=== PATIENT | male | born 1940 | race Caucasian/White ===

== ENCOUNTER 2016-07-16 19:05 | Inpatient (IN) | payer OTHER, MEDICARE ==
[2016-07-16 20:09] LABS: % IMMATURE GRANULYOCYTES 0.7 % (0.0-1.1); ABSOLUTE IMMATURE GRANULOCYTES 0.06 10^3/uL (0.00-0.10); ADD DIFF? NO; ADD MORPH? NO; ADD SCAN? NO; ATYPICAL LYMPHOCYTE FLAG 0 (0-99); FRAGMENT RBC FLAG 0 (0-99); HEMATOCRIT 37.3 % (40.0-51.0); HEMOGLOBIN 11.9 g/dL (13.7-17.5); LEFT SHIFT FLG 0 (0-99); LIPEMIA HEMOLYSIS FLAG 80 (0-99); MEAN CELL HEMOGLOBIN 30.2 pg (27.9-34.1); MEAN CELL HEMOGLOBIN CONCENTR. 31.9 g/dL (32.4-36.7); MEAN CELL VOLUME 94.7 fL (81.5-99.8); MEAN PLATELET VOLUME 9.6 fL (8.7-11.7); PLATELET CLUMPS FLAG 10 (0-99); PLATELET COUNT 226 10^3/uL (150-400); RED BLOOD CELL COUNT 3.94 10^6/uL (4.40-6.38); RED CELL DISTRIBUTION WIDTH 14.8 % (11.5-15.2)
--- NOTE | 2016-07-16 20:14 | CPEKG ---
Heart Rate: 87 RR Interval: 690 P-R Interval: 216 QRSD Interval: 94 QT Interval: 376 QTC Interval: 453 P [place]: -61 QRS [place]: -37 T Wave [place]: 74 EKG Severity - ABNORMAL ECG - EKG Impression: SINUS RHYTHM EKG Impression: LEFT AXIS DEVIATION EKG Impression: Diffuse T-wave abnormalities-- New since August 14, 2012 EKG Impression: Poor R-wave progression Electronically Signed By: Walker Butts 17-Jul-2016 17:55:53
[2016-07-16 20:17] LABS: ANION GAP 12 mEq/L (8-16); CARBON DIOXIDE 29 mEq/l (22-31); CHLORIDE 98 mEq/L (97-110); CREATININE 2.2 mg/dL (0.7-1.3); GLOMERULAR FILTRATION RATE 29; GLUCOSE 183 mg/dL (70-100); POTASSIUM 4.5 mEq/L (3.5-5.2); SODIUM 139 mEq/L (134-144)
--- NOTE | 2016-07-16 20:32 | PDGENHP ---
History and Physical - Chief Complaint Worsening leg swelling - History of Present Illness this is a 76-year-old male with history of longstanding lymphedema presented to the emergency department today with worsening swelling and irritation of his skin. States he had blisters that burst on his right heel and calf 5 days ago. Over the past day had increased skin irritation and sloughing as well as development of open wound over his right foot. He denies any increase redness to his legs. Denies any fevers or chills. 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 He was started on Lasix 3 days ago which has not really helped. He has not been able to use his compression stockings or lymphedema treatment machine for the past few days due to his irritated skin a and open sores. He denies any chest pain. Denies any worsening shortness of breath or dyspnea on exertion. He does have orthopnea. He denies any changes to his diet or increased salt intake. History Information - Allergies/Home Medication List Allergies/Adverse Reactions: amoxicillin [Amoxicillin] Allergy (Verified 07/16/16 19:26) Rash amoxicillin trihydrate [From Augmentin] Allergy (Verified 07/16/16 19:26) Rash clindamycin Allergy (Verified 07/16/16 19:26) sores in mouth cyclobenzaprine HCl [From Flexeril] Allergy (Verified 07/16/16 19:26) donepezil HCl [From Aricept] Allergy (Verified 07/16/16 19:26) fentanyl Allergy (Verified 07/16/16 19:26) confused methotrexate Allergy (Verified 07/16/16 19:26) potassium clavulanate [From Augmentin] Allergy (Verified 07/16/16 19:26) Rash Sulfa (Sulfonamide Antibiotics) Allergy (Verified 07/16/16 19:26) sores in the mouth triazolam [From Halcion] Allergy (Verified 07/16/16 19:26) Home Medications: Aspirin [Aspirin 81mg (OTC)] 81 mg PO DAILY 08/13/12 [Last Taken 10/23/12] Carvedilol [Coreg (RX)] 6.25 mg PO BIDMEAL 08/13/12 [Last Taken 11/04/12 05:30] Cholecalciferol Vit D3 [Vitamin D3 1000 units (OTC)] 1,000 units PO Q2D [Last Taken 11/03/12] Ferrous Sulfate [Iron] 325 mg PO DAILY 08/13/12 [Last Taken Unknown] Folic Acid 0.4 mg PO DAILY 08/13/12 [Last Taken 11/03/12 14:00] Insulin Glargine [Lantus 100 UNITS/ML (RX)] 10 units SC DAILY 08/13/12 [Last Taken 11/03/12 08:00] Lovastatin [Mevacor] 20 mg PO HS 08/13/12 [Last Taken 11/03/12 20:30] Omeprazole [Prilosec 40 mg] 40 mg PO DAILY 08/13/12 [Last Taken 11/04/12 05:00] Oxycodone HCl/Acetaminophen [Percocet 10-325 mg Tablet] 1 each PO QID PRN [Last Taken 11/03/12 20:30] Warfarin Sodium [Coumadin 2.5MG (RX)] 2.5 mg PO DAILY16 08/13/12 [Last Taken 08/02] Trivita B12/B6/Folic Acid 2 cap SL DAILY 10/30/12 [Last Taken 11/03/12 14:00] Gabapentin [Gabapentin 800 mg] 800 mg PO TID 07/16/16 [Last Taken 07/16/16 12:00 ] Herbals/Supplements -Info Only 1 ea PO DAILY 07/16/16 [Last Taken 07/16/16 12:00 ] I have personally reviewed and updated: family history, medical history, social history, surgical history - Past Medical History Additional medical history: Hospitalization in April of [address] [facility] for a non ST segment elevation [place], chronic kidney disease with baseline creatinine in 1.5-1.8, Atrial fibrillation status post ablation, diabetes mellitus 2, DVT, kidney stones, lymphedema, rheumatoid arthritis, sleep apnea, urinary tract infections, chronic fatigue , normal pressure hydrocephalus with urinary incontinence - Surgical History Additional surgical history: laminectomy, left eye surgery, right knee arthroscopy, bilateral cataract surgery, cardiac catheterization in 2004, right shoulder surgery 2013, malignant melanoma excision, congestive heart failure unknown ejection fraction - Social History Smoking Status: Never smoked Alcohol Use: None Drug Use: None Review of Systems ROS: 10pt was reviewed & negative except for what was stated in HPI & below Physical Exam Temp Pulse Resp BP Pulse Ox 36.8 C 87 18 127/70 H 94 07/16/16 19:18 07/16/16 19:18 07/16/16 19:18 07/16/16 19:18 07/16/16 19:18 Constitutional: no apparent distress, appears nourished, not in pain Ears, Nose, Mouth, Throat: moist mucous membranes, hearing normal, ears appear normal, no oral mucosal ulcers Cardiovascular: regular rate and rhythym, no murmur, rub, or gallop, edema ( severe bilateral lower extremity), No JVD Respiratory: no respiratory distress, no rales or rhonchi, clear to auscultation Gastrointestinal: normoactive bowel sounds, soft, non-tender abdomen, no palpable masses, No guarding, No rebound Genitourinary: no bladder fullness, no bladder tenderness Skin: warm, pressure ulcer ( sacrum), other ( 10 x 10 cm open sore over the right dorsal foot without PERRLA discharge, redness, or warmth; sore over his right proximal calf) Musculoskeletal: full muscle strength, no muscle tenderness, normal joint ROM, no joint effusions Neurologic: AAOx3, CN II-XII Intact, No facial droop Psychiatric: interacting appropriately, not anxious, not encephalopathic, thought process linear Lab Data & Imaging Review 07/16/16 19:47 07/16/16 19:47 WBC 8.13 10^3/uL (3.80-9.50) 07/16/16 19:47 RBC 3.94 10^6/uL (4.40-6.38) L 07/16/16 19:47 Hgb 11.9 g/dL (13.7-17.5) L 07/16/16 19:47 Hct 37.3 % (40.0-51.0) L 07/16/16 19:47 MCV 94.7 fL (81.5-99.8) 07/16/16 19:47 MCH 30.2 pg (27.9-34.1) 07/16/16 19:47 MCHC 31.9 g/dL (32.4-36.7) L 07/16/16 19:47 RDW 14.8 % (11.5-15.2) 07/16/16 19:47 Plt Count 226 10^3/uL (150-400) 07/16/16 19:47 MPV 9.6 fL (8.7-11.7) 07/16/16 19:47 Neut % (Auto) 67.8 % (39.3-74.2) 07/16/16 19:47 Lymph % (Auto) 14.0 % (15.0-45.0) L 07/16/16 19:47 [place] % (Auto) 12.8 % (4.5-13.0) 07/16/16 19:47 Eos % (Auto) 3.7 % (0.6-7.6) 07/16/16 19:47 Baso % (Auto) 1.0 % (0.3-1.7) 07/16/16 19:47 Nucleat RBC Rel Count 0.0 % (0.0-0.2) 07/16/16 19:47 Absolute Neuts (auto) 5.51 10^3/uL (1.70-6.50) 07/16/16 19:47 Absolute Lymphs (auto) 1.14 10^3/uL (1.00-3.00) 07/16/16 19:47 Absolute Monos (auto) 1.04 10^3/uL (0.30-0.80) H 07/16/16 19:47 Absolute Eos (auto) 0.30 10^3/uL (0.03-0.40) 07/16/16 19:47 Absolute Basos (auto) 0.08 10^3/uL (0.02-0.10) 07/16/16 19:47 Absolute Nucleated RBC 0.00 10^3/uL (0-0.01) 07/16/16 19:47 Immature Gran % 0.7 % (0.0-1.1) 07/16/16 19:47 Immature Gran # 0.06 10^3/uL (0.00-0.10) 07/16/16 19:47 Sodium 139 mEq/L (134-144) 07/16/16 19:47 Potassium 4.5 mEq/L (3.5-5.2) 07/16/16 19:47 Chloride 98 mEq/L (97-110) 07/16/16 19:47 Carbon Dioxide 29 mEq/l (22-31) 07/16/16 19:47 Anion Gap 12 mEq/L (8-16) 07/16/16 19:47 BUN 38 mg/dL (7-23) H 07/16/16 19:47 Creatinine 2.2 mg/dL (0.7-1.3) H 07/16/16 19:47 Estimated GFR 29 07/16/16 19:47 Glucose 183 mg/dL (70-100) H 07/16/16 19:47 Calcium 9.0 mg/dL (8.5-10.4) 07/16/16 19:47 Visualized and Interpreted EKG results: Yes EKG Interpretation: Positive for: normal sinsus rhythm ( 86 beats per minute), other ( left axis deviation). Negative for: Q waves, ST elevation, ST depression Assessment & Plan Assessment: This is a 76 y/o male with history of multiple medical problems presenting with #acute on chronic lower extremity edema with new open wounds over right dorsal foot and calf (present on admission) without overt signs of cellulitis -wound care consult -will defer starting antibiotics in the absence of fever, purulent discharge, significant erythema, or leukocytosis # acute kidney injury with history of CKD - hold Lasix - renal ultrasound given history of incontinence to evaluate for hydronephrosis - will order urine sodium and creatinine to calculate a FENA to further evaluate # history of congestive heart failure - obtain chest x-ray and BNP to evaluate for exacerbation which could possibly be contributing to his worsening lower extremity edema - may be helpful to consult his machinist mate in the morning Dr. Adriano Armstrong in order to obtain his most recent echo report # history of type 2 diabetes mellitus - monitor blood sugars a.c. and HS and continue his home insulin regime # history of normal pressure hydrocephalus # history of rheumatoid arthritis # history of coronary artery disease with recent NSTEMI patient will be admitted to the hospital under inpatient status. He requests to be full code
--- NOTE | 2016-07-16 20:41 | EDPHY ---
H & P Time Seen by Provider: 07/16/16 19:28 HPI/ROS: CHIEF COMPLAINT: Cellulitis right lower extremity, lymphedema HISTORY OF PRESENT ILLNESS: 76-year-old male presents to the emergency department by private vehicle with his with concerns of cellulitis to her right lower extremity. The patient has multiple medical problems including type 2 diabetes on insulin and chronic lymphedema. The patient was recently started on Lasix 40 mg and has been taking this daily for the last few days however today the was concerned because his lower legs were weeping and she is concerned about possible infection. He saw his primary care provider today and was sent to the emergency department for evaluation. No fevers or chills. The patient has neuropathy in his lower extremities since he does not report pain associated with the lower extremities. Lives independently with his in [place] who is his caregiver. He denies chest pain or difficulty breathing. He has chronic low back pain. Denies abdominal pain. Denies any reported trauma. Typically ambulates using a walker or wheelchair although he states he is unable to ambulate now because of the lymphedema. REVIEW OF SYSTEMS: Constitutional: No fever, no chills. Eyes: No double or blurry vision. ENT: No sore throat. Respiratory: No cough, no shortness of breath. Cardiac: No chest pain. Gastrointestinal: No abdominal pain, vomiting or diarrhea. Genitourinary: No dysuria. Musculoskeletal: No neck or back pain. Skin: Lymphedema as described above. Weeping bulla from the legs. Neurological: No headache. Past Medical/Surgical History: Chronic lymphedema lower extremities, type 2 diabetes on insulin, DVT right lower extremity, Malignant melanoma right shoulder, CHF, myocardial infarction April 2016, orthopedic surgeries, laminectomy and spinal fusion, eye surgery, heart of lesion July 2012, GERD Social History: and lives with his in [place] Smoking Status: Never smoked Physical Exam: General Appearance: Alert, no distress. 127/70, heart rate 87, temperature 36.8 , 94% on room air Eyes: Pupils equal and round. Extraocular motions are all intact. ENT: Mouth: Mucous membranes moist. Respiratory: No wheezing, rhonchi, or rales, lungs are clear to auscultation. Cardiovascular: Regular rate and rhythm. Gastrointestinal: Abdomen is soft and nontender, no masses, no rebound or guarding, bowel sounds normal. Neurological: Alert and oriented x 3, cranial nerves II through XII grossly intact Skin: Warm and dry, no rashes. Musculoskeletal: Nontender to palpate along the cervical, thoracic or lumbar spine. Neck is supple. Extremities: Severe lymphedema noted in his lower extremities from mid thigh down to the toes. There is multiple bowl and weeping especially to the lateral aspect of the right lower extremity and the lateral aspect of the right foot. It is warm to the touch. Patient has neuropathy and does not report tenderness with palpation. Limited range of motion of the lower extremities. Full range of motion of his upper extremities bilaterally. Psychiatric: Patient is oriented X 3, there is no agitation. Constitutional: Initial Vital Signs Temperature (C) 36.8 C 07/16/16 19:18 Heart Rate 87 07/16/16 19:18 Respiratory Rate 18 07/16/16 19:18 Blood Pressure 127/70 H 07/16/16 19:18 O2 Sat (%) 94 07/16/16 19:18 O2 Delivery Mode Room Air Allergies/Adverse Reactions: amoxicillin [Amoxicillin] Allergy (Verified 07/16/16 19:26) Rash amoxicillin trihydrate [From Augmentin] Allergy (Verified 07/16/16 19:26) Rash clindamycin Allergy (Verified 07/16/16 19:26) sores in mouth cyclobenzaprine HCl [From Flexeril] Allergy (Verified 07/16/16 19:26) donepezil HCl [From Aricept] Allergy (Verified 07/16/16 19:26) fentanyl Allergy (Verified 07/16/16 19:26) confused methotrexate Allergy (Verified 07/16/16 19:26) potassium clavulanate [From Augmentin] Allergy (Verified 07/16/16 19:26) Rash Sulfa (Sulfonamide Antibiotics) Allergy (Verified 07/16/16 19:26) sores in the mouth triazolam [From Halcion] Allergy (Verified 07/16/16 19:26) Home Medications: Medication Instructions Recorded Aspirin [Aspirin 81mg (OTC)] 81 mg PO HS 08/13/12 Carvedilol [Coreg (RX)] 6.25 mg PO BIDMEAL 08/13/12 Cholecalciferol Vit D3 [Vitamin D3 2,000 units PO Q2D 08/13/12 1000 units (OTC)] Ferrous Sulfate [Iron] 325 mg PO DAILY 08/13/12 Folic Acid 0.6 mg PO DAILY@08/13/12 Insulin Glargine [Lantus 100 30 units SC DAILY 08/13/12 UNITS/ML (RX)] Lovastatin [Mevacor] 20 mg PO HS 08/13/12 Omeprazole [Prilosec 40 mg] 40 mg PO DAILY 08/13/12 Oxycodone HCl/Acetaminophen 1 tab PO TID 08/13/12 [Percocet 10-325 mg Tablet] Warfarin Sodium [Coumadin 2.5MG 2.5 mg PO DAILY@18 08/13/12 (RX)] Trivita B12/B6/Folic Acid 1 cap PO DAILY@10/30/12 Ascorbic Acid [Vitamin C 500 mg 1,000 mg PO DAILY@07/16/16 (*)] B2/Vit A,C & E/Lut/Zeaxanth/Mn 1 tab PO DAILY 07/16/16 [Icaps Tablet] Calcium Citrate W/Vit D [Citracal 1 tab PO BID 07/16/16 + D (OTC)] Docusate Sodium [Colace 100 MG (*)] 100 mg PO DAILY 07/16/16 Docusate Sodium [Colace 100 MG (*)] 200 mg PO BID@07/16/16 Gabapentin [Gabapentin 800 mg] 800 mg PO TID 07/16/16 Herbals/Supplements -Info Only 1 ea PO DAILY 07/16/16 Hydroxychloroquine Sulfate 200 mg PO DAILY 07/16/16 [Plaquenil 200 mg (*)] Insulin Glargine [Lantus 100 40 units SC HS 07/16/16 UNITS/ML (*)] Insulin NPH Human Isophane 24 unit SQ TIDMEAL 07/16/16 [Novolin N] Leflunomide [Arava 20 mg (*)] 20 mg PO DAILY@07/16/16 Lisinopril [Zestril 2.5 mg (*)] 2.5 mg PO DAILY 07/16/16 Magnesium Oxide [Magnesium Oxide 400 mg PO DAILY@07/16/16 400 mg (*)] Multivitamins [Multivitamin (*)] 1 tab PO DAILY@07/16/16 predniSONE 5 mg PO DAILY 07/16/16 Medical Decision Making ED Course/Re-evaluation: 76-year-old male with multiple medical problems including type 2 diabetes with chronic lymphedema presents with likely cellulitis to the right lower extremity. The patient is already taking his Lasix 40 mg daily for last few days without relief. The patient will be admitted to the hospitalist, Dr. Nick Chaparro. Laboratory studies are pending. I do not think x-rays are indicated as the patient does not report any associated trauma. Laboratory studies reveal normal white blood cell count. The patient is chronically anemic. His creatinine is elevated 2.2. BUN is elevated at 38. Differential Diagnosis: Including but not limited to lymphedema, cellulitis, necrotizing fasciitis, compartment syndrome - Data Points Laboratory Results: Laboratory Results 07/16/16 19:47 07/16/16 19:47 07/16/16 07/16/16 19:47 19:47 WBC 8.13 10^3/uL 10^3/uL (3.80-9.50) RBC 3.94 10^6/uL L 10^6/uL (4.40-6.38) Hgb 11.9 g/dL L g/dL (13.7-17.5) Hct 37.3 % L % (40.0-51.0) MCV 94.7 fL fL (81.5-99.8) MCH 30.2 pg pg (27.9-34.1) MCHC 31.9 g/dL L g/dL (32.4-36.7) RDW 14.8 % % (11.5-15.2) Plt Count 226 10^3/uL 10^3/uL (150-400) MPV 9.6 fL fL (8.7-11.7) Neut % (Auto) 67.8 % % (39.3-74.2) Lymph % (Auto) 14.0 % L % (15.0-45.0) [place] % (Auto) 12.8 % % (4.5-13.0) Eos % (Auto) 3.7 % % (0.6-7.6) Baso % (Auto) 1.0 % % (0.3-1.7) Nucleat RBC Rel Count 0.0 % % (0.0-0.2) Absolute Neuts (auto) 5.51 10^3/uL 10^3/uL (1.70-6.50) Absolute Lymphs (auto) 1.14 10^3/uL 10^3/uL (1.00-3.00) Absolute Monos (auto) 1.04 10^3/uL H 10^3/uL (0.30-0.80) Absolute Eos (auto) 0.30 10^3/uL 10^3/uL (0.03-0.40) Absolute Basos (auto) 0.08 10^3/uL 10^3/uL (0.02-0.10) Absolute Nucleated RBC 0.00 10^3/uL 10^3/uL (0-0.01) Immature Gran % 0.7 % % (0.0-1.1) Immature Gran # 0.06 10^3/uL 10^3/uL (0.00-0.10) Sodium 139 mEq/L mEq/L (134-144) Potassium 4.5 mEq/L mEq/L (3.5-5.2) Chloride 98 mEq/L mEq/L (97-110) Carbon Dioxide 29 mEq/l mEq/l (22-31) Anion Gap 12 mEq/L mEq/L (8-16) BUN 38 mg/dL H mg/dL (7-23) Creatinine 2.2 mg/dL H mg/dL (0.7-1.3) Estimated GFR 29 Glucose 183 mg/dL H mg/dL (70-100) Calcium 9.0 mg/dL mg/dL (8.5-10.4) Departure - Departure Disposition: [facility] Acute Clinical Impression: Lymphedema of both lower extremities, Type 2 DM with 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
[2016-07-16] MEDS ORDERED: D50W 25 GM/50 ML SYR IVP PRN (21:45)
[2016-07-16] MEDS ORDERED: OXYCODONE HCL PO SCH (22:00)
[2016-07-16] MEDS ORDERED: ACETAMINOPHEN PO SCH (22:00)
[2016-07-16 23:04] LABS: INR 2.04 (0.83-1.16); PROTIME(PATIENT) 23.2 SEC (12.0-15.0)
[2016-07-16] MEDS: INSULIN GLARGINE 100 UNITS/ML SYRINGE SC SCH (23:04)
[2016-07-16 23:05] LABS: APTT 35.7 SEC (23.0-38.0)
[2016-07-16] MEDS: GABAPENTIN 400 MG CAP PO SCH (23:05)
[2016-07-16] MEDS: oxyCODONE IR 5 MG TAB PO SCH (23:07)
[2016-07-16] MEDS: OXYCODONE/APAP 5/325 TAB PO SCH (23:08)
[2016-07-16] MEDS: CARVEDILOL 6.25 MG TAB PO SCH (23:09)
[2016-07-16] MEDS: DOCUSATE SODIUM 100 MG CAP PO SCH (23:10)
[2016-07-16] MEDS: PRAVASTATIN SODIUM 20 MG TAB PO SCH (23:10)
[2016-07-17 04:49] LABS: % IMMATURE GRANULYOCYTES 0.6 % (0.0-1.1); ABSOLUTE IMMATURE GRANULOCYTES 0.05 10^3/uL (0.00-0.10); ADD DIFF? NO; ADD MORPH? NO; ADD SCAN? NO; ATYPICAL LYMPHOCYTE FLAG 0 (0-99); FRAGMENT RBC FLAG 0 (0-99); HEMATOCRIT 29.3 % (40.0-51.0); HEMOGLOBIN 9.5 g/dL (13.7-17.5); LEFT SHIFT FLG 0 (0-99); LIPEMIA HEMOLYSIS FLAG 80 (0-99); MEAN CELL HEMOGLOBIN 30.9 pg (27.9-34.1); MEAN CELL HEMOGLOBIN CONCENTR. 32.4 g/dL (32.4-36.7); MEAN CELL VOLUME 95.4 fL (81.5-99.8); MEAN PLATELET VOLUME 9.9 fL (8.7-11.7); PLATELET CLUMPS FLAG 0 (0-99); PLATELET COUNT 162 10^3/uL (150-400); RED BLOOD CELL COUNT 3.07 10^6/uL (4.40-6.38); RED CELL DISTRIBUTION WIDTH 14.7 % (11.5-15.2)
[2016-07-17 05:03] LABS: ANION GAP 6 mEq/L (8-16); CARBON DIOXIDE 26 mEq/l (22-31); CHLORIDE 103 mEq/L (97-110); GLOMERULAR FILTRATION RATE 33; GLUCOSE 198 mg/dL (70-100); POTASSIUM 4.3 mEq/L (3.5-5.2); SODIUM 135 mEq/L (134-144)
[2016-07-17] MEDS ORDERED: CARVEDILOL 6.25 MG TAB PO SCH (08:00)
[2016-07-17] MEDS ORDERED: LISINOPRIL 5 MG TAB PO SCH (09:00)
[2016-07-17] MEDS ORDERED: Herbals/Supplements -Info Only PO SCH (09:00)
[2016-07-17] MEDS ORDERED: CALCIUM CARB W/VIT D 500 MG TAB PO SCH (09:00)
[2016-07-17] MEDS: oxyCODONE IR 5 MG TAB PO SCH ×3 (09:38→21:28)
[2016-07-17] MEDS: GABAPENTIN 400 MG CAP PO SCH ×3 (09:38→21:27)
[2016-07-17] MEDS: OXYCODONE/APAP 5/325 TAB PO SCH ×3 (09:39→21:29)
[2016-07-17] MEDS: DOCUSATE SODIUM 100 MG CAP PO SCH ×3 (09:39→21:29)
[2016-07-17] MEDS: FERROUS SULFATE 325 MG TAB PO SCH (09:40)
[2016-07-17] MEDS: PANTOPRAZOLE SODIUM 40 MG TAB PO SCH (09:40)
[2016-07-17] MEDS: CARVEDILOL 6.25 MG TAB PO SCH ×2 (09:41→18:09)
[2016-07-17] MEDS: PRESERVISION AREDS2 FORMULA EYE VIT 1 EACH PO SCH ×2 (09:41→12:49)
[2016-07-17] MEDS: predniSONE 5 MG TAB PO SCH (09:42)
[2016-07-17] MEDS: INSULIN GLARGINE 100 UNITS/ML SYRINGE SC SCH ×2 (09:42→21:29)
[2016-07-17] MEDS: INSULIN LISPRO 100 UNIT/ML SC SCH ×5 (09:43→18:11)
[2016-07-17] MEDS ORDERED: DOCUSATE SODIUM 100 MG CAP PO SCH (12:00)
--- NOTE | 2016-07-17 12:48 | HOSPPROG ---
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 No obvious infection, afebrile, no leukocytosis. Discussed case with Derm as PCP was concerned about bullous pemphigoid. I sent her a photo for her review and she suspects this is more likely related to venous stasis than BP. -check crp and obtain wound culture -wound care ordered -triamcinolone to stasis derm areas -cont to defer atbx for now unless more obvious signs of infection or Cx positive -f/u with outpt derm, Dr. Lisa for bx to r/o BP RAMIN in setting of CKD secondary to DM - baseline Cr 1.4. Cr trending down from 2.2 to 2.0. Had recently increased Lasix dose. Reviewed renal u/s- no e/o obstruction, but bladder wall thickening could suggest CHU. -holding Lasix for now -check ua, urine Cr and urine Na to calculate FeNa -check bladder scans / PVR, straight cath if elevated PVR's H/O HF - He does not appear to be acutely decompensated. I reviewed echo from 2012, nl EF, +diastolic dysfunction. BNP 1200, down from 2450 last month. Reviewed recent cardiology visit notes, repeat echo was recommended, but not done. -echo today -monitor I&O's, daily weights Chronic hypoxemic respiratory failure - uses 2 LPM O2 at home at night. CXR read as LLL PNA, but poor film and doesn't fit clinically as no fevers or cough. -obtain PA/lat CXR for better evaluation CAD with h/o recent NSTEMI - no CP here DM type 2 - cont insulin Sacral pressure ulcer - wound care H/O A fib s/p ablation - anticoagulated, INR therapeutic. Full code Dispo - cont inpt Subjective: Pt feels okay. Denies CP, SOB, orthopnea or PND. Notes chronic LE edema, but vesicles are new over past 2 weeks. No fevers/chills. No cough. Objective: Vital Signs Temp Pulse Resp BP Pulse Ox 37.4 C 98 18 119/57 L 93 07/17/16 11:29 07/17/16 11:29 07/17/16 11:29 07/17/16 11:29 07/17/16 11:29 Laboratory Results 07/17/16 04:32 07/16/16 07/17/16 07/18/16 05:59 05:59 05:59 Output Total 420 500 Balance -420 -500 PT 23.2 SEC (12.0-15.0) H 07/16/16 22:40 INR 2.04 (0.83-1.16) H 07/16/16 22:40 - Physical Exam Constitutional: no apparent distress Eyes: PERRL Ears, Nose, Mouth, Throat: moist mucous membranes Cardiovascular: regular rate and rhythym Respiratory: no respiratory distress, clear to auscultation Gastrointestinal: normoactive bowel sounds, soft, non-tender abdomen Skin: warm Musculoskeletal: other (b/l chronic brawny discoloration of LE's c/w venous stasis and associated dermatitis. RLE with open wounds, no purulence) Neurologic: AAOx3 Psychiatric: interacting appropriately ICD10 Worksheet Patient Problems: Problems Problem Status Onset Cellulitis Acute Lymphedema of both lower extremities Acute 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
--- NOTE | 2016-07-17 13:02 | ECHO ---
[id number] + + [address] : : [place] [address] : : [phone] + + Adult Echocardiographic Report + -------+ :Name: ROZINA NORMAN WStudy Date: 07/17/2016 12:22 PM BP: 119/57 mmH g : : Hospital Admission Number: [id number] Locati on: 357: :: 1940 Gender: Male Height: 68 in : :Age: 76 yrs Race: WH Weight: 238 lb : :Reason For Study: LE Edema : : BSA: 2.2 meter s2 : :History: LE Edema, h/o heart failure, anasarca : + -------+ MMode/2D Measurements \T\ Calculations IVSd: 1.1 cm LVIDd: 4.3 cm FS: 32.4 % Ao root diam: 3.1 cm LVPWd: 1.1 cm LVIDs: 2.9 cm EDV(Teich): 81.4 ml ESV(Teich): 31.8 ml EF(Teich): 61.0 % Normal Measurement Values: + + :LVIDd (3.5-5.7cm) IVSd (0.6-1.1cm) LVPWd (0.6-1.1cm) Aortic Root (2.0-3.7cm)Left Atrium (1.5-4.0cm): :LV Vol(d) (76-115ml) LV Vol(s) (29-48ml) Ejec Fraction (50-65%)PV Godfrey (0.6- 1.2m/s) TV Godfrey (0.4-1.0m/s) : :MV E Godfrey (0.8-1.0m/s)MV A Godfrey (0.3-1.0m/s)LVOT Godfrey (0.7-1.2m/s) Asc Ao Godfrey ( 0.9-1.8m/s) : + + Doppler Measurements \T\ Calculations MV E max godfrey: Ao V2 max: LV V1 max: PA V2 max: 73.1 cm/sec 135.7 cm/sec 113.0 cm/sec 108.6 cm/sec MV A max godfrey: Ao max PG: LV V1 max PG: PA max P.6 cm/sec 7.4 mmHg 5.1 mmHg 4.7 mmHg MV E/A: 0.65 Left Ventricle The left ventricle is normal in size and function. There is mild concentric left ventricular hypertrophy. Ejection Fraction = 60-65%. There is Doppler evidence for diastolic dysfunction. No regional wall motion abnormalities noted. Right Ventricle The right ventricle is not well visualized. Atria The left atrial size is normal. Right atrial size is normal. Mitral Valve The mitral valve is normal in structure and function. There is no mitral valve stenosis. There is no mitral regurgitation noted. Tricuspid Valve The tricuspid valve is normal in structure and function. No tricuspid regurgitation. Aortic Valve The aortic valve is trileaflet. There is no aortic stenosis. There is no aortic insufficiency. Pulmonic Valve The pulmonic valve is not well visualized. Great Vessels The aortic root is normal size. Pericardium/Pleural There is no pericardial effusion. Conclusion A two-dimensional transthoracic echocardiogram with M-mode and Doppler was performed. The study was technically difficult. The left ventricle is normal in size and function. There is mild concentric left ventricular hypertrophy. Ejection Fraction = 60-65%. There is Doppler evidence for diastolic dysfunction. Final Reading Physician: Ajith Grimaldo signed on 07/17/2016 01:01 PM Ordering Physician: Deandra aDvid Performed By: Kezia Thurston
--- NOTE | 2016-07-17 14:43 | WOCRNPDOC ---
WOCRChris Advanced Assessment Note - Skin Integrity Problem, Advanced Assess Right Lower Leg Dressing Type: Open to Air Exudate Amount: Minimal Exudate Color: Clear, Reddish/Yellow Exudate Characteristic(s): Purulent (some purulence noted in distal wound on R lateral malleolus/foot), Serosanguinous Integumentary Issue Intervention: Dressing Applied, Lotion/Cream Applied ( dimethicone, to entire leg) Marianela Wound Tissue: Erythema, Swollen, Lipodermatosclerosis, Venous Dermatitis, Lichenification Marianela Wound Swelling: Severe (r/t lymphedema) Wound Bed Color: Black, Red, Yellow Wound Bed Constitution: Granulation Tissue, Mixed Loose & Adhered Slough/Eschar Wound Edges: Irregular Site Odor: Moderate Site Measurement - Head-to-Toe Length X Width X Depth (cm): RLE proximal: 3cmx4.5cmx0.1cm. RLE upper mid-lecmx3.5cmx0.1cm. RLE lower mid-le4urp5pud6.2cm. RLE distal: 6cmx7.5cmx0.4cm Lymphedema Present: Yes (patient receives ongoing therapy in outpatient setting) Skin Integrity Problem Comment: Four discrete leg wounds along patient's R lateral leg, w/ varying amounts of slough/eschar/granulation. Patient reports that these wounds started as fluid-filled "blisters," and have since de-roofed. 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 I spoke w/ his Kasandra at length about past wound care treatments, and she says she has been performing dressing changes in the home setting. Erythema throughout the R leg, and swelling, though I am uncertain this is cellulitis. I obtained a wound culture from the most distal wound on his R lateral malleolus/foot, and this was sent to the lab. After the culture, I soaked all wounds in Vashe wound cleanser for 5 minutes. I applied Therahoney sheet dressings to all of the wound beds to facilitate autolytic debridement, and secured w/ ABD and Kerlix. Wound care will follow up with patient on Thursday 07/20. Right Ischial Tuberosity Dressing Type: AllevGoWorkaBit Life Dressing Description: Clean/Dry Exudate Amount: Scant Exudate Color: Reddish/Yellow Exudate Characteristic(s): Serosanguinous Integumentary Issue Intervention: Dressing Removed, Barrier Cream Applied (3M Advanced Protection barrier film applied) Marianela Wound Tissue: Blanching, Erythema, Weeping Marianela Wound Swelling: Mild Wound Bed Color: Red Site Odor: None Site Measurement - Head-to-Toe Length X Width X Depth (cm): 3cmx1.5cmx0.1cm Pressure Injury Present on Admit: Yes (uncertain if this wound is pressure- related; wound documented in H&P) Skin Integrity Problem Comment: Partial-thickness tissue loss noted over R ischium. While this is often a site for pressure injuries, I am unceratin of the etiology of this wound. Given the marianela-wound tissue, which is red, weepy, and denuded, this wound appears more likely to be the result of incontinence- associated dermatitis, w/ some possible friction-related injury from repositioning. Patient reports using a urinal at home, but also says he is frequently wet from spilling urine. Tissue does good when pressed. I applied a new product from [employer], a clear barrier film speciffically for IAD. I also ordered a P500 specialty bed to help mitigate any pressure. Wound care will continue to monitor. Report given to laundry helper Leigh, as this is a trial product w/ specific instructions for use. Right Gluteal Cleft Dressing Type: Allevyn Life Dressing Description: Clean/Dry Exudate Amount: Scant Exudate Color: Reddish/Yellow Exudate Characteristic(s): Serosanguinous Integumentary Issue Intervention: Barrier Cream Applied ([employer] Advanced Protection barrier film) Marianela Wound Tissue: Blanching, Erythema, Weeping, Denuded Marianela Wound Swelling: Mild Wound Bed Color: Red, Yellow Wound Bed Constitution: Smooth Tissue, Adhered Slough Wound Edges: Irregular Site Odor: None Site Measurement - Head-to-Toe Length X Width X Depth (cm): 1ojs5ldx0.1cm (star- shaped) Skin Integrity Problem Comment: Star-shaped wound noted in R gluteal cleft, w/ pinpoint area of adhered slouugh medially, indicating full-thickness damage. There is documentation in the H&P indicating this is a pressure-related wound, but I am uncertain of the etiology. Marianela-wound skin is more indicative of incontinence-associated dermatitis. I applied a new 3M barrier film over this wound and surrounding tissue, and wound care will continue to monitor. I have also ordered a pressure-relieving bed, and placed patient on a turns q2 schedule as a precaution. Wound care will continue to monitor. Left Gluteal Cleft Dressing Type: Open to Air Exudate Amount: None Exudate Characteristic(s): None Integumentary Issue Intervention: Barrier Cream Applied (3M Advanced Protection barrier film) Marianela Wound Tissue: Blanching, Erythema, Raw, Weeping, Denuded Marianela Wound Swelling: Mild Wound Bed Color: Red, Yellow Wound Bed Constitution: Smooth Tissue, Adhered Slough Site Measurement - Head-to-Toe Length X Width X Depth (cm): 0.5cmx0.5cmx0.1cm Skin Integrity Problem Comment: Small, full-thickness wound noted in L gluteal cleft, not over a bony prominence. Uncertain if this wound is r/t pressure, or incontinence-associated dermatitis, or both. Marianela-wound skin throughout buttocks is red, raw, and denuded, more indicative of moisture-related damage from urine. Applied special barrier film for IAD, but also ordered p500 pressure -relieving bed and turns as a precaution.
[2016-07-17] MEDS: FOLIC ACID 1 MG TAB PO SCH (14:53)
[2016-07-17] MEDS: MAGNESIUM OXIDE 400 MG TAB PO SCH (14:54)
[2016-07-17] MEDS: HYDROXYCHLOROQUINE SULFATE 200 MG TAB PO SCH (14:54)
[2016-07-17] MEDS: LEFLUNOMIDE 20 MG TAB PO SCH (14:55)
[2016-07-17] MEDS: MULTIVITAMINS 1 EACH TAB PO SCH (14:56)
[2016-07-17] MEDS: CALCIUM CARB W/VIT D 500 MG TAB PO SCH ×2 (15:03→21:28)
[2016-07-17] MEDS: ASCORBIC ACID 500 MG TAB PO SCH (15:06)
[2016-07-17] MEDS: FOLIC ACID PO SCH (15:08)
[2016-07-17] MEDS: B6 PO SCH (15:08)
[2016-07-17] MEDS: [UNRECOGNIZED DRUG - OTHER] PO SCH (15:08)
[2016-07-17] MEDS: TRIAMCINOLONE 0.1% 15GM OINT TP SCH ×2 (16:07→21:29)
[2016-07-17] MEDS ORDERED: WARFARIN SODIUM 2.5 MG TAB PO SCH (18:00)
[2016-07-17 19:56] LABS: COLOR YELLOW; LEUKOCYTE ESTERASE,URINE 3+ (NEGATIVE); NITRITE,URINE NEGATIVE (NEGATIVE)
[2016-07-17 20:01] LABS: BACTERIA TRACE /hpf (NONE SEEN); WBC,URINE 50-182 /hpf (0-3)
[2016-07-17] MEDS ORDERED: INSULIN GLARGINE 100 UNITS/ML SYRINGE SC SCH (21:00)
[2016-07-17] MEDS ORDERED: PRAVASTATIN SODIUM 20 MG TAB PO SCH (21:00)
[2016-07-17] MEDS ORDERED: ASPIRIN 81 MG CHEWABLE TAB PO SCH (21:00)
[2016-07-17] MEDS: PRAVASTATIN SODIUM 20 MG TAB PO SCH (21:29)
[2016-07-18 05:29] LABS: INR 2.09 (0.83-1.16); PROTIME(PATIENT) 23.6 SEC (12.0-15.0)
[2016-07-18 05:30] LABS: HEMOGLOBIN 9.9 g/dL (13.7-17.5); MEAN CELL HEMOGLOBIN 30.4 pg (27.9-34.1); MEAN CELL HEMOGLOBIN CONCENTR. 31.9 g/dL (32.4-36.7); MEAN CELL VOLUME 95.1 fL (81.5-99.8); RED BLOOD CELL COUNT 3.26 10^6/uL (4.40-6.38); RED CELL DISTRIBUTION WIDTH 14.9 % (11.5-15.2)
[2016-07-18 05:36] LABS: ANION GAP 8 mEq/L (8-16); CALCIUM 8.2 mg/dL (8.5-10.4); CARBON DIOXIDE 28 mEq/l (22-31); CHLORIDE 103 mEq/L (97-110); CREATININE 1.9 mg/dL (0.7-1.3); GLOMERULAR FILTRATION RATE 35; GLUCOSE 82 mg/dL (70-100); POTASSIUM 4.3 mEq/L (3.5-5.2); SODIUM 139 mEq/L (134-144)
[2016-07-18] MEDS: PANTOPRAZOLE SODIUM 40 MG TAB PO SCH (09:22)
[2016-07-18] MEDS: GABAPENTIN 400 MG CAP PO SCH ×3 (09:23→22:22)
[2016-07-18] MEDS: PRESERVISION AREDS2 FORMULA EYE VIT 1 EACH PO SCH (09:23)
[2016-07-18] MEDS: DOCUSATE SODIUM 100 MG CAP PO SCH ×3 (09:23→20:19)
[2016-07-18] MEDS: predniSONE 5 MG TAB PO SCH (09:24)
[2016-07-18] MEDS: OXYCODONE/APAP 5/325 TAB PO SCH ×3 (09:24→22:23)
[2016-07-18] MEDS: FERROUS SULFATE 325 MG TAB PO SCH (09:24)
[2016-07-18] MEDS: CALCIUM CARB W/VIT D 500 MG TAB PO SCH ×2 (09:25→20:19)
[2016-07-18] MEDS: CHOLECALCIFEROL VIT D3 1,000 UNITS TAB PO SCH (09:25)
[2016-07-18] MEDS: CARVEDILOL 6.25 MG TAB PO SCH ×2 (09:26→18:08)
[2016-07-18] MEDS: HYDROXYCHLOROQUINE SULFATE 200 MG TAB PO SCH (09:26)
[2016-07-18] MEDS: oxyCODONE IR 5 MG TAB PO SCH ×3 (09:27→22:22)
[2016-07-18] MEDS: INSULIN GLARGINE 100 UNITS/ML SYRINGE SC SCH ×2 (09:29→20:20)
[2016-07-18] MEDS: INSULIN LISPRO 100 UNIT/ML SC SCH ×5 (09:29→18:08)
[2016-07-18] MEDS: TRIAMCINOLONE 0.1% 15GM OINT TP SCH ×3 (09:31→20:28)
[2016-07-18] MEDS: ASCORBIC ACID 500 MG TAB PO SCH (12:34)
[2016-07-18] MEDS: MULTIVITAMINS 1 EACH TAB PO SCH (12:34)
[2016-07-18] MEDS: FOLIC ACID 1 MG TAB PO SCH (12:34)
[2016-07-18] MEDS: LEFLUNOMIDE 20 MG TAB PO SCH (12:35)
[2016-07-18] MEDS: MAGNESIUM OXIDE 400 MG TAB PO SCH (12:35)
[2016-07-18] MEDS: FOLIC ACID PO SCH (12:45)
[2016-07-18] MEDS: [UNRECOGNIZED DRUG - OTHER] PO SCH (12:45)
[2016-07-18] MEDS: B6 PO SCH (12:45)
--- NOTE | 2016-07-18 13:03 | HOSPPROG ---
Hospitalist Progress Note Assessment/Plan: Diabetic foot ulcer / cellulitis in setting of chronic LE lymphedema, venous stasis and lipodermatosclerosis with new ulcerations - More concerned for infectious process today with elevated CRP, increasing erythema and worsening appearance of wound bed. GPC's on GS, wound Cx pending. He remains afebrile, no leukocytosis. Discussed case with Derm yesterday due to initial concern by PCP for bullous pemphigoid. This seems more likely an infectious process. -ID consulted today for diabetic foot ulcer, will obtain BCx's and start Vanco, await Cx's -Surgery consulted for consideration of wound debridement -check xray to eval for osteo -cont wound care -triamcinolone to stasis dermatitis where skin is intact RAMIN in setting of CKD secondary to DM - baseline Cr 1.5-1.8. Cr trending down from 2.2 to 1.9. FeNa 4.27 suggestive of ATN. Had recently increased Lasix dose as outpt. Reviewed renal u/s- no e/o obstruction, but bladder wall thickening raised concern for CHU. However, PVR's normal. -holding Lasix for now H/O HF - He does not appear to be acutely decompensated. I reviewed echo from 2012, nl EF, +diastolic dysfunction. BNP 1200, down from 2450 last month. Reviewed recent cardiology visit notes. Echo here shows nl EF, +diastolic dysfunction -monitor I&O's, daily weights -resume Lasix when Cr back to baseline and clinically indicated H/O A fib s/p ablation - In sinus here. He is anticoagulated, INR therapeutic at 2.09. Chads-vasc at least 5 with h/o HF, age, DM, h/o GA. He would qualify for bridge therapy with annual stroke risk of 6%. Could reverse INR with FFP if he undergoes surgical debridement and bridge with Lovenox if necessary post- op. Chronic hypoxemic respiratory failure - uses 2 LPM O2 at home at night. CXR read as LLL PNA, but poor film and doesn't fit clinically as no fevers or cough. Suspect his poor respiratory effort contributing to abnormal CXR appearance. CAD with h/o recent NSTEMI - no CP here. EKG reassuring. Continue ASA, statin. DM type 2 - cont insulin Sacral pressure ulcer - wound care H/O RA - had toxicity from MTX, cont chronic low dose Prednisone. H/O NPH Full code Dispo - cont inpt Subjective: Pt feels okay. Denies CP, SOB or cough. No fevers. No significant pain of LE's, but notes increased redness of right foot. Objective: Vital Signs Temp Pulse Resp BP Pulse Ox 36.9 C 92 16 131/73 H 94 07/18/16 07:43 07/18/16 07:43 07/18/16 07:43 07/18/16 07:43 07/18/16 07:43 Microbiology 07/17/16 14:01 Gram Stain - Final Foot - Swab Laboratory Results 07/18/16 04:54 07/18/16 04:54 07/17/16 07/18/16 07/19/16 05:59 05:59 05:59 Intake Total 800 Output Total 420 1000 50 Balance -420 -200 -50 PT 23.6 SEC (12.0-15.0) H 07/18/16 04:54 INR 2.09 (0.83-1.16) H 07/18/16 04:54 - Physical Exam Constitutional: no apparent distress Eyes: PERRL Ears, Nose, Mouth, Throat: moist mucous membranes Cardiovascular: regular rate and rhythym Respiratory: no respiratory distress, other (atelectatic crackles at b/l bases) Gastrointestinal: normoactive bowel sounds, soft, non-tender abdomen Musculoskeletal: other (b/l LE's with brawny edema and chronic stasis dermatitis. RLE with several oozing ulcers, lateral right foot/ankle ulcer with increased surrounding erythema and purulence, appears worse than yesterday) Neurologic: AAOx3 Psychiatric: interacting appropriately ICD10 Worksheet Patient Problems: Problems Problem Status Onset Cellulitis Acute Lymphedema of both lower extremities Acute 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
[2016-07-18] MEDS ORDERED: VANCOMYCIN 750 MG in D5W 150 ML IV SCH (14:00)
[2016-07-18] MEDS ORDERED: PHYTONADIONE 2.5 MG/2.5 ML ORAL UDL PO ONE (15:13)
--- NOTE | 2016-07-18 15:17 | PDCONSULT ---
Sounding Device Operator Note: 76 y/o male admitted 07/16/16 for worsening right leg ulcers to the medical service. Surgical consult was requested this afternoon to assess the wounds for debridement. He has a history of CHF and is on Coumadin and ASA. His manager intelligence is Dr. Andrea Armstrong. He is an insulin dependent diabetic. His leg problems started after a DVT in 1998. His is an RN and performs dressing changes at home and she brought him to the hospital because she thought he might need debridement. He uses a Jobst sequential compression device from chronic venous stasis/lymphedema and wraps his legs with FLORECITA wraps. He has moderate diabetic neuropathy. PE: pleasant elderly gentleman in NAD Focused lower extremity exam: bilateral venous stasis change with significant ( +5) pitting edema and brawny hemosiderin deposition in the skin overlying both anterior tibial regions. Popliteal pulses are +2 bilaterally, the pedal pulses are not palpable. There is patchy skin break down with partial thickness ulceration from the lateral malleolus to the knee. There is a 10 x 12 cm full thickness eschar extending from the anterolateral foot to the lateral malleolus. This is quite dry and dessicated appearing subacute/there is no purulence or foul odor. The wounds were redressed with a hydrocolloid gel/ adaptic gauze and moistened cotton gauze with saline/wrapped with Kerlix. INR 2.1 Plain films show no fracture, foreign body or obvious osteomyelitis ECHO shows an LVEF of 60-65% with diastolic dysfunction Imp: bilateral severe stasis dermatitis secondary to remote history of DVT chronic anticoagulation on Coumadin/ASA IDDM CHF-well controlled presently RLE venous stasis ulcers with distal most ulcer showing full thickness skin necrosis-subacute Rec: surgical debridement when INR 1.5 or less/vit K 5mg po today + may need FFP transfusion to allow for safe surgical procedure I would recommend a wound vac for the distal wound. Ultimately he would benefit from lower extremity venous compression garments Brooke Rocha MD, FACS
--- NOTE | 2016-07-18 15:57 | GCON ---
[f rep st] CONSULTATION INFECTIOUS DISEASE CONSULTATION. DATE OF CONSULTATION: 07/18/2016 REFERRING PHYSICIAN: Deandra David MD REASON FOR CONSULTATION: Right lower extremity cellulitis associated with multiple lower extremity ulcerations. HPI: 76-year-old male with a past medical history positive for type 2 diabetes , chronic lower extremity lymphedema, coronary artery disease, who presented to the emergency room 07/16/2016, complaining of wounds of the lower extremity that were progressively worsening since his hospitalization in April 2016 at [facility]. The patient denied any fever, malaise, in fact, he endorses that his somewhat pressured him to come for evaluation. Further, he denies any worsening shortness of breath or cough while he was at home. He does have some mild pain associated with palpation of the right lower extremity. REVIEW OF SYSTEMS: A complete 10-point review of systems was performed and is negative except as mentioned in the HPI. Pertinent positives are no diarrhea, no cough, no shortness of breath. The patient did not mention urinary complaints. PAST MEDICAL AND SURGICAL HISTORY: 1. Chronic lower extremity lymphedema. 2. Episode of cellulitis 05/13/2016, for which it appears that he received IV vancomycin. Step-down therapy not available. 3. Non-ST elevation NE in April 2016, with underlying coronary artery disease and atrial fibrillation. 4. History of DVT in the right lower extremity. 5. Type 2 diabetes, on insulin. 6. History of melanoma. 7. Diastolic heart failure. 8. Laminectomy and spinal fusion. 9. Gastroesophageal reflux disease. 10. He also has a diagnosis of early dementia and normal pressure hydrocephalus. 11. Also, rheumatoid arthritis. SOCIAL HISTORY: No tobacco or alcohol. 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 He is originally from [place]. He is . FAMILY HISTORY: Reviewed and noncontributory. ALLERGIES: Sulfa causes difficulty breathing. Amoxicillin, rash. Augmentin, rash. Clindamycin, rash. Methotrexate, rash. Halcion, rash. Flexeril, rash. MEDICATIONS: Aspirin 81 mg daily, vitamin-C 1000 mg twice daily, Coreg 6.25 mg p.o. twice daily, vancomycin 750 mg IV daily, Coumadin as directed, prednisone 5 mg daily, pravastatin 20 mg p.o. at bedtime, Protonix 40 mg p.o. daily, lisinopril 2.5 mg daily, leflunomide 20 mg daily, insulin as directed, Plaquenil 200 mg daily, Neurontin 100 mg p.o. three times daily, Lasix 40 mg p.o. daily, folic acid 1 mg daily, ferrous sulfate 325 mg daily PHYSICAL EXAM: VITAL SIGNS: Blood pressure 147/71, heart rate 92, respiratory rate 16, saturation 93% on room air, temperature 37.5. He has been afebrile throughout his hospital course. GENERAL: This is an obese male, sitting in bed , slightly hard of hearing. No acute distress. HEENT: Patient has dentures, with dry mucous membranes and somewhat smooth mucosa in his mouth. No oral ulcerations or exudates. NECK: Supple. CARDIOVASCULAR: Regular rate and rhythm with no murmur. CHEST: Poor inspiratory effort. Decreased breath sounds at bases. ABDOMEN: Obese, soft, nontender. Bowel sounds present. EXTREMITIES: Bilateral lower extremities, significant lymphedema, right more than left. His right leg had erythema on the dorsum of his foot, and his right mid to lateral ankle has multiple ulcerations. The largest is on his lateral ankle/dorsum of the foot, that has significant amount of necrotic material that is very adhered in the base, with approximate measurements, which were performed by Wound Care, of 6 x 7.5 x 0.4. He also had scattered ulcerations, more on the lateral aspect of his right lower extremity calf, approximately in the range all around 3 to 4 cm that were very superficial. Patient has woody edema consistent with diagnosis of lymphedema. Pulses were not palpable on exam , but were dopplerable by Nursing. NEUROLOGICAL: The patient was moving all 4 extremities equally, and was responding appropriately to questions. LABS: Creatinine 1.9, on admission 2.0. BNP 1290. CRP 40. White count 8.9, hematocrit 31, platelets of 168. Differential was performed on the white count yesterday, which is 8 as well, and was normal with 65 neutrophils, 16% lymphocytes. INR 2.0. Urinalysis 50 to 182 wbc's, 10-15 rbc's. ASSESSMENT AND PLAN: This is a 76-year-old male with multiple medical problems including diabetes, chronic lymphedema, who has multiple ulcerations of his lower extremity, now with right lower extremity cellulitis evidence by warmth, pain and increasing size of ulceration. WBC is normal. Patient has not been using his lymphedema pump this year in an attempt to heal wound first before resuming lymphedema pump. I suspect that these ulcers could be multifactorial including due to lymphedema, chronic venous insufficiency plus underlying diabetes, i.e., diabetic foot ulcer. Suspect these chronic open wounds were portal of entry for right lower extremity cellulitis. The patient does not have signs concerning for necrotizing fasciitis at this time. Nonetheless, these wounds will be slow to heal without more significant debridement, and necrotic material is too adhered for Wound Care to chemically debride. RECOMMENDATIONS: 1. Would empirically start patient on IV vancomycin dosed for creatinine clearance of 50, which would be 750 mg IV daily. 2. We will follow wound cultures that were collected by primary team. 3. Obtain blood cultures prior to initiation of IV antibiotics. 4. Obtain surgical consult for debridement. Thank you for this consultation. We will continue to follow him with you. /[id number]/MODL MTDD
[2016-07-18] MEDS: PRAVASTATIN SODIUM 20 MG TAB PO SCH (20:20)
[2016-07-19 05:28] LABS: % IMMATURE GRANULYOCYTES 0.6 % (0.0-1.1); ABSOLUTE IMMATURE GRANULOCYTES 0.06 10^3/uL (0.00-0.10); ADD DIFF? NO; ADD MORPH? NO; ADD SCAN? NO; ATYPICAL LYMPHOCYTE FLAG 0 (0-99); FRAGMENT RBC FLAG 0 (0-99); HEMATOCRIT 30.7 % (40.0-51.0); HEMOGLOBIN 9.8 g/dL (13.7-17.5); LEFT SHIFT FLG 0 (0-99); LIPEMIA HEMOLYSIS FLAG 80 (0-99); MEAN CELL HEMOGLOBIN 30.6 pg (27.9-34.1); MEAN CELL HEMOGLOBIN CONCENTR. 31.9 g/dL (32.4-36.7); MEAN CELL VOLUME 95.9 fL (81.5-99.8); MEAN PLATELET VOLUME 9.6 fL (8.7-11.7); PLATELET CLUMPS FLAG 10 (0-99); PLATELET COUNT 179 10^3/uL (150-400); RED CELL DISTRIBUTION WIDTH 14.7 % (11.5-15.2)
[2016-07-19 05:32] LABS: INR 1.61 (0.83-1.16); PROTIME(PATIENT) 19.2 SEC (12.0-15.0)
[2016-07-19 05:46] LABS: ANION GAP 7 mEq/L (8-16); CALCIUM 8.6 mg/dL (8.5-10.4); CARBON DIOXIDE 27 mEq/l (22-31); CHLORIDE 103 mEq/L (97-110); CREATININE 1.8 mg/dL (0.7-1.3); GLOMERULAR FILTRATION RATE 37; GLUCOSE 118 mg/dL (70-100); POTASSIUM 4.3 mEq/L (3.5-5.2); SODIUM 137 mEq/L (134-144)
[2016-07-19] MEDS: INSULIN LISPRO 100 UNIT/ML SC SCH ×5 (07:49→17:45)
[2016-07-19] MEDS: FERROUS SULFATE 325 MG TAB PO SCH (07:50)
[2016-07-19] MEDS: DOCUSATE SODIUM 100 MG CAP PO SCH ×3 (07:50→22:22)
[2016-07-19] MEDS: PRESERVISION AREDS2 FORMULA EYE VIT 1 EACH PO SCH (08:58)
[2016-07-19] MEDS: CALCIUM CARB W/VIT D 500 MG TAB PO SCH ×2 (08:58→22:23)
[2016-07-19] MEDS: CARVEDILOL 6.25 MG TAB PO SCH ×2 (08:58→17:44)
--- NOTE | 2016-07-19 09:13 | PCMIDPN ---
Assessment/Plan: #RLE cellulitis associated with large wound lateral foot/ankle, fainter erythema today x 1 dose vancomycin. Wound from venous insufficiency vs lymphedema or both. Cultures show streptococcus. No evidence of past MRSA. Records at outside hospitals were reviewed yesterday with initial consultation. --dc vancomycin --start cefazolin 1gm IV q8 with CrCl 50. Duration of therapy unclear at this point. #Pyuria: no urinary sx, no further w/u needed Microbiology 07/17 wound culture group C/D Streptococcus 07/18 blood cultures 2 sets pending Subjective: patient feels redness less RLE Objective: Vital Signs Temp Pulse Resp BP Pulse Ox 37.6 C 90 22 H 138/72 H 91 L 07/19/16 07:32 07/19/16 08:58 07/19/16 07:32 07/19/16 08:58 07/19/16 07:32 Microbiology 07/17/16 14:01 Gram Stain - Final Foot - Swab Laboratory Results 07/19/16 05:14 07/19/16 05:14 07/18/16 07/19/16 07/20/16 05:59 05:59 05:59 Intake Total 800 390 Output Total 1000 2750 Balance -200 -2360 C-Reactive Protein 40.0 mg/L (<10.0) H 07/17/16 04:30 - Physical Exam General Appearance: alert, no apparent distress, obese Respiratory: lungs clear Neck: supple Cardiac/Chest: regular rate, rhythm, systolic murmur Extremities: pedal edema (R>L, chronic appearance), erythema (erythema distal leg/foot right with recession compared to yesterday. Primarily surround foot wound. ), other (6 x 7.5 x 0.4 cm wound R lateral foot/ankle; multiple other superficial wound on RLE) Abdomen: non-tender, soft Male Genitalia: No blum, No scrotal edema Skin: No rash Neuro/Psych: alert, normal mood/affect, oriented x 3, other (KLAMATH) ICD10 Worksheet Patient Problems: Problems Problem Status Onset Cellulitis Acute Lymphedema of both lower extremities Acute 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
[2016-07-19] MEDS: INSULIN GLARGINE 100 UNITS/ML SYRINGE SC SCH ×2 (09:27→22:24)
[2016-07-19] MEDS: HYDROXYCHLOROQUINE SULFATE 200 MG TAB PO SCH (09:28)
[2016-07-19] MEDS: OXYCODONE/APAP 5/325 TAB PO SCH ×3 (09:29→22:47)
[2016-07-19] MEDS: oxyCODONE IR 5 MG TAB PO SCH ×3 (09:29→22:46)
[2016-07-19] MEDS: PANTOPRAZOLE SODIUM 40 MG TAB PO SCH (09:32)
[2016-07-19] MEDS: TRIAMCINOLONE 0.1% 15GM OINT TP SCH ×3 (09:32→22:45)
[2016-07-19] MEDS: predniSONE 5 MG TAB PO SCH (09:32)
[2016-07-19] MEDS: GABAPENTIN 400 MG CAP PO SCH ×3 (09:41→22:23)
--- NOTE | 2016-07-19 11:31 | SOAPPROG ---
Downtime Inpatient MD Late Entry SOAP Note: Wound appears unchanged/redressed-repeat INR after FFP pending I discussed surgical debridement and wound vac application Informed consent was obtained Brooke Rocha MD, FACS
[2016-07-19] MEDS ORDERED: BUPIVACAINE 0.5% 30 ML SDV ONE (12:18)
[2016-07-19] MEDS ORDERED: POLYMYXIN B SULFATE 500,000 UNIT/10 ML SYR IRR ONE (12:19)
[2016-07-19] MEDS ORDERED: BACITRACIN 50,000 UNITS/10 ML SYR IRR ONE (12:19)
[2016-07-19 12:50] LABS: INR 1.37 (0.83-1.16); PROTIME(PATIENT) 16.9 SEC (12.0-15.0)
[2016-07-19] MEDS ORDERED: ONDANSETRON 4 MG/2 ML VIAL ONE (13:07)
[2016-07-19] MEDS ORDERED: PROPOFOL/EMULSION 500 MG/50 ML BOTTLE IV ONE (13:07)
[2016-07-19] MEDS ORDERED: fentaNYL 100 MCG/2 ML INJ ONE ×2 (13:07→14:58)
[2016-07-19] MEDS ORDERED: LIDOCAINE 2% 5 ML SDV ONE (13:07)
[2016-07-19] MEDS: LEFLUNOMIDE 20 MG TAB PO SCH (13:23)
[2016-07-19] MEDS: FOLIC ACID 1 MG TAB PO SCH (13:23)
[2016-07-19] MEDS: MAGNESIUM OXIDE 400 MG TAB PO SCH (13:23)
[2016-07-19] MEDS: MULTIVITAMINS 1 EACH TAB PO SCH (13:24)
[2016-07-19] MEDS: [UNRECOGNIZED DRUG - OTHER] PO SCH (13:24)
[2016-07-19] MEDS: FOLIC ACID PO SCH (13:24)
[2016-07-19] MEDS: B6 PO SCH (13:24)
[2016-07-19] MEDS: ASCORBIC ACID 500 MG TAB PO SCH (13:39)
[2016-07-19] MEDS ORDERED: PHENYLEPHRINE HCL 100 MCG/ML SYR ONE (13:57)
[2016-07-19] MEDS ORDERED: BUPIVACAINE/EPI 0.5% 30 ML SDV ONE (14:13)
--- NOTE | 2016-07-19 14:45 | POSTOPPROG ---
Post Op Note Date of Operation: 07/19/16 Surgeon: Ovi Rocha (, FACS) Anesthesia: LMA Pre-op Diagnosis: right lateral foot/ankle venous stasis ulcer Procedure: debridement of right laterl foot/ankle venous stasis ulcer Inf/Abcess present in the surg proc area at time of surgery?: Yes Depth: Deep Incisional (Fascial) EBL: 50-100 Drains: Wound Vac
[2016-07-19] MEDS ORDERED: OXYCODONE/APAP 5/325 TAB ONE (14:50)
[2016-07-19] MEDS ORDERED: oxyCODONE IR 5 MG TAB ONE (14:51)
--- NOTE | 2016-07-19 14:52 | HOSPPROG ---
Hospitalist Progress Note Assessment/Plan: 76-year-old male admitted with a question of a lower extremity cellulitis. He is status post 24 hours of vancomycin and per surgery and Infectious Disease the wound appears to be improving. Culture showing strep organism and his antibiotics will be simplified to Ancef. Patient is new to me today. - Diabetic 4 ulcer versus cellulitis in the setting of lower extremity lymphedema and venous stasis. Wound appears to be improving after 24 hours of antibiotics. Surgeries currently considering debridement. - Acute kidney injury with a baseline creatinine 1.5-1.8. This morning's creatinine is at baseline. The initial injury was probably ATN secondary to dehydration and the acute illness. Will continue to hold Lasix until final surgical debridement is performed. - History of atrial fibrillation status post ablation. He is currently anticoagulated on Coumadin and we are reversing the anticoagulation for surgery. Today's INR post vitamin K and FFP is less than 1.5. Plan to use Lovenox to bridge following surgery. - Chronic hypoxic respiratory failure. Patient uses 2 LPM O2 at home at night. Chest x-ray read as a possible LLL pneumonia. Clinically there is no evidence of pneumonia and he is improving with antibiotics for the wound infection. Plan to watch his oxygenation and clinical findings of his lung for any signs of possible pneumonia but there are none now. - CHF by history with a normal EF and diastolic dysfunction present. No evidence of decompensation. 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 - CAD: History of recent and ST VLADISLAV no chest pain an ECG is reassuring will continue ASA and statin. Plan: Reversal of anticoagulation for surgical debridement. Continue to watch creatinine and evidence of acute or chronic kidney disease failure. Watch lung exam and clinical findings for possibility of pneumonia. Subjective: Feeling slightly improved and the patient believes that his wound of his leg is improving per the pictures from admission. No complaints of shortness of breath chest pain nausea or vomiting. Objective: Vital Signs Temp Pulse Resp BP Pulse Ox 36.8 C 85 16 123/65 H 94 07/19/16 12:00 07/19/16 12:00 07/19/16 12:00 07/19/16 12:00 07/19/16 12:00 Microbiology 07/17/16 14:01 Gram Stain - Final Foot - Swab Laboratory Results 07/19/16 05:14 07/19/16 05:14 07/18/16 07/19/16 07/20/16 05:59 05:59 05:59 Intake Total 800 390 Output Total 1000 2750 Balance -200 -2360 PT 16.9 SEC (12.0-15.0) H 07/19/16 12:15 INR 1.37 (0.83-1.16) H 07/19/16 12:15 - Time Spent With Patient Time Spent with Patient: greater than 35 minutes Time Spent with Patient: Greater than 35 minutes spent on this patients care, greater than 50% of time spent counseling, educating, and coordinating care regarding the above mentioned plan. - Pending Discharge Pending Discharge Within 24 Hours: No Pending Discharge Within 48 Hours: Yes Pending Discharge Date: 07/21/16 Pending Discharge Time: 11:00 - Physical Exam Constitutional: no apparent distress Eyes: PERRL, anicteric sclera Ears, Nose, Mouth, Throat: moist mucous membranes, hearing normal Cardiovascular: regular rate and rhythym, systolic murmur Respiratory: no respiratory distress, no rales or rhonchi, clear to auscultation Gastrointestinal: normoactive bowel sounds, soft, non-tender abdomen, no palpable masses Skin: other ( Ulceration appears with some necrotic debris yet the erythema surrounding the area per report of the patient and the pictures from admission is less than admission.) Musculoskeletal: generalized weakness Neurologic: AAOx3, CN II-XII Intact ICD10 Worksheet Patient Problems: Problems Problem Status Onset Supraventricular tachycardia Active Lymphedema of both lower extremities Acute Cellulitis Acute 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
[2016-07-19] MEDS: PRAVASTATIN SODIUM 20 MG TAB PO SCH (22:23)
[2016-07-19] MEDS: ENOXAPARIN 100 MG/ML SYR SC SCH (22:24)
[2016-07-20 05:47] LABS: % IMMATURE GRANULYOCYTES 0.4 % (0.0-1.1); ABSOLUTE IMMATURE GRANULOCYTES 0.03 10^3/uL (0.00-0.10); ADD DIFF? NO; ADD MORPH? NO; ADD SCAN? NO; ATYPICAL LYMPHOCYTE FLAG 0 (0-99); FRAGMENT RBC FLAG 0 (0-99); HEMATOCRIT 30.3 % (40.0-51.0); HEMOGLOBIN 9.7 g/dL (13.7-17.5); LEFT SHIFT FLG 0 (0-99); LIPEMIA HEMOLYSIS FLAG 80 (0-99); MEAN CELL VOLUME 96.8 fL (81.5-99.8); MEAN PLATELET VOLUME 9.6 fL (8.7-11.7); PLATELET CLUMPS FLAG 0 (0-99); PLATELET COUNT 173 10^3/uL (150-400); RED BLOOD CELL COUNT 3.13 10^6/uL (4.40-6.38); RED CELL DISTRIBUTION WIDTH 14.6 % (11.5-15.2)
[2016-07-20 05:58] LABS: ANION GAP 8 mEq/L (8-16); CALCIUM 8.4 mg/dL (8.5-10.4); CARBON DIOXIDE 25 mEq/l (22-31); CHLORIDE 104 mEq/L (97-110); CREATININE 1.7 mg/dL (0.7-1.3); GLOMERULAR FILTRATION RATE 39; GLUCOSE 162 mg/dL (70-100); POTASSIUM 4.1 mEq/L (3.5-5.2); SODIUM 137 mEq/L (134-144)
[2016-07-20 06:03] LABS: INR 1.31 (0.83-1.16); PROTIME(PATIENT) 16.3 SEC (12.0-15.0)
--- NOTE | 2016-07-20 08:37 | SOAPPROG ---
SOAP Progress Note Assessment/Plan: Assessment: RLE venous stasis ulcers/s/p debridement full thickness 8 x 12 x .5 cm wound right lateral foot and ankle with wound vac Patient placed on Lovenox 1mg/kg SC BID until therapeutic in his INR o.k. to restart Coumadin Plan: continue wound vac/management of proximal venous stasis ulcers per tourist camp attendant S Johs, MD, FACS 07/20/16 08:34 Subjective: sleeping soundly Objective: Vital Signs Temp Pulse Resp BP Pulse Ox 36.4 C 88 16 156/79 H 93 07/20/16 04:00 07/20/16 04:00 07/20/16 04:00 07/20/16 04:00 07/20/16 04:00 Microbiology 07/17/16 14:01 Gram Stain - Final Foot - Swab Wound Culture - Final Strep Dysgalactiae Grp C/G Laboratory Results 07/20/16 05:24 07/20/16 05:24 07/19/16 07/20/16 07/21/16 05:59 05:59 05:59 Intake Total 390 1300 250 Output Total 2750 1110 Balance -2360 190 250 PT 16.3 SEC (12.0-15.0) H 07/20/16 05:24 INR 1.31 (0.83-1.16) H 07/20/16 05:24 Physical Exam - Physical Exam General Appearance: no apparent distress Extremities: other (Right distal wound vac intact/less swelling dorsum of foot) ICD10 Worksheet Patient Problems: Problems Problem Status Onset Cellulitis Acute Lymphedema of both lower extremities Acute 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
[2016-07-20] MEDS: TRIAMCINOLONE 0.1% 15GM OINT TP SCH ×3 (09:00→22:16)
[2016-07-20] MEDS: INSULIN LISPRO 100 UNIT/ML SC SCH ×5 (09:00→18:14)
[2016-07-20] MEDS: OXYCODONE/APAP 5/325 TAB PO SCH ×5 (09:15→23:57)
[2016-07-20] MEDS: oxyCODONE IR 5 MG TAB PO SCH ×3 (09:15→22:07)
[2016-07-20] MEDS: INSULIN GLARGINE 100 UNITS/ML SYRINGE SC SCH ×2 (09:17→20:36)
[2016-07-20] MEDS: GABAPENTIN 400 MG CAP PO SCH ×3 (09:17→22:07)
[2016-07-20] MEDS: predniSONE 5 MG TAB PO SCH (09:17)
[2016-07-20] MEDS: DOCUSATE SODIUM 100 MG CAP PO SCH ×3 (09:18→20:34)
[2016-07-20] MEDS: HYDROXYCHLOROQUINE SULFATE 200 MG TAB PO SCH (09:18)
[2016-07-20] MEDS: CALCIUM CARB W/VIT D 500 MG TAB PO SCH ×2 (09:18→20:35)
[2016-07-20] MEDS: CHOLECALCIFEROL VIT D3 1,000 UNITS TAB PO SCH (09:18)
[2016-07-20] MEDS: PRESERVISION AREDS2 FORMULA EYE VIT 1 EACH PO SCH (09:18)
[2016-07-20] MEDS: PANTOPRAZOLE SODIUM 40 MG TAB PO SCH (09:18)
[2016-07-20] MEDS: FERROUS SULFATE 325 MG TAB PO SCH (09:18)
[2016-07-20] MEDS: ENOXAPARIN 100 MG/ML SYR SC SCH ×2 (09:18→20:36)
[2016-07-20] MEDS: CARVEDILOL 6.25 MG TAB PO SCH ×2 (09:37→17:56)
--- NOTE | 2016-07-20 11:16 | WOCRNPDOC ---
WOCRN Advanced Assessment Note - Skin Integrity Problem, Advanced Assess Right Ischial Tuberosity Dressing Type: Open to Air (This site is being treated w/ 3M Advanced Protection System barrier film, which is clear when applied.) Exudate Amount: None Exudate Characteristic(s): None Integumentary Issue Intervention: Barrier Cream Applied (3M Advanced Protection System) Marianela Wound Tissue: Blanching Marianela Wound Swelling: Mild Wound Bed Color: Red Wound Edges: Epithelizing Skin Integrity Problem Comment: Site improved since assessment on 07/17. Wound is epithelializing all along margins, with two, discrete smaller partial- thickness areas remaining in the previous larger wound.The 3M Advanced Protection Barrier film appears to be working to protect the skin from moisture/ urine. Applied another layer today, and will reassess on Saturday 07/22. title coordinatorREYNALDO davies. Verbalized understanding of product and how it is applied. Right Gluteal Cleft Dressing Type: Open to Air (This site is being treated w/ 3M Advanced Protection System barrier film, which is clear when applied.) Exudate Amount: None Exudate Characteristic(s): None Integumentary Issue Intervention: Barrier Cream Applied Marianela Wound Tissue: Blanching Marianela Wound Swelling: None Wound Bed Color: [place] Site Odor: None Skin Integrity Problem Comment: Previous partial-thickness wound almost fully epithelialized. Continue w/ tx of 3M APS and low air loss P500 bed. Left Gluteal Cleft Dressing Type: Open to Air (This site is being treated w/ 3M Advanced Protection System barrier film, which is clear when applied.) Exudate Amount: None Exudate Characteristic(s): None Integumentary Issue Intervention: Barrier Cream Applied Marianela Wound Tissue: Blanching, Denuded Marianela Wound Swelling: Mild Wound Bed Color: Red Wound Edges: Epithelizing Skin Integrity Problem Comment: Small area of partial-thickness tissue loss noted, improved since previous assessment. Periwound skin remains mildly denuded , w/ a fragile/friable appearance. Continue w/ 3M APS barrier film and P500 bed.
[2016-07-20] MEDS: [UNRECOGNIZED DRUG - OTHER] PO SCH (12:00)
[2016-07-20] MEDS: B6 PO SCH (12:00)
[2016-07-20] MEDS: FOLIC ACID PO SCH (12:00)
[2016-07-20] MEDS: FOLIC ACID 1 MG TAB PO SCH (13:27)
[2016-07-20] MEDS: LEFLUNOMIDE 20 MG TAB PO SCH (13:27)
[2016-07-20] MEDS: ASCORBIC ACID 500 MG TAB PO SCH (13:27)
[2016-07-20] MEDS: MULTIVITAMINS 1 EACH TAB PO SCH (13:28)
[2016-07-20] MEDS: MAGNESIUM OXIDE 400 MG TAB PO SCH (13:28)
--- NOTE | 2016-07-20 15:09 | HOSPPROG ---
Hospitalist Progress Note Assessment/Plan: 76-year-old male admitted with a question of a lower extremity cellulitis. Patient currently on Ancef and is status post debridement on 07/19. Today the wound looks improved per surgery and wound care. Patient is afebrile with a normal white count. - Diabetic 4 ulcer versus cellulitis in the setting of lower extremity lymphedema and venous stasis. Improving post debridement and wound care. He is continuing on antibiotics of Ancef. - Acute kidney injury with a baseline creatinine 1.5-1.8. This morning's creatinine is at baseline. The initial injury was probably ATN secondary to dehydration and the acute illness. Will start a low dose of Lasix as the patient's weight is up 7 the 9 kg since admission. This is a new problem. This likely represents rehydration and sometimes excess hydration. He has used Lasix before. - History of atrial fibrillation status post ablation. He is currently anticoagulated on Coumadin and we are reversing the anticoagulation for surgery. Plan to use Lovenox to bridge following surgery and restart the Coumadin. - Chronic hypoxic respiratory failure. Patient uses 2 LPM O2 at home at night. Chest x-ray read as a possible LLL pneumonia. Clinically there is no evidence of pneumonia and he is improving with antibiotics for the wound infection. Plan to watch his oxygenation and clinical findings of his lung for any signs of possible pneumonia but there are none now. - CHF by history with a normal EF and diastolic dysfunction present. No evidence of decompensation. BNP on this admission is at 1200 which is less than it was 1 month [employer]. - CAD: History of recent and ST VLADISLAV no chest pain an ECG is reassuring will continue ASA and statin. Plan: Gentle diuresis for extracellular fluid accumulation post hydration, restart Coumadin and begin Lovenox at full anticoagulation, continue wound care and antibiotics, and PT OT for ambulation and mobility. Subjective: Reports some back pain without chest pain or shortness of breath. He says the leg is feeling much better. No abdominal pain. Objective: Vital Signs Temp Pulse Resp BP Pulse Ox 37.4 C 89 18 153/78 H 93 07/20/16 08:00 07/20/16 09:37 07/20/16 08:00 07/20/16 09:37 07/20/16 08:00 Microbiology 07/17/16 14:01 Gram Stain - Final Foot - Swab Wound Culture - Final Strep Dysgalactiae Grp C/G Laboratory Results 07/20/16 05:24 07/20/16 05:24 07/19/16 07/20/16 07/21/16 05:59 05:59 05:59 Intake Total 390 1300 250 Output Total 2750 1110 Balance -2360 190 250 PT 16.3 SEC (12.0-15.0) H 07/20/16 05:24 INR 1.31 (0.83-1.16) H 07/20/16 05:24 - Time Spent With Patient Time Spent with Patient: greater than 35 minutes Time Spent with Patient: Greater than 35 minutes spent on this patients care, greater than 50% of time spent counseling, educating, and coordinating care regarding the above mentioned plan. - Pending Discharge Pending Discharge Within 24 Hours: No Pending Discharge Within 48 Hours: No - Physical Exam Constitutional: no apparent distress, chronically ill appearing Eyes: PERRL Ears, Nose, Mouth, Throat: moist mucous membranes Cardiovascular: regular rate and rhythym Respiratory: no respiratory distress, no rales or rhonchi Gastrointestinal: normoactive bowel sounds, soft, non-tender abdomen, no palpable masses, other (Obesity noted) Skin: other (Wound VAC in place over the right lateral foot and surgical dressings in place on the lateral lower leg. 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
[2016-07-20] MEDS: FUROSEMIDE 40 MG TAB PO SCH (16:13)
[2016-07-20] MEDS ORDERED: WARFARIN SODIUM 2.5 MG TAB PO SCH (16:30)
--- NOTE | 2016-07-20 19:47 | PCMIDPN ---
Assessment/Plan: Assessment/Plan: * Right lower extremity cellulitis with lower extremity ulcerations status post debridement: Culture showing growth of group C/G Streptococcus. Residual erythema around margin of wound VAC. History of lymphedema with likely component due to venous insufficiency based on appearance of left lower extremity. Continue cefazolin and follow wound and surrounding erythema with time. 07/20/16 19:45 Subjective: Patient with pain around right ankle. Objective: Vital Signs Temp Pulse Resp BP Pulse Ox 37.0 C 94 20 130/68 H 94 07/20/16 16:00 07/20/16 17:56 07/20/16 16:00 07/20/16 17:56 07/20/16 16:00 Microbiology 07/17/16 14:01 Gram Stain - Final Foot - Swab Wound Culture - Final Strep Dysgalactiae Grp C/G Laboratory Results 07/20/16 05:24 07/20/16 05:24 07/19/16 07/20/16 07/21/16 05:59 05:59 05:59 Intake Total 390 1300 780 Output Total 2750 1110 2000 Balance -2360 190 -1220 C-Reactive Protein 40.0 mg/L (<10.0) H 07/17/16 04:30 Ceftriaxone # 2 Antibiotics # 3 Blood cultures x2 no growth Wound culture with growth of group C/G Streptococcus - Physical Exam General Appearance: alert, no apparent distress, obese EENT: No scleral icterus Extremities: inflammation (Right ankle with wound VAC in place with surrounding erythema and warmth; lichenification and edema of toes present with erythema overlying dorsum of foot) Skin: other (Venous insufficiency changes over left anterior holder with lichenification present) ICD10 Worksheet Patient Problems: Problems Problem Status Onset Cellulitis Acute Lymphedema of both lower extremities Acute 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
[2016-07-20] MEDS: PRAVASTATIN SODIUM 20 MG TAB PO SCH (20:35)
[2016-07-20] MEDS: HYDROmorphONE/DILAUDID 1 MG/ML SYR IVP PRN (22:53)
[2016-07-21] MEDS: OXYCODONE/APAP 5/325 TAB PO SCH ×6 (04:17→23:45)
[2016-07-21 04:35] LABS: % IMMATURE GRANULYOCYTES 0.8 % (0.0-1.1); ABSOLUTE IMMATURE GRANULOCYTES 0.06 10^3/uL (0.00-0.10); ADD DIFF? NO; ADD MORPH? NO; ADD SCAN? NO; ATYPICAL LYMPHOCYTE FLAG 0 (0-99); FRAGMENT RBC FLAG 0 (0-99); HEMATOCRIT 31.1 % (40.0-51.0); HEMOGLOBIN 10.1 g/dL (13.7-17.5); LEFT SHIFT FLG 0 (0-99); LIPEMIA HEMOLYSIS FLAG 80 (0-99); MEAN CELL HEMOGLOBIN 30.1 pg (27.9-34.1); MEAN CELL HEMOGLOBIN CONCENTR. 32.5 g/dL (32.4-36.7); MEAN CELL VOLUME 92.8 fL (81.5-99.8); MEAN PLATELET VOLUME 9.7 fL (8.7-11.7); PLATELET CLUMPS FLAG 0 (0-99); PLATELET COUNT 183 10^3/uL (150-400); RED BLOOD CELL COUNT 3.35 10^6/uL (4.40-6.38); RED CELL DISTRIBUTION WIDTH 14.3 % (11.5-15.2)
[2016-07-21 04:51] LABS: INR 1.24 (0.83-1.16); PROTIME(PATIENT) 15.6 SEC (12.0-15.0)
[2016-07-21] MEDS: HYDROmorphONE/DILAUDID 1 MG/ML SYR IVP PRN ×3 (05:00→23:50)
[2016-07-21 05:30] LABS: ANION GAP 7 mEq/L (8-16); CALCIUM 8.6 mg/dL (8.5-10.4); CARBON DIOXIDE 29 mEq/l (22-31); CHLORIDE 102 mEq/L (97-110); CREATININE 1.8 mg/dL (0.7-1.3); GLOMERULAR FILTRATION RATE 37; GLUCOSE 165 mg/dL (70-100); SODIUM 138 mEq/L (134-144)
--- NOTE | 2016-07-21 08:44 | PDCONSULT ---
Wet Inspector Optical Glass Note: Mr. Cunningham denies pain, other than in his low back when being shifted from side to side The right foot wound vac is intact with no significant bleeding There is some oozing through his calf dressing where he has several partial thickness ulcers. Will request bedside dressing changes. Discussed need for [facility] agency that can provide for wound vac therapy at home. [facility] as outpatient Brooke Rocha MD, FACS
[2016-07-21] MEDS: oxyCODONE IR 5 MG TAB PO SCH ×3 (09:02→22:47)
[2016-07-21] MEDS: CARVEDILOL 6.25 MG TAB PO SCH ×2 (09:03→18:17)
[2016-07-21] MEDS: FERROUS SULFATE 325 MG TAB PO SCH (09:04)
[2016-07-21] MEDS: CALCIUM CARB W/VIT D 500 MG TAB PO SCH ×2 (09:04→20:33)
[2016-07-21] MEDS: GABAPENTIN 400 MG CAP PO SCH ×3 (09:04→22:47)
[2016-07-21] MEDS: DOCUSATE SODIUM 100 MG CAP PO SCH ×3 (09:04→20:33)
[2016-07-21] MEDS: PRESERVISION AREDS2 FORMULA EYE VIT 1 EACH PO SCH (09:04)
[2016-07-21] MEDS: ENOXAPARIN 100 MG/ML SYR SC SCH ×2 (09:05→20:31)
[2016-07-21] MEDS: CHOLECALCIFEROL VIT D3 1,000 UNITS TAB PO SCH (09:05)
[2016-07-21] MEDS: FUROSEMIDE 40 MG TAB PO SCH (09:05)
[2016-07-21] MEDS: INSULIN LISPRO 100 UNIT/ML SC SCH ×5 (09:06→19:05)
[2016-07-21] MEDS: PANTOPRAZOLE SODIUM 40 MG TAB PO SCH (09:09)
[2016-07-21] MEDS: HYDROXYCHLOROQUINE SULFATE 200 MG TAB PO SCH (09:09)
[2016-07-21] MEDS: predniSONE 5 MG TAB PO SCH (09:09)
[2016-07-21] MEDS: TRIAMCINOLONE 0.1% 15GM OINT TP SCH ×3 (09:30→22:49)
[2016-07-21] MEDS: INSULIN GLARGINE 100 UNITS/ML SYRINGE SC SCH ×2 (10:24→20:32)
--- NOTE | 2016-07-21 10:59 | PCMIDPN ---
Assessment/Plan: Assessment/Plan: * Right lower extremity cellulitis with lower extremity ulcerations status post debridement: Culture showing growth of group C/G Streptococcus. Erythema around wound VAC has decreased. Continue cefazolin and local wound care. Do not anticipate long duration of antibiotic therapy. Will reassess wounds when dressings and VAC changed again. 07/21/16 10:56 Subjective: Patient without specific complaints. Left ankle pain present. Objective: Vital Signs Temp Pulse Resp BP Pulse Ox 36.8 C 82 16 133/68 H 95 07/21/16 08:00 07/21/16 08:00 07/21/16 08:00 07/21/16 08:00 07/21/16 08:00 Laboratory Results 07/21/16 04:20 07/21/16 04:20 07/20/16 07/21/16 07/22/16 05:59 05:59 05:59 Intake Total 1300 1420 500 Output Total 1110 4200 600 Balance 190 -2780 -100 C-Reactive Protein 40.0 mg/L (<10.0) H 07/17/16 04:30 Cefazolin # 3 Antibiotics # 4 Blood cultures x2 no growth - Physical Exam General Appearance: alert, no apparent distress EENT: pharynx normal, No scleral icterus, No thrush Extremities: inflammation (Right lateral ankle with wound VAC in place; mild surrounding erythema present; dressing in place over right anterior holder; mild tenderness surrounding ankle) Abdomen: non-tender, No distended Skin: other (Venous stasis dermatitis present left lower extremity) ICD10 Worksheet Patient Problems: Problems Problem Status Onset Cellulitis Acute Lymphedema of both lower extremities Acute 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
[2016-07-21] MEDS: MULTIVITAMINS 1 EACH TAB PO SCH (13:13)
[2016-07-21] MEDS: FOLIC ACID 1 MG TAB PO SCH (13:14)
[2016-07-21] MEDS: ASCORBIC ACID 500 MG TAB PO SCH (13:14)
[2016-07-21] MEDS: LEFLUNOMIDE 20 MG TAB PO SCH (13:15)
[2016-07-21] MEDS: MAGNESIUM OXIDE 400 MG TAB PO SCH (13:15)
[2016-07-21] MEDS: [UNRECOGNIZED DRUG - OTHER] PO SCH (13:34)
[2016-07-21] MEDS: B6 PO SCH (13:34)
[2016-07-21] MEDS: FOLIC ACID PO SCH (13:34)
--- NOTE | 2016-07-21 13:36 | HOSPPROG ---
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
[2016-07-21] MEDS ORDERED: WARFARIN SODIUM 5 MG TAB PO ONE (16:00)
[2016-07-21] MEDS ORDERED: INSULIN GLARGINE 100 UNITS/ML SYRINGE SC SCH (18:20)
--- NOTE | 2016-07-21 18:26 | HOSPPROG ---
Hospitalist Progress Note Assessment/Plan: The patient is a 76-year-old male with PMH AFib, diabetes, chronic respiratory failure who was admitted for lower extremity cellulitis/wound. ASSESSMENT/PLAN: Left foot wound/cellulitis Venous stasis ulcer Chronic lymphedema -IV Abx - ID following - will check wound tomorrow and decide if he needs p.o. versus IV antibiotics to continue -Gen Surg performed debridement of wound, patient currently with wound VAC. Said okay to discharge to home with home health care for wound VAC. -wound care nurse to check patient's wound tomorrow. -Lasix for edema. Diabetes mellitus -SSI -Increasing Lantus a little Paroxysmal atrial fibrillation CAD w/ recent STEMI Diastolic CHF, compensated -subtherapeutic on Coumadin, being dosed by pharmacy -Lovenox -ASA/statin. Sleep Apnea Chronic hypoxic resp failure -Uses 2L O2 QHS. -Wean off O2 during the day. RAMIN, resolved -baseline Cr achieved. Lumbar back pain h/o lumbar surgery -prn analgesics. VTE prophylaxis: Lovenox Code Status: Full code [facility] July [facility] with home healthcare wound VAC ____ SUBJECTIVE: Today patient feels well. He feels he is ready to go home if he can take a wound VAC with him. He feels he can breathe fine without oxygen. OBJECTIVE: Physical Exam: General: The patient is a morbidly obese elderly male who is alert and in no acute distress. HEENT: normocephalic, extraocular movements intact, conjunctivae clear. Mucous membranes moist. Neck: trachea midline, no visible masses. Abd: soft and nondistended. Bowel sounds present. Not tender throughout. Musculoskeletal: Normal muscle tone/bulk. + wound VAC in place on right foot. Neuro: cranial nerves II XII grossly intact. Intact gross motor and sensory function. Psych: Appropriate mood and appropriate affect. Skin: + venous stasis dermatitis bilaterally. Heme/lymph: +3 pitting peripheral edema at bilateral lower legs. Chronic appearing lymphedema. Labs/Imaging/Other Tests: Personally reviewed/interpreted. 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
[2016-07-21] MEDS: PRAVASTATIN SODIUM 20 MG TAB PO SCH (20:39)
[2016-07-22] MEDS: OXYCODONE/APAP 5/325 TAB PO SCH ×5 (04:35→21:02)
[2016-07-22 05:21] LABS: INR 1.31 (0.83-1.16); PROTIME(PATIENT) 16.3 SEC (12.0-15.0)
[2016-07-22] MEDS: HYDROmorphONE/DILAUDID 1 MG/ML SYR IVP PRN ×3 (05:35→15:12)
[2016-07-22] MEDS: CARVEDILOL 6.25 MG TAB PO SCH ×2 (09:00→18:18)
--- NOTE | 2016-07-22 09:07 | SOAPPROG ---
SOAP Progress Note Assessment/Plan: Assessment: RLE venous stasis ulcers/s/p debridement full thickness 8 x 12 x .5 cm wound right lateral foot and ankle with wound vac Patient placed on Lovenox 1mg/kg SC BID until therapeutic in his INR Plan: continue wound vac/management of proximal venous stasis ulcers per selector packer Brooke Rocha MD, FACS 07/20/16 08:34 07/22/16 09:05 Subjective: resting comfortably Objective: Vital Signs Temp Pulse Resp BP Pulse Ox 36.8 C 83 16 127/63 H 91 L 07/22/16 07:56 07/22/16 07:56 07/22/16 07:56 07/22/16 07:56 07/22/16 07:56 Laboratory Results 07/21/16 04:20 07/21/16 04:20 07/21/16 07/22/16 07/23/16 05:59 05:59 05:59 Intake Total 1420 1190 Output Total 4200 2400 325 Balance -2780 -1210 -325 PT 16.3 SEC (12.0-15.0) H 07/22/16 04:50 INR 1.31 (0.83-1.16) H 07/22/16 04:50 Physical Exam - Physical Exam General Appearance: no apparent distress Extremities: other (right lower extremity calf dressing taken down/ulcers appear to be healing nicely/wound vac intact) ICD10 Worksheet Patient Problems: Problems Problem Status Onset Cellulitis Acute Lymphedema of both lower extremities Acute 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
[2016-07-22] MEDS: INSULIN LISPRO 100 UNIT/ML SC SCH ×5 (10:17→18:18)
--- NOTE | 2016-07-22 10:21 | PCMIDPN ---
Assessment/Plan: Assessment/Plan: * Right lower extremity cellulitis with lower extremity ulcerations status post debridement: Culture showing growth of group C/G Streptococcus. No residual cellulitis present on right lower extremity. Persistent venous stasis dermatitis present. Will assess ankle when wound vac taken down. Will discontinue cefazolin and observe off antibiotics. 07/22/16 10:17 Subjective: No specific complaints other than wants to be home by 07/24 for his anniversary. Objective: Vital Signs Temp Pulse Resp BP Pulse Ox 36.8 C 83 16 127/63 H 91 L 07/22/16 07:56 07/22/16 07:56 07/22/16 07:56 07/22/16 07:56 07/22/16 07:56 Laboratory Results 07/21/16 04:20 07/21/16 04:20 07/21/16 07/22/16 07/23/16 05:59 05:59 05:59 Intake Total 1420 1190 Output Total 4200 2400 325 Balance -2780 -1210 -325 C-Reactive Protein 40.0 mg/L (<10.0) H 07/17/16 04:30 Cefazolin #4 Antibiotics #5 Blood cultures no growth - Physical Exam General Appearance: alert, no apparent distress EENT: No scleral icterus Extremities: inflammation (venous stasis dermatitis bilaterally; shallow clean based ulcerations present; erythema around vac decreased; scaly, lichenified skin present) Abdomen: non-tender, No distended Lymphatic: other (no lymphangitis left lower extremity) ICD10 Worksheet Patient Problems: Problems Problem Status Onset Cellulitis Acute Lymphedema of both lower extremities Acute 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
[2016-07-22] MEDS: TRIAMCINOLONE 0.1% 15GM OINT TP SCH ×2 (10:22→16:35)
[2016-07-22] MEDS: GABAPENTIN 400 MG CAP PO SCH ×3 (10:30→21:59)
[2016-07-22] MEDS: ENOXAPARIN 100 MG/ML SYR SC SCH ×2 (10:33→21:59)
[2016-07-22] MEDS: HYDROXYCHLOROQUINE SULFATE 200 MG TAB PO SCH (10:35)
[2016-07-22] MEDS: PANTOPRAZOLE SODIUM 40 MG TAB PO SCH (10:35)
[2016-07-22] MEDS: CALCIUM CARB W/VIT D 500 MG TAB PO SCH ×2 (10:35→21:59)
[2016-07-22] MEDS: PRESERVISION AREDS2 FORMULA EYE VIT 1 EACH PO SCH (10:35)
[2016-07-22] MEDS: DOCUSATE SODIUM 100 MG CAP PO SCH ×3 (10:35→21:59)
[2016-07-22] MEDS: FERROUS SULFATE 325 MG TAB PO SCH (10:36)
[2016-07-22] MEDS: FUROSEMIDE 40 MG TAB PO SCH (10:36)
[2016-07-22] MEDS: oxyCODONE IR 5 MG TAB PO SCH ×3 (10:38→21:57)
--- NOTE | 2016-07-22 11:07 | WOCRNPDOC ---
RITA Advanced Assessment Note - Skin Integrity Problem, Advanced Assess Right Lower Leg Dressing Type: Tam Bandage, Adaptic Touch, Honey Sheet, Wound Vac (on distal RLE (R lateral foot)) Skin Integrity Problem Comment: Wound vac intact, set to 125mmHg low-continuous suction, no leaks/alarms. Per Drs Josefina and , patient will have vac change tomorrow (07/23) by dry house tender at the bedside. All RLE wounds dressed when I rounded, so wounds were not visualized. Remarkably decreased erythema and swelling throughout RLE since previous assessment. Right Ischial Tuberosity Dressing Type: Open to Air (3M Advanced Protection System barrier film applied ) Exudate Amount: None Exudate Characteristic(s): None Integumentary Issue Intervention: Barrier Cream Applied (3M Advanced Protection System barrier film applied) Marianela Wound Tissue: Blanching, Erythema, Macerated (mild), Denuded Marianela Wound Swelling: Mild Wound Bed Color: Red Wound Edges: Epithelizing Skin Integrity Problem Comment: Wound continue to epithelialize, improved since previous assessment on 07/20. Marianela-wound tissue remains friable/peeling, indicating that these wounds are the result of moisture and friction, not pressure. I applied 3M Advanced Protection system barrier film again, as it seems to be protecting this tissue from moisture. When patient dc's to home setting, he would benefit from a moisture barrier, such as a zinc oxide-based topical treatment. Right Gluteal Cleft Dressing Type: Open to Air (3M Advanced Protection System barrier film applied ) Exudate Amount: None Exudate Characteristic(s): None Integumentary Issue Intervention: Barrier Cream Applied (3M Advanced Protection System barrier film ) Marianela Wound Tissue: Blanching, Erythema, Macerated, Denuded Marianela Wound Swelling: None Wound Bed Color: Red Wound Edges: Epithelizing Skin Integrity Problem Comment: Wound continues to heal, with epithelialization along margins. Marianela-wound tissue remains raw and denuded, though improved since previous assessment on 07/20. Recommend continuing w/ tx to keep skin dry/ protected from moisture. Left Gluteal Cleft Dressing Type: Open to Air (3M Advanced Protection System barrier film applied ) Exudate Amount: Scant Exudate Color: Red Exudate Characteristic(s): Bloody Integumentary Issue Intervention: Barrier Cream Applied (3M Advanced Protection System barrier film ) Marianela Wound Tissue: Blanching, Erythema, Macerated, Denuded Marianela Wound Swelling: None Wound Bed Color: Red Wound Edges: Epithelizing Skin Integrity Problem Comment: Wound improved since previous assessment on 07/20 , measuring smaller and epithelializing along margins. Marianela-wound continues to be raw and denuded. Recommend topical zinc barrier cream ongoing for tx, as these wounds are the result of moisture/friction.
[2016-07-22] MEDS: MULTIVITAMINS 1 EACH TAB PO SCH (13:38)
[2016-07-22] MEDS: FOLIC ACID 1 MG TAB PO SCH (13:38)
[2016-07-22] MEDS: MAGNESIUM OXIDE 400 MG TAB PO SCH (13:39)
[2016-07-22] MEDS: LEFLUNOMIDE 20 MG TAB PO SCH (13:39)
[2016-07-22] MEDS: ASCORBIC ACID 500 MG TAB PO SCH (13:40)
[2016-07-22] MEDS: B6 PO SCH (13:44)
[2016-07-22] MEDS: FOLIC ACID PO SCH (13:44)
[2016-07-22] MEDS: [UNRECOGNIZED DRUG - OTHER] PO SCH (13:44)
[2016-07-22] MEDS: predniSONE 5 MG TAB PO SCH (13:46)
[2016-07-22] MEDS ORDERED: WARFARIN SODIUM 2.5 MG TAB PO SCH (16:00)
[2016-07-22] MEDS ORDERED: WARFARIN SODIUM 5 MG TAB PO ONE ×2 (16:00)
[2016-07-22] MEDS ORDERED: INSULIN GLARGINE 100 UNITS/ML SYRINGE SC SCH (20:29)
--- NOTE | 2016-07-22 20:29 | HOSPPROG ---
Hospitalist Progress Note Assessment/Plan: The patient is a 76-year-old male with PMH AFib, diabetes, chronic respiratory failure who was admitted for lower extremity cellulitis/wound. ASSESSMENT/PLAN: Left foot wound, s/p debridement and wound vac Cellulitis, resolved Venous stasis ulcer Chronic lymphedema -IV Abx - ID following - DC Abx today - does not appear infected. -Gen Surg performed debridement of wound, patient currently with wound VAC. -Replacing wound vac tomorrow. -Lasix for edema. Diabetes mellitus -SSI -Increased Lantus again Paroxysmal atrial fibrillation CAD w/ recent STEMI Diastolic CHF, compensated -subtherapeutic on Coumadin, being dosed by pharmacy -Lovenox -ASA/statin. Sleep Apnea Chronic hypoxic resp failure -Uses 2L O2 QHS. -Wean off O2 during the day. RAMIN, resolved -baseline Cr achieved. Lumbar back pain h/o lumbar surgery -prn analgesics. VTE prophylaxis: Lovenox Code Status: Full code [facility] wound VAC, PT ____ SUBJECTIVE: Today patient feels well. He wants to go home tomorrow at the latest bc his 53 anniversary w/ his is on Saturday. [facility] wanted to go to [facility] but he is not sure if he would be able to bring his woundvac to the restaurant. OBJECTIVE: Physical Exam: General: The patient is a morbidly obese elderly male who is alert and in no acute distress. HEENT: normocephalic, extraocular movements intact, conjunctivae clear. Mucous membranes moist. Neck: trachea midline, no visible masses. CV: +S1/S2, RRR, no MRG. Resp: unlabored, CTAB no RRW. Abd: soft and nondistended. Bowel sounds present. Musculoskeletal: Normal muscle tone/bulk. + wound VAC in place on right foot. Neuro: cranial nerves II XII grossly intact. Intact gross motor and sensory function. Psych: Appropriate mood and appropriate affect. Skin: + venous stasis dermatitis bilaterally. Heme/lymph: +3 pitting peripheral edema at bilateral lower legs. Chronic appearing lymphedema. Labs/Imaging/Other Tests: Personally reviewed/interpreted. Objective: Vital Signs Temp Pulse Resp BP Pulse Ox 37.1 C 86 16 110/56 L 91 L 07/22/16 16:00 07/22/16 18:18 07/22/16 16:00 07/22/16 18:18 07/22/16 16:00 Laboratory Results 07/21/16 04:20 07/21/16 04:20 07/21/16 07/22/16 07/23/16 05:59 05:59 05:59 Intake Total 1420 1190 500 Output Total 4[address] 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
[2016-07-22] MEDS: INSULIN GLARGINE 100 UNITS/ML SYRINGE SC SCH (21:58)
[2016-07-22] MEDS: PRAVASTATIN SODIUM 20 MG TAB PO SCH (21:59)
[2016-07-23] MEDS: OXYCODONE/APAP 5/325 TAB PO SCH ×5 (00:27→17:06)
[2016-07-23] MEDS: TRIAMCINOLONE 0.1% 15GM OINT TP SCH ×2 (00:27→11:19)
[2016-07-23] MEDS: HYDROmorphONE/DILAUDID 1 MG/ML SYR IVP PRN ×3 (00:33→11:11)
[2016-07-23 05:02] LABS: INR 1.55 (0.83-1.16); PROTIME(PATIENT) 18.6 SEC (12.0-15.0)
--- NOTE | 2016-07-23 06:27 | PDCONSULT ---
Cooperative Extension Agent Note: Mr. Cunningham is resting comfortably and remains afebrile His right foot/ankle wound vac was removed and replaced with Normal Saline Cotton Gauze dressing. The wound shows signs of early granulation with no necrotic tissue. His INR is 1.5 today He may shower with the wound vac off. Brooke Rocha MD, FACS
[2016-07-23 07:37] VITALS: RESP 15
[2016-07-23] MEDS: CARVEDILOL 6.25 MG TAB PO SCH (08:57)
[2016-07-23] MEDS: INSULIN LISPRO 100 UNIT/ML SC SCH ×3 (08:58→13:19)
[2016-07-23] MEDS: oxyCODONE IR 5 MG TAB PO SCH ×2 (09:00→17:07)
[2016-07-23] MEDS: CALCIUM CARB W/VIT D 500 MG TAB PO SCH (09:01)
[2016-07-23] MEDS: PRESERVISION AREDS2 FORMULA EYE VIT 1 EACH PO SCH (09:01)
[2016-07-23] MEDS: DOCUSATE SODIUM 100 MG CAP PO SCH ×2 (09:02→13:19)
[2016-07-23] MEDS: FUROSEMIDE 40 MG TAB PO SCH (09:03)
[2016-07-23] MEDS: FERROUS SULFATE 325 MG TAB PO SCH (09:03)
[2016-07-23] MEDS: GABAPENTIN 400 MG CAP PO SCH ×2 (09:03→17:06)
[2016-07-23] MEDS: predniSONE 5 MG TAB PO SCH (09:04)
[2016-07-23] MEDS: HYDROXYCHLOROQUINE SULFATE 200 MG TAB PO SCH (09:04)
[2016-07-23] MEDS: PANTOPRAZOLE SODIUM 40 MG TAB PO SCH (09:04)
[2016-07-23] MEDS ORDERED: CHOLECALCIFEROL VIT D3 1,000 UNITS TAB PO SCH (10:00)
--- NOTE | 2016-07-23 10:15 | WOCRNPDOC ---
WOCRN Advanced Assessment Note - Skin Integrity Problem, Advanced Assess Right Ankle Surgical Wound/Incision Dressing Type: Gauze, Kerlix Dressing Description: Clean/Dry, Intact Exudate Amount: Minimal Exudate Characteristic(s): Bloody Integumentary Issue Intervention: Dressing Changed, Silver Nitrate Application Aida Wound Tissue: Erythema (minimal), Macerated Wound Bed Constitution: Smooth Tissue Wound Edges: Attached Site Odor: None Site Measurement - Head-to-Toe Length X Width X Depth (cm): 8x11x0.5 Skin Integrity Problem Comment: Russell TERRY reapplied wound vac dressing with small black simplace foam per wound care orders. Skin prep and draped aida wound. Vac suction at -125 mm Hg continuous working without leaks. Kandis JACOBS in room for dressing change.
[2016-07-23 10:58] LABS: HEMATOCRIT 31.4 % (40.0-51.0); MEAN CELL HEMOGLOBIN 30.3 pg (27.9-34.1); MEAN CELL HEMOGLOBIN CONCENTR. 31.8 g/dL (32.4-36.7); MEAN CELL VOLUME 95.2 fL (81.5-99.8); RED BLOOD CELL COUNT 3.3 10^6/uL (4.40-6.38); RED CELL DISTRIBUTION WIDTH 14.5 % (11.5-15.2)
--- NOTE | 2016-07-23 10:58 | PCMIDPN ---
Assessment/Plan: Assessment/Plan: * Right lower extremity cellulitis with lower extremity ulcerations status post debridement: Wound examined with wound VAC off today. No signs or symptoms of infection or purulence. Continue plan to observe off antibiotics. Continued local wound care under the supervision of Dr. Rocha. Will sign off. Please call questions. 07/23/16 10:54 Subjective: Patient without specific complaints. Objective: Vital Signs Temp Pulse Resp BP Pulse Ox 36.8 C 82 15 157/85 H 94 07/23/16 07:35 07/23/16 08:57 07/23/16 07:35 07/23/16 08:57 07/23/16 07:35 07/22/16 07/23/16 07/24/16 05:59 05:59 05:59 Intake Total 1190 850 Output Total 2400 2465 Balance -1210 -1615 C-Reactive Protein 40.0 mg/L (<10.0) H 07/17/16 04:30 No antibiotic therapy - Physical Exam General Appearance: alert, no apparent distress Extremities: inflammation (Right lower extremity lateral ulceration examined with wound VAC off; scattered granulation with some areas of fibrinous debris; few areas of cautery affect; no surrounding erythema; no purulence) ICD10 Worksheet Patient Problems: Problems Problem Status Onset Cellulitis Acute Lymphedema of both lower extremities Acute 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
[2016-07-23] MEDS: ASCORBIC ACID 500 MG TAB PO SCH (11:15)
[2016-07-23] MEDS: FOLIC ACID 1 MG TAB PO SCH (11:16)
[2016-07-23] MEDS: MAGNESIUM OXIDE 400 MG TAB PO SCH (11:16)
[2016-07-23] MEDS: MULTIVITAMINS 1 EACH TAB PO SCH (11:16)
[2016-07-23] MEDS: LEFLUNOMIDE 20 MG TAB PO SCH (11:16)
[2016-07-23 11:19] LABS: ANION GAP 10 mEq/L (8-16); CALCIUM 8.5 mg/dL (8.5-10.4); CARBON DIOXIDE 28 mEq/l (22-31); CHLORIDE 99 mEq/L (97-110); CREATININE 1.7 mg/dL (0.7-1.3); GLOMERULAR FILTRATION RATE 39; GLUCOSE 197 mg/dL (70-100); POTASSIUM 4.1 mEq/L (3.5-5.2); SODIUM 137 mEq/L (134-144)
[2016-07-23] MEDS: ENOXAPARIN 100 MG/ML SYR SC SCH (11:46)
[2016-07-23] MEDS: [UNRECOGNIZED DRUG - OTHER] PO SCH (13:19)
[2016-07-23] MEDS: B6 PO SCH (13:19)
[2016-07-23] MEDS: FOLIC ACID PO SCH (13:19)
--- NOTE | 2016-07-23 14:15 | PDIAF ---
- Diagnosis Diagnosis: right foot wound Code Status: Full Code - Medication Management Discharge Medications: Medications to Continue on Transfer Aspirin [Aspirin 81mg (*)] 81 mg PO HS 08/13/12 [Last Taken 07/15/16 21:00] Carvedilol [Coreg (*)] 6.25 mg PO BIDMEAL 08/13/12 [Last Taken 07/16/16 08:00] Cholecalciferol Vit D3 [Vitamin D3 (*)] 2,000 units PO Q2D 08/13/12 [Last Taken 07/16/16 08:00] Ferrous Sulfate [Iron] 325 mg PO DAILY 08/13/12 [Last Taken 07/16/16 08:00] Folic Acid 0.6 mg PO DAILY@12 08/13/12 [Last Taken 07/16/16 12:00] Insulin Glargine [Lantus 100 UNITS/ML (*)] 30 units SC DAILY 08/13/12 [Last Taken 07/16/16 08:00] Lovastatin [Mevacor] 20 mg PO HS 08/13/12 [Last Taken 07/15/16 21:00] Omeprazole [Prilosec 40 mg] 40 mg PO DAILY 08/13/12 [Last Taken 07/16/16 08:00] Oxycodone HCl/Acetaminophen [Percocet 10-325 mg Tablet] 1 tab PO TID 08/13/12 [ Last Taken 07/16/16 12:00] Warfarin Sodium [Coumadin 2.5MG (*)] 2.5 mg PO DAILY@18 08/13/12 [Last Taken 18:00] Trivita B12/B6/Folic Acid 1 cap PO DAILY@12 10/30/12 [Last Taken 07/16/16 12:00] Ascorbic Acid [Vitamin C 500 mg (*)] 1,000 mg PO DAILY@12 07/16/16 [Last Taken 07/16/16 12:00] B2/Vits A,C,E/Lut/Zeaxanth/Min [Icaps Tablet] 1 tab PO DAILY 07/16/16 [Last Taken 07/16/16 08:00] Calcium Citrate W/Vit D [Citracal + D] 1 tab PO BID 07/16/16 [Last Taken 12:00] Docusate Sodium [Colace 100 MG (*)] 100 mg PO DAILY 07/16/16 [Last Taken 08:00] Docusate Sodium [Colace 100 MG (*)] 200 mg PO BID@07/16/16 [Last Taken 12:00] Gabapentin [Gabapentin 800 mg] 800 mg PO TID 07/16/16 [Last Taken 07/16/16 12:00 ] Herbals/Supplements -Info Only 1 ea PO DAILY 07/16/16 [Last Taken 07/16/16 12:00 ] Hydroxychloroquine Sulfate [Plaquenil 200 mg (*)] 200 mg PO DAILY 07/16/16 [ Last Taken 07/16/16 08:00] Insulin Aspart [Novolog Flexpen] 24 unit SQ BIDMEAL 07/16/16 [Last Taken 08:00] Insulin Glargine [Lantus 100 UNITS/ML (*)] 40 units SC HS 07/16/16 [Last Taken 07/15/16 21:00] Leflunomide [Arava 20 mg (*)] 20 mg PO DAILY@07/16/16 [Last Taken 07/16/16 12 :00] Lisinopril [Zestril 2.5 mg (*)] 2.5 mg PO DAILY 07/16/16 [Last Taken 07/16/16 08 :00] Magnesium Oxide [Magnesium Oxide 400 mg (*)] 400 mg PO DAILY@07/16/16 [Last Taken 07/16/16 12:00] Multivitamins [Multivitamin (*)] 1 tab PO DAILY@07/16/16 [Last Taken 12:00] predniSONE 5 mg PO DAILY 07/16/16 [Last Taken 07/16/16 08:00] Discharge Medications: Refer to the Discharge Home Medication list for PRN reason. - Orders Services needed: Home Care, Registered Nurse, Physical Therapy, Occupational Therapy Home Care Face to Face: I certify that this patient was under my care and that I had the required [id number] encounter meeting the encounter requirements on the discharge day. My findings support the fact that the patient is homebound as defined in CMS Chapter 7 Medicare Benefits Manual 30.1.1, The condition of the patient is such that there exists a normal inability to leave home and consequently, leaving home would require a considerable and taxing effort. - Labs/Radiology PT/INR Date: 07/26/16 - Follow Up Care Current Providers and Referrals: Tucker Barros MD [Primary Care Provider] - Walker Yan MD [Medical Doctor] -
--- NOTE | 2016-07-23 15:21 | GDS ---
[f rep st] DISCHARGE SUMMARY DISCHARGE DIAGNOSES: 1. Right foot cellulitis. 2. Chronic lower extremity lymphedema. 3. History of atrial fibrillation status post ablation. 4. Chronic kidney disease. 5. Type 2 diabetes. 6. Previous history of deep venous thrombosis in the . 7. Rheumatoid arthritis. 8. Obstructive sleep apnea. 9. Chronic fatigue. 10. Normal pressure hydrocephalus. 11. Acute on chronic renal failure. HISTORY: This is a 76-year-old male with a history of long-standing lymphedema, who presented with irritation of the right foot right heel and calf. HOSPITAL COURSE: Patient was admitted and surgery consultation was obtained. He underwent debridem ent of the right lateral foot and ankle. Wound swab did show group C/G strep. He was treated with antibiotics for 7 days. Wound care involved wound VAC placement. His antibiotics have been discont inued. The plan is to continue wound VAC care and close followup with Wound Care Clinic. I have di scussed the case with General surgery, as well as Infectious Disease. They were comfortable letting him go home. The patient really does want to go home, as his anniversary is tomorrow. I do not th ink he needs Lovenox bridging for his atrial fibrillation, as he has not had previous strokes, and michael oro has actually had an ablation prior without any symptoms of atrial fibrillation since then. DISPOSITION: Home with home health. DISCHARGE MEDICATIONS: He is to resume all his home medicines. FOLLOWUP INSTRUCTIONS: The patient will be getting wound VAC care with home health. He is to follo w up with Wound Care Clinic within a week. Greater than 30 minutes were spent on discharge. /[id number]/MODL
[2016-07-23] MEDS ORDERED: WARFARIN SODIUM 2.5 MG TAB PO SCH (16:00)
[2016-07-23 16:34] VITALS: BP 123/66; PULSE 92; TEMP 98.4; O2SAT 90
--- NOTE | 2016-08-15 15:34 | GOP ---
[f rep st] OPERATIVE REPORT DATE OF OPERATION: 07/19/2016 SURGEON: Ovi Rocha MD ANESTHESIA: Laryngeal mask airway/general. PREOPERATIVE DIAGNOSIS: Right lateral foot/ankle venous stasis ulcer. POSTOPERATIVE DIAGNOSIS: Right lateral foot/ankle venous stasis ulcer. PROCEDURE PERFORMED: Debridement of skin, subcutaneous tissues and superficial fascia, right latera l foot/ankle venous stasis ulcer. FINDINGS: Approximately 8 x 15 x 1 cm necrotic wound over the right lateral foot and ankle, extendi ng down to the fascia but not involving the underlying bone. This appeared as a chronic neglected u lcer with associated cellulitis, and moderate purulence was present deep to the overlying necrotic s kin. Specimens were submitted for permanent section and culture. A wound VAC was applied upon comp letion. ESTIMATED BLOOD LOSS: 50 mL. DESCRIPTION OF PROCEDURE: After informed consent was obtained, and the patient was appropriately pr epared for surgery, he was brought to the operating room and placed under general anesthesia via lar yngeal mask airway. The right lower extremity was prepped circumferentially and draped in the usual sterile fashion. Before proceeding, a time-out and identification of the patient was performed. T he large area of necrotic skin, subcutaneous tissue, and underlying fascia was debrided sharply usin g a scalpel, and the necrotic tissue was removed from the field. Wound edges were cauterized for he mostasis and there was healthy underlying bleeding tissue. A wound VAC was fashioned out of black f oam, laid over a bed of Adaptic and covered with Opsite. A small central opening was created in the covered portion of the wound and wound VAC tubing attached, secured with Opsite and placed on 125 m mHg continuous suction with no leaks observed. The patient was returned extubated to the recovery r oom in satisfactory condition. Needle, sponge, and instrument count were correct. COMPLICATIONS: None. /[id number]/MODL
--- NOTE | 2016-08-16 13:45 | PQFORM ---
PHYSICIAN QUERY FORM Needs Your Response This query form is being sent to you to assure this patient record is coded properly. Please respond to the question below: DIRECTOR OF DONOR RELATIONS QUESTION: Dr. Rocha, For inpatient coding purposes, there is a different code choice for excisional versus non excisional debridement. Could you please clarify if the debridement performed on 19 July 2016 was: __xx__ Excisional ____ Non Excisional ____ Other Many thanks, TYE Ramesh [facility]/Coding Department INSTRUCTIONS FOR RESPONSE: Answer question by clicking on the "Edit Document" button. Move cursor to area below the stars. When complete, hit "Save." Click on the "Sign" button, then click "Sign" again. Type in your PIN and hit "Enter." MTDD
== END 2016-07-23 18:39 | disposition home health service (06) | DRG 264 ==
LOC: F3N 21:15 → OBSVTOIN 21:43
PROVIDERS: ADMIT Family Medicine; ATTEND Internal Medicine
PROC: 0JBN0ZZ Excision of Right Lower Leg Subcutaneous Tissue and Fascia, Open Approach (ICD-10-PCS; principal; 2016-07-19 13:00)
PROC: 0JBQ0ZZ Excision of Right Foot Subcutaneous Tissue and Fascia, Open Approach (ICD-10-PCS; principal; 2016-07-19 13:00)
PROC: 30233K1 Transfusion of Nonautologous Frozen Plasma into Peripheral Vein, Percutaneous Approach (ICD-10-PCS; 2016-07-19 13:00)
DX: I87.031 Postthrombotic syndrome with ulcer and inflammation of right lower extremity (principal); L97.311 Non-pressure chronic ulcer of right ankle limited to breakdown of skin; L97.411 Non-pressure chronic ulcer of right heel and midfoot limited to breakdown of skin; L97.213 Non-pressure chronic ulcer of right calf with necrosis of muscle; L03.115 Cellulitis of right lower limb; B95.4 Other streptococcus as the cause of diseases classified elsewhere; I89.0 Lymphedema, not elsewhere classified; L98.421 Non-pressure chronic ulcer of back limited to breakdown of skin; L98.411 Non-pressure chronic ulcer of buttock limited to breakdown of skin; I13.0 Hypertensive heart and chronic kidney disease with heart failure and stage 1 through stage 4 chronic kidney disease, or unspecified chronic kidney disease; I50.32 Chronic diastolic (congestive) heart failure; N18.9 Chronic kidney disease, unspecified; N17.9 Acute kidney failure, unspecified; I25.10 Atherosclerotic heart disease of native coronary artery without angina pectoris; I25.2 Old myocardial infarction; E11.40 Type 2 diabetes mellitus with diabetic neuropathy, unspecified; Z79.4 Long term (current) use of insulin; E66.01 Morbid (severe) obesity due to excess calories; Z68.34 Body mass index [BMI] 34.0-34.9, adult; G47.33 Obstructive sleep apnea (adult) (pediatric); Z99.81 Dependence on supplemental oxygen; G91.2 (Idiopathic) normal pressure hydrocephalus; K21.9 Gastro-esophageal reflux disease without esophagitis; Z98.1 Arthrodesis status; Z85.820 Personal history of malignant melanoma of skin
CPT/HCPCS: 97110-GO; 97162-GP; 97166-GO; 97530-GO; 97530-GP; 97535-GO; G8978-GP-CK; G8979-GP-CI; G8987-GO-CJ; G8988-GO-CI; G8989-GO-CJ; J0690; J1170; J1650; J1815; J2370; J2405; J2704; J3010; J3370; P9017

== ENCOUNTER → 2016-08-29 | Outpatient (CLI) | payer OTHER, MEDICARE | LOC: BHFA 14:00 | PROVIDERS: ATTEND Internal Medicine Cardiovascular Disease | DX: I48.91 Unspecified atrial fibrillation (principal); R60.9 Edema, unspecified; N18.9 Chronic kidney disease, unspecified; I89.0 Lymphedema, not elsewhere classified; R06.02 Shortness of breath; E11.9 Type 2 diabetes mellitus without complications ==

== ENCOUNTER 2016-09-04 08:15 | Inpatient (IN) | payer OTHER, MEDICARE ==
[2016-09-04] MEDS ORDERED: FAMOTIDINE 20 MG TAB PO ONE (08:19)
[2016-09-04] MEDS ORDERED: diphenhydrAMINE 25 MG CAP PO ONE (08:19)
[2016-09-04] MEDS ORDERED: DIAZEPAM 5 MG TAB PO ONE (08:19)
[2016-09-04] MEDS ORDERED: ASPIRIN EC 325 MG TAB PO ONE (08:19)
[2016-09-04] MEDS ORDERED: NS 1,000 ML IV ONE (08:19)
[2016-09-04] MEDS ORDERED: fentaNYL 100 MCG/2 ML INJ ONE (08:32)
[2016-09-04] MEDS ORDERED: LIDOCAINE 1% 30 ML SDV ONE (08:32)
[2016-09-04] MEDS ORDERED: MIDAZOLAM 2 MG/2 ML VIAL ONE (08:32)
[2016-09-04] MEDS ORDERED: HEPARIN 10,000 UNIT/10 ML MDV ONE (08:33)
[2016-09-04] MEDS ORDERED: VERAPAMIL 5 MG/2 ML VIAL ONE (08:33)
[2016-09-04] MEDS ORDERED: IOPAMIDOL (ISOVUE-370) 150 ML BTL IV ONE (08:33)
--- NOTE | 2016-09-04 08:49 | CPEKG ---
Heart Rate: 81 RR Interval: 741 QRSD Interval: 92 QT Interval: 388 QTC Interval: 451 QRS [place]: -26 T Wave [place]: 44 EKG Severity - ABNORMAL ECG - EKG Impression: A-FLUTTER W/ PREDOM 3:1 AV BLOCK, A-RATE 246 EKG Impression: BORDERLINE LEFT AXIS DEVIATION Electronically Signed By: Milena Villarreal 04-Sep-2016 17:01:57
[2016-09-04 09:03] LABS: ABSOLUTE IMMATURE GRANULOCYTES 0.09 10^3/uL (0.00-0.10); ADD DIFF? NO; ADD MORPH? NO; ADD SCAN? NO; ATYPICAL LYMPHOCYTE FLAG 0 (0-99); FRAGMENT RBC FLAG 0 (0-99); HEMATOCRIT 33.9 % (40.0-51.0); HEMOGLOBIN 10.9 g/dL (13.7-17.5); LEFT SHIFT FLG 0 (0-99); LIPEMIA HEMOLYSIS FLAG 80 (0-99); MEAN CELL HEMOGLOBIN 30.2 pg (27.9-34.1); MEAN CELL HEMOGLOBIN CONCENTR. 32.2 g/dL (32.4-36.7); MEAN CELL VOLUME 93.9 fL (81.5-99.8); MEAN PLATELET VOLUME 8.7 fL (8.7-11.7); PLATELET CLUMPS FLAG 0 (0-99); PLATELET COUNT 261 10^3/uL (150-400); RED BLOOD CELL COUNT 3.61 10^6/uL (4.40-6.38); RED CELL DISTRIBUTION WIDTH 14.5 % (11.5-15.2)
[2016-09-04 09:17] LABS: INR 1.21 (0.83-1.16); PROTIME(PATIENT) 15.3 SEC (12.0-15.0)
[2016-09-04 09:32] LABS: ANION GAP 10 mEq/L (8-16); CALCIUM 8.9 mg/dL (8.5-10.4); CARBON DIOXIDE 27 mEq/l (22-31); CHLORIDE 103 mEq/L (97-110); CHOLESTEROL 122 mg/dL (140-220); CHOLESTEROL/HDL RATIO 3.05 RATIO (1.00-4.97); CREATININE 2.1 mg/dL (0.7-1.3); GLOMERULAR FILTRATION RATE 31; GLUCOSE 96 mg/dL (70-100); HIGH DENSITY LIPOPROTEIN 40 mg/dL (40-65); LOW DENSITY LIPOPROTEIN 36 mg/dL (80-100); MAGNESIUM 2.2 mg/dL (1.6-2.3); NON-HIGH DENSITY LIPOPROTEIN 82 mg/dL (90-129); POTASSIUM 4.6 mEq/L (3.5-5.2); SODIUM 140 mEq/L (134-144); TRIGLYCERIDE 230 mg/dL (40-150); VERY LOW DENSITY LIPOPROTEINS 46 mg/dL (8-25)
[2016-09-04] MEDS ORDERED: NS 1,000 ML IV SCH ×2 (10:00→11:30)
[2016-09-04] MEDS ORDERED: ATROPINE SULFATE 1 MG/10 ML SYR IVP PRN (11:22)
[2016-09-04] MEDS ORDERED: HYDROCODONE/APAP 5/325 TAB PO PRN (11:22)
[2016-09-04] MEDS ORDERED: NITROGLYCERIN 0.4 MG BTL SL PRN (11:22)
[2016-09-04] MEDS ORDERED: ONDANSETRON 4 MG/2 ML VIAL IVP PRN (11:22)
[2016-09-04] MEDS ORDERED: ACETAMINOPHEN 325 MG TAB PO PRN (11:22)
--- NOTE | 2016-09-04 11:51 | PDDXCAT ---
Diagnostic Cath Note - . Date: 09/04/16 Biotechnician: Gray (Chronic cor pulmonale, severe edema, abnormal stress test, and risk factors for CAD.) - Procedure Access: right wrist (right antecubital for RHC) Procedure: left heart catheterization, coronary angiography, right heart catheterization - Materials Left Heart Cath size: 5F Left Heart Cath materials: other (Ahumada catheter) Right Heart Cath size: 5F Right Heart Cath materials: PWP catheter - Findings-Left Heart Catheterization LM: Normal. LAD: Complex irregular lucency in proximal LAD without obvious flow limitation; otherwise mild irregularities. LCX: Focal 80 to 90% stenosis mid to distal circumflex; otherwise mild irregularities. RCA: Mild irregularities. EDP: 22 mmHg LVEF: No LV-gram secondary to renal insufficiency. - Findings-Right Heart Catheterization RA: 18 mmHg RV: 42/16 mmHg PA: 40/20/28 mmHg (O2 sat 66.8%) PAOP: 20 mmHg AO: 142/70/102 mmHg (O2 sat 92.4%) CO: 7.15 L/min CI: 3.29 L/min/sq mtr Complications: None Estimated blood loss: <50ml Closure method: TR Band (manual pressure for right antecubital) Assessment: 1) CAD as described above. 2) Mild pulmonary hypertension. 3) Elevated PCWP and LVEDP. Plan: 1) Admit to PCU for IV diuresis. 2) Discuss with Dr. Contreras and present at case conference to clarify treatment goals and decide about PCI of circumflex and IVUS/possible PCI of probable complex proximal LAD plaque. 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
[2016-09-04] MEDS ORDERED: FUROSEMIDE 100 MG in D5W 100 ML IV SCH (12:15)
[2016-09-04] MEDS ORDERED: D50W 25 GM/50 ML SYR IVP PRN (15:41)
[2016-09-04] MEDS ORDERED: OXYCODONE HCL PO SCH (16:00)
[2016-09-04] MEDS ORDERED: ACETAMINOPHEN PO SCH (16:00)
[2016-09-04] MEDS: INSULIN LISPRO 100 UNIT/ML SC SCH ×2 (17:54)
[2016-09-04] MEDS: WARFARIN SODIUM 2.5 MG TAB PO SCH (17:55)
[2016-09-04] MEDS: GABAPENTIN 400 MG CAP PO SCH ×2 (17:55→20:37)
[2016-09-04] MEDS: DOCUSATE SODIUM 100 MG CAP PO SCH ×2 (17:55→18:11)
[2016-09-04] MEDS: CARVEDILOL 6.25 MG TAB PO SCH (17:56)
[2016-09-04] MEDS: OXYCODONE/APAP 5/325 TAB PO SCH ×2 (17:56→20:37)
[2016-09-04] MEDS: oxyCODONE IR 5 MG TAB PO SCH ×2 (17:57→23:13)
[2016-09-04] MEDS ORDERED: INSULIN ASPART 30 UNIT SQ SCH (18:00)
[2016-09-04] MEDS: MAGNESIUM OXIDE 400 MG TAB PO SCH (18:35)
[2016-09-04] MEDS: LEFLUNOMIDE 20 MG TAB PO SCH (18:36)
[2016-09-04] MEDS: ASCORBIC ACID 500 MG TAB PO SCH (18:36)
[2016-09-04] MEDS: MULTIVITAMINS 1 EACH TAB PO SCH (18:36)
[2016-09-04 18:44] LABS: COLOR YELLOW; LEUKOCYTE ESTERASE,URINE 3+ (NEGATIVE); NITRITE,URINE NEGATIVE (NEGATIVE)
[2016-09-04 18:53] LABS: WBC,URINE 50-182 /hpf (0-3)
[2016-09-04 19:00] LABS: BACTERIA TRACE /hpf (NONE SEEN); YEAST OCCASIONAL /hpf (NONE SEEN)
[2016-09-04] MEDS: ASPIRIN 81 MG CHEWABLE TAB PO SCH (20:32)
[2016-09-04] MEDS: CHOLECALCIFEROL VIT D3 1,000 UNITS TAB PO SCH (20:32)
[2016-09-04] MEDS: CALCIUM CARB W/VIT D 500 MG TAB PO SCH (20:32)
[2016-09-04] MEDS: HYDROXYCHLOROQUINE SULFATE 200 MG TAB PO SCH (20:33)
[2016-09-04] MEDS: PRAVASTATIN SODIUM 20 MG TAB PO SCH (20:33)
[2016-09-04] MEDS: ENOXAPARIN 30 MG/0.3 ML SYR SC SCH (20:38)
[2016-09-04] MEDS: INSULIN GLARGINE 100 UNITS/ML SYRINGE SC SCH (20:38)
[2016-09-04] MEDS ORDERED: CALCIUM CITRATE PO SCH (21:00)
[2016-09-04] MEDS ORDERED: NON-FORMULARY NEW DRUG (Lovastatin [Lovastatin] 20 MG) PO SCH (21:00)
[2016-09-04] MEDS ORDERED: VIT D PO SCH (21:00)
--- NOTE | 2016-09-04 22:13 | PDHOSCONS ---
Hospitalist Consult Hospitalist Consult: Medicine consult at request of Dr. Castellano for evaluation and management of DM and RAMIN CC: Fatigue HPI: 76 yo M with PMH including DM, CAD, CKD, chronic lymphedema and chronic lower extremity wounds as well as RA presenting s/p cardiac angiography with volume overload and RAMIN on ckd. Patient was brought in for a cardiac angiography for further evaluation of CHF. On cath he was found to have 80-90% stenosis of the distal circumflex that was not intervened on and admitted post cath for volume overload and ramin on ckd. Patient has concerns mostly about chronic weakness and inabilty to get to the commode making urination while on lasix difficult. His notes that due to NPH, he has issues with incontinence. He is a fairly poor historian but has no complaints of increased sob, cp or palpitations. He has chronic lower extremity swelling bilaterally that seems to be getting worse. 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 FH: non contributory Meds: see EHR Allergies: include penicillin ROS: 10 point ROS performed and negative except as per HPI Physical exam: afebrile, bp in 110/70s, HR in 80s Awake alert nad anicteric op clear rrr systolic murmur cta b, dec at bases soft nt nd ble edema warm dry well perfused oriented appropriate Labs reviewed and notable for: creatinine of 2.1 from prior baseline 1.7, glucose ranging from 90s to 200s, pro bnp 1360 ecg personally reviewed and interpreted w/ a flutter with predominant 3:1 block A/P: 76 yo M with w/MMI presenting s/p heart cath found to have significant cad of cx as well as massive ble edema and ramin on ckd # CAD: with difficult to stent cx with 80-90% stenosis, no intervention at this point and plans to make a decision on when or if to intervene in coming days # BLE edema: likely multifactorial with diastolic dysfunction, mild pulmonary htn, ckd, as well as chronic ble lymphedema with chronic venous stasis, prior DVT and peripheral neuropathy and limited mobility. Has been on lymphedema pump in the past. Plan to attempt diuresis to make some headway with this. # RAMIN on CKD: with prior baseline in the mid to high 1s and now creatinine of 2.1 and stable overnight. Disla placed for close monitoring of I/Os. ? some component of chf contributing, monitoring closely on lasix as well as s/p dye load yesterday. # DM: continued on home regimen and thus far well controlled, monitoring # NPH: has chronic gait issues as well as urinary sxs per his , followed by neurology as an OP. PT/OT to evaluate # a fib/flutter: most recent ecg reviewed showing flutter, rate controlled, continue op meds # RA: continue op management # dispo: IP status, likely will need several days in house Patient new to my care. Old records reviewed/summarized as above. Further hx obtained from patients present at bedside.
[2016-09-05 05:14] LABS: ANION GAP 8 mEq/L (8-16); CALCIUM 8.5 mg/dL (8.5-10.4); CARBON DIOXIDE 27 mEq/l (22-31); CHLORIDE 104 mEq/L (97-110); CREATININE 2.1 mg/dL (0.7-1.3); GLOMERULAR FILTRATION RATE 31; GLUCOSE 70 mg/dL (70-100); POTASSIUM 4.4 mEq/L (3.5-5.2); SODIUM 139 mEq/L (134-144)
[2016-09-05] MEDS: INSULIN LISPRO 100 UNIT/ML SC SCH ×6 (08:20→18:12)
[2016-09-05] MEDS: INSULIN GLARGINE 100 UNITS/ML SYRINGE SC SCH ×2 (08:27→20:20)
[2016-09-05] MEDS: ENOXAPARIN 30 MG/0.3 ML SYR SC SCH ×2 (08:28→20:20)
[2016-09-05] MEDS: PRESERVISION AREDS2 FORMULA EYE VIT 1 EACH PO SCH (08:35)
[2016-09-05] MEDS: DOCUSATE SODIUM 100 MG CAP PO SCH ×3 (08:35→18:11)
[2016-09-05] MEDS: CALCIUM CARB W/VIT D 500 MG TAB PO SCH ×2 (08:35→20:20)
[2016-09-05] MEDS: CARVEDILOL 6.25 MG TAB PO SCH ×2 (08:35→18:11)
[2016-09-05] MEDS: OXYCODONE/APAP 5/325 TAB PO SCH ×3 (08:36→21:42)
[2016-09-05] MEDS: GABAPENTIN 400 MG CAP PO SCH ×3 (08:36→21:42)
[2016-09-05] MEDS: PANTOPRAZOLE SODIUM 40 MG TAB PO SCH (08:37)
[2016-09-05] MEDS: predniSONE 5 MG TAB PO SCH (08:37)
[2016-09-05] MEDS: oxyCODONE IR 5 MG TAB PO SCH ×3 (08:37→21:42)
[2016-09-05] MEDS: FERROUS SULFATE 325 MG TAB PO SCH (08:37)
[2016-09-05] MEDS: HYDROXYCHLOROQUINE SULFATE 200 MG TAB PO SCH ×2 (08:37→20:20)
[2016-09-05] MEDS ORDERED: NON-FORMULARY NEW DRUG (Omeprazole [Prilosec 40 Mg] 40 MG) PO SCH (09:00)
[2016-09-05] MEDS: ASCORBIC ACID 500 MG TAB PO SCH (13:09)
[2016-09-05] MEDS: MAGNESIUM OXIDE 400 MG TAB PO SCH (13:09)
[2016-09-05] MEDS: MULTIVITAMINS 1 EACH TAB PO SCH (13:10)
[2016-09-05] MEDS: LEFLUNOMIDE 20 MG TAB PO SCH (13:10)
--- NOTE | 2016-09-05 16:29 | HOSPPROG ---
Hospitalist Progress Note Assessment/Plan: 76 yo M with chronic lymphedema as well as hx of CAD admitted post cardiac cath for mgmt of lower extremity edema. # CAD: with difficult to stent cx with 80-90% stenosis, no intervention at this point other than medical management # BLE edema: likely multifactorial with diastolic dysfunction, mild pulmonary htn, ckd, as well as chronic ble lymphedema with chronic venous stasis, prior DVT and peripheral neuropathy and limited mobility. Has been on lymphedema pump in the past. Plan to attempt diuresis to make some headway with this--patient would like to dc home fredy. # RAMIN on CKD: with prior baseline in the mid to high 1s and now creatinine of 2.1 for the last several checks, ? if this is new baseline. Will monitor with diuresis. # DM: continued on home regimen and thus far well controlled, monitoring # NPH: has chronic gait issues as well as urinary sxs per his , followed by neurology as an OP. PT/OT to evaluate # a fib/flutter: most recent ecg reviewed showing flutter, rate controlled, continue op meds # chronic wounds: hx of venous stasis ulcers and pressure ulcers in the past, will ask wound care to eval # RA: continue op management # dispo: IP status, likely will need several days in house Care plan reviewed with patients present at bedside. Subjective: no significant overnight events, patient very eager to dc home fredy Objective: Vital Signs Temp Pulse Resp BP Pulse Ox 36.4 C 89 20 105/61 91 L 09/05/16 11:36 09/05/16 11:36 09/05/16 11:36 09/05/16 11:36 09/05/16 11:36 Laboratory Results 09/04/16 08:55 09/05/16 03:40 09/04/16 09/05/16 09/06/16 05:59 05:59 05:59 Intake Total 1025 Output Total 4420 700 Balance -3395 -700 PT 15.3 SEC (12.0-15.0) H 09/04/16 08:55 INR 1.21 (0.83-1.16) H 09/04/16 08:55 Awake alert nad anicteric op clear rrr systolic murmur cta b, dec at bases soft nt nd ble edema warm dry well perfused oriented appropriate - Time Spent With Patient Time Spent with Patient: greater than 35 minutes Time Spent with Patient: Greater than 35 minutes spent on this patients care, greater than 50% of time spent counseling, educating, and coordinating care regarding the above mentioned plan. 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
[2016-09-05] MEDS: WARFARIN SODIUM 2.5 MG TAB PO SCH (18:13)
[2016-09-05] MEDS: PRAVASTATIN SODIUM 20 MG TAB PO SCH (20:19)
[2016-09-05] MEDS: CHOLECALCIFEROL VIT D3 1,000 UNITS TAB PO SCH (20:20)
[2016-09-05] MEDS: ASPIRIN 81 MG CHEWABLE TAB PO SCH (20:20)
--- NOTE | 2016-09-05 21:26 | PDCARPN ---
Cardiology Progress Note Assessment/Plan: Chronic Diastolic CHF/Chronic Cor Pulmonale- long history of severe edema with a probable component of lymphedema. Cardiac catheterization yesterday demonstrated mild pulmonary hypertension and mildly to moderately elevated PCWP and LVEDP. Excellent response to intravenous Lasix overnight with negative fluid balance greater than 3 liters (especially noting that furosemide drip was not started until late in the day.) Renal function remains stable with Creat of 2.1. Continue furosemide drip at 5 mg/Hr for 24 Hr more. Edema- severe bilateral lower extremity edema. Legs wrapped with Tam bandages. This has been a chronic problem for many years. Suspect that his cardiac status does not explain the entirety of his lower extremity swelling. Continue diuresis. Coronary Artery Disease- complex proximal LAD lesion/lucency and high-grade distal circumflex lesion. Discussed with his primary military equipment specialist, Dr. Armstrong, yesterday evening. Patient is not experiencing any symptoms suggestive of angina. Last echocardiogram from June of this year suggested preserved left ventricular systolic function. Has multiple comorbidities. Therefore, will pursue medical management for his CAD. 09/05/16 21:34 Subjective: No chest pain, dyspnea, or palpitations Objective: Vital Signs (8 Hrs) Temp Pulse Resp BP Pulse Ox 09/05/16 20:00 36.7 C 96 15 103/56 L 93 09/05/16 18:11 87 146/75 H 09/05/16 16:33 36.8 C 89 16 153/80 H 90 L Intake/Output (24 Hrs) 09/04/16 09/05/16 09/06/16 05:59 05:59 05:59 Intake Total 1025 1310 Output Total 4420 2650 Balance -3395 -1340 Intake: Oral (ml) 965 1250 IV Infused (ml) 60 60 Furosemide 100 mg In D5w 60 60 100 ml @ 5 MG/HR 5 mls/hr IV CONT [place]LY Rx#: [id number] Output: Urine (ml) 4420 2650 Catheter 4000 2650 Urinal 420 Other: Weight 111 kg Number of Stools Bedside Commode 4 Result Diagrams: 09/04/16 08:55 09/05/16 03:40 - Physical Exam Constitutional: no apparent distress Eyes: anicteric sclera Ears, Nose, Mouth, Throat: moist mucous membranes Cardiovascular: regular rate and rhythm, no murmurs, no rubs, no gallops Respiratory: clear to auscultate bilat Gastrointestinal: normoactive bowel sounds, no tenderness, no masses Skin: other (severe bilateral lower extremity edema) Neurologic: AAOx3 Psychiatric: not anxious ICD10 Worksheet Patient Problems: Problems Problem Status Onset Supraventricular tachycardia Active Cellulitis Acute Lymphedema of both lower extremities Acute 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
[2016-09-06] MEDS: INSULIN LISPRO 100 UNIT/ML SC SCH ×5 (08:25→18:14)
[2016-09-06 08:34] LABS: INR 1.3 (0.83-1.16); PROTIME(PATIENT) 16.2 SEC (12.0-15.0)
[2016-09-06] MEDS: predniSONE 5 MG TAB PO SCH (08:47)
[2016-09-06] MEDS: GABAPENTIN 400 MG CAP PO SCH ×2 (08:47→16:26)
[2016-09-06] MEDS: FERROUS SULFATE 325 MG TAB PO SCH (08:47)
[2016-09-06] MEDS: INSULIN GLARGINE 100 UNITS/ML SYRINGE SC SCH (08:47)
[2016-09-06] MEDS: DOCUSATE SODIUM 100 MG CAP PO SCH ×3 (08:47→18:13)
[2016-09-06] MEDS: ENOXAPARIN 30 MG/0.3 ML SYR SC SCH (08:47)
[2016-09-06] MEDS: PRESERVISION AREDS2 FORMULA EYE VIT 1 EACH PO SCH (08:48)
[2016-09-06] MEDS: HYDROXYCHLOROQUINE SULFATE 200 MG TAB PO SCH (08:48)
[2016-09-06] MEDS: CARVEDILOL 6.25 MG TAB PO SCH ×2 (08:49→18:13)
[2016-09-06] MEDS: PANTOPRAZOLE SODIUM 40 MG TAB PO SCH (08:49)
[2016-09-06] MEDS: OXYCODONE/APAP 5/325 TAB PO SCH ×2 (08:49→16:26)
[2016-09-06] MEDS: oxyCODONE IR 5 MG TAB PO SCH ×2 (08:49→16:26)
[2016-09-06] MEDS: CALCIUM CARB W/VIT D 500 MG TAB PO SCH (08:54)
--- NOTE | 2016-09-06 10:28 | WOCRNPDOC ---
WOCRN Advanced Assessment Note - Skin Integrity Problem, Advanced Assess Buttock Incont Assoc Dermatitis Dressing Type: Allevyn Life, Open to Air Exudate Amount: Scant Exudate Characteristic(s): Serosanguinous Integumentary Issue Intervention: Dressing Changed, Dressing Initialed & Dated Aida Wound Tissue: Blanching, Erythema, Macerated, Scarred Wound Bed Color: [place], Red Wound Bed Constitution: Granulation Tissue, Smooth Tissue Site Measurement - Head-to-Toe Length X Width X Depth (cm): x 3 wounds on right buttocks approx 1.5x1x0.1 Skin Integrity Problem Comment: Incontinence associated dermatitis with various areas of healing noted. Wounds are unlikely to be pressure related. Coccyx presents with blanching erythema. Sacram without erythema. Cleaned with ns and gauze. Skin prep applied aida wound. Honey to open areas per patient request. Covered with Allevyn Life. Wound care will round again Thursday 09/14. Right Lower Lateral Leg Dressing Type: Hydrofera Blue Ready Dressing Description: Clean/Dry, Intact Exudate Amount: Minimal Exudate Characteristic(s): Bloody Integumentary Issue Intervention: Dressing Changed Aida Wound Tissue: Lipodermatosclerosis, Hemosiderin Staining, Venous Dermatitis , Anhidrotic, Crusted, Scarred, Lichenification, Hyperkeratotic Aida Wound Swelling: None Wound Bed Color: Red, Yellow Wound Bed Constitution: Granulation Tissue (70%), Adhered Slough (30%) Wound Edges: Irregular Site Odor: Moderate, Pungent Site Measurement - Head-to-Toe Length X Width X Depth (cm): 5x5x0.2 Extremity Temperature: Warm Lymphedema Present: Yes (Positive Stemmers) Peripheral Edema Location & Description: Bilateral lower extremities Skin Integrity Problem Comment: Light compression wrap easily removed. Patient has lost so much fluid that the wraps were at least 3 inches to big bilaterally. Cleaned legs with foaming cleanser and washcloth. Dimethicone lotoin applied. Wound Cleaned with ns and gauze. Skin prep applied aida wound. One piece of hydrofera blue ready placed over wound bed. This was covered with 1 /2 an 8x10 optilock and then wrapped with gauze and Tam (wraps were placed bilaterally). Faith JACOBS in room for care.
--- NOTE | 2016-09-06 12:16 | HOSPPROG ---
Hospitalist Progress Note Assessment/Plan: 76 yo M with chronic lymphedema as well as hx of CAD admitted post cardiac cath for mgmt of lower extremity edema. # CAD: with difficult to stent cx with 80-90% stenosis, no intervention at this point other than medical management # BLE edema: likely multifactorial with diastolic dysfunction, mild pulmonary htn, ckd, as well as chronic ble lymphedema with chronic venous stasis, prior DVT and peripheral neuropathy and limited mobility. Has been on lymphedema pump in the past. Cardiology with plans to continue lasix drip for a bit longer to see if there is much improvement made. # RAMIN on CKD: with prior baseline in the mid to high 1s and now creatinine of 2.1 for the last several checks, ? if this is new baseline. Recheck pending. # DM: continued on home regimen and thus far well controlled, monitoring # NPH: has chronic gait issues as well as urinary sxs per his , followed by neurology as an OP. Stable # a fib/flutter: most recent ecg reviewed showing flutter, rate controlled, continue op meds # chronic wounds: hx of venous stasis ulcers and pressure ulcers in the past, will ask wound care to eval # RA: continue op management # dispo: IP status, likely will need several days in house Care plan reviewed with patients present at bedside. Subjective: no significant overnight events, patient feeling better and very eager for dc home Objective: Vital Signs Temp Pulse Resp BP Pulse Ox 36.8 C 91 15 109/56 L 94 09/06/16 11:14 09/06/16 11:14 09/06/16 11:14 09/06/16 11:14 09/06/16 11:14 Laboratory Results 09/04/16 08:55 09/05/16 09/06/16 09/07/16 05:59 05:59 05:59 Intake Total 1025 1756 150 Output Total 4420 4700 1775 Balance -3395 -2944 -1625 PT 16.2 SEC (12.0-15.0) H 09/06/16 08:09 INR 1.30 (0.83-1.16) H 09/06/16 08:09 Awake alert nad anicteric op clear rrr systolic murmur cta b, dec at bases soft nt nd ble edema warm dry well perfused oriented appropriate - Time Spent With Patient Time Spent with Patient: greater than 35 minutes Time Spent with Patient: Greater than 35 minutes spent on this patients care, greater than 50% of time spent counseling, educating, and coordinating care regarding the above mentioned plan. 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
[2016-09-06 12:27] LABS: ANION GAP 9 mEq/L (8-16); CALCIUM 8.8 mg/dL (8.5-10.4); CARBON DIOXIDE 31 mEq/l (22-31); CHLORIDE 99 mEq/L (97-110); CREATININE 2.3 mg/dL (0.7-1.3); GLOMERULAR FILTRATION RATE 28; GLUCOSE 115 mg/dL (70-100); POTASSIUM 4.2 mEq/L (3.5-5.2); SODIUM 139 mEq/L (134-144)
[2016-09-06] MEDS: LEFLUNOMIDE 20 MG TAB PO SCH (13:02)
[2016-09-06] MEDS: MULTIVITAMINS 1 EACH TAB PO SCH (13:03)
[2016-09-06] MEDS: MAGNESIUM OXIDE 400 MG TAB PO SCH (13:03)
[2016-09-06] MEDS: ASCORBIC ACID 500 MG TAB PO SCH (13:03)
[2016-09-06 15:12] VITALS: BP 144/85; PULSE 98; RESP 17; TEMP 98.4; O2SAT 91
--- NOTE | 2016-09-06 15:37 | PDIAF ---
- Diagnosis Code Status: Full Code - Medication Management Discharge Medications: Medications to Continue on Transfer Aspirin [Aspirin 81mg (*)] 81 mg PO HS 08/13/12 [Last Taken 09/03/16] Carvedilol [Coreg (*)] 6.25 mg PO BIDMEAL 08/13/12 [Last Taken 09/04/16 07:00] Cholecalciferol Vit D3 [Vitamin D3 (*)] 2,000 units PO HS 08/13/12 [Last Taken 09/03/16] Insulin Glargine [Lantus 100 UNITS/ML (*)] 30 units SC DAILY 08/13/12 [Last Taken 09/03/16] Omeprazole [Prilosec 40 mg] 40 mg PO DAILY 08/13/12 [Last Taken 09/04/16 07:00] Oxycodone HCl/Acetaminophen [Percocet 10-325 mg Tablet] 1 tab PO TID 08/13/12 [ Last Taken 09/04/16 07:00] Warfarin Sodium [Coumadin 2.5MG (*)] 2.5 mg PO DAILY@18 08/13/12 [Last Taken 01/06] Ascorbic Acid [Vitamin C 500 mg (*)] 1,000 mg PO DAILY@07/16/16 [Last Taken 09/03/16] Calcium Citrate W/Vit D [Citracal + D] 1 tab PO BID 07/16/16 [Last Taken ] Docusate Sodium [Colace 100 MG (*)] 200 mg PO TIDMEAL 07/16/16 [Last Taken 09/03 18:00] Herbals/Supplements -Info Only 1 ea PO DAILY 07/16/16 [Last Taken 07/16/16 12:00 ] Hydroxychloroquine Sulfate [Plaquenil 200 mg (*)] 200 mg PO BID 07/16/16 [Last Taken 09/03/16 21:00] Insulin Aspart [Novolog Flexpen] 30 unit SQ BIDMEAL 07/16/16 [Last Taken 18:00] Insulin Glargine [Lantus 100 UNITS/ML (*)] 40 units SC HS 07/16/16 [Last Taken 09/03/16] Leflunomide [Arava 20 mg (*)] 20 mg PO DAILY@12 07/16/16 [Last Taken 09/03/16] Lisinopril [Zestril 2.5 mg (*)] 2.5 mg PO DAILY 07/16/16 [Last Taken 09/04/16 07 :00] Magnesium Oxide [Magnesium Oxide 400 mg (*)] 400 mg PO DAILY@12 07/16/16 [Last Taken 09/03/16] Multivitamins [Multivitamin (*)] 1 tab PO DAILY@12 07/16/16 [Last Taken 09/03/16 ] predniSONE 5 mg PO DAILY 07/16/16 [Last Taken 09/04/16 07:00] C/E/Zn/Cu/OM3/DHA/EPA/LUT/ZEAX [Preservision Areds 2 Softgel] 1 each PO DAILY [Last Taken 09/03/16] Ferrous Sulfate [Ferrous Sulf 325 MG (*)] 325 mg PO DAILY 09/04/16 [Last Taken 09/03/16] Gabapentin [Neurontin 400 MG (*)] 800 mg PO TID 09/04/16 [Last Taken 09/04/16 07 :00] Lovastatin 20 mg PO HS 09/04/16 [Last Taken 09/03/16] levOFLOXACIN [levAQUIN (*)] 750 mg PO Q2D@1000 #7 tab 09/06/16 [Last Taken Unknown] Discharge Medications: Refer to the Discharge Home Medication list for PRN reason. - Orders Services needed: Registered Nurse, Physical Therapy, Occupational Therapy Diet Recommendation: cardiac -low fat low salt Weigh Patient: weekly - Follow Up Care Current Providers and Referrals: Buster Contreras MD [Medical Doctor] - 09/12/16 3:00 pm (In addition to your follow up appointment with Dr. Contreras on the , you have a MUGA nuclear scan at [facility] on September 11 at 8:00 a.m.) Tucker Barros MD [Primary Care Provider] -
[2016-09-06] MEDS: WARFARIN SODIUM 2.5 MG TAB PO SCH (18:27)
--- NOTE | 2016-09-07 05:40 | GDS ---
[f rep st] DISCHARGE SUMMARY REASON FOR ADMISSION: Probable chronic cor pulmonale. Please refer to Dr. Buster Contreras recent office note which serves as the admission history and physica l for this hospital encounter. Briefly, the patient is a 76-year-old man with longstanding severe l ower extremity edema which in the past and been attributed to lymphedema. He has had frequent episo luke of cellulitis. His cardiac history also includes paroxysmal atrial fibrillation and SVT with a history of prior ablation procedures. He was seen in the [facility] at [facility] by Dr. Contreras. Echocardiography in the office consisted of suboptimal imaging leaving ace ashley about his left ventricular systolic function. He did not have any symptoms suggestive of angina. Because of his significant obesity, there was also consideration for sleep apnea and/or obesity hy poventilation syndrome producing cor pulmonale. Therefore Dr. Contreras scheduled him for a right and l eft heart catheterization to be followed by admission to the hospital for intravenous diuresis with close monitoring of his electrolytes and renal function, in light of a history of chronic kidney dis ease. His cardiac catheterization was carried out on September 04. That study demonstrated a complex and irregu lar lucency suggestive of a very eccentric plaque in the proximal LAD. It was not obviously flow li miting. The circumflex had a focal 80%-90% stenosis in the mid to distal vessel. His pulmonary art henri pressure was 40/20/28 mmHg. His pulmonary capillary wedge pressure was 20 mmHg and LVEDP was 22 mmHg. The patient was admitted to the progressive care unit. An intravenous Lasix drip at 5 mg/ho ur was initiated. Over the first night, the patient had a net negative fluid balance of minus 3395 cc. Over the subsequent day he demonstrated an additional 2944 cc of negative fluid balance and on the final hospital day, he had 1985 cc of negative fluid balance. Despite over 8 L of diuresis, the re was no appreciable change in the degree of his lower extremity edema. He had no symptoms of lou na. No arrhythmias during his hospital stay. His renal function remains stable, with a creatinine of 2.1 to 2.3. This morning, he was feeling well and was appropriate for discharge. RECOMMENDATIONS AND DISPOSITION ON DISCHARGE: The patient is discharged in stable condition. He wi ll continue all of his prior home medications. A short course of levofloxacin was prescribed becaus e of evidence of a urinary tract infection with a positive culture. The patient has a MUGA scan anali edusharri in the office of [facility] on September 11, and has a followup appointment with Dr. Buster Contreras on September 12. DISCHARGE DIAGNOSES: 1. Chronic severe lower extremity edema. 2. Mildly elevated right heart pressures. 3. Two-vessel coronary artery disease. /[id number]/MODL
== END 2016-09-06 18:36 | disposition home or self-care (01) | DRG 287 ==
LOC: FCATH 08:15 → F2W 09:45
PROVIDERS: ADMIT Internal Medicine Interventional Cardiology; ATTEND Internal Medicine Interventional Cardiology
DX: I13.10 Hypertensive heart and chronic kidney disease without heart failure, with stage 1 through stage 4 chronic kidney disease, or unspecified chronic kidney disease (principal); I50.32 Chronic diastolic (congestive) heart failure; N18.9 Chronic kidney disease, unspecified; I89.0 Lymphedema, not elsewhere classified; L97.211 Non-pressure chronic ulcer of right calf limited to breakdown of skin; E66.09 Other obesity due to excess calories; I27.2 Other secondary pulmonary hypertension; Z68.36 Body mass index [BMI] 36.0-36.9, adult; I25.10 Atherosclerotic heart disease of native coronary artery without angina pectoris; I48.92 Unspecified atrial flutter; N39.0 Urinary tract infection, site not specified; B95.4 Other streptococcus as the cause of diseases classified elsewhere; E11.22 Type 2 diabetes mellitus with diabetic chronic kidney disease; M06.9 Rheumatoid arthritis, unspecified; K21.9 Gastro-esophageal reflux disease without esophagitis; Z85.820 Personal history of malignant melanoma of skin
CPT/HCPCS: 97162-GP; 97166-GO; C1769; G8978-GP-CJ; G8979-GP-CI; G8987-GO-CK; G8988-GO-CK; J1644; J1650; J1815; J2250; J3010; Q9967

== ENCOUNTER 2017-02-22 16:19 | Inpatient (IN) | payer OTHER, MEDICARE ==
--- NOTE | 2017-02-22 17:09 | EDPHY ---
H & P Stated Complaint: ? NEW INFECTION R FOOT/DIABETIC Time Seen by Provider: 02/22/17 16:39 HPI/ROS: HPI: This is a 76-year-old male who presents with Chief Complaint: Right diabetic foot infection Location: Right foot Quality: Infection Duration: Week Signs and Symptoms: No bleeding, no radiation, + numbness, no weakness, no tingling, + decreased range of motion, + swelling, no pain Timing: Worsening Severity: Moderate to severe Context: This is a type 2 diabetic with chronic lymphedema managed by the outpatient wound clinic for the last 8-9 months and has had prior wound debridement on his right lower extremity by Dr. Rocha earlier this year presents with complaints of infection and skin peeling of the bottom of his right foot as well his his right little toe with a blackened area over the last 1 week. Patient and reports clear drainage and decreased ability to bear weight. No fevers/chills. Patient has not been on antibiotics since last year per . Blood sugars have been running between 50-200. Modifying Factors: Compression Comment: ROS: see HPI Constitutional: No fever, no chills, no weight loss Eyes: No blurred vision Respiratory: No shortness of breath, no cough Cardiovascular: No chest pain Gastrointestinal: No nausea, no vomiting no diarrhea Genitourinary: No dysuria Extremities: No myalgias Neurologic: No weakness, no numbness Skin: No rashes Hematologic: No bruising, no bleeding MEDICAL/SURGICAL/SOCIAL HISTORY: dm 2, chf, mi, hyperlipidemia, afib s/p ablation, svt, gerd, hyperlipidemia, DVT , kidney stones, lymphedema, RA, sleep apnea, UTIs, urinary incontinence, fatigue, laminectomy, cataracts, r shoulder, malignant melanoma excision Social history: CONSTITUTIONAL: Obese elderly white male, awake and alert, no obvious distress HEENT: Atraumatic and normocephalic, PERRL, EOMI. Tympanic membranes clear. Oropharynx clear, no exudate and moist pink mucosa. Airway patent. No lymphadenopathy. No meningismus. Cardiovascular: Normal S1/S2, regular rate, regular rhythm, without murmur rub or gallop. PULMONARY/CHEST: Symmetrical and nontender. Clear to auscultation bilaterally. Good air movement. No accessory muscle usage. ABDOMEN: Soft, nondistended, nontender, no rebound, no guarding, no peritoneal signs, no masses or organomegaly. No CVAT. EXTREMITIES: 1/2 pedal pulses, 2 to 3+ pitting edema bilateral lower extremities; right foot: 2nd digit excess skin noted at MTP joint; 5th digit lateral aspect black and area with ulceration and clear drainage; bottom of the right foot peeling of the skin with ulceration and clear drainage approximately 40%. Does not have good light touch sensation in any of his toes were the bottom of his feet. Toes are warm to touch. strength 5/5, no deformities, no clubbing, no cyanosis. NEUROLOGICAL: no focal neuro deficits. GCS 15. SKIN: Warm and dry, no erythema. no rash. Good capillary refill. Source: Patient, Family () Exam Limitations: No limitations - Personal History Current Tetanus/Diphtheria Vaccine: No - Medical/Surgical History Hx Asthma: No Hx Chronic Respiratory Disease: No Hx Diabetes: Yes Hx Cardiac Disease: Yes Hx Renal Disease: Yes Hx Cirrhosis: No Hx Alcoholism: No Hx HIV/AIDS: No Hx Splenectomy or Spleen Trauma: No Other PMH: dm 2, chf, mi, hyperlipidemia, afib s/p ablation, svt, gerd, hyperlipidemia, DVT, kidney stones, lymphedema, RA, sleep apnea, UTIs, urinary incontinence, fatigue, laminectomy, cataracts, r shoulder, malignant melanoma excision - Social History Smoking Status: Never smoked Constitutional: Initial Vital Signs Temperature (C) 36.8 C 02/22/17 16:23 Heart Rate 88 02/22/17 16:23 Respiratory Rate 18 02/22/17 16:23 Blood Pressure 149/86 H 02/22/17 16:23 O2 Sat (%) 93 02/22/17 16:23 O2 Delivery Mode Room Air Allergies/Adverse Reactions: amoxicillin [Amoxicillin] Allergy (Verified 02/22/17 16:22) Rash amoxicillin trihydrate [From Augmentin] Allergy (Verified 02/22/17 16:22) Rash clindamycin Allergy (Verified 02/22/17 16:22) sores in mouth cyclobenzaprine HCl [From Flexeril] Allergy (Verified 02/22/17 16:22) donepezil HCl [From Aricept] Allergy (Verified 02/22/17 16:22) fentanyl Allergy (Verified 02/22/17 16:22) confused methotrexate Allergy (Verified 02/22/17 16:22) potassium clavulanate [From Augmentin] Allergy (Verified 02/22/17 16:22) Rash Sulfa (Sulfonamide Antibiotics) Allergy (Verified 02/22/17 16:22) sores in the mouth triazolam [From Halcion] Allergy (Verified 02/22/17 16:22) Home Medications: Medication Instructions Recorded Aspirin [Aspirin 81mg (*)] 81 mg PO HS 08/13/12 Carvedilol [Coreg (*)] 6.25 mg PO BIDMEAL 08/13/12 Cholecalciferol Vit D3 [Vitamin D3 2,000 units PO HS 08/13/12 (*)] Insulin Glargine [Lantus 100 30 units SC DAILY 08/13/12 UNITS/ML (*)] Omeprazole [Prilosec 40 mg] 40 mg PO DAILY 08/13/12 Oxycodone HCl/Acetaminophen 1 tab PO TID 08/13/12 [Percocet 10-325 mg Tablet] Warfarin Sodium [Coumadin 2.5MG 2.5 mg PO DAILY@18 08/13/12 (*)] Ascorbic Acid [Vitamin C 500 mg 1,000 mg PO DAILY@07/16/16 (*)] Calcium Citrate W/Vit D [Citracal 1 tab PO BID 07/16/16 + D] Docusate Sodium [Colace 100 MG (*)] 200 mg PO TIDMEAL 07/16/16 Herbals/Supplements -Info Only 1 ea PO DAILY 07/16/16 Hydroxychloroquine Sulfate 200 mg PO BID 07/16/16 [Plaquenil 200 mg (*)] Insulin Aspart [Novolog Flexpen] 30 unit SQ BIDMEAL 07/16/16 Insulin Glargine [Lantus 100 40 units SC HS 07/16/16 UNITS/ML (*)] Leflunomide [Arava 20 mg (*)] 20 mg PO DAILY@07/16/16 Lisinopril [Zestril 2.5 mg (*)] 2.5 mg PO DAILY 07/16/16 Magnesium Oxide [Magnesium Oxide 400 mg PO DAILY@07/16/16 400 mg (*)] Multivitamins [Multivitamin (*)] 1 tab PO DAILY@07/16/16 predniSONE 5 mg PO DAILY 07/16/16 C/E/Zn/Cu/OM3/DHA/EPA/LUT/ZEAX 1 each PO DAILY 09/04/16 [Preservision Areds 2 Softgel] Ferrous Sulfate [Ferrous Sulf 325 325 mg PO DAILY 09/04/16 MG (*)] Gabapentin [Neurontin 400 MG (*)] 800 mg PO TID 09/04/16 Lovastatin 20 mg PO HS 09/04/16 Medical Decision Making - Diagnostics Imaging Results: Imaging Impressions Extremity Venous Study 02/22/17 17:05 Impression: 1. Limited evaluation of bilateral calf veins. 2. No major deep venous thrombosis bilateral legs. Foot X-Ray 02/22/17 17:06 Impression: 1. Extensive forefoot edema. No subcutaneous gas or foreign body. 2. Progressive demineralization. No definite osteomyelitis. Findings discussed with Emergency Department physician assistant center director, Carri Velez, on 02/22/2017, 1807 hours. ED Course/Re-evaluation: Chart review shows last bilateral lower extremity ultrasound was in 2009; will repeat this study along with right foot x-ray to evaluate for gas, labs, blood cultures Patient will likely need admission for further care and debridement has failed outpatient therapy and worsening. 1730: Right foot x-ray reviewed via PACs and shows no gas in soft tissues/ osteomyelitis 1830: Ultrasound shows no deep venous thrombosis but is limited due to significant lymphedema. Labs reviewed and show creatinine of 2.4; chart review shows that it normally runs around 2.0 and normocytic anemia. PCN and Clindamycin allergies; IV Vancomycin 1 g given 1840: ED decision to consult for admission, spoke with hospitalist, Dr. Osorio, kindly accepts patient for admission and to provide further care Differential Diagnosis: Leg swelling including but not limited to hypoalbuminemia, congestive heart failure, cor pulmonale, chronic venous stasis and DVT. - Data Points Laboratory Results: Laboratory Results 02/22/17 18:21 02/22/17 18:21 02/22/17 02/22/17 02/22/17 18:21 18:21 18:21 WBC 9.59 10^3/uL H 10^3/uL (3.80-9.50) RBC 3.30 10^6/uL L 10^6/uL (4.40-6.38) Hgb 10.6 g/dL L g/dL (13.7-17.5) Hct 32.7 % L % (40.0-51.0) MCV 99.1 fL fL (81.5-99.8) MCH 32.1 pg pg (27.9-34.1) MCHC 32.4 g/dL g/dL (32.4-36.7) RDW 14.5 % % (11.5-15.2) Plt Count 171 10^3/uL 10^3/uL (150-400) MPV 9.4 fL fL (8.7-11.7) Neut % (Auto) 75.2 % H % (39.3-74.2) Lymph % (Auto) 9.4 % L % (15.0-45.0) [place] % (Auto) 10.6 % % (4.5-13.0) Eos % (Auto) 3.2 % % (0.6-7.6) Baso % (Auto) 0.9 % % (0.3-1.7) Nucleat RBC Rel Count 0.0 % % (0.0-0.2) Absolute Neuts (auto) 7.20 10^3/uL H 10^3/uL (1.70-6.50) Absolute Lymphs (auto) 0.90 10^3/uL L 10^3/uL (1.00-3.00) Absolute Monos (auto) 1.02 10^3/uL H 10^3/uL (0.30-0.80) Absolute Eos (auto) 0.31 10^3/uL 10^3/uL (0.03-0.40) Absolute Basos (auto) 0.09 10^3/uL 10^3/uL (0.02-0.10) Absolute Nucleated RBC 0.00 10^3/uL 10^3/uL (0-0.01) Immature Gran % 0.7 % % (0.0-1.1) Immature Gran # 0.07 10^3/uL 10^3/uL (0.00-0.10) VBG Lactic Acid 1.1 mmol/L mmol/L (0.7-2.1) Sodium 137 mEq/L mEq/L (134-144) Potassium 4.6 mEq/L mEq/L (3.5-5.2) Chloride 101 mEq/L mEq/L (97-110) Carbon Dioxide 27 mEq/l mEq/l (22-31) Anion Gap 9 mEq/L mEq/L (8-16) BUN 38 mg/dL H mg/dL (7-23) Creatinine 2.4 mg/dL H mg/dL (0.7-1.3) Estimated GFR 26 Glucose 81 mg/dL mg/dL (70-100) Calcium 8.8 mg/dL mg/dL (8.5-10.4) Medications Given: Vancomycin/Sodium Chloride (Vancomycin 1 Gm (Premix)) 250 mls @ 250 mls/hr IV EDNOW ONE PRN Reason: Protocol Stop: 02/22/17 19:37 Last Admin: 02/22/17 18:57 Dose: 250 mls Departure - Departure Disposition: [facility] Inpatient Acute Clinical Impression: Cellulitis of right foot Diabetic foot ulcer Qualifiers: Diabetic foot ulcer location: toe Diabetes mellitus type: type 2 Laterality: right Non-pressure ulcer stage: limited to breakdown of skin Qualified Code(s): E11.621 - Type 2 diabetes mellitus with foot ulcer Lymphedema of leg Qualifiers: Laterality: bilateral Qualified Code(s): I89.0 - Lymphedema, not elsewhere classified
[2017-02-22 18:32] LABS: PLATELET COUNT 171 10^3/uL (150-400)
[2017-02-22] MEDS ORDERED: VANCOMYCIN HCL/NORMAL SALINE 250 ML IV ONE ×2 (18:38→21:30)
[2017-02-22] MEDS ORDERED: OXYCODONE/APAP 5/325 TAB PO ONE (20:01)
[2017-02-22] MEDS ORDERED: OXYCODONE/APAP 5/325 TAB ONE (20:01)
--- NOTE | 2017-02-22 20:37 | PDGENHP ---
History and Physical - Chief Complaint right foot wound - History of Present Illness This is a 76 yo morbidly obese male with hx of DM, chronic right foot wounds, and lymphedema who reports worsening right foot wounds x one week. He is managed by the outpatient wound clinic for the last 8-9 months and has had prior wound debridement on his right lower extremity by Dr. Rocha earlier this year. He reports skin peeling of the bottom of his right foot as well his his right little toe with a blackened area over the last 1 week. Patient and reports clear drainage and decreased ability to bear weight. No fevers/chills. Patient has not been on antibiotics since last year per . Blood sugars have been running between 50-200. In the E.D., an XRAY showed extensive forefoot edema, but no clear OM. He was started on Vancomycin. He has significant LE edema. He and his report unchanged. A US of the LE is negative for DVT. He denies any CP, SOB, palpitations, N/V, focal weakness. 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 Baseline is 1.7-2.3 EKG shows Afib History Information - Allergies/Home Medication List Allergies/Adverse Reactions: amoxicillin [Amoxicillin] Allergy (Verified 02/22/17 16:22) Rash amoxicillin trihydrate [From Augmentin] Allergy (Verified 02/22/17 16:22) Rash clindamycin Allergy (Verified 02/22/17 16:22) sores in mouth cyclobenzaprine HCl [From Flexeril] Allergy (Verified 02/22/17 16:22) donepezil HCl [From Aricept] Allergy (Verified 02/22/17 16:22) fentanyl Allergy (Verified 02/22/17 16:22) confused methotrexate Allergy (Verified 02/22/17 16:22) potassium clavulanate [From Augmentin] Allergy (Verified 02/22/17 16:22) Rash Sulfa (Sulfonamide Antibiotics) Allergy (Verified 02/22/17 16:22) sores in the mouth triazolam [From Halcion] Allergy (Verified 02/22/17 16:22) Home Medications: Aspirin [Aspirin 81mg (*)] 81 mg PO HS 08/13/12 [Last Taken 09/03/16] Carvedilol [Coreg (*)] 6.25 mg PO BIDMEAL 08/13/12 [Last Taken 09/04/16 07:00] Cholecalciferol Vit D3 [Vitamin D3 (*)] 2,000 units PO HS 08/13/12 [Last Taken 09/03/16] Insulin Glargine [Lantus 100 UNITS/ML (*)] 30 units SC DAILY 08/13/12 [Last Taken 09/03/16] Omeprazole [Prilosec 40 mg] 40 mg PO DAILY 08/13/12 [Last Taken 09/04/16 07:00] Oxycodone HCl/Acetaminophen [Percocet 10-325 mg Tablet] 1 tab PO TID 08/13/12 [ Last Taken 09/04/16 07:00] Warfarin Sodium [Coumadin 2.5MG (*)] 2.5 mg PO DAILY@18 08/13/12 [Last Taken 01/06] Ascorbic Acid [Vitamin C 500 mg (*)] 1,000 mg PO DAILY@12 07/16/16 [Last Taken 09/03/16] Calcium Citrate W/Vit D [Citracal + D] 1 tab PO BID 07/16/16 [Last Taken ] Docusate Sodium [Colace 100 MG (*)] 200 mg PO TIDMEAL 07/16/16 [Last Taken 09/03 18:00] Herbals/Supplements -Info Only 1 ea PO DAILY 07/16/16 [Last Taken 07/16/16 12:00 ] Hydroxychloroquine Sulfate [Plaquenil 200 mg (*)] 200 mg PO BID 07/16/16 [Last Taken 09/03/16 21:00] Insulin Aspart [Novolog Flexpen] 30 unit SQ BIDMEAL 07/16/16 [Last Taken 18:00] Insulin Glargine [Lantus 100 UNITS/ML (*)] 40 units SC HS 07/16/16 [Last Taken 09/03/16] Leflunomide [Arava 20 mg (*)] 20 mg PO DAILY@12 07/16/16 [Last Taken 09/03/16] Lisinopril [Zestril 2.5 mg (*)] 2.5 mg PO DAILY 07/16/16 [Last Taken 09/04/16 07 :00] Magnesium Oxide [Magnesium Oxide 400 mg (*)] 400 mg PO DAILY@07/16/16 [Last Taken 09/03/16] Multivitamins [Multivitamin (*)] 1 tab PO DAILY@07/16/16 [Last Taken 09/03/16 ] predniSONE 5 mg PO DAILY 07/16/16 [Last Taken 09/04/16 07:00] C/E/Zn/Cu/OM3/DHA/EPA/LUT/ZEAX [Preservision Areds 2 Softgel] 1 each PO DAILY [Last Taken 09/03/16] Ferrous Sulfate [Ferrous Sulf 325 MG (*)] 325 mg PO DAILY 09/04/16 [Last Taken 09/03/16] Gabapentin [Neurontin 400 MG (*)] 800 mg PO TID 09/04/16 [Last Taken 09/04/16 07 :00] Lovastatin 20 mg PO HS 09/04/16 [Last Taken 09/03/16] I have personally reviewed and updated: medical history, social history - Past Medical History Additional medical history: Hospitalization in April of 2016 at [facility] for a non ST segment elevation ID, chronic kidney disease with baseline creatinine in 1.5-1.8, Atrial fibrillation status post ablation, diabetes mellitus 2, DVT, kidney stones, lymphedema, rheumatoid arthritis, sleep apnea, urinary tract infections, chronic fatigue , normal pressure hydrocephalus with urinary incontinence - Surgical History Additional surgical history: laminectomy, left eye surgery, right knee arthroscopy, bilateral cataract surgery, cardiac catheterization in 2004, right shoulder surgery 2013, malignant melanoma excision, congestive heart failure unknown ejection fraction - Social History Smoking Status: Never smoked Review of Systems Review of Systems: ROS: 10pt was reviewed & negative except for what was stated in HPI & below Physical Exam Physical Exam: Temp Pulse Resp BP Pulse Ox 36.6 C 76 18 138/71 H 94 02/22/17 20:09 02/22/17 19:30 02/22/17 19:30 02/22/17 19:30 02/22/17 19:30 O2 (L/minute) 2 Constitutional: chronically ill appearing Eyes: PERRL, EOMI Ears, Nose, Mouth, Throat: moist mucous membranes, hearing normal Cardiovascular: irregularly irregular, edema Respiratory: no respiratory distress, reduced air movement Gastrointestinal: normoactive bowel sounds Skin: warm, other Neurologic: AAOx3 Psychiatric: interacting appropriately, not anxious, not encephalopathic Lab Data & Imaging Review 02/22/17 18:21 02/22/17 18:21 WBC 9.59 10^3/uL (3.80-9.50) H 02/22/17 18:21 RBC 3.30 10^6/uL (4.40-6.38) L 02/22/17 18:21 Hgb 10.6 g/dL (13.7-17.5) L 02/22/17 18:21 Hct 32.7 % (40.0-51.0) L 02/22/17 18:21 MCV 99.1 fL (81.5-99.8) 02/22/17 18:21 MCH 32.1 pg (27.9-34.1) 02/22/17 18:21 MCHC 32.4 g/dL (32.4-36.7) 02/22/17 18:21 RDW 14.5 % (11.5-15.2) 02/22/17 18:21 Plt Count 171 10^3/uL (150-400) 02/22/17 18:21 MPV 9.4 fL (8.7-11.7) 02/22/17 18:21 Neut % (Auto) 75.2 % (39.3-74.2) H 02/22/17 18:21 Lymph % (Auto) 9.4 % (15.0-45.0) L 02/22/17 18:21 Morehouse % (Auto) 10.6 % (4.5-13.0) 02/22/17 18:21 Eos % (Auto) 3.2 % (0.6-7.6) 02/22/17 18:21 Baso % (Auto) 0.9 % (0.3-1.7) 02/22/17 18:21 Nucleat RBC Rel Count 0.0 % (0.0-0.2) 02/22/17 18:21 Absolute Neuts (auto) 7.20 10^3/uL (1.70-6.50) H 02/22/17 18:21 Absolute Lymphs (auto) 0.90 10^3/uL (1.00-3.00) L 02/22/17 18:21 Absolute Monos (auto) 1.02 10^3/uL (0.30-0.80) H 02/22/17 18:21 Absolute Eos (auto) 0.31 10^3/uL (0.03-0.40) 02/22/17 18:21 Absolute Basos (auto) 0.09 10^3/uL (0.02-0.10) 02/22/17 18:21 Absolute Nucleated RBC 0.00 10^3/uL (0-0.01) 02/22/17 18:21 Immature Gran % 0.7 % (0.0-1.1) 02/22/17 18:21 Immature Gran # 0.07 10^3/uL (0.00-0.10) 02/22/17 18:21 VBG Lactic Acid 1.1 mmol/L (0.7-2.1) 02/22/17 18:21 Sodium 137 mEq/L (134-144) 02/22/17 18:21 Potassium 4.6 mEq/L (3.5-5.2) 02/22/17 18:21 Chloride 101 mEq/L (97-110) 02/22/17 18:21 Carbon Dioxide 27 mEq/l (22-31) 02/22/17 18:21 Anion Gap 9 mEq/L (8-16) 02/22/17 18:21 BUN 38 mg/dL (7-23) H 02/22/17 18:21 Creatinine 2.4 mg/dL (0.7-1.3) H 02/22/17 18:21 Estimated GFR 26 02/22/17 18:21 Glucose 81 mg/dL (70-100) 02/22/17 18:21 Calcium 8.8 mg/dL (8.5-10.4) 02/22/17 18:21 Assessment & Plan Assessment: #Right Diabetic Foot ulcer with infection, cannot r/o OM #BLE Edema, ?baseline, appears volume overload #Chronic renal failure, appears to be close to baseline of 1.7-2.3, does not appear dehydrated. #Afib. #CAD #DM #NPH #RA Plan: Admit Cont Vancomycin Check CRP/ESR Check MRI right foot continue appropriate home meds AC per Pharmacy Full code
[2017-02-22] MEDS ORDERED: ONDANSETRON DISINTEGRATING 4 MG TAB PO PRN (20:51)
[2017-02-22] MEDS ORDERED: ONDANSETRON 4 MG/2 ML VIAL IVP PRN (20:51)
[2017-02-22] MEDS ORDERED: D50W 25 GM/50 ML VIAL IVP PRN (20:52)
--- NOTE | 2017-02-22 21:32 | PDMN ---
Medical Necessity Medical necessity: C/M review: est. > 2 MN LOS for eval and TX of acute worsening of right diabetic foot ulcer with infection, bilateral lower edema, possible volume overload, decreased of patient ability to bear weight requiring 02/23/2017 MRI right lower extremity, ongoing IV Vancomycin, acute inpt PT/OT, comorbid morbid obesity, diabetes, chronic right foot wounds, lymphedema, CAD, atrial fibrillation, hypertension, chronic renal failure, chronic pain, hyperlipidemia, peripheral neuropathy, rheumatoid arthritis, GERD per H/P.
[2017-02-22] MEDS: WARFARIN SODIUM 2.5 MG TAB PO SCH (22:17)
[2017-02-22] MEDS: oxyCODONE IR 5 MG TAB PO PRN (22:26)
[2017-02-23] MEDS: oxyCODONE IR 5 MG TAB PO PRN ×6 (03:03→22:41)
[2017-02-23 05:49] LABS: PLATELET COUNT 163 10^3/uL (150-400)
[2017-02-23 06:19] LABS: INR 2.3 (0.83-1.16); PROTIME(PATIENT) 25.5 SEC (12.0-15.0)
[2017-02-23] MEDS ORDERED: INSULIN ASPART 30 UNIT SQ SCH (08:00)
[2017-02-23] MEDS: PRESERVISION AREDS2 FORMULA EYE VIT 1 EACH PO SCH (08:43)
[2017-02-23] MEDS: GABAPENTIN 400 MG CAP PO SCH ×3 (08:43→17:30)
[2017-02-23] MEDS: FERROUS SULFATE 325 MG TAB PO SCH (08:43)
[2017-02-23] MEDS: CARVEDILOL 6.25 MG TAB PO SCH ×2 (08:43→18:10)
[2017-02-23] MEDS: HYDROXYCHLOROQUINE SULFATE 200 MG TAB PO SCH ×2 (08:44→20:26)
[2017-02-23] MEDS: DOCUSATE SODIUM 100 MG CAP PO SCH ×3 (08:44→18:10)
[2017-02-23] MEDS: PANTOPRAZOLE SODIUM 40 MG TAB PO SCH (08:44)
[2017-02-23] MEDS: INSULIN GLARGINE 100 UNITS/ML SYRINGE SC SCH ×2 (08:50→20:25)
[2017-02-23] MEDS: predniSONE 5 MG TAB PO SCH (08:51)
[2017-02-23] MEDS ORDERED: VIT D PO SCH (09:00)
[2017-02-23] MEDS ORDERED: CALCIUM CITRATE PO SCH (09:00)
[2017-02-23] MEDS ORDERED: NON-FORMULARY NEW DRUG (Omeprazole [Prilosec 40 Mg] 40 MG) PO SCH (09:00)
[2017-02-23] MEDS ORDERED: Herbals/Supplements -Info Only PO SCH (09:00)
[2017-02-23] MEDS ORDERED: CALCIUM CARB W/VIT D 500 MG TAB PO SCH (09:00)
[2017-02-23] MEDS: CALCIUM CARB W/VIT D 500 MG TAB PO SCH ×2 (09:04→20:26)
[2017-02-23] MEDS: INSULIN LISPRO 100 UNIT/ML SC SCH ×5 (09:04→18:16)
[2017-02-23] MEDS: LISINOPRIL 2.5 MG TAB PO SCH (10:53)
[2017-02-23] MEDS: ACETAMINOPHEN 325 MG TAB PO PRN ×3 (10:55→18:10)
--- NOTE | 2017-02-23 12:34 | HOSPPROG ---
Hospitalist Progress Note Assessment/Plan: Diabetic foot infection - ?osteo, awaiting MRI. Needs pre-treatment with IV dilaudid as unable to tolerate initial attempt at MRI due to back pain / positioning. -discussed with ID, change to ertapenem -await BCx's -wound Cx sent -podiatry consulted, will see pt tomorrow and review MRI DM type 2 - bg's 100's -cont basal/bolus insulin Chronic lymphedema - defer pumps for now given active infection -lasix started CKD - baseline Cr 1.7-2.3. -follow A fib - on chronic anticoagulation, INR 2.4 Full code Dispo - cont inpt Subjective: Pt feels okay. Notes decreased sensation in his feet, which is chronic. He intermittently uses pumps for his lymphedema. No fevers. Objective: Vital Signs Temp Pulse Resp BP Pulse Ox 36.8 C 92 18 163/76 H 94 02/23/17 12:00 02/23/17 12:00 02/23/17 12:00 02/23/17 12:00 02/23/17 12:00 Laboratory Results 02/23/17 05:05 02/23/17 05:05 02/22/17 02/23/17 02/24/17 05:59 05:59 04:59 Intake Total 400 Output Total 500 Balance -100 PT 25.5 SEC (12.0-15.0) H 02/23/17 05:05 INR 2.30 (0.83-1.16) H 02/23/17 05:05 - Physical Exam Constitutional: no apparent distress Eyes: PERRL Ears, Nose, Mouth, Throat: moist mucous membranes Cardiovascular: regular rate and rhythym Respiratory: no respiratory distress Gastrointestinal: normoactive bowel sounds, soft, non-tender abdomen Skin: warm Musculoskeletal: other (b/l lymphedema changes of LE's, RLE with blood filled blister of lateral 5th toe, plantar bullae, one filled, one draining purulent matter, Cx obtained) Neurologic: AAOx3 Psychiatric: interacting appropriately ICD10 Worksheet Patient Problems: Problems Problem Status Onset Cellulitis of right foot Acute Diabetic foot ulcer Acute Lymphedema of leg Acute Supraventricular tachycardia Active Cellulitis Acute Lymphedema of both lower extremities Acute 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
[2017-02-23] MEDS ORDERED: HYDROmorphONE/DILAUDID 1 MG/ML INJ IVP SCH (13:00)
[2017-02-23] MEDS: ASCORBIC ACID 500 MG TAB PO SCH (13:26)
[2017-02-23] MEDS: LEFLUNOMIDE 20 MG TAB PO SCH (13:26)
[2017-02-23] MEDS: MAGNESIUM OXIDE 400 MG TAB PO SCH (13:27)
[2017-02-23] MEDS: MULTIVITAMINS 1 EACH TAB PO SCH (13:27)
[2017-02-23] MEDS: ERTAPENEM 1 GM in NS 100 ML IV SCH (14:23)
--- NOTE | 2017-02-23 14:38 | GCON ---
[f rep st] CONSULTATION INFECTIOUS DISEASES CONSULTATION DATE OF CONSULTATION: 02/23/2017 REFERRING PHYSICIAN: Deandra David MD REASON FOR CONSULTATION: Assist in management of this 76-year-old morbidly obese male with skin and soft tissue infection of his right foot. HISTORY OF PRESENT ILLNESS: The patient is a 76-year-old gentleman whose previous medical history is notable for the followin. Chronic lower extremity lymphedema. 2. History of recurrent episodes of cellulitis, admitted in April 2016, as well as June 2016. At that time, the patient's ulcerations grew group C and G strep. He underwent debridement and antibiotic therapy. 3. Non ST-elevation PR April 2016, with underlying CAD and atrial fibrillation. 4. History of DVT, right lower extremity. 5. Type 2 diabetes with peripheral neuropathy. 6. Melanoma. 7. Diastolic heart failure. 8. Laminectomy and spinal fusion. 9. GERD. 10. Normal-pressure hydrocephalus with early dementia. 11. Rheumatoid arthritis. Regarding his present issues, the patient is followed by my colleague, Dr. Daniel Loya in [facility], and was most recently seen on December 28 for management of a right lateral foot ulceration. The patient states he was told to follow up on an as-needed basis, and that the right lateral ulceration healed. 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 Over the past week, she has noticed a new large ulceration on the plantar aspect of his right foot with an associated large blister. She has also noticed that the foot has been looking pinkish, with discoloration noted on his 3rd toe and 5th toe. Because of this, the patient was brought to [facility] Emergency Department on February 22. A foot x-ray showed no evidence of osteomyelitic changes. The patient tried to undergo an MRI today, but was not successful secondary to severe back pain. He was started on vancomycin on admission. I am now asked to assist in his management. Speaking with the patient today, he tells me that he has minimal sensation in his right foot, but does have sensation in his left foot. He denies fevers or shaking chills, but has noted worsening appearance of his right foot. He states that he walks around in his foot wraps, but does not walk barefoot. He has no water exposure. He has no pets or other unusual exposures. PAST MEDICAL HISTORY: As outlined above. MEDICATIONS: Presently include: Vancomycin 1 g IV daily, warfarin, prednisone 5 mg p.o. daily, pravastatin 20 mg p.o. daily, Protonix 40 mg p.o. daily, oxycodone p.r.n., Zofran p.r.n., multivitamins, magnesium oxide, lisinopril 2.5 mg daily, Arava 20 mg p.o. daily, and insulin, Plaquenil 200 mg p.o. b.i.d. daily, Neurontin 800 mg p.o. t.i.d. times daily, Lasix 40 mg p.o. daily. ALLERGIES: Amoxicillin by report causes a rash. Sulfa causes difficulty breathing. Clindamycin causes a rash. Methotrexate rash. Halcion rash. Flexeril rash. SOCIAL HISTORY: No tobacco or alcohol. 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 Retired from [employer]. Originally from [place]. He is and lives in a home in [place] with his and son. No pets. No water exposure. FAMILY HISTORY: Reviewed and noncontributory. PHYSICAL EXAM: VITAL SIGNS: T-current 36.8, heart rate 92, blood pressure 163/ 76. GENERAL: Obese male, lying in bed, nontoxic. HEENT: Atraumatic, normocephalic. Pupils equal, round, react to light. Extraocular movements are intact. No conjunctivae icterus or petechiae. Mucous membranes moist. No oral lesions noted. False teeth upper and lower that are screwed in. No cervical adenopathy. Trachea is midline. CARDIOVASCULAR: S1, S2. A 2/6 systolic ejection murmur heard throughout the precordium. LUNGS: Clear to auscultation bilaterally with no increased respiratory effort. ABDOMEN: Obese , soft. No organomegaly or tenderness to palpation. EXTREMITIES: Severe lymphedema bilaterally with chronic venostasis changes bilaterally and skin exfoliation on his pretibial areas. His right foot is notable for pinkish erythema along the dorsum of the foot. He has a blistered area along the distal aspect of his 3rd toe, and his 5th toe appears that he has bled into the distal aspect of this area with dried blood visible. He also has some denuded epithelium and ulceration along the lateral aspect of his 5th toe. The plantar aspect of his foot is pink, and is notable for a large bullous lesion, as well as another previous bullous lesion that has burst and is now flattened with an underlying superficial ulceration that is malodorous and purulent. SKIN: Otherwise, without obvious rash. NEURO: He is alert and oriented x3. He is moving all 4 extremities. LABORATORY DATA: Microbiologic data foot swab from June 2016 grew streptococcus dysgalactiae group C/G. There is no evidence of MRSA that I could see. Blood cultures on February 22 are pending. Foot gram stain and culture are pending. White blood cell count of 8.4, hematocrit 29, platelet count 163. BUN and creatinine 36/2.2. Liver function tests on February 18 were within normal limits. C-reactive protein 62.4. Hemoglobin A1c is pending. Radiographic data as outlined above. IMPRESSION: 76-year-old male with morbid obesity and severe lymphedema, who now presents with diabetic skin and soft tissue infection of the right foot. The patient's previous foot microbiology revealed Streptococcus dysgalactiae group C and G. No obvious history of MRSA. For now, will discontinue Vancomycin and start Ertapenem. The patient's creatinine clearance is 35; therefore, 1 g IV daily should be fine, but will need to watch this over time to ensure that he does not need a lower dose. The patient is also in need of imaging to ensure he does not have a drainable focus/deeper infection. Podiatry has been consulted as well. PLAN: 1. Discontinue Vancomycin, and start Ertapenem 1 g IV daily. 2. Podiatry has been consulted. 3. We will reattempt an MRI this afternoon. 4. Wound culture from plantar ulceration has been sent. 5. Blood cultures are pending. Thank you very much for consulting Infectious Diseases. We will continue to follow this patient with you. /[id number]/MODL MTDD
[2017-02-23] MEDS ORDERED: HYDROmorphONE/DILAUDID 1 MG/ML INJ IVP ONE (15:30)
[2017-02-23] MEDS ORDERED: WARFARIN SODIUM 5 MG TAB PO SCH (16:00)
--- NOTE | 2017-02-23 16:56 | ASMTCMCOM ---
CM Note CM Note Notes: Reviewed chart for discharge plan, pt's progress. Pt admitted for chronic right foot wounds, cellulitis, diabetic foot ulceration, lymphedema. 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 Discharge needs remain TBD at this time. CM will cont to follow for any potential needs. Current Discharge Plan: To be determined Date Signed: 02/23/2017 04:56 PM Electronically Signed By:Alicia Kamara RN
--- NOTE | 2017-02-23 16:56 | ASMTCMCOM ---
CM Note CM Note Notes: Reviewed chart for discharge plan, pt's progress. Pt admitted for chronic right foot wounds, cellulitis, diabetic foot ulceration, lymphedema. 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 Discharge needs remain TBD at this time. CM will cont to follow for any potential needs. Current Discharge Plan: To be determined Date Signed: 02/23/2017 04:56 PM Electronically Signed By:Alicia Kamara RN
--- NOTE | 2017-02-23 16:56 | ASMTCMCOM ---
CM Note CM Note Notes: Reviewed chart for discharge plan, pt's progress. Pt admitted for chronic right foot wounds, cellulitis, diabetic foot ulceration, lymphedema. 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 Discharge needs remain TBD at this time. CM will cont to follow for any potential needs. Current Discharge Plan: To be determined Date Signed: 02/23/2017 04:56 PM Electronically Signed By:Alicia Kamara RN
[2017-02-23] MEDS: POTASSIUM CL 20 MEQ TAB PO SCH (17:30)
[2017-02-23] MEDS: FUROSEMIDE 40 MG TAB PO SCH (17:31)
[2017-02-23] MEDS: GINSENG PO SCH (17:35)
[2017-02-23] MEDS: FOLIC ACID PO SCH (17:35)
[2017-02-23] MEDS: CYANOCOBALAMIN PO SCH (17:35)
[2017-02-23] MEDS: PYRIDOXINE PO SCH (17:35)
[2017-02-23] MEDS ORDERED: NON-FORMULARY NEW DRUG (Lovastatin [Lovastatin] 20 MG) PO SCH (18:00)
[2017-02-23] MEDS: PRAVASTATIN SODIUM 20 MG TAB PO SCH (18:10)
[2017-02-23] MEDS: CHOLECALCIFEROL VIT D3 1,000 UNITS TAB PO SCH (20:26)
[2017-02-23] MEDS ORDERED: VANCOMYCIN HCL/NORMAL SALINE 250 ML IV SCH (21:00)
[2017-02-24] MEDS: oxyCODONE IR 5 MG TAB PO PRN ×4 (02:40→16:50)
[2017-02-24] MEDS: ACETAMINOPHEN 325 MG TAB PO PRN ×3 (02:45→16:51)
[2017-02-24] MEDS: INSULIN LISPRO 100 UNIT/ML SC SCH ×7 (07:38→20:12)
[2017-02-24] MEDS: DOCUSATE SODIUM 100 MG CAP PO SCH ×3 (07:55→18:40)
[2017-02-24] MEDS: CARVEDILOL 6.25 MG TAB PO SCH ×2 (07:55→18:40)
[2017-02-24] MEDS: CALCIUM CARB W/VIT D 500 MG TAB PO SCH ×2 (09:17→20:10)
[2017-02-24] MEDS: PANTOPRAZOLE SODIUM 40 MG TAB PO SCH (09:17)
[2017-02-24] MEDS: HYDROXYCHLOROQUINE SULFATE 200 MG TAB PO SCH ×2 (09:17→20:11)
[2017-02-24] MEDS: POTASSIUM CL 20 MEQ TAB PO SCH (09:17)
[2017-02-24] MEDS: FERROUS SULFATE 325 MG TAB PO SCH (09:17)
[2017-02-24] MEDS: ERTAPENEM 1 GM in NS 100 ML IV SCH (09:17)
[2017-02-24] MEDS: predniSONE 5 MG TAB PO SCH (09:18)
[2017-02-24] MEDS: FUROSEMIDE 40 MG TAB PO SCH (09:18)
[2017-02-24] MEDS: LISINOPRIL 2.5 MG TAB PO SCH (09:18)
[2017-02-24] MEDS: GABAPENTIN 400 MG CAP PO SCH ×3 (09:18→21:56)
[2017-02-24] MEDS: PRESERVISION AREDS2 FORMULA EYE VIT 1 EACH PO SCH (09:19)
[2017-02-24] MEDS: INSULIN GLARGINE 100 UNITS/ML SYRINGE SC SCH ×2 (09:24→20:11)
--- NOTE | 2017-02-24 09:41 | PCMIDPN ---
Assessment/Plan: 1. Cellulitis right lower extremity/diabetic foot ulcerations: Culture pending. Previous cultures with group C/G streptococci. Continue Ertapenem. MRI without evidence of drainable focus or bony involvement. Needs debridement of devitalized tissues; Podiatry to see patient today. Subjective: Reviewed MRI with Dr. Francisco. No evidence of osteomyelitis or drainable abscess. Objective: Ertapenem 1 g IV daily day 2 Afebrile Vital Signs Temp Pulse Resp BP Pulse Ox 36.8 C 80 15 123/67 H 94 02/24/17 07:34 02/24/17 07:55 02/24/17 07:34 02/24/17 09:18 02/24/17 07:34 Microbiology 02/23/17 13:05 Gram Stain - Final Foot - Swab Laboratory Results 02/24/17 04:27 02/24/17 04:27 02/23/17 02/24/17 02/25/17 06:59 05:59 05:59 Intake Total Output Total Balance ESR 75 MM/HR (0-20) H 02/22/17 21:24 C-Reactive Protein 58.1 mg/L (<10.0) H 02/24/17 04:27 Blood cultures pending Foot swab: 1+ PMNs, 2+ Gram-positive cocci, rare gram-positive pleomorphic rods - Physical Exam General Appearance: no apparent distress, obese Extremities: other (Right lower extremity slightly more erythematous compared to left, but bilateral venous stasis changes are notable. The patient's right foot is notable for a large burst bulla plantar aspect, with purulent exudate that is malodorous. Inferior to this he has another half-dollar sized bulla that has not yet burst. Right pinky toe notable for necrotic eschar, 3rd toe with devitalized tissue as well.) ICD10 Worksheet Patient Problems: Problems Problem Status Onset Cellulitis of right foot Acute Diabetic foot ulcer Acute Lymphedema of leg Acute Supraventricular tachycardia Active Cellulitis Acute Lymphedema of both lower extremities Acute 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
[2017-02-24] MEDS: ASCORBIC ACID 500 MG TAB PO SCH (12:24)
[2017-02-24] MEDS: GINSENG PO SCH (12:25)
[2017-02-24] MEDS: MULTIVITAMINS 1 EACH TAB PO SCH (12:25)
[2017-02-24] MEDS: LEFLUNOMIDE 20 MG TAB PO SCH (12:25)
[2017-02-24] MEDS: PYRIDOXINE PO SCH (12:25)
[2017-02-24] MEDS: FOLIC ACID PO SCH (12:25)
[2017-02-24] MEDS: MAGNESIUM OXIDE 400 MG TAB PO SCH (12:25)
[2017-02-24] MEDS: CYANOCOBALAMIN PO SCH (12:25)
[2017-02-24 12:36] LABS: INR 2.6 (0.83-1.16); PROTIME(PATIENT) 28.1 SEC (12.0-15.0)
--- NOTE | 2017-02-24 13:12 | WOCRNPDOC ---
WOCRN Advanced Assessment Note - Skin Integrity Problem, Advanced Assess Right Volar/Ventral Foot Blister Dressing Type: Open to Air Other Dressing Type: REYNALDO Isidro removed dressings Exudate Amount: Moderate Exudate Color: Reddish/Yellow Exudate Characteristic(s): Serosanguinous Integumentary Issue Intervention: Mechanical Debridement Marianela Wound Tissue: Blanching, Erythema, Hot, Swollen Wound Bed Color: Red, Yellow Wound Bed Constitution: Mixed Loose & Adhered Slough/Eschar, De-roofed Serous Blister Wound Edges: Attached, Well Defined Site Measurement - Head-to-Toe Length X Width X Depth (cm): 6.7cmx6.3cmx0.1cm Extremity Temperature: Hot Skin Integrity Problem Comment: Patient describes onset of new plantar surface wounds "3 or 4 days ago". He does not recall any trauma to the area though describes them as starting as blisters. Wound consistent with a deroofed blister. Wound bed cleaned with NS and gauze and mechanically debrided though yellow adhered yellow slough remains in wound bed. Smaller, intact blister measuring [id number] also present proximal to the open wound. Verifying Machine Operator applied alvarez walls to this foot and will follow up with this patient tomorrow. Wound care will clarify tomorrow if podiatry would like us to follow this wound or if they will manage. Right Fifth Toe Dressing Type: Open to Air Other Dressing Type: REYNALDO Isidro removed dressing Exudate Amount: Minimal Exudate Color: Yellow, Red Exudate Characteristic(s): Purulent, Sanguinous Marianela Wound Tissue: Erythema, Hot, Swollen Wound Bed Color: Black, Red Wound Bed Constitution: Granulation Tissue, Mixed Loose & Adhered Slough/Eschar Site Measurement - Head-to-Toe Length X Width X Depth (cm): Patient with [id number] hard, black eschar to distal toe. Lateral toe with partial thickness opening with both adhered and loose slough. Medial toe with purulent drainage. This wound will need debriding. Podiatry to see later today.
--- NOTE | 2017-02-24 13:12 | WOCRNPDOC ---
WOCRN Advanced Assessment Note - Skin Integrity Problem, Advanced Assess Right Volar/Ventral Foot Blister Dressing Type: Open to Air Other Dressing Type: REYNALDO Isidro removed dressings Exudate Amount: Moderate Exudate Color: Reddish/Yellow Exudate Characteristic(s): Serosanguinous Integumentary Issue Intervention: Mechanical Debridement Marianela Wound Tissue: Blanching, Erythema, Hot, Swollen Wound Bed Color: Red, Yellow Wound Bed Constitution: Mixed Loose & Adhered Slough/Eschar, De-roofed Serous Blister Wound Edges: Attached, Well Defined Site Measurement - Head-to-Toe Length X Width X Depth (cm): 6.7cmx6.3cmx0.1cm Extremity Temperature: Hot Skin Integrity Problem Comment: Patient describes onset of new plantar surface wounds "3 or 4 days ago". He does not recall any trauma to the area though describes them as starting as blisters. Wound consistent with a deroofed blister. Wound bed cleaned with NS and gauze and mechanically debrided though yellow adhered yellow slough remains in wound bed. Smaller, intact blister measuring [id number] also present proximal to the open wound. [employer] applied alvarez walls to this foot and will follow up with this patient tomorrow. Wound care will clarify tomorrow if podiatry would like us to follow this wound or if they will manage. Right Fifth Toe Dressing Type: Open to Air Other Dressing Type: REYNALDO Isidro removed dressing Exudate Amount: Minimal Exudate Color: Yellow, Red Exudate Characteristic(s): Purulent, Sanguinous Marianela Wound Tissue: Erythema, Hot, Swollen Wound Bed Color: Black, Red Wound Bed Constitution: Granulation Tissue, Mixed Loose & Adhered Slough/Eschar Site Measurement - Head-to-Toe Length X Width X Depth (cm): Patient with [id number] hard, black eschar to distal toe. Lateral toe with partial thickness opening with both adhered and loose slough. Medial toe with purulent drainage. This wound will need debriding. Podiatry to see later today.
--- NOTE | 2017-02-24 13:12 | WOCRNPDOC ---
WOCRN Advanced Assessment Note - Skin Integrity Problem, Advanced Assess Right Volar/Ventral Foot Blister Dressing Type: Open to Air Other Dressing Type: REYNALDO Isidro removed dressings Exudate Amount: Moderate Exudate Color: Reddish/Yellow Exudate Characteristic(s): Serosanguinous Integumentary Issue Intervention: Mechanical Debridement Marianela Wound Tissue: Blanching, Erythema, Hot, Swollen Wound Bed Color: Red, Yellow Wound Bed Constitution: Mixed Loose & Adhered Slough/Eschar, De-roofed Serous Blister Wound Edges: Attached, Well Defined Site Measurement - Head-to-Toe Length X Width X Depth (cm): 6.7cmx6.3cmx0.1cm Extremity Temperature: Hot Skin Integrity Problem Comment: Patient describes onset of new plantar surface wounds "3 or 4 days ago". He does not recall any trauma to the area though describes them as starting as blisters. Wound consistent with a deroofed blister. Wound bed cleaned with NS and gauze and mechanically debrided though yellow adhered yellow slough remains in wound bed. Smaller, intact blister measuring [id number] also present proximal to the open wound. Auto Job Estimator applied alvarez walls to this foot and will follow up with this patient tomorrow. Wound care will clarify tomorrow if podiatry would like us to follow this wound or if they will manage. Right Fifth Toe Dressing Type: Open to Air Other Dressing Type: REYNALDO Isidro removed dressing Exudate Amount: Minimal Exudate Color: Yellow, Red Exudate Characteristic(s): Purulent, Sanguinous Marianela Wound Tissue: Erythema, Hot, Swollen Wound Bed Color: Black, Red Wound Bed Constitution: Granulation Tissue, Mixed Loose & Adhered Slough/Eschar Site Measurement - Head-to-Toe Length X Width X Depth (cm): Patient with [id number] hard, black eschar to distal toe. Lateral toe with partial thickness opening with both adhered and loose slough. Medial toe with purulent drainage. This wound will need debriding. Podiatry to see later today.
[2017-02-24] MEDS ORDERED: CALAMINE/ZINC OXIDE 1 EA BANDAGE (UNNA BOOT) TP ONE (13:30)
--- NOTE | 2017-02-24 14:22 | HOSPPROG ---
Hospitalist Progress Note Assessment/Plan: Diabetic foot infection - No e/o osteo on MRI. Wound gram stain with 2+ GPC's, rare GPR's, Cx pending. BCx's NGTD. -cont ertapenem -await culture data -ID following, discussed with Dr. Patino -podiatry consult today, plans for 5th toe amputation tomorrow, NPO after midnight DM type 2 - bg's 100's -cont basal/bolus insulin Chronic lymphedema - defer pumps for now given active infection -lasix started, helping CKD - baseline Cr 1.7-2.3. Cr here 2.4 --> 2.0 -follow A fib - on chronic anticoagulation, INR 2.4 Full code Dispo - cont inpt Subjective: Pt feels ok. No fevers. No pain. No CP or SOB. Less swelling in LE's. He really wants pizza. Objective: Vital Signs Temp Pulse Resp BP Pulse Ox 36.7 C 88 18 140/73 H 95 02/24/17 11:10 02/24/17 11:10 02/24/17 11:10 02/24/17 11:10 02/24/17 11:10 Microbiology 02/23/17 13:05 Gram Stain - Final Foot - Swab Laboratory Results 02/24/17 04:27 02/24/17 04:27 02/23/17 02/24/17 02/25/17 06:59 05:59 05:59 Intake Total Output Total Balance PT 28.1 SEC (12.0-15.0) H 02/24/17 12:15 INR 2.60 (0.83-1.16) H 02/24/17 12:15 - Physical Exam Constitutional: no apparent distress Eyes: PERRL Ears, Nose, Mouth, Throat: moist mucous membranes Cardiovascular: regular rate and rhythym Respiratory: no respiratory distress, reduced air movement Gastrointestinal: normoactive bowel sounds, soft, non-tender abdomen Skin: warm Musculoskeletal: other (b/l LE edema with chronic lymphedema changes, though decreased edema today. 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
--- NOTE | 2017-02-24 14:32 | GCON ---
[f rep st] CONSULTATION HISTORY OF PRESENT ILLNESS: The patient was admitted on 02/21/2017 for jesus cellulitis on his right lower extremity. He has had a history of prior cellulitis, ulceration and debride. Dr. Rocha did yadi west on him back in June. The wound completely closed after this surgical debridement and IV antibi otics. The patient has now developed multiple wounds on the right lower extremity. The 1st wound is seen, bolus lesion measuring approximately 6 cm x 4 cm on the plantar arch. There is 1 right next t o it just proximal in the arch of the foot measuring 1.5 Cm round, again very superficial. He has a necrotic 5th toe over the entire distal aspect of the right 5th toe. There is an eschar over the are a. All wounds are fairly superficial. There is no tracking. I do not see a lot of undermining. He is on Coumadin. Upon cleansing the wound, there was adequate bleeding to all the wounds. He has a blister at the distal 3rd toe on the right side. He does appear to have adequate perfusion to the di gital level, although capillary fill is delayed. He does have good capillary fill. I did use a Dopp ler today at bedside and we did get both the posterior tibial artery and the dorsalis pedal artery al so. OBJECTIVE: Again, the wounds are very superficial. The plantar wounds seem to be epithelializing ve ry nicely below the blistering and the concern here now is the 5th toe. He is grossly edematous with 3 to 4+ pitting edema. He has had this for years, extends from the knee distally to the toes. Has a difficult time with hygiene on his feet at home, cannot bend and reach his feet. He relies on his for his foot hygiene and foot care. VASCULAR: He has no palpable pulses. The Doppler as state d, the capillary fill as stated. He has a few moderate varicosities. NEUROLOGIC: He is completely neuropathic distal to the mid tarsal joint. He does have a positive protective pain threshold proxim al to Lisfranc's joint. SKIN: Very rough, dry, cracking on his ankles, very bumpy on the digits soledad ateral due to the chronic edema. His skin is pretty rough looking at this point. The wounds are as stated. MUSCULOSKELETAL: Was 5-/5 to the anterior lateral posterior calf muscles. He did have some slight tenderness to the calves and he does have a history of deep venous thrombosis on the left low er extremity calf. This was treated successfully and the edema on the left side is actually less wing n it is on the right slightly today. In our discussion he says he is fully ambulatory at home with t he assistance of a walker. He does not leave the house. He can do transfers and he can do short wal ks to the bathroom and back to his chair. He usually sleeps in his chair at home, does not sleep in his bed. He is on 2 L of oxygen continuous. ASSESSMENT: Grade 3 ulceration, Santamaria right foot x3 with the eschar on the 5th toe being of highest concern. PLAN: At this point, I think he has 2 different options. One is to ride it on oral antibiotics and IV antibiotics, do daily dressing changes and hope everything heals. I do think the wounds plantarly in the arches will heal just fine, as these are already epithelializing as long as he gets good prince y dressing changes and cleaning of the area he should do fine. The wound on the 5th toe is definitel y difficult to heal. I do think there is less perfusion to that 5th toe than normal and with that de creased perfusion this would take forever to heal. We discussed a distal 5th digital amputation. I went over all of this with both he and his son, who was present throughout my visit and I will go ove r this with his also who is a retired registered nurse. Anticipate at this point, a distal ampu tation under MAC anesthesia on the right lower extremity 5th toe and possible discharge for Saturday o r Saturday, pending Dr. Loya's evaluation of the antibiotics on the patient's resolving cellulitis . It should be noted that previous MRI yesterday showed no evidence of osteomyelitis, and he did hav e a venous ultrasound which showed no blood clots to the right lower extremity. /[id number]/MODL
[2017-02-24] MEDS: WARFARIN SODIUM 2.5 MG TAB PO SCH (16:37)
[2017-02-24] MEDS: PRAVASTATIN SODIUM 20 MG TAB PO SCH (18:41)
[2017-02-24] MEDS: CHOLECALCIFEROL VIT D3 1,000 UNITS TAB PO SCH (20:11)
[2017-02-25 05:22] LABS: INR 2.78 (0.83-1.16); PROTIME(PATIENT) 29.7 SEC (12.0-15.0)
[2017-02-25] MEDS: CARVEDILOL 6.25 MG TAB PO SCH ×2 (07:47→18:37)
[2017-02-25] MEDS: ACETAMINOPHEN 325 MG TAB PO PRN ×3 (07:47→17:33)
[2017-02-25] MEDS: DOCUSATE SODIUM 100 MG CAP PO SCH ×3 (07:47→18:38)
[2017-02-25] MEDS: oxyCODONE IR 5 MG TAB PO PRN ×5 (07:50→23:24)
[2017-02-25] MEDS: INSULIN LISPRO 100 UNIT/ML SC SCH ×5 (08:43→21:09)
[2017-02-25] MEDS: INSULIN GLARGINE 100 UNITS/ML SYRINGE SC SCH ×2 (08:44→22:04)
[2017-02-25] MEDS: ERTAPENEM 1 GM in NS 100 ML IV SCH (09:42)
[2017-02-25] MEDS: CALCIUM CARB W/VIT D 500 MG TAB PO SCH ×2 (09:43→20:22)
[2017-02-25] MEDS: predniSONE 5 MG TAB PO SCH (09:43)
[2017-02-25] MEDS: FUROSEMIDE 40 MG TAB PO SCH (09:43)
[2017-02-25] MEDS: POTASSIUM CL 20 MEQ TAB PO SCH (09:43)
[2017-02-25] MEDS: PRESERVISION AREDS2 FORMULA EYE VIT 1 EACH PO SCH (09:43)
[2017-02-25] MEDS: LISINOPRIL 2.5 MG TAB PO SCH (09:43)
[2017-02-25] MEDS: HYDROXYCHLOROQUINE SULFATE 200 MG TAB PO SCH ×2 (09:43→20:22)
[2017-02-25] MEDS: GABAPENTIN 400 MG CAP PO SCH ×3 (09:43→20:22)
[2017-02-25] MEDS: FERROUS SULFATE 325 MG TAB PO SCH (09:43)
[2017-02-25] MEDS: PANTOPRAZOLE SODIUM 40 MG TAB PO SCH (09:43)
--- NOTE | 2017-02-25 10:17 | HOSPPROG ---
Hospitalist Progress Note Assessment/Plan: Diabetic foot infection - No e/o osteo on MRI. Wound Cx growing Group C/G strep , same as prior infection. BCx's NGTD. -pt NPO this am for 5th toe amputation per podiatry -cont ertapenem -await sensitivities -ID following, appreciate assistance DM type 2 - bg elevated last night after pt had pizza, bg better this am 110 -hold Lantus this am while NPO, resume tonight -cont SSI Chronic lymphedema - defer pumps for now given active infection -lasix helping CKD - baseline Cr 1.7-2.3. Cr here 2.4 --> 2.0 -follow A fib - on chronic anticoagulation, INR 2.4 Full code Dispo - cont inpt Subjective: Pt feels ok. No pain. No fevers. Uncomfortable with hospital bed. No CP or SOB. Objective: Vital Signs Temp Pulse Resp BP Pulse Ox 36.4 C 84 18 114/52 L 91 L 02/25/17 03:11 02/25/17 07:51 02/25/17 07:51 02/25/17 09:43 02/25/17 07:51 Microbiology 02/23/17 13:05 Gram Stain - Final Foot - Swab Laboratory Results 02/24/17 04:27 02/25/17 04:37 02/24/17 02/25/17 02/26/17 05:59 05:59 05:59 Intake Total 250 Output Total 1480 Balance -1230 PT 29.7 SEC (12.0-15.0) H 02/25/17 04:32 INR 2.78 (0.83-1.16) H 02/25/17 04:32 - Physical Exam Constitutional: no apparent distress Eyes: PERRL Ears, Nose, Mouth, Throat: moist mucous membranes Cardiovascular: regular rate and rhythym Respiratory: no respiratory distress Gastrointestinal: normoactive bowel sounds, soft, non-tender abdomen Skin: warm Musculoskeletal: other (RLE dressing c/d/i, decreased sensation) Neurologic: AAOx3 Psychiatric: interacting appropriately ICD10 Worksheet Patient Problems: Problems Problem Status Onset Cellulitis of right foot Acute Diabetic foot ulcer Acute Lymphedema of leg Acute Supraventricular tachycardia Active Cellulitis Acute Lymphedema of both lower extremities Acute 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
[2017-02-25] MEDS: LEFLUNOMIDE 20 MG TAB PO SCH (13:06)
[2017-02-25] MEDS: ASCORBIC ACID 500 MG TAB PO SCH (13:20)
[2017-02-25] MEDS: MAGNESIUM OXIDE 400 MG TAB PO SCH (13:21)
[2017-02-25] MEDS: PYRIDOXINE PO SCH (13:21)
[2017-02-25] MEDS: CYANOCOBALAMIN PO SCH (13:21)
[2017-02-25] MEDS: MULTIVITAMINS 1 EACH TAB PO SCH (13:21)
[2017-02-25] MEDS: FOLIC ACID PO SCH (13:21)
[2017-02-25] MEDS: GINSENG PO SCH (13:21)
[2017-02-25] MEDS ORDERED: BUPIVACAINE 0.25% 30 ML SDV ONE (15:05)
[2017-02-25] MEDS ORDERED: ceFAZolin 1 GM/5 ML SYR ONE (15:06)
--- NOTE | 2017-02-25 15:21 | WOCRNPDOC ---
RITA Advanced Assessment Note - Skin Integrity Problem, Advanced Assess Right Buttock Pressure Injury Dressing Type: Allevyn Life Dressing Description: Clean/Dry, Intact Integumentary Issue Intervention: Dressing Changed Marianela Wound Tissue: Blanching, Erythema Wound Bed Color: [place] Wound Bed Constitution: Smooth Tissue Wound Edges: Epithelizing, Attached, Irregular Site Odor: None Site Measurement - Head-to-Toe Length X Width X Depth (cm): 2x2.2x0.1 Pressure Injury Stage: Stage 2, Stage 3 Pressure Injury Present on Admit: Yes Skin Integrity Problem Comment: This wound is now partial thickness but was deeper per patient's . However it was not deep enough to be a stage 4, so charted now as a stage 3. There is also friction issues present. Wound care will reassess next week. Perianal Incont Assoc Dermatitis Integumentary Issue Intervention: Dressing Removed Site Measurement - Head-to-Toe Length X Width X Depth (cm): 1.5x1x0.1 Skin Integrity Problem Comment: Small partial thickness denuded area. Will treat with clear zinc cream. Left Sacrum Pressure Injury Dressing Type: Open to Air Wound Bed Constitution: Healed Pressure Injury Stage: Stage 3 Pressure Injury Present on Admit: Yes
--- NOTE | 2017-02-25 15:34 | PDANEPAE ---
ANE History of Present Illness 76 year old male w/ chronic afib (anti-coagulated), DM, Diabetic foot ulcer and CKD presents for toe amputation. Per records, patient has a sacral pressure ulcer. ANE Past Medical History - Cardiovascular History Hx Hypertension: Yes Hx Arrhythmias: Yes Hx Chest Pain: No Hx Coronary Artery / Peripheral Vascular Disease: No Hx CHF / Valvular Disease: No Hx Palpitations: Yes - Pulmonary History Hx COPD: No Hx Asthma/Reactive Airway Disease: No Hx Recent Upper Respiratory Infection: No Hx Oxygen in Use at Home: Yes O2 in Use at Home (L/minute): 2 Hx Sleep Apnea: Yes Sleep Apnea Screening Result - Last Documented: Positive - Endocrine History Hx Diabetes: Yes Hypothyroid: No Hyperthyroid: No Obesity: yes, mild, moderate - Renal History Hx Renal Disorders: Yes Renal History Comment: Renal insufficiency - Liver History Hx Hepatic Disorders: No - Neurological & Psychiatric Hx Hx Neurological and Psychiatric Disorders: No - Cancer History Hx Cancer: No - Congenital Disorder History Hx Congenital Disorders: No - GI History GERD: no - Chronic Pain History Chronic Pain: Yes ANE Review of Systems Review of Systems: - Exercise capacity Exercise capacity: <4 METS ANE Patient History - Allergies Allergies/Adverse Reactions: amoxicillin [Amoxicillin] Allergy (Verified 02/22/17 16:22) Rash amoxicillin trihydrate [From Augmentin] Allergy (Verified 02/22/17 16:22) Rash clindamycin Allergy (Verified 02/22/17 16:22) sores in mouth cyclobenzaprine HCl [From Flexeril] Allergy (Verified 02/22/17 16:22) donepezil HCl [From Aricept] Allergy (Verified 02/22/17 16:22) fentanyl Allergy (Verified 02/22/17 16:22) confused methotrexate Allergy (Verified 02/22/17 16:22) potassium clavulanate [From Augmentin] Allergy (Verified 02/22/17 16:22) Rash Sulfa (Sulfonamide Antibiotics) Allergy (Verified 02/22/17 16:22) sores in the mouth triazolam [From Halcion] Allergy (Verified 02/22/17 16:22) - Home Medications Home medications: home medication list seen and reviewed Home Medications: Aspirin [Aspirin 81mg (*)] 81 mg PO HS 08/13/12 [Last Taken 02/21/17] Carvedilol [Coreg (*)] 6.25 mg PO BIDMEAL 08/13/12 [Last Taken 02/22/17] Cholecalciferol Vit D3 [Vitamin D3 (*)] 2,000 units PO HS 08/13/12 [Last Taken 02/21/17] Insulin Glargine [Lantus 100 UNITS/ML (*)] 30 units SC BID 08/13/12 [Last Taken 02/22/17 09:00] Omeprazole [Prilosec 40 mg] 40 mg PO DAILY 08/13/12 [Last Taken 02/22/17] Oxycodone HCl/Acetaminophen [Percocet 10-325 mg Tablet] 1 tab PO TID 08/13/12 [ Last Taken 09/04/16 07:00] Warfarin Sodium [Coumadin 2.5MG (*)] 2.5 mg PO SUMOTUWETHFR@1600 08/13/12 [Last Taken 02/21/17] Ascorbic Acid [Vitamin C 500 mg (*)] 1,000 mg PO DAILY@12 07/16/16 [Last Taken 02/22/17] Calcium Citrate W/Vit D [Citracal + D] 1 tab PO BID 07/16/16 [Last Taken ] Docusate Sodium [Colace 100 MG (*)] 200 mg PO TIDMEAL 07/16/16 [Last Taken 02/22] Herbals/Supplements -Info Only 1 ea PO DAILY 07/16/16 [Last Taken 07/16/16 12:00 ] Hydroxychloroquine Sulfate [Plaquenil 200 mg (*)] 200 mg PO BID 07/16/16 [Last Taken 02/22/17 08:00] Insulin Aspart [Novolog Flexpen] 30 unit SQ BIDMEAL 07/16/16 [Last Taken 08:00] Leflunomide [Arava 20 mg (*)] 20 mg PO DAILY@12 07/16/16 [Last Taken 02/21/17] Lisinopril [Zestril 2.5 mg (*)] 2.5 mg PO DAILY 07/16/16 [Last Taken 02/22/17] Magnesium Oxide [Magnesium Oxide 400 mg (*)] 400 mg PO DAILY@12 07/16/16 [Last Taken 02/21/17] Multivitamins [Multivitamin (*)] 1 tab PO DAILY@12 07/16/16 [Last Taken 02/21/17 ] predniSONE 5 mg PO DAILY 07/16/16 [Last Taken 02/22/17] C/E/Zn/Cu/OM3/DHA/EPA/LUT/ZEAX [Preservision Areds 2 Softgel] 1 each PO DAILY [Last Taken 02/22/17] Ferrous Sulfate [Ferrous Sulf 325 MG (*)] 325 mg PO DAILY 09/04/16 [Last Taken 02/22/17] Gabapentin [Neurontin 400 MG (*)] 800 mg PO TID 09/04/16 [Last Taken 02/22/17 08 :00] Lovastatin 20 mg PO DAILY18 09/04/16 [Last Taken 02/21/17] Warfarin Sodium [Coumadin 5MG (*)] 5 mg PO SA@1600 02/22/17 [Last Taken Unknown] oxyCODONE HCL/ACETAMINOPHEN [Percocet 10-325 mg Tablet] 1 each PO Q4 02/22/17 [ Last Taken 02/22/17 14:00] Furosemide [Lasix] 40 mg PO TUSA 02/23/17 [Last Taken 02/19/17] Potassium Cl [Klor-Con 20 meq (*)] 10 meq PO SA 02/23/17 [Last Taken 02/19/17] - NPO status NPO Status: no food or drink >8 hours NPO Since - Liquids (Date): 02/25/17 NPO Since - Liquids (Time): 00:00 NPO Since - Solids (Date): 02/25/17 NPO Since - Solids (Time): 00:00 - Anes Hx Anes Hx: no prior problems - Smoking Hx Smoking Status: Never smoked - Family Anes Hx Family Anes Hx: neg - N/A ANE Labs/Vital Signs - Labs Result Diagrams: 02/24/17 04:27 02/25/17 04:37 - Vital Signs Vital Signs: reviewed preoperatively; see RN documention for details Blood Pressure: 95/51 Heart Rate: 77 Respiratory Rate: 18 O2 Sat (%): 95 Height: 172.72 cm Weight: 104.326 kg ANE Physical Exam - Airway Mallampati Score: Class 2 Mouth exam: dentures - Pulmonary Pulmonary: no respiratory distress - Cardiovascular Cardiovascular: regular rate and rhythym - ASA Status ASA Status: III ANE Anesthesia Plan Anesthesia Plan: general endotracheal anesthesia, GA with mask, MAC (GA as back- up plan. )
[2017-02-25] MEDS ORDERED: PROPOFOL 200 MG/20 ML VIAL ONE (15:49)
[2017-02-25] MEDS: WARFARIN SODIUM 2.5 MG TAB PO SCH (15:59)
[2017-02-25] MEDS ORDERED: NALOXONE HCL 0.4 MG/ML INJ IVP PRN ×2 (16:28→17:29)
[2017-02-25] MEDS ORDERED: LABETALOL HCL 50 MG/10 ML SYR IVP PRN (16:28)
[2017-02-25] MEDS ORDERED: ONDANSETRON 4 MG/2 ML VIAL IVP PRN (16:28)
[2017-02-25] MEDS ORDERED: BACITRACIN ZINC 14.2 GM OINTTUBE TP ONE (16:39)
[2017-02-25] MEDS ORDERED: OXYCODONE/APAP 5/325 TAB PO PRN (17:29)
[2017-02-25] MEDS ORDERED: oxyCODONE IR 5 MG TAB ONE (17:32)
[2017-02-25] MEDS ORDERED: ACETAMINOPHEN 325 MG TAB ONE (17:32)
[2017-02-25] MEDS: PRAVASTATIN SODIUM 20 MG TAB PO SCH (18:37)
--- NOTE | 2017-02-25 20:04 | POSTANESTH ---
Post Anesthetic Evaluation Cardiovascular Status: Normal, Stable, Similar to Pre-Op Cond Respiratory Status: Normal, Stable, Similar to Pre-op Cond. Level of Consciousness/Mental Status: Can Participate in Eval, Alert and Oriented Pain Control: Adequate, Prn Tx Ordered Nausea/Vomiting Control: Adequate, Prn Tx Ordered Complications Possibly Related to Anesthesia: None Noted
[2017-02-25] MEDS: CHOLECALCIFEROL VIT D3 1,000 UNITS TAB PO SCH (20:22)
[2017-02-26] MEDS: oxyCODONE IR 5 MG TAB PO PRN ×4 (02:40→17:44)
[2017-02-26 05:18] LABS: INR 2.6 (0.83-1.16); PROTIME(PATIENT) 28.1 SEC (12.0-15.0)
[2017-02-26] MEDS: ERTAPENEM 1 GM in NS 100 ML IV SCH (09:12)
[2017-02-26] MEDS: INSULIN GLARGINE 100 UNITS/ML SYRINGE SC SCH ×2 (09:15→21:39)
[2017-02-26] MEDS: INSULIN LISPRO 100 UNIT/ML SC SCH ×6 (09:16→18:35)
[2017-02-26] MEDS: GABAPENTIN 400 MG CAP PO SCH ×3 (09:18→21:38)
[2017-02-26] MEDS: DOCUSATE SODIUM 100 MG CAP PO SCH ×3 (09:19→18:35)
[2017-02-26] MEDS: CARVEDILOL 6.25 MG TAB PO SCH ×2 (09:20→18:35)
[2017-02-26] MEDS: CALCIUM CARB W/VIT D 500 MG TAB PO SCH ×2 (09:20→21:40)
[2017-02-26] MEDS: FUROSEMIDE 40 MG TAB PO SCH (09:21)
[2017-02-26] MEDS: LISINOPRIL 2.5 MG TAB PO SCH (09:22)
[2017-02-26] MEDS: FERROUS SULFATE 325 MG TAB PO SCH (09:22)
[2017-02-26] MEDS: PRESERVISION AREDS2 FORMULA EYE VIT 1 EACH PO SCH (09:22)
[2017-02-26] MEDS: POTASSIUM CL 20 MEQ TAB PO SCH (09:23)
[2017-02-26] MEDS: HYDROXYCHLOROQUINE SULFATE 200 MG TAB PO SCH ×2 (09:23→21:40)
[2017-02-26] MEDS: predniSONE 5 MG TAB PO SCH (09:25)
[2017-02-26] MEDS: PANTOPRAZOLE SODIUM 40 MG TAB PO SCH (09:25)
--- NOTE | 2017-02-26 12:00 | HOSPPROG ---
Hospitalist Progress Note Assessment/Plan: Diabetic foot infection - No e/o osteo on MRI. Wound Cx growing Group C/G strep , same as prior infection. BCx's NGTD. -s/p operative debridement of multiple toes per podiatry -change to oral keflex, discussed with ID DM type 2 - bg's elevated, note he missed a dose of lantus yesterday while NPO for surgery -resume Lantus, cont outpt Lispro dose -cont SSI Chronic lymphedema - defer pumps for now given active infection -lasix helping CKD - baseline Cr 1.7-2.3. Cr here 2.4 --> 2.0 -follow A fib - on chronic anticoagulation, INR 2.4 Urinary incontinence with perineal and sacral dermatitis with associated skin breakdown - discussed with RN and wound RN options to prevent skin contamination from urine. Will defer blum catheter as he would be at just as high risk of infection from chronic indwelling blum. Dispo - therapy recommends SNF, though pt adamantly refusing. Will plan for full home health services, work with therapy today to ensure safe discharge plan for tomorrow. Full code Dispo - cont inpt Subjective: Pt doing ok. No fevers. No pain. He has not been out of bed today. Objective: Vital Signs Temp Pulse Resp BP Pulse Ox 36.7 C 90 18 128/57 H 92 02/26/17 07:39 02/26/17 09:20 02/26/17 07:39 02/26/17 09:22 02/26/17 07:39 Microbiology 02/23/17 13:05 Gram Stain - Final Foot - Swab Laboratory Results 02/24/17 04:27 02/26/17 04:34 02/25/17 02/26/17 02/27/17 05:59 05:59 05:59 Intake Total 250 440 Output Total 1480 903 Balance -1230 -463 PT 28.1 SEC (12.0-15.0) H 02/26/17 04:34 INR 2.60 (0.83-1.16) H 02/26/17 04:34 - Physical Exam Constitutional: no apparent distress Eyes: PERRL Ears, Nose, Mouth, Throat: moist mucous membranes Cardiovascular: regular rate and rhythym Respiratory: no respiratory distress Gastrointestinal: normoactive bowel sounds, soft, non-tender abdomen Skin: warm Musculoskeletal: other (right lateral toe and extensor surface of right 3rd toe s/p debridement with sutures in place) Neurologic: AAOx3 Psychiatric: interacting appropriately ICD10 Worksheet Patient Problems: Problems Problem Status Onset Cellulitis of right foot Acute Diabetic foot ulcer Acute Lymphedema of leg Acute Supraventricular tachycardia Active Cellulitis Acute Lymphedema of both lower extremities Acute 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
[2017-02-26] MEDS: ASCORBIC ACID 500 MG TAB PO SCH (12:47)
[2017-02-26] MEDS: MULTIVITAMINS 1 EACH TAB PO SCH (12:50)
--- NOTE | 2017-02-26 12:50 | WOCRNPDOC ---
RITA Advanced Assessment Note - Skin Integrity Problem, Advanced Assess Right Fifth Toe Dressing Type: Gauze Dressing Description: Shadowed Closure Description: Sutures Exudate Amount: Minimal Exudate Color: Brown Exudate Characteristic(s): Dried, Serosanguinous Integumentary Issue Intervention: Dressing Changed Marianela Wound Tissue: Erythema, Swollen, Lipodermatosclerosis, Lichenification Marianela Wound Swelling: Mild Lymphedema Present: Yes Skin Integrity Problem Comment: Intact sutures noted to lateral aspect of R 5th toe. Dressing had dried, serosanguinous exudate, but no visible exudate emanating from incision when site assessed. Mild swelling and erythema noted to R 5th toe, but overall appearance of skin is baseline for this patient, w/ changes associated w/ both lymphedema and venous stasis. Applied Hydrofera Blue Ready foam over site, and secured w/ Medipore and Kerlix. Report given to battery repairerREYNALDO Patrick. Right Volar/Ventral Foot Blister Dressing Type: Gauze, Kerlix, Unna Boots Exudate Amount: Minimal Exudate Color: Reddish/Yellow Exudate Characteristic(s): Serosanguinous Integumentary Issue Intervention: Dressing Changed, Silver Gel Applied ( Silvasorb) Marianela Wound Tissue: Erythema, Swollen, Calloused Marianela Wound Swelling: Moderate Wound Bed Color: Red, Yellow Wound Bed Constitution: Red/[place] - Non Granular Tissue, Adhered Slough, De- roofed Serous Blister Wound Edges: Irregular Site Odor: None Site Measurement - Head-to-Toe Length X Width X Depth (cm): Distal: 6.6cmx6.2cmx0.1cm. Proximal: 2.5cmx2.6cmx0.1cm Lymphedema Present: Yes Skin Integrity Problem Comment: Two discrete de-roofed blisters noted to plantar aspect of R foot. Though the initial notes indicated partial-thickness tissue involvement, the larger and more distal wound (closest to the toes) is 50 % well-adhered slough. This indicated full-thickness tissue involvement. The remaining tissue is smooth, non-granular in appearance. In addition, tissue is slightly fluctuant and soft throughout this wound bed. More proximal wound appears to be partial-thickness, w/ no exudate or necrosis noted. Cleansed both sites w/ NS and gauze, then applied Silvasorb gel to both wound beds. These were covered w/ Hydrofera Blue Ready. Due to soft, fluctuant areas of the distal wound, along with the flat structure of patient's plantar foot, I created an off-loading foam dressing over the top of the Hydrofera to displace pressure over this site. Entire dressing was secured w/ Medipore and Kerlix. Did not replace Unna boot as patient is largely non-ambulatory and would not benefit from inelastic compression. Right Third Toe Dressing Type: Gauze, Kerlix Dressing Description: Intact, Shadowed Exudate Amount: Scant Exudate Color: Reddish/Yellow Exudate Characteristic(s): Serosanguinous Integumentary Issue Intervention: Dressing Changed, Silver Gel Applied Marianela Wound Tissue: Erythema, Swollen, Lipodermatosclerosis, Lichenification Marianela Wound Swelling: Mild Wound Bed Color: Red Wound Bed Constitution: Red/[place] - Non Granular Tissue Site Odor: None Site Measurement - Head-to-Toe Length X Width X Depth (cm): 2cmx2.3cmx0.1cm Lymphedema Present: Yes Skin Integrity Problem Comment: Red, smooth, non-granular wound bed noted at distal aspect of R 3rd toe, no necrosis observed. Mild periwound erythema and swelling; patient has extensive lymphedema to this extremity, and he has the skin changes and swelling typically associated with this. Cleansed site w/ NS and gauze, then applied layer of Silvasorb gel. Covered w/ Hydrofera Blue Ready and secured w/ Medipore and Kerlix. Right Second Toe Dressing Type: Gauze, Kerlix Dressing Description: Intact, Shadowed Closure Description: Sutures Exudate Amount: Scant Exudate Color: Reddish/Yellow Exudate Characteristic(s): Dried, Serosanguinous Integumentary Issue Intervention: Dressing Changed Marianela Wound Tissue: Erythema, Swollen, Lipodermatosclerosis, Lichenification Marianela Wound Swelling: Mild Lymphedema Present: Yes Skin Integrity Problem Comment: Intact sutures noted along dorsal aspect of R 2nd toe, w/ minimal exudate. There is mild erythema and swelling; patient's baseline for this extremity is edematous, r/t to his lymphedema and venous stasis. Cleansed site w/ NS and gauze, then applied Hydrofera Blue foam over the top to protect and absorb any exudate. Secured w/ Medipore and Kerlix.
[2017-02-26] MEDS: MAGNESIUM OXIDE 400 MG TAB PO SCH (12:51)
[2017-02-26] MEDS: LEFLUNOMIDE 20 MG TAB PO SCH (12:51)
[2017-02-26] MEDS: FOLIC ACID PO SCH (13:16)
[2017-02-26] MEDS: PYRIDOXINE PO SCH (13:16)
[2017-02-26] MEDS: GINSENG PO SCH (13:16)
[2017-02-26] MEDS: CYANOCOBALAMIN PO SCH (13:16)
[2017-02-26] MEDS: ACETAMINOPHEN 325 MG TAB PO PRN ×2 (13:23→17:43)
--- NOTE | 2017-02-26 14:12 | PCMIDPN ---
Assessment/Plan: Assessment/Plan: 1. DM foot infection with blisters: - s/p debridement yesterday. OP note pending - CX from blister drainage showing Group C/G strep and MAY -MRI wihtout osteomyelitis changes - Currently on invanz. will change to oral Keflex for 5-7 days. - Needs to off load right foot so as to not further plantar wounds -Needs close wound care f/u as unable to care for this hiimself. - care coordinated with wound care team, RN, Dr. Joann coleman. Subjective: afebrile. s/p debridement yesterday. Denies sob, abd pain, diarrhea. refusing to be turned. having some urinary incontinence. Objective: Vital Signs Temp Pulse Resp BP Pulse Ox 36.8 C 91 14 117/53 L 91 L 02/26/17 12:00 02/26/17 12:00 02/26/17 12:00 02/26/17 12:00 02/26/17 12:00 Microbiology 02/23/17 13:05 Gram Stain - Final Foot - Swab Wound Culture - Final Strep Dysgalactiae Grp C/G Staphylococcus Aureus Laboratory Results 02/24/17 04:27 02/26/17 04:34 02/25/17 02/26/17 02/27/17 05:59 05:59 05:59 Intake Total 250 440 Output Total 1480 903 Balance -1230 -463 ESR 75 MM/HR (0-20) H 02/22/17 21:24 C-Reactive Protein 52.5 mg/L (<10.0) H 02/25/17 04:37 - Physical Exam General Appearance: alert, no apparent distress Respiratory: lungs clear Cardiac/Chest: regular rate, rhythm Extremities: swelling Abdomen: normal bowel sounds, non-tender, soft, No distended Skin: erythema (mild on right inner foot. plantar surface with two blisters that have had the overalying skin removed. underlying skn changes noted. nontender. right 5th toe with sutures. 2nd toe with sutures.not at lot of residual cellulitis noted at this time. 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
--- NOTE | 2017-02-26 14:56 | ASMTCMCOM ---
CM Note CM Note Notes: CM met w/ pt for dispo planning. Pt reports that he is not interested in going to a SNF or having HC. CM spoke w/ , Becca on the phone regarding d/c POC. reports that she feels confident that she is able to take care of pt when he comes home. PT and OT are recommending SNF at this time. CM available if family changes their mind. Date Signed: 02/26/2017 02:56 PM Electronically Signed By:BANDAR Jaramillo
--- NOTE | 2017-02-26 15:50 | GOP ---
[f rep st] OPERATIVE REPORT DATE OF OPERATION: 02/25/2017 SURGEON: Cuba Fiore DPM ANESTHESIA: IV MAC plus local infiltration of 5 cc of 0.25% Marcaine plain. PREOPERATIVE DIAGNOSIS: Gangrenous right 5th toe with an open lesion dorsal aspect of lesser toe, landon th on the right foot. POSTOPERATIVE DIAGNOSIS: Gangrenous 5th toe. Right 5th toe with an open lesion dorsal aspect of les ser toe both on the right foot. PROCEDURE PERFORMED: 1. Radical debridement of the gangrenous 5th toe right with distal amputation. 2. Excision of skin lesion on the dorsal aspect of his 3rd toe on the dorsal aspect of the right low er extremity. FINDINGS: ESTIMATED BLOOD LOSS: Approximately 5-10 cc. DESCRIPTION OF PROCEDURE: Excision of lesion dorsal aspect 3rd toe: The patient was taken to the op erating room, placed in supine position. Right lower extremity was localized, elevated, prepped and draped in the usual sterile OR fashion achieving a sterile field about the entire distal aspect of th e extremity. At this point, attention was directed to the dorsal aspect of the 3rd toe where converg ing semi-elliptical incisions were made over the dorsal lesion. It was fairly superficial and appear s that possibly some scar tissue or something must have torn off the patient's foot. This lesion was excised in total and closed utilizing 3-0 and 4-0 Prolene in a simple interrupted suture. There was good active bleeding throughout the procedure. At this point, attention was directed to the distal aspect of the 5th toe where a fishmouth incision was made. There was severe necrosis at the distal t ip of the right 5th toe. The fishmouth was just proximal to the matrix dorsally and to the plantar t uft of the intrinsic digital fat pad. All necrotic tissue was debrided aggressively at the area, the distal phalanx and intermediate phalanx were removed as well as a small amount of the head of the pr oximal phalanx. This was sent to pathology for gross evaluation and histologic evaluation for osteom yelitis. The area was flushed copiously with dilute antibiotic solution. All tissues appeared to be viable and there was good active bleeding throughout the entire procedure along the margins of the i ncisions. At this point, the incision was sutured utilizing 3-0 Prolene in a simple interrupted sutu re from medial to lateral. There was very good apposition of the skin intraoperatively. Again, ther e was good active bleeding throughout the procedure. It should be noted that both areas were flushed copiously with dilute antibiotic solution prior to closure. A sterile dressing, Adaptic, 4 x 4, Kli ng and Kerlix was placed over these areas. The patient preoperatively had 2 superficial bullous lesi ons on his right arch, bacitracin was placed over these areas and a zinc oxide impregnated gauze was placed on the extremity to protect these wounds and allow them to continue healing. At this moment, they were about 50% healed intraoperatively and there was no necrotic tissue on either one of these w ounds. It should be noted there was a distal blister on the tip of the 3rd toe of unknown etiology. I went ahead and debrided off the blister, about 50% of the tissues were granular on that 3rd toe. There was just serous fluid upon debridement. I went ahead and cleanse the area with sterile saline antibiotic solution, dried the area, applied bacitracin. Adaptic and a sterile dressing. The patient will need dressing changes every few days and will follow up initially in my office in a few days fo r dressing change. Again, after the dressings were placed on the extremity, the patient went to tati very in a satisfactory, stable, vital signs stable. He is to spend the night and be discharged on , the next day, by the hospitalist. The patient's prognosis at this point is very good. He and his both have my cell phone number for 24 hour call should they have any problems or questions. COMPLICATION: None. DRAINS: No drains were placed in the operative site. /[id number]/MODL
[2017-02-26] MEDS: WARFARIN SODIUM 2.5 MG TAB PO SCH (16:09)
[2017-02-26] MEDS ORDERED: CEPHALEXIN 500 MG CAP PO SCH (18:00)
[2017-02-26] MEDS: PRAVASTATIN SODIUM 20 MG TAB PO SCH (18:37)
[2017-02-26] MEDS: CHOLECALCIFEROL VIT D3 1,000 UNITS TAB PO SCH (21:41)
[2017-02-27] MEDS: oxyCODONE IR 5 MG TAB PO PRN ×3 (00:38→13:31)
[2017-02-27] MEDS: ACETAMINOPHEN 325 MG TAB PO PRN ×3 (00:39→13:31)
[2017-02-27 05:44] LABS: INR 2.77 (0.83-1.16); PROTIME(PATIENT) 29.6 SEC (12.0-15.0)
[2017-02-27 07:49] VITALS: BP 148/86; PULSE 77; RESP 14; TEMP 97.5; O2SAT 95
[2017-02-27] MEDS: LISINOPRIL 2.5 MG TAB PO SCH (08:22)
[2017-02-27] MEDS: POTASSIUM CL 20 MEQ TAB PO SCH (08:23)
--- NOTE | 2017-02-27 08:24 | PDIAF ---
- Diagnosis Diagnosis: diabetic foot ulcers Code Status: Full Code - Medication Management Discharge Medications: Medications to Continue on Transfer Aspirin [Aspirin 81mg (*)] 81 mg PO HS 08/13/12 [Last Taken 02/21/17] Carvedilol [Coreg (*)] 6.25 mg PO BIDMEAL 08/13/12 [Last Taken 02/22/17] Cholecalciferol Vit D3 [Vitamin D3 (*)] 2,000 units PO HS 08/13/12 [Last Taken 02/21/17] Insulin Glargine [Lantus 100 UNITS/ML (*)] 30 units SC BID 08/13/12 [Last Taken 02/22/17 09:00] Omeprazole [Prilosec 40 mg] 40 mg PO DAILY 08/13/12 [Last Taken 02/22/17] Warfarin Sodium [Coumadin 2.5MG (*)] 2.5 mg PO SUMOTUWETHFR@1600 08/13/12 [Last Taken 02/21/17] Ascorbic Acid [Vitamin C 500 mg (*)] 1,000 mg PO DAILY@12 07/16/16 [Last Taken 02/22/17] Calcium Citrate W/Vit D [Citracal + D] 1 tab PO BID 07/16/16 [Last Taken ] Docusate Sodium [Colace 100 MG (*)] 200 mg PO TIDMEAL 07/16/16 [Last Taken 02/22] Herbals/Supplements -Info Only 1 ea PO DAILY 07/16/16 [Last Taken 07/16/16 12:00 ] Hydroxychloroquine Sulfate [Plaquenil 200 mg (*)] 200 mg PO BID 07/16/16 [Last Taken 02/22/17 08:00] Insulin Aspart [Novolog Flexpen] 30 unit SQ BIDMEAL 07/16/16 [Last Taken 08:00] Leflunomide [Arava 20 mg (*)] 20 mg PO DAILY@12 07/16/16 [Last Taken 02/21/17] Lisinopril [Zestril 2.5 mg (*)] 2.5 mg PO DAILY 07/16/16 [Last Taken 02/22/17] Magnesium Oxide [Magnesium Oxide 400 mg (*)] 400 mg PO DAILY@12 07/16/16 [Last Taken 02/21/17] Multivitamins [Multivitamin (*)] 1 tab PO DAILY@12 07/16/16 [Last Taken 02/21/17 ] predniSONE 5 mg PO DAILY 07/16/16 [Last Taken 02/22/17] C/E/Zn/Cu/OM3/DHA/EPA/LUT/ZEAX [Preservision Areds 2 Softgel] 1 each PO DAILY [Last Taken 02/22/17] Ferrous Sulfate [Ferrous Sulf 325 MG (*)] 325 mg PO DAILY 09/04/16 [Last Taken 02/22/17] Gabapentin [Neurontin 400 MG (*)] 800 mg PO TID 09/04/16 [Last Taken 02/22/17 08 :00] Lovastatin 20 mg PO DAILY18 09/04/16 [Last Taken 02/21/17] Warfarin Sodium [Coumadin 5MG (*)] 5 mg PO SA@1600 02/22/17 [Last Taken Unknown] oxyCODONE HCL/ACETAMINOPHEN [Percocet 10-325 mg Tablet] 1 each PO Q4 02/22/17 [ Last Taken 02/22/17 14:00] Furosemide [Lasix 40 MG (*)] 40 mg PO SA 02/23/17 [Last Taken 02/19/17] Potassium Cl [Klor-Con 20 meq (*)] 10 meq PO SA 02/23/17 [Last Taken 02/19/17] Cephalexin [Keflex (*)] 500 mg PO TID #18 cap 02/27/17 [Last Taken Unknown] Discharge Medications: Refer to the Discharge Home Medication list for PRN reason. PICC Care - Routine: N/A - Orders Services needed: Home Care, Registered Nurse, Certified Printing Roller Handler, Physical Therapy, Occupational Therapy Home Care Face to Face: I certify that this patient was under my care and that I had the required [id number] encounter meeting the encounter requirements on the discharge day. My findings support the fact that the patient is homebound as defined in Home Care Face to Face Continued: CMS Chapter 7 Medicare Benefits Manual 30.1.1 , The condition of the patient is such that there exists a normal inability to leave home and consequently, leaving home would require a considerable and taxing effort. Diet Recommendation: ADA 2000 consistent carb Additional: Patient may weight-bear with thick non-skid socks and nurse assistance only. Rest and elevate right foot. No ice. Schedule follow-up appointment with infectious disease, and with Dr. Fiore for later this week. Leave dressings intact and dry. Clean and dry. Please have patient set up appointment with [facility] on or Saturday. Number [phone]. - Follow Up Care Current Providers and Referrals: Jill Macario MD [Primary Care Provider] - Daniel Loya MD [Medical Doctor] - Cuba Fiore DPM [Doctor of Podiatric Medicine] -
[2017-02-27] MEDS: predniSONE 5 MG TAB PO SCH (08:25)
[2017-02-27] MEDS: GABAPENTIN 400 MG CAP PO SCH (08:25)
[2017-02-27] MEDS: PANTOPRAZOLE SODIUM 40 MG TAB PO SCH (08:26)
[2017-02-27] MEDS: CALCIUM CARB W/VIT D 500 MG TAB PO SCH (08:26)
[2017-02-27] MEDS: PRESERVISION AREDS2 FORMULA EYE VIT 1 EACH PO SCH (08:26)
[2017-02-27] MEDS: DOCUSATE SODIUM 100 MG CAP PO SCH ×2 (08:27→12:39)
[2017-02-27] MEDS: HYDROXYCHLOROQUINE SULFATE 200 MG TAB PO SCH (08:33)
[2017-02-27] MEDS: FERROUS SULFATE 325 MG TAB PO SCH (08:35)
[2017-02-27] MEDS: CARVEDILOL 6.25 MG TAB PO SCH (08:36)
[2017-02-27] MEDS: FUROSEMIDE 40 MG TAB PO SCH (08:36)
[2017-02-27] MEDS: INSULIN LISPRO 100 UNIT/ML SC SCH ×3 (08:41→12:40)
[2017-02-27] MEDS: INSULIN GLARGINE 100 UNITS/ML SYRINGE SC SCH (08:41)
--- NOTE | 2017-02-27 08:48 | GDS ---
[f rep st] DISCHARGE SUMMARY CONSULTANTS: 1. Dr. Sharon Patino, Infectious Disease. 2. Dr. Cuba Fiore, Podiatry. IMAGING STUDIES/PROCEDURES: 1. MRI of the right lower extremity was negative for osteomyelitis. 2. Radical debridement of the gangrenous right 5th toe with distal amputation and excision of skin l esion on the dorsal aspect of his 3rd toe on the dorsal aspect of the right lower extremity, performe d February 25, 2017, by Dr. Cuba Fiore. HISTORY: For details please see dictated history and physical dated February 22, 2017. In brief the patient is a 76-year-old male with a history of diabetes and chronic severe lymphedema, who presents to the emergency department with increased pain, swelling, and redness of the right foot and toes. Gretchen e was admitted to the hospital for further management. HOSPITAL COURSE: The patient was admitted to the medical-surgical unit. He was initially treated wi th vancomycin, this was changed to ertapenem. Infectious Disease consult was obtained. He underwent surgical debridement as above. Wound Care also followed him for his foot ulcer as well as chronic s kin dermatitis secondary to urinary incontinence in his perineal and sacral region. He was transitio prakash to oral Keflex to complete 6 more days of treatment for a total of 10 day treatment course. He r emained afebrile throughout the hospitalization. Ultimately, both Physical Therapy and Occupational Therapy recommended SNF rehab; however, the patient and his adamantly refused this and they are very strong about discharging home. Therefore, he is discharged home with a full gamut of home healt h services. DISPOSITION: Patient is discharged home with home health care including RN, PT, OT, and HAND I BLOCKER. FOLLOWUP: 1. Infectious Disease, Wound Care Clinic. 2. Dr. Cuba Fiore, Podiatry. 3. Dr. Jill Macario, primary care. DISCHARGE MEDICATIONS: Please see [facility] for complete updated outpatient medication list. New med ications on discharge include Keflex 500 mg p.o. t.i.d., #18, no refills. /[id number]/MODL
--- NOTE | 2017-02-27 08:48 | GDS ---
[f rep st] DISCHARGE SUMMARY CONSULTANTS: 1. Dr. Sharon Patino, Infectious Disease. 2. Dr. Cuab Fiore, Podiatry. IMAGING STUDIES/PROCEDURES: 1. MRI of the right lower extremity was negative for osteomyelitis. 2. Radical debridement of the gangrenous right 5th toe with distal amputation and excision of skin l esion on the dorsal aspect of his 3rd toe on the dorsal aspect of the right lower extremity, performe d February 25, 2017, by Dr. Cuba Fiore. HISTORY: For details please see dictated history and physical dated February 22, 2017. In brief the patient is a 76-year-old male with a history of diabetes and chronic severe lymphedema, who presents to the emergency department with increased pain, swelling, and redness of the right foot and toes. Gretchen e was admitted to the hospital for further management. HOSPITAL COURSE: The patient was admitted to the medical-surgical unit. He was initially treated wi th vancomycin, this was changed to ertapenem. Infectious Disease consult was obtained. He underwent surgical debridement as above. Wound Care also followed him for his foot ulcer as well as chronic s kin dermatitis secondary to urinary incontinence in his perineal and sacral region. He was transitio prakash to oral Keflex to complete 6 more days of treatment for a total of 10 day treatment course. He r emained afebrile throughout the hospitalization. Ultimately, both Physical Therapy and Occupational Therapy recommended SNF rehab; however, the patient and his adamantly refused this and they are very strong about discharging home. Therefore, he is discharged home with a full gamut of home healt h services. DISPOSITION: Patient is discharged home with home health care including RN, PT, OT, and ATHLETIC AGENT. FOLLOWUP: 1. Infectious Disease, Wound Care Clinic. 2. Dr. Cuba Fiore, Podiatry. 3. Dr. Jill Macario, primary care. DISCHARGE MEDICATIONS: Please see [facility] for complete updated outpatient medication list. New med ications on discharge include Keflex 500 mg p.o. t.i.d., #18, no refills. /[id number]/MODL
--- NOTE | 2017-02-27 08:48 | GDS ---
[f rep st] DISCHARGE SUMMARY CONSULTANTS: 1. Dr. Sharon Patino, Infectious Disease. 2. Dr. Cuba Fiore, Podiatry. IMAGING STUDIES/PROCEDURES: 1. MRI of the right lower extremity was negative for osteomyelitis. 2. Radical debridement of the gangrenous right 5th toe with distal amputation and excision of skin l esion on the dorsal aspect of his 3rd toe on the dorsal aspect of the right lower extremity, performe d February 25, 2017, by Dr. Cuba Fiore. HISTORY: For details please see dictated history and physical dated February 22, 2017. In brief the patient is a 76-year-old male with a history of diabetes and chronic severe lymphedema, who presents to the emergency department with increased pain, swelling, and redness of the right foot and toes. Gretchen e was admitted to the hospital for further management. HOSPITAL COURSE: The patient was admitted to the medical-surgical unit. He was initially treated wi th vancomycin, this was changed to ertapenem. Infectious Disease consult was obtained. He underwent surgical debridement as above. Wound Care also followed him for his foot ulcer as well as chronic s kin dermatitis secondary to urinary incontinence in his perineal and sacral region. He was transitio prakash to oral Keflex to complete 6 more days of treatment for a total of 10 day treatment course. He r emained afebrile throughout the hospitalization. Ultimately, both Physical Therapy and Occupational Therapy recommended SNF rehab; however, the patient and his adamantly refused this and they are very strong about discharging home. Therefore, he is discharged home with a full gamut of home healt h services. DISPOSITION: Patient is discharged home with home health care including RN, PT, OT, and HAND EDGE BANDER. FOLLOWUP: 1. Infectious Disease, Wound Care Clinic. 2. Dr. Cuba Fiore, Podiatry. 3. Dr. Jill Macario, primary care. DISCHARGE MEDICATIONS: Please see [facility] for complete updated outpatient medication list. New med ications on discharge include Keflex 500 mg p.o. t.i.d., #18, no refills. /[id number]/MODL
[2017-02-27] MEDS ORDERED: CEPHALEXIN 500 MG CAP PO SCH (09:00)
[2017-02-27] MEDS: LEFLUNOMIDE 20 MG TAB PO SCH (12:39)
[2017-02-27] MEDS: MULTIVITAMINS 1 EACH TAB PO SCH (12:39)
[2017-02-27] MEDS: ASCORBIC ACID 500 MG TAB PO SCH (12:39)
[2017-02-27] MEDS: FOLIC ACID PO SCH (12:40)
[2017-02-27] MEDS: CYANOCOBALAMIN PO SCH (12:40)
[2017-02-27] MEDS: PYRIDOXINE PO SCH (12:40)
[2017-02-27] MEDS: GINSENG PO SCH (12:40)
[2017-02-27] MEDS: MAGNESIUM OXIDE 400 MG TAB PO SCH (12:40)
[2017-02-27] MEDS ORDERED: FLU VACC QS 2017-18 (3YR+)/PF 0.5 ML SYR (FLUARIX QUAD) IM ONE (15:09)
[2017-02-27] MEDS ORDERED: PNEUMOC 13-VAL CONJ-DIP CRM/PF 0.5 ML SYR IM ONE (15:09)
== END 2017-02-27 16:22 | disposition home health service (06) | DRG 256 ==
LOC: F3E 20:19
PROVIDERS: ADMIT Family Medicine; ATTEND Hospitalist
DX: E11.52 Type 2 diabetes mellitus with diabetic peripheral angiopathy with gangrene (principal); I96 Gangrene, not elsewhere classified; E11.621 Type 2 diabetes mellitus with foot ulcer; L97.519 Non-pressure chronic ulcer of other part of right foot with unspecified severity; L03.115 Cellulitis of right lower limb; B95.4 Other streptococcus as the cause of diseases classified elsewhere; I89.0 Lymphedema, not elsewhere classified; I13.0 Hypertensive heart and chronic kidney disease with heart failure and stage 1 through stage 4 chronic kidney disease, or unspecified chronic kidney disease; I50.30 Unspecified diastolic (congestive) heart failure; N18.9 Chronic kidney disease, unspecified; E66.01 Morbid (severe) obesity due to excess calories; E11.42 Type 2 diabetes mellitus with diabetic polyneuropathy; G91.2 (Idiopathic) normal pressure hydrocephalus; I25.10 Atherosclerotic heart disease of native coronary artery without angina pectoris; G89.29 Other chronic pain; I48.91 Unspecified atrial fibrillation; E78.5 Hyperlipidemia, unspecified; K21.9 Gastro-esophageal reflux disease without esophagitis; I25.2 Old myocardial infarction; M06.9 Rheumatoid arthritis, unspecified; G47.30 Sleep apnea, unspecified; L30.8 Other specified dermatitis; Z98.1 Arthrodesis status; Z79.4 Long term (current) use of insulin; Z79.01 Long term (current) use of anticoagulants; Z68.34 Body mass index [BMI] 34.0-34.9, adult
CPT/HCPCS: 96365; 97116-GP; 97162-GP; 97166-GO; 97530-GP; 97535-GO; G0008; G0009; G8978-GP-CJ; G8979-GP-CI; G8987-GO-CL; G8988-GO-CJ; J1170; J1335; J1815; J2704; J3370

== ENCOUNTER 2017-06-03 17:33 | Inpatient (IN) | payer OTHER, MEDICARE ==
--- NOTE | 2017-06-03 18:05 | EDPHY ---
H & P Time Seen by Provider: 06/03/17 17:51 HPI/ROS: Chief complaint. Weakness HPI. 77-year-old male with generalized weakness. More weak over there the past 1-2 weeks. Now can't walk at home. Previously was able to walk 12 steps to the bathroom. He has had similar symptoms previously with significant swelling to legs and treated with Lasix and antibiotics. notes decreased urination. No fever. He has had a cough. No chest discomfort. No abdominal pain. Very swollen legs. ROS Constitutional. Generalized weakness Eyes. no problems with vision ENT. no sore throat, no nasal drainage Cardiovascular. no chest pain Respiratory. Cough Abdominal. no abdominal pain, no nausea/vomiting, no diarrhea . no problems urinating MS. Swollen legs Skin. no rash Lymph. no swollen glands Neuro. Can not walk Past Medical/Surgical History: Past medical history significant for insulin-dependent diabetes, congestive heart failure, MT, dyslipidemia, atrial fibrillation with ablation, SVT, GERD, DVT on Coumadin, kidney stones, lymphedema, rheumatoid arthritis, sleep apnea, UTIs Social History: , nonsmoker, no alcohol Smoking Status: Never smoked Physical Exam: General Appearance: Alert well-developed male mild distress vital signs are stable Eyes: Pupils equal and round no pallor or injection. ENT, Mouth: Mucous membranes are moist. Respiratory: There are no retractions, lungs are clear to auscultation. Cardiovascular: Regular rate and rhythm. Gastrointestinal: Abdomen is soft and nontender, no masses, bowel sounds normal. Neurological: Awake and alert, sensory and motor exams grossly normal. Skin: Warm and dry, no rashes. Musculoskeletal: Neck is supple nontender. Extremities massive swelling to both legs. Right leg has some open superficial abrasion sores that do not appear to be infected. Psychiatric: Patient is oriented X 3, there is no agitation. Constitutional: Initial Vital Signs Temperature (C) 36.8 C 06/03/17 17:37 Heart Rate 92 06/03/17 17:37 Respiratory Rate 20 06/03/17 17:37 Blood Pressure 167/74 H 06/03/17 17:37 O2 Delivery Mode Room Air Allergies/Adverse Reactions: amoxicillin [Amoxicillin] Allergy (Verified 02/22/17 16:22) Rash amoxicillin trihydrate [From Augmentin] Allergy (Verified 02/22/17 16:22) Rash clindamycin Allergy (Verified 02/22/17 16:22) sores in mouth cyclobenzaprine HCl [From Flexeril] Allergy (Verified 02/22/17 16:22) donepezil HCl [From Aricept] Allergy (Verified 02/22/17 16:22) fentanyl Allergy (Verified 02/22/17 16:22) confused methotrexate Allergy (Verified 02/22/17 16:22) potassium clavulanate [From Augmentin] Allergy (Verified 02/22/17 16:22) Rash Sulfa (Sulfonamide Antibiotics) Allergy (Verified 02/22/17 16:22) sores in the mouth triazolam [From Halcion] Allergy (Verified 02/22/17 16:22) Home Medications: Medication Instructions Recorded Aspirin [Aspirin 81mg (*)] 81 mg PO HS 08/13/12 Carvedilol [Coreg (*)] 6.25 mg PO BIDMEAL 08/13/12 Cholecalciferol Vit D3 [Vitamin D3 2,000 units PO HS 08/13/12 (*)] Insulin Glargine [Lantus 100 30 units SC BID 08/13/12 UNITS/ML (*)] Omeprazole [Prilosec 40 mg] 40 mg PO DAILY 08/13/12 Warfarin Sodium [Coumadin 2.5MG 2.5 mg PO SUMOTUWETHFR@1600 08/13/12 (*)] Ascorbic Acid [Vitamin C 500 mg 1,000 mg PO DAILY@12 07/16/16 (*)] Calcium Citrate W/Vit D [Citracal 1 tab PO BID 07/16/16 + D] Docusate Sodium [Colace 100 MG (*)] 200 mg PO TIDMEAL 07/16/16 Herbals/Supplements -Info Only 1 ea PO DAILY 07/16/16 Hydroxychloroquine Sulfate 200 mg PO BID 07/16/16 [Plaquenil 200 mg (*)] Insulin Aspart [Novolog Flexpen] 30 unit SQ BIDMEAL 07/16/16 Leflunomide [Arava 20 mg (*)] 20 mg PO DAILY@07/16/16 Lisinopril [Zestril 2.5 mg (*)] 2.5 mg PO DAILY 07/16/16 Magnesium Oxide [Magnesium Oxide 400 mg PO DAILY@07/16/16 400 mg (*)] Multivitamins [Multivitamin (*)] 1 tab PO DAILY@12 07/16/16 predniSONE 5 mg PO DAILY 07/16/16 C/E/Zn/Cu/OM3/DHA/EPA/LUT/ZEAX 1 each PO DAILY 09/04/16 [Preservision Areds 2 Softgel] Ferrous Sulfate [Ferrous Sulf 325 325 mg PO DAILY 09/04/16 MG (*)] Gabapentin [Neurontin 400 MG (*)] 800 mg PO TID 09/04/16 Lovastatin 20 mg PO DAILY18 09/04/16 Warfarin Sodium [Coumadin 5MG (*)] 5 mg PO SA@1600 02/22/17 oxyCODONE HCL/ACETAMINOPHEN 1 each PO Q4 02/22/17 [Percocet 10-325 mg Tablet] Furosemide [Lasix 40 MG (*)] 40 mg PO TUSA 02/23/17 Potassium Cl [Klor-Con 20 meq (*)] 10 meq PO SA 02/23/17 Cephalexin [Keflex (*)] 500 mg PO TID #18 cap 02/27/17 Medical Decision Making - Diagnostics EKG Interpretation: EKG interpreted by me shows normal sinus rhythm with first-degree AV block. Left axis deviation. QRS otherwise normal there is no significant ST elevation or depression. There is 1 PVC. Rate 74 Imaging Results: Chest x-ray interpreted by me shows poor inspiration possible left lower lobe infiltrate Procedures: IV normal saline. Sepsis workup ED Course/Re-evaluation: At 6:50 p.m. patient is less responsive and somewhat diaphoretic. We drawn i- STAT and find that the patient's blood sugar is under 40. He is given an amp D50 W intravenously Serial evaluations patient is stable now continued to be Responsive and conversational. Patient and his and I discussed imaging and laboratory evaluation. We discussed treatment plan including recommendation for admission. They expressed understanding and agreement I consulted and discussed the case with Dr. Castle, hospitalist, who agrees to the admission Differential Diagnosis: Significant lymphedema. I have considered DVT. Patient has a cough and it appears he may have a left lower lobe infiltrate. I considered sepsis shows lactate normal. Patient had hypoglycemic episode requiring D50W. - Data Points Laboratory Results: Laboratory Results 06/03/17 18:09 06/03/17 18:09 06/03/17 06/03/17 06/03/17 19:22 19:00 18:45 WBC RBC Hgb Hct MCV MCH MCHC RDW Plt Count MPV Neut % (Auto) Lymph % (Auto) Crook % (Auto) Eos % (Auto) Baso % (Auto) Nucleat RBC Rel Count Absolute Neuts (auto) Absolute Lymphs (auto) Absolute Monos (auto) Absolute Eos (auto) Absolute Basos (auto) Absolute Nucleated RBC Immature Gran % Immature Gran # PT INR APTT VBG Lactic Acid Sodium Potassium Chloride Carbon Dioxide Anion Gap BUN Creatinine Estimated GFR Glucose POC Glucose 123 mg/dL H mg/dL < 40 mg/dL L* mg/dL (70-100) (70-100) Calcium Total Bilirubin Troponin I NT-Pro-B Natriuret Pep Nasal Influenza A PCR Pending Nasal Influenza B PCR Pending 06/03/17 06/03/17 06/03/17 18:09 18:09 18:09 WBC 9.82 10^3/uL H 10^3/uL (3.80-9.50) RBC 2.96 10^6/uL L 10^6/uL (4.40-6.38) Hgb 9.5 g/dL L g/dL (13.7-17.5) Hct 29.8 % L % (40.0-51.0) MCV 100.7 fL H fL (81.5-99.8) MCH 32.1 pg pg (27.9-34.1) MCHC 31.9 g/dL L g/dL (32.4-36.7) RDW 15.5 % H % (11.5-15.2) Plt Count 209 10^3/uL 10^3/uL (150-400) MPV 9.3 fL fL (8.7-11.7) Neut % (Auto) 73.5 % % (39.3-74.2) Lymph % (Auto) 9.0 % L % (15.0-45.0) Crook % (Auto) 11.2 % % (4.5-13.0) Eos % (Auto) 4.5 % % (0.6-7.6) Baso % (Auto) 0.9 % % (0.3-1.7) Nucleat RBC Rel Count 0.0 % % (0.0-0.2) Absolute Neuts (auto) 7.22 10^3/uL H 10^3/uL (1.70-6.50) Absolute Lymphs (auto) 0.88 10^3/uL L 10^3/uL (1.00-3.00) Absolute Monos (auto) 1.10 10^3/uL H 10^3/uL (0.30-0.80) Absolute Eos (auto) 0.44 10^3/uL H 10^3/uL (0.03-0.40) Absolute Basos (auto) 0.09 10^3/uL 10^3/uL (0.02-0.10) Absolute Nucleated RBC 0.00 10^3/uL 10^3/uL (0-0.01) Immature Gran % 0.9 % % (0.0-1.1) Immature Gran # 0.09 10^3/uL 10^3/uL (0.00-0.10) PT Pending INR Pending APTT 42.1 SEC H SEC (23.0-38.0) VBG Lactic Acid Sodium 136 mEq/L mEq/L (135-145) Potassium 4.2 mEq/L mEq/L (3.5-5.2) Chloride 100 mEq/L mEq/L (97-110) Carbon Dioxide 24 mEq/l mEq/l (22-31) Anion Gap 12 mEq/L mEq/L (8-16) BUN 35 mg/dL H mg/dL (7-23) Creatinine 2.5 mg/dL H mg/dL (0.7-1.3) Estimated GFR 25 Glucose 35 mg/dL L* mg/dL (70-100) POC Glucose Calcium 8.5 mg/dL mg/dL (8.5-10.4) Total Bilirubin 0.6 mg/dL mg/dL (0.1-1.4) Troponin I < 0.012 ng/mL ng/mL (0.000-0.034) NT-Pro-B Natriuret Pep 461 pg/mL H pg/mL (0-450) Nasal Influenza A PCR Nasal Influenza B PCR 06/03/17 18:05 WBC RBC Hgb Hct MCV MCH MCHC RDW Plt Count MPV Neut % (Auto) Lymph % (Auto) Crook % (Auto) Eos % (Auto) Baso % (Auto) Nucleat RBC Rel Count Absolute Neuts (auto) Absolute Lymphs (auto) Absolute Monos (auto) Absolute Eos (auto) Absolute Basos (auto) Absolute Nucleated RBC Immature Gran % Immature Gran # PT INR APTT VBG Lactic Acid 1.6 mmol/L mmol/L (0.7-2.1) Sodium Potassium Chloride Carbon Dioxide Anion Gap BUN Creatinine Estimated GFR Glucose POC Glucose Calcium Total Bilirubin Troponin I NT-Pro-B Natriuret Pep Nasal Influenza A PCR Nasal Influenza B PCR Medications Given: Discontinued Medications Dextrose (Dextrose 50% Syringe) 25 gm IVP EDNOW ONE Stop: 06/03/17 19:02 Last Admin: 06/03/17 19:00 Dose: 25 gm Sodium Chloride (Ns) 500 mls @ 1,000 mls/hr IV EDNOW ONE PRN Reason: Protocol Stop: 06/03/17 18:54 Last Admin: 06/03/17 18:37 Dose: 500 mls Point of Care Test Results: 06/03/17 06/03/17 18:45 19:22 POC Glucose < 40 L* 123 H Departure - Departure Disposition: [facility] Inpatient Acute Clinical Impression: Lymphedema of both lower extremities Pneumonia Qualifiers: Pneumonia type: due to unspecified organism Laterality: left Lung location: lower lobe of lung Qualified Code(s): J18.1 - Lobar pneumonia, unspecified organism Condition: Fair Referrals: Tucker Barros MD [Primary Care Provider] - As per Instructions
[2017-06-03] MEDS ORDERED: NS 500 ML IV ONE (18:25)
--- NOTE | 2017-06-03 18:42 | CPEKG ---
Heart Rate: 74 RR Interval: 811 P-R Interval: 228 QRSD Interval: 94 QT Interval: 416 QTC Interval: 462 P Tahoma: 13 QRS Tahoma: -28 T Wave Tahoma: 37 EKG Severity - ABNORMAL ECG - EKG Impression: SINUS RHYTHM EKG Impression: VENTRICULAR TRIGEMINY EKG Impression: FIRST DEGREE AV BLOCK EKG Impression: BORDERLINE LEFT AXIS DEVIATION Electronically Signed By: Walker Flower 03-Jun-2017 20:48:17
[2017-06-03] MEDS ORDERED: D50W 25 GM/50 ML SYR IVP ONE ×2 (18:57→19:01)
[2017-06-03 19:01] LABS: PLATELET COUNT 209 10^3/uL (150-400)
[2017-06-03] MEDS ORDERED: VANCOMYCIN HCL/NORMAL SALINE 250 ML IV ONE (19:39)
[2017-06-03 19:55] LABS: INR 1.9 (0.83-1.16); PROTIME(PATIENT) 21.9 SEC (12.0-15.0)
[2017-06-03] MEDS ORDERED: ONDANSETRON DISINTEGRATING 4 MG TAB PO PRN (22:40)
[2017-06-03] MEDS ORDERED: ONDANSETRON 4 MG/2 ML VIAL IVP PRN (22:40)
[2017-06-03] MEDS ORDERED: oxyCODONE IR 5 MG TAB PO ONE ×2 (22:53→23:30)
[2017-06-03] MEDS ORDERED: D50W 25 GM/50 ML SYR IVP PRN ×2 (22:54)
[2017-06-03] MEDS: FUROSEMIDE 40 MG/4 ML VIAL IVP SCH (23:27)
[2017-06-03] MEDS ORDERED: NYSTATIN SUSP 500000 UNIT/5 ML UDCUP PO PRN (23:35)
--- NOTE | 2017-06-03 23:51 | GHP ---
[f rep st] HISTORY AND PHYSICAL DATE OF ADMISSION: 06/03/2017 CHIEF COMPLAINT: Weakness, inability to walk. HISTORY OF PRESENT ILLNESS: A 77-year-old male with history of chronic lower extremity lymphedema, foot wounds, coronary artery disease, atrial fibrillation , CKD, who was brought in by his due to increased weakness. This has been noted over the last 1-2 weeks. He was previously able to walk 12 steps to the bathroom, but can no longer do this. He has had similar symptoms previously with significant swelling to the legs and treated with Lasix and antibiotics. He is also noted to have decreased urination. He has had a nonproductive cough. No fevers, chills, or sweats. He has blisters that pop and seep clear fluid, per , intermittently. The legs do not appear more red than normal. He fell out of the car a few days ago and has complained of right knee pain since then. No chest pain, dyspnea or pillow orthopnea. In the emergency room, he is sweaty and found to be hypoglycemic at 35, which improved with D5. REVIEW OF SYSTEMS: I completed a 10-point review of systems. Negative except as noted in HPI. PAST MEDICAL HISTORY: 1. Insulin dependent diabetes. 2. Chronic lymphedema. 3. Right foot wound ulcers. 4. Morbid obesity. 5. Gangrene of right 5th toe. 6. Cardiac ablation. 7. Rheumatoid arthritis. 8. Melanoma. 9. GERD. 10. Coronary artery disease. 11. Atrial fibrillation. 12. Hypertension. 13. CKD. 14. Hyperlipidemia. 15. Peripheral neuropathy. 16. Chronic hypoxemic respiratory failure 2 L at night. 17. Echo, June 2016. Difficult study. LV is normal size and function. EF 60 % to 65%. Doppler evidence of diastolic heart failure. PAST SURGICAL HISTORY: 1. Radical debridement of right 5th toe 02/25/2017. 2. Debridement of right lateral foot ankle ulcer, 06/2016. HOME MEDICATIONS: 1. Prednisone 5 mg daily. 2. Percocet. 3. Glargine. 4. Coumadin 2 mg daily. Awaiting to bring in list of full medications. ALLERGIES: Multiple. See [employer] for full list. FAMILY HISTORY: Noncontributory. SOCIAL HISTORY: Lives with his . He is now using a wheelchair with difficulty ambulating. Can pivot. No alcohol, tobacco, or illicits. PHYSICAL EXAMINATION: VITAL SIGNS: Temperature is 36.8. Blood pressure 167/ 74. Heart rate in the 70s. Respirations 20. 95% on 2 L. GENERAL: Morbidly obese, fatigued, but no acute distress. HEENT: PERRLA. EOMI. Oropharynx clear. CV: Regular rate and rhythm. No murmurs, gallops, or rubs. LUNGS: Clear bilaterally. ABDOMEN: Obese, soft, nontender. MUSCULOSKELETAL: He is moving all 4 extremities. Significant lower extremity swelling bilaterally, +4 up to the knees. Chronic venous stasis changes, mildly erythematous but not warm. He has multiple blisters on his right lower extremity posteriorly and anteriorly, some open but without purulence or foul odor. NEURO: 2 through 12 intact. PSYCH: Alert and oriented x3. LABORATORY DATA: WBCs 9, hemoglobin 9.5, hematocrit is 29, MCV is 100, platelets 209. INR is 1.9. PT is 21. Lactate is 1.6. Sodium is 136, potassium 4.2, chloride 100, carbon dioxide 24, BUN 35, creatinine is 2.5, which is baseline. Glucose was 35; repeat 40; repeat 123. Negative influenza. Lower extremity ultrasound negative for DVT. Chest x-ray, personally reviewed by me: Small lung volumes. Difficult to discern perfusions with body habitus but there appears to be some blunting of the costophrenic angle. ASSESSMENT/PLAN: 1. Weakness: Unclear history per patient and his , but suspect he is more immobile due to increased lower extremity edema. He takes Lasix 3 times a week. I suspect that he should be taking this daily, but says he is intolerant due to vomiting. I will treat with intravenous Lasix here. We will fluid restrict 2 L. Ultrasounds of the lower extremities were negative for deep vein thrombosis. 2. Chronic lymphedema: Again, has had increased swelling over the last month. Denies shortness of breath, dyspnea or pillow orthopnea. BNP is not significantly elevated. Has a negative troponin and electrocardiogram. We will give Lasix and have Wound Care evaluate given wounds. Does not appear to be infected. says it is always red. Is not warm on my exam. Denies infectious symptoms. Is afebrile without leukocytosis. 3. Cough: Again, he is afebrile. Negative influenza. Does not appear to have opacity on x-ray. We will monitor. 4. Diastolic heart failure: Does not have overt volume overload on x-ray or BNP. We will continue blood pressure control with his lisinopril. 5. Chronic kidney disease: Creatinine is at baseline at 2.5. 6. Hypertension: Resume home medications. 7. Rheumatoid arthritis: Continue prednisone and Plaquenil. 8. Diabetes: He was actually hypoglycemic here in the emergency room. We will hold his glargine and treat with sliding scale insulin. We will restart when needed. 9. Gastroesophageal reflux disease: Proton-pump inhibitors. 10. History of right foot and ankle ulcers: Again, Wound Care to evaluate. 11. History of melanoma, status post excision. 12. Atrial fibrillation: Currently rate controlled on Coreg and Coumadin. His INR is mildly subtherapeutic at 1.9. I will not bridge at this time but would consider bridge if not therapeutic tomorrow. 13. Right knee pain secondary to fall: We will check x-ray. 14. Peripheral neuropathy: Continue Neurontin. 15. Chronic pain: Home Percocet. 16. CAD: 70-80% stenosis LCx stenosis. Medically-managed. Coreg, statin 16. Diet: Diabetic. 2 L fluid restriction. 17. Deep venous thrombosis prophylaxis: He is on warfarin. DISPOSITION: Patient warrants inpatient admission given increased lower extremity edema, weakness requiring intravenous diuresis, PT/OT evaluation. /[id number]/MODL MTDD
[2017-06-04 05:15] LABS: INR 1.9 (0.83-1.16); PROTIME(PATIENT) 21.9 SEC (12.0-15.0)
[2017-06-04] MEDS: CARVEDILOL 6.25 MG TAB PO SCH ×2 (08:47→18:00)
[2017-06-04] MEDS: predniSONE 5 MG TAB PO SCH (08:47)
[2017-06-04] MEDS: HYDROXYCHLOROQUINE SULFATE 200 MG TAB PO SCH ×2 (08:47→22:09)
[2017-06-04] MEDS: DOCUSATE SODIUM 100 MG CAP PO SCH ×2 (08:47→22:09)
[2017-06-04] MEDS: GABAPENTIN 400 MG CAP PO SCH ×3 (08:47→22:09)
[2017-06-04] MEDS: PRAVASTATIN SODIUM 20 MG TAB PO SCH (08:48)
[2017-06-04] MEDS: PANTOPRAZOLE SODIUM 40 MG TAB PO SCH (08:48)
[2017-06-04] MEDS: LISINOPRIL 2.5 MG TAB PO SCH (08:48)
[2017-06-04] MEDS: INSULIN LISPRO 100 UNIT/ML SC SCH ×5 (08:49→18:00)
[2017-06-04] MEDS: OXYCODONE/APAP 5/325 TAB PO SCH ×3 (08:51→17:59)
[2017-06-04] MEDS: NON-FORMULARY NEW DRUG (Oxycodone Hcl/Acetaminophen [Percocet 10-325 Mg Tablet] 1 EACH) PO SCH ×2 (08:52→11:52)
[2017-06-04] MEDS: oxyCODONE IR 5 MG TAB PO SCH ×3 (08:52→17:59)
[2017-06-04] MEDS: CEFADROXIL 500 MG PO SCH ×2 (08:52→22:10)
[2017-06-04] MEDS: FUROSEMIDE 40 MG/4 ML VIAL IVP SCH ×2 (08:53→16:06)
--- NOTE | 2017-06-04 10:15 | WOCRNPDOC ---
RITA Advanced Assessment Note - Skin Integrity Problem, Advanced Assess Bilateral Buttock Incont Assoc Dermatitis Dressing Type: Allevyn Life Dressing Description: Saturated (urine) Exudate Amount: Scant Exudate Color: Reddish/Yellow Exudate Characteristic(s): Serosanguinous Integumentary Issue Intervention: Dressing Removed, Barrier Cream Applied ( Calazime) Aida Wound Tissue: Blanching, Erythema, Denuded Aida Wound Swelling: Mild Wound Bed Color: Red Wound Bed Constitution: Red/[place] - Non Granular Tissue Skin Integrity Problem Comment: Patient well-known to programmer from previous hospitalizations [facility]. Raw, denuded skin throughout patient's bilateral buttocks, extending down through his aida-area, w / scattered areas of partial-thickness tissue loss. These are not pressure injuries, but rather the result of exposure to urine. Patient has issues w/ both urinary frequency and urgency; he uses a urinal, but has been observed spilling the urinal down through his legs. This is a chronic issue for him, and dressings on his bottom only trap the urine against his skin. This RN applied copious amounts of Calazime skin protectant across his buttocks and down through his upper thighs and scrotum. Advise keeping him brief free to prevent trapping heat/moisture, and will order a specialty bed for him today with microclimate feature. artificial insemination technician Aleida present and assisting. Right Lower Leg Venous Stasis Ulcer Dressing Type: Allevyn Life Dressing Description: Saturated Exudate Amount: Moderate Exudate Color: Clear, Yellow Exudate Characteristic(s): Serous Integumentary Issue Intervention: Dressing Applied Aida Wound Tissue: Erythema, Swollen, Venous Dermatitis, Lichenification Aida Wound Swelling: Moderate Wound Bed Color: Red, Yellow Wound Bed Constitution: Red/[place] - Non Granular Tissue (R lateral proximal leg) , Intact Serous Filled Blister (R lateral foot), De-roofed Serous Blister (R proximal anterior leg) Wound Edges: Irregular Site Odor: Slight Site Measurement - Head-to-Toe Length X Width X Depth (cm): R lateral/proximal: 1ltq46cks8.2cm (80% smooth tissue, 20% loose slough). R anterior/proximal: 2.9cmx5.2cmx blister (de-roofed, flat blister). R lateral foot: 3.7ply4ius blister (intact, serous-filled). R posterior/proximal: 1.2cmx1.8cmx0.1cm (100% smooth tissue) Lymphedema Present: Yes (+Stemmer) Peripheral Edema Location & Description: non-pitting Skin Integrity Problem Comment: Patient well-known to wound care from previous admissions, w/ extensive h/o wounds r/t chronic venous stasis and lymphedema. There are 4 discrete wounds on his R lower leg. The largest of these is on his R proximal/lateral lower leg, which has some loose slough/bio-film along the medial aspect. Remaining wound bed is shallow, w/ partial-thickness denuded tissue thoughout. This wound is highly exudative, w/ visible weeping of serous fluid noted during assessment. Remaining wound beds are in various stages of partial-thickness tissue loss, w/ intact or draining, de-roofed blisters. There is some aida-wound erythema, but this is also baseline for this patient. Therahoney sheet and Superabsorbant dressing applied over proximal/lateral wound , remaining wounds covered w/ foam, and all dressing secured w/ Kerlix. Patient would benefit from compression in the outpatient setting, and does report using Lymphedema pumps BID at home. Wound care will continue to follow while he remains inpatient, rounding again on Wednesday 06/07. Right Posterior Lower Thigh Dressing Type: Open to Air Exudate Color: Red, Brown Exudate Characteristic(s): Dried Integumentary Issue Intervention: Dressing Applied, Hydrogel Applied Aida Wound Tissue: Blanching, Erythema, Swollen, Venous Dermatitis, Lichenification Aida Wound Swelling: Mild Wound Bed Color: Red Wound Bed Constitution: Red/[place] - Non Granular Tissue, Scab Site Measurement - Head-to-Toe Length X Width X Depth (cm): Medial: 1.2cmx0.9cmx0.1cm. Lateral: 1cmx1.1cmx0.1cm Skin Integrity Problem Comment: Two superficial partial-thickness wounds adjacent to each other on the posterior aspect of patient's R lower thigh. Patient has h/o chronic lymphedema and venous insufficiency in this extremity, and it is possible that these wounds are the result of increased swelling, though the proximal location is unusual. Both sites are mixed scab and smooth tissue, no significant swelling or erythema periwound. Dressing applied along w / Hydrogel to confer some moisture to wounds beds.
--- NOTE | 2017-06-04 11:30 | PDMN ---
Medical Necessity Medical necessity: est los>2mn for increased LE edema, and weakness w/ inability to ambulate to BR; admit for IV Lasix, fluid restriction, and PT/OT; multiple comorbidities, including CHF, CKD, HTN, RA, DM and AFIB; per order and H&P 06/03/17
[2017-06-04] MEDS: LEFLUNOMIDE 20 MG TAB PO SCH (11:51)
[2017-06-04] MEDS ORDERED: NON-FORMULARY NEW DRUG (Insulin Aspart [Novolog] 30 UNIT) SC SCH (12:00)
[2017-06-04] MEDS: WARFARIN SODIUM 2 MG TAB PO SCH (16:06)
--- NOTE | 2017-06-04 16:56 | HOSPPROG ---
Hospitalist Progress Note Assessment/Plan: * Acute on chronic LE edema due to lymphedema -IV lasix * LE wounds due to chronic stasis -wound care * Obesity with poor mobility -requires Antonio for lifting -will likely need SNF * CKD - at baseline creatinine 2.4 * Afib s/p ablation -coreg -chronic warfarin - may need to increase dose * Acute on chronic diastolic CHF -suspect an element of pulmonary edema -IV lasix * DM -continue lantus * RA -chronic prednisone + arava * CAD - 80% stenosis of circ - med mgmt Subjective: No new complaints. Objective: Vital Signs Temp Pulse Resp BP Pulse Ox 37.2 C 83 16 105/52 L 90 L 06/04/17 15:24 06/04/17 15:24 06/04/17 15:24 06/04/17 15:24 06/04/17 15:24 Laboratory Results 06/04/17 03:35 06/03/17 06/04/17 06/05/17 05:59 05:59 05:59 Intake Total 1470 550 Output Total 1120 Balance 350 550 PT 21.9 SEC (12.0-15.0) H 06/04/17 03:35 INR 1.90 (0.83-1.16) H 06/04/17 03:35 CXR viewed, my personal interpretation is - mild CHF LE US - negative for DVT - Physical Exam Constitutional: no apparent distress, appears nourished, not in pain Cardiovascular: regular rate and rhythym, no murmur, rub, or gallop, edema (4+) Respiratory: no respiratory distress, no rales or rhonchi, clear to auscultation Gastrointestinal: normoactive bowel sounds, soft, non-tender abdomen, no palpable masses Skin: no rashes or abrasions, no fluctuance, no induration Neurologic: AAOx3, sensation intact bilaterally Psychiatric: interacting appropriately, not anxious, not encephalopathic, thought process linear ICD10 Worksheet Patient Problems: Problems Problem Status Onset Lymphedema of both lower extremities Acute Pneumonia Acute Supraventricular tachycardia Active Cellulitis Acute Cellulitis of right foot Acute Diabetic foot ulcer Acute Lymphedema of leg Acute 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
--- NOTE | 2017-06-04 17:11 | ASMTCMCOM ---
CM Note CM Note Notes: 06/04/2017 Case Management Note Met w/pt and to discuss d/c needs. Son works from pts home and is available for assistance in transferring pt during the day. However currently pt is requiring a lift to transfer out of bed to chair. Pt is unhappy about a possible SNF stay d/t weakness. Pt and did agree to referrals to [facility] and [facility], faxed via [employer]. Discussed need for Home Health. Pt agreed to referral for [facility]. Faxed referral via [employer]. Pt and had a palliative consult from [facility] in the past. They declined services at that time. Pt and are unable to find [employer] paperwork. is considering need for a palliative consult to fill out new paperwork. to contact son to help search for [employer] paperwork. Case Management d/c poc: SNF pending acceptance vs. Home Care. Case Management to follow. Date Signed: 06/04/2017 05:11 PM Electronically Signed By:Camille Pollard RN
[2017-06-04] MEDS ORDERED: NON-FORMULARY NEW DRUG (Insulin Glargine 30 UNITS) SC SCH (21:00)
[2017-06-04] MEDS: INSULIN GLARGINE 100 UNITS/ML UNIT SC SCH (22:08)
[2017-06-04] MEDS: ASPIRIN EC 81 MG TAB PO SCH (22:09)
[2017-06-05 04:40] LABS: PLATELET COUNT 193 10^3/uL (150-400)
[2017-06-05 04:49] LABS: INR 2.01 (0.83-1.16); PROTIME(PATIENT) 22.8 SEC (12.0-15.0)
[2017-06-05] MEDS: DOCUSATE SODIUM 100 MG CAP PO SCH ×2 (08:05→22:26)
[2017-06-05] MEDS: HYDROXYCHLOROQUINE SULFATE 200 MG TAB PO SCH ×2 (08:06→22:26)
[2017-06-05] MEDS: oxyCODONE IR 5 MG TAB PO SCH ×3 (08:06→17:24)
[2017-06-05] MEDS: OXYCODONE/APAP 5/325 TAB PO SCH ×3 (08:06→17:24)
[2017-06-05] MEDS: PANTOPRAZOLE SODIUM 40 MG TAB PO SCH (08:06)
[2017-06-05] MEDS: PRAVASTATIN SODIUM 20 MG TAB PO SCH (08:06)
[2017-06-05] MEDS: GABAPENTIN 400 MG CAP PO SCH ×3 (08:06→22:26)
[2017-06-05] MEDS: predniSONE 5 MG TAB PO SCH (08:07)
[2017-06-05] MEDS: FUROSEMIDE 40 MG/4 ML VIAL IVP SCH ×2 (08:07→17:04)
[2017-06-05] MEDS: CARVEDILOL 6.25 MG TAB PO SCH ×2 (08:07→17:03)
[2017-06-05] MEDS: INSULIN GLARGINE 100 UNITS/ML UNIT SC SCH ×2 (08:07→22:26)
[2017-06-05] MEDS: INSULIN LISPRO 100 UNIT/ML SC SCH ×5 (08:08→18:25)
[2017-06-05] MEDS: CEFADROXIL 500 MG PO SCH ×2 (11:31→22:25)
[2017-06-05] MEDS: LEFLUNOMIDE 20 MG TAB PO SCH (14:41)
--- NOTE | 2017-06-05 14:55 | ASMTCMCOM ---
CM Note CM Note Notes: 06/05/2017 Case Management Note Phone call from Michaela at [facility]. Pt is accepted to [facility]. Discussed case with Markus from Palliative Care Team. Markus to contact family to arrange palliative meeting. Case Management d/c poc: to [facility] Case Management to follow. Date Signed: 06/05/2017 02:02 PM Electronically Signed By:Camille Pollard RN
[2017-06-05] MEDS: WARFARIN SODIUM 2 MG TAB PO SCH (17:04)
[2017-06-05 17:38] VITALS: RESP 16
--- NOTE | 2017-06-05 17:40 | HOSPPROG ---
Hospitalist Progress Note Assessment/Plan: * Acute on chronic LE edema due to lymphedema -IV lasix * LE wounds due to chronic stasis -wound care * Obesity with poor mobility -improved mobility with diuresis * CKD - at baseline creatinine 2.4 * Afib s/p ablation -coreg -chronic warfarin - may need to increase dose * Acute on chronic diastolic CHF -suspect an element of pulmonary edema -IV lasix * DM -continue lantus * RA -chronic prednisone + arava * CAD - 80% stenosis of circ - med mgmt Subjective: Walking much better today Objective: Vital Signs Temp Pulse Resp BP Pulse Ox 36.3 C 89 16 113/64 95 06/05/17 16:00 06/05/17 16:00 06/05/17 16:00 06/05/17 16:00 06/05/17 16:00 Laboratory Results 06/05/17 03:38 06/05/17 03:38 06/04/17 06/05/17 06/06/17 05:59 05:59 05:59 Intake Total 1470 1170 980 Output Total 1120 500 Balance 350 1170 480 PT 22.8 SEC (12.0-15.0) H 06/05/17 03:38 INR 2.01 (0.83-1.16) H 06/05/17 03:38 - Physical Exam Constitutional: no apparent distress, appears nourished, not in pain Cardiovascular: regular rate and rhythym, no murmur, rub, or gallop, edema (3+) Respiratory: no respiratory distress, no rales or rhonchi, clear to auscultation Gastrointestinal: normoactive bowel sounds, soft, non-tender abdomen, no palpable masses Skin: no rashes or abrasions, no fluctuance, no induration Neurologic: AAOx3, sensation intact bilaterally Psychiatric: interacting appropriately, not anxious, not encephalopathic, thought process linear ICD10 Worksheet Patient Problems: Problems Problem Status Onset Lymphedema of both lower extremities Acute Pneumonia Acute Supraventricular tachycardia Active Cellulitis Acute Cellulitis of right foot Acute Diabetic foot ulcer Acute Lymphedema of leg Acute 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
[2017-06-05] MEDS: ASPIRIN EC 81 MG TAB PO SCH (22:26)
[2017-06-05] MEDS: oxyCODONE IR 5 MG TAB PO PRN (23:37)
[2017-06-06 04:43] LABS: PLATELET COUNT 181 10^3/uL (150-400)
[2017-06-06 04:50] LABS: INR 1.75 (0.83-1.16); PROTIME(PATIENT) 20.5 SEC (12.0-15.0)
[2017-06-06] MEDS: oxyCODONE IR 5 MG TAB PO PRN ×3 (05:37→16:48)
[2017-06-06] MEDS: CARVEDILOL 6.25 MG TAB PO SCH ×2 (08:01→08:02)
--- NOTE | 2017-06-06 08:55 | HOSPPROG ---
Hospitalist Progress Note Objective: Vital Signs Temp Pulse Resp BP Pulse Ox 37.3 C 95 16 126/72 H 97 06/06/17 04:31 06/06/17 08:17 06/06/17 08:17 06/06/17 08:17 06/06/17 08:17 Laboratory Results 06/06/17 03:37 06/06/17 03:37 06/05/17 06/06/17 06/07/17 05:59 05:59 05:59 Intake Total 1170 1440 Output Total 1450 Balance 1170 -10 PT 20.5 SEC (12.0-15.0) H 06/06/17 03:37 INR 1.75 (0.83-1.16) H 06/06/17 03:37 Laboratory Tests 06/03/17 06/05/17 06/05/17 18:09 03:38 14:20 WBC 9.82 H Hgb 9.5 L Plt Count INR 2.01 H Creatinine POC Glucose 240 H 06/05/17 06/05/17 06/05/17 17:26 20:53 23:34 WBC Hgb Plt Count INR Creatinine POC Glucose 186 H 52 L 104 H 06/06/17 06/06/17 06/06/17 03:37 03:37 03:37 WBC 8.79 Hgb 8.4 L Plt Count 181 INR 1.75 H Creatinine 2.5 H POC Glucose ICD10 Worksheet Patient Problems: Problems Problem Status Onset Supraventricular tachycardia Active Lymphedema of both lower extremities Acute Cellulitis Acute 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
[2017-06-06] MEDS: HYDROXYCHLOROQUINE SULFATE 200 MG TAB PO SCH (09:15)
[2017-06-06] MEDS: PRAVASTATIN SODIUM 20 MG TAB PO SCH (09:15)
[2017-06-06] MEDS: DOCUSATE SODIUM 100 MG CAP PO SCH (09:15)
[2017-06-06] MEDS: GABAPENTIN 400 MG CAP PO SCH ×2 (09:15→15:14)
[2017-06-06] MEDS: PANTOPRAZOLE SODIUM 40 MG TAB PO SCH (09:15)
[2017-06-06] MEDS: LISINOPRIL 2.5 MG TAB PO SCH (09:16)
[2017-06-06] MEDS: predniSONE 5 MG TAB PO SCH (09:16)
[2017-06-06] MEDS: FUROSEMIDE 40 MG/4 ML VIAL IVP SCH ×2 (09:17→16:52)
[2017-06-06] MEDS: INSULIN GLARGINE 100 UNITS/ML UNIT SC SCH (09:17)
[2017-06-06] MEDS: INSULIN LISPRO 100 UNIT/ML SC SCH ×3 (09:34→15:13)
[2017-06-06] MEDS: CEFADROXIL 500 MG PO SCH (09:35)
[2017-06-06] MEDS: ACETAMINOPHEN 325 MG TAB PO PRN ×2 (10:22→16:48)
[2017-06-06 11:18] VITALS: BP 126/62; PULSE 92; TEMP 97.7; O2SAT 95
[2017-06-06] MEDS: LEFLUNOMIDE 20 MG TAB PO SCH (12:59)
[2017-06-06] MEDS ORDERED: ENOXAPARIN 100 MG/ML SYR SC ONE (14:12)
[2017-06-06] MEDS ORDERED: WARFARIN SODIUM 5 MG TAB PO ONE (14:13)
--- NOTE | 2017-06-06 14:24 | PDIAF ---
- Diagnosis Code Status: Full Code - Medication Management Discharge Medications: Medications to Continue on Transfer predniSONE 5 mg PO DAILY 07/16/16 [Last Taken 06/03/17] oxyCODONE HCL/ACETAMINOPHEN [Percocet 10-325 mg Tablet] 1 each PO Q4H PRN MDD 6 DAILY 02/22/17 [Last Taken 06/03/17 16:00] Aspirin EC [Aspirin EC 81 mg (*)] 81 mg PO HS 06/03/17 [Last Taken 06/02/17] Carvedilol [Coreg (*)] 6.25 mg PO BIDMEAL 06/03/17 [Last Taken 06/03/17 08:00] Cefadroxil 500 mg PO BID 06/03/17 [Last Taken 06/03/17 08:00] Docusate Sodium [Colace 100 MG (*)] 100 mg PO BID 06/03/17 [Last Taken 06/03/17] Gabapentin [Neurontin 400 MG (*)] 800 mg PO TID 06/03/17 [Last Taken 06/03/17 08 :00] Herbals/Supplements -Info Only 1 ea PO DAILY 06/03/17 [Last Taken Unknown] Hydroxychloroquine Sulfate [Plaquenil 200 mg (*)] 200 mg PO BID 06/03/17 [Last Taken 06/03/17 08:00] Insulin Aspart [novoLOG] 30 unit SC 06/03/17 [Last Taken 06/03/17 12:00] Insulin Glargine [Lantus 100 UNITS/ML (*)] 30 units SC BID 06/03/17 [Last Taken 06/03/17] Leflunomide [Arava 20 mg (*)] 20 mg PO DAILY@1200 06/03/17 [Last Taken 06/03/17] Lisinopril [Zestril 2.5 mg (*)] 2.5 mg PO DAILY 06/03/17 [Last Taken 06/03/17] Lovastatin 20 mg PO HS 06/03/17 [Last Taken 06/02/17] Nystatin 100,000 unit PO QID PRN 06/03/17 [Last Taken Unknown] Omeprazole 40 mg PO DAILY 06/03/17 [Last Taken 06/03/17] Potassium Chloride [Klor-Con 10] 10 meq PO TUTHSA@0800 06/03/17 [Last Taken 02/06] Warfarin Sodium [Coumadin 2MG (*)] 2 mg PO DAILY16 06/03/17 [Last Taken 1MG DOSE] Acetaminophen [Tylenol 325mg (*)] 650 mg PO Q4HRS PRN tab 06/06/17 [Last Taken Unknown] Furosemide [Lasix 40 MG (*)] 40 mg PO BID #30 tab 06/06/17 [Last Taken Unknown] Discharge Medications: Refer to the Discharge Home Medication list for PRN reason. - Orders Services needed: Home Care, Registered Nurse, Physical Therapy, Occupational Therapy Home Care Face to Face: I certify that this patient was under my care and that I had the required [id number] encounter meeting the encounter requirements on the discharge day. My findings support the fact that the patient is homebound as defined in Home Care Face to Face Continued: CMS Chapter 7 Medicare Benefits Manual 30.1.1 , The condition of the patient is such that there exists a normal inability to leave home and consequently, leaving home would require a considerable and taxing effort. Isolation Type: None Diet Recommendation: sodium restricted Diet Texture: Regular Texture Diet - Labs/Radiology PT/INR Date: 06/13/17 - Follow Up Care Current Providers and Referrals: Tucker Barros MD [Primary Care Provider] - As per Instructions
[2017-06-06] MEDS ORDERED: WARFARIN SODIUM 1 MG TAB PO ONE (16:00)
--- NOTE | 2017-06-06 18:50 | GDS ---
[f rep st] DISCHARGE SUMMARY KNOWN ACUTE DIAGNOSES: 1. Acute chronic lower extremity edema secondary to lymphedema and mild diastolic congestive heart f ailure. 2. Lower extremity wounds secondary to chronic stasis, Wound Care. 3. Obesity. 4. Chronic kidney disease with baseline creatinine of 2.4. 5. Atrial fibrillation, status post an ablation and on rate control medications and chronic anticoag ulation of Coumadin. 6. Acute on chronic diastolic congestive heart failure. 7. Diabetes mellitus. 8. Rheumatoid arthritis. 9. Coronary artery disease with a known 80% stenosis of the circ. Medical management been recommend ed. CONSULTATIONS: Wound Care. PROCEDURES: Daily wound care to his lower extremities. HOSPITAL COURSE: A 77-year-old male presented with increasing leg edema, some shortness of breath an d decrease in mobility secondary to the leg swelling. He was noted to have a mild degree of diastoli c CHF without evidence of chest pain or coronary ischemia. Mild diuresis was instituted and the gent meredith diuresed nicely, although the weights and I and O do not reflect this effectively. He felt con siderably improved. Wound Care consulted and noted that daily dressing changes with Mepilex would be sufficient. His atrial fibrillation remained in good control. Initial INR was slightly low as he m issed one dose, and was INR was 1.75 at the time of discharge. He was given Coumadin 5 mg as a final dose which was felt to be likely sufficient to obtain a therapeutic INR in the a.m. During the hosp italization he was bridged with Lovenox. His diabetes fluctuated and he had two episodes of possible hypoglycemia which were asymptomatic. It was contemplated to change his diabetic regime, yet he is closely followed by his at home, and it was felt that any changes would, at this point, be unnecessary. He is quite skilled as is she in the management of his diabetes. DISCONTINUED MEDICATIONS: Lasix 40 mg Saturday, Saturday. NEW MEDICATIONS: Lasix 40 mg twice daily x1 week, and then return to his previous dosage. CONTINUED MEDICATIONS: Prednisone 5 mg daily, Percocet 10/325 mg tablet 1 p.o. q.6 hours p.r.n. pain , Coumadin 2 mg daily, Arava 20 mg daily, Colace 100 mg twice daily, Klor-Con 10 mEq Saturday, , Saturday, lisinopril 2.5 mg daily, Lantus 30 units subcu twice daily with NovoLog 30 units subcu a t 12:00 and 18:00 with his meals, Plaquenil 200 mg twice daily, herbal supplements, omeprazole 40 mg daily, Coreg 6.5 mg twice daily, gabapentin 800 mg three times daily, losartan 20 mg h.s., ASA 81 mg h.s., cefadroxil 500 mg twice daily, nystatin powder four times daily p.r.n. PLAN: The gentleman will follow up with Dr. Tucker Barros, his PCP, in 1-2 weeks. I have instr ucted the to use the Lasix on a daily basis for only 1 week and then return to his usual dosage of 3 times a week. Daily weights at this time do not seem to be effective as the gentleman has chron ic lower extremity lymphedema with only a mild increase in subcutaneous edema. The gentleman was given the option of going to a fdc facility for assistance. He assured us, and his assured us, that he had adequate care at home. We have ordered home care with RN a nd PT care, but they have chosen to return home. A palliative care consultation was entertained; it was not desired by the family. TIME: This discharge required 50 minutes, greater than 50% to senior vice president & general counsel, coordinate care. /[id number]/MODL
--- NOTE | 2017-06-07 12:55 | ASDISCHSUM ---
Discharge Information Plan Status:Has needs-TBD Medically Cleared to Leave: Discharge Date:06/06/2017 05:05 PM D/C Disposition:Home Health Service ADT D/C Disposition:Home Health Service Projected Discharge Date:06/07/2017 11:00 AM Transportation at D/C:ALS/BLS Discharge Delay Reason: Follow-Up Date:06/07/2017 11:00 AM Discharge Slot: Final Diagnosis: Placement Information Referral Type:*[facility]SNF Referral ID:[id number] Provider Name: Address 1: Phone Number: Address 2: Fax Number: City: Selection Factors: State: Referral Type:*Home Health Care Services Referral ID:[id number] Provider Name:[facility] Address 1:[address] [facility] [address] Address 2: City:[place] Selection Factors: State:[place] Patient Contact Information Contact Name:BAKARI Relationship: Address:[address] City:[place] Alternate Phone: State/Zip Code:[place] [address] Email: Financial Information Financial Class:Medicare Primary Plan Desc:MEDICARE INPATIENT Primary Plan Number:[id number] Secondary Plan Desc:AARP/MDR SUPPLEMENT Secondary Plan Number:[id number] Assessment Information [facility] CM Progress Note CM Note CM Note Notes: 06/04/2017 Case Management Note Met w/pt and to discuss d/c needs. Son works from pts home and is available for assistance in transferring pt during the day. However currently pt is requiring a lift to transfer out of bed to chair. Pt is unhappy about a possible SNF stay d/t weakness. Pt and did agree to referrals to [facility] and [facility], faxed via [employer]. Discussed need for Home Health. Pt agreed to referral for [facility]. Faxed referral via [employer]. Pt and had a palliative consult from [facility] in the past. They declined services at that time. Pt and are unable to find [facility] paperwork. is considering need for a palliative consult to fill out new paperwork. to contact son to help search for [facility] paperwork. Case Management d/c poc: SNF pending acceptance vs. Home Care. Case Management to follow. Date Signed: 06/04/2017 05:11 PM Electronically Signed By:Camille Pollard RN [facility] CM Progress Note CM Note CM Note Notes: 06/05/2017 Case Management Note Phone call from Michaela at [facility]. Pt is accepted to [facility]. Discussed case with Markus from Palliative Care Team. Markus to contact family to arrange palliative meeting. Case Management d/c poc: to [facility] Case Management to follow. Date Signed: 06/05/2017 02:02 PM Electronically Signed By:Camille Pollard RN Case Management Discharge Plan Note Case Management Discharge Discharge Order Complete? Answers: Yes Patient to Obtain Answers: via Family Medications Transportation Arranged Answers: [facility] Stretcher Transport will Pick (Date 06/06/2017 04:00 PM & Time) FELIZALA Complete Answers: No Case Management Transport Answers: Yes Notes: PCS form completed and a Form Complete copy is in pts chart Faxed Final Orders Answers: Yes Agency/Facility Transfer Answers: Yes Report Printed & Faxed to Receiving Agency Family Notified Answers: Yes Notes: CM spoke w/ Discharge Comments Notes: Pts case discussed in morning rounds. Pt is being discharged today w/ [facility], RN and PT. A palliative has been ordered. is not interested in having a palliative at this time. CM set up transport with [facility] for a stretcher. CM completed the PCS form and a copy is in pts chart. CM informed pts that there is a chance that it might not be covered. is aware and still wanted CM to try to have Medicare cover the transport. is electing not to pre pay for the ambulance. CM provided Nandu w/ phone number to give report. CM available for changes. Plan: [facility], RN and PT Date Signed: 06/06/2017 01:42 PM Electronically Signed By:BANDAR Jaramillo Intervention Information Intervention Type:*IM-Signed Date of Service:06/06/2017 02:46 PM Patient Type:Inpatient Staff Member:Valentina Rodriguez Hours: Discipline: Severity: Comment:
== END 2017-06-06 17:05 | disposition home health service (06) | DRG 606 ==
LOC: F2W 23:13
PROVIDERS: ADMIT Internal Medicine; ATTEND Internal Medicine Pulmonary Disease
DX: I89.0 Lymphedema, not elsewhere classified (principal); I50.33 Acute on chronic diastolic (congestive) heart failure; I87.2 Venous insufficiency (chronic) (peripheral); I13.0 Hypertensive heart and chronic kidney disease with heart failure and stage 1 through stage 4 chronic kidney disease, or unspecified chronic kidney disease; J96.11 Chronic respiratory failure with hypoxia; N18.9 Chronic kidney disease, unspecified; E66.9 Obesity, unspecified; Z68.35 Body mass index [BMI] 35.0-35.9, adult; I48.91 Unspecified atrial fibrillation; E11.22 Type 2 diabetes mellitus with diabetic chronic kidney disease; E11.65 Type 2 diabetes mellitus with hyperglycemia; M06.9 Rheumatoid arthritis, unspecified; I25.10 Atherosclerotic heart disease of native coronary artery without angina pectoris; K21.9 Gastro-esophageal reflux disease without esophagitis; Z79.01 Long term (current) use of anticoagulants; Z79.4 Long term (current) use of insulin
CPT/HCPCS: 96365; 97110-GP; 97116-GP; 97162-GP; 97167-GO; 97530-GO; 97530-GP; G8978-GP-CM; G8979-GP-CK; G8987-GO-CN; G8988-GO-CK; J1650; J1815; J1940; J3370; J7512

== ENCOUNTER 2017-07-05 11:39 | Inpatient (IN) | payer OTHER, MEDICARE ==
[2017-07-05 11:58] LABS: PLATELET COUNT 185 10^3/uL (150-400)
--- NOTE | 2017-07-05 12:50 | EDPHY ---
H & P Time Seen by Provider: 07/05/17 12:38 HPI/ROS: CHIEF COMPLAINT: Elevated creatinine HISTORY OF PRESENT ILLNESS: 77-year-old male with diabetes, atrial fibrillation and lymphedema presents with elevated creatinine. He was recently admitted to [facility] for wound care of lymphedema. He was discharged to [facility] for rehabilitation because of generalized weakness and inability to ambulate. Since arrival to rehab, he has continued to feel quite weak and is still unable to ambulate. He has been on Lasix 80mg daily for several weeks and the lymphedema is much improved. This morning his creatinine was 4.0 so he was sent to the emergency department for admission. This morning he had an episode of mild abdominal discomfort, associated with nausea, now resolved. He has a Disla catheter in place and is on Levaquin for urinary tract infection. No fever or urinary sx. REVIEW OF SYSTEMS: Constitutional: No fever, no chills Eyes: No visual changes ENT: No sore throat Respiratory: No cough, no shortness of breath Cardiac: No chest pain Gastrointestinal: No vomiting or diarrhea Genitourinary: no dysuria Musculoskeletal: No leg pain or swelling Skin: No rash Neurological: No headache, no weakness Psychiatric: No depression Past Medical/Surgical History: Diabetes Atrial fibrillation, on Coumadin Chronic renal insufficiency Rheumatoid arthritis Social History: Smoking Status: Never smoked Physical Exam: General Appearance: Alert, pleasant Eyes: Pupils equal and round, no conjunctival pallor or injection ENT, Mouth: Mucous membranes moist Neck: Normal inspection Respiratory: Rales at bases Cardiovascular: Regular rate and rhythm Gastrointestinal: Abdomen is soft and nontender Neurological: A&O, nonfocal exam Skin: Warm and dry, no rash Extremities: Bilateral calf tenderness, 1+ pedal edema Psychiatric: Mood and affect normal Constitutional: Initial Vital Signs Temperature (C) 36.6 C 07/05/17 12:45 Heart Rate 84 07/05/17 12:45 Respiratory Rate 16 07/05/17 12:45 Blood Pressure 103/55 L 07/05/17 12:45 O2 Sat (%) 95 07/05/17 12:45 O2 Delivery Mode Oxymizer O2 (L/minute) 4 Allergies/Adverse Reactions: triazolam Allergy (Unknown, Unverified 06/06/17 14:43) amoxicillin [Amoxicillin] Allergy (Verified 02/22/17 16:22) Rash amoxicillin trihydrate [From Augmentin] Allergy (Verified 02/22/17 16:22) Rash clindamycin Allergy (Verified 02/22/17 16:22) sores in mouth cyclobenzaprine HCl [From Flexeril] Allergy (Verified 02/22/17 16:22) donepezil HCl [From Aricept] Allergy (Verified 02/22/17 16:22) fentanyl Allergy (Verified 02/22/17 16:22) confused methotrexate Allergy (Verified 02/22/17 16:22) potassium clavulanate [From Augmentin] Allergy (Verified 02/22/17 16:22) Rash Sulfa (Sulfonamide Antibiotics) Allergy (Verified 02/22/17 16:22) sores in the mouth amoxicillin trihydrate Allergy (Unknown, Uncoded 06/06/17 14:43) Rash cyclobenzaprine HCl Allergy (Unknown, Uncoded 06/06/17 14:43) donepezil HCl Allergy (Unknown, Uncoded 06/06/17 14:43) potassium clavulanate Allergy (Unknown, Uncoded 06/06/17 14:43) Rash Home Medications: Medication Instructions Recorded predniSONE 5 mg PO DAILY 07/16/16 oxyCODONE HCL/ACETAMINOPHEN 1 each PO TID PRN 02/22/17 [Percocet 10-325 mg Tablet] Aspirin EC [Aspirin EC 81 mg (*)] 81 mg PO DAILY@12 06/03/17 Carvedilol [Coreg (*)] 6.25 mg PO BIDMEAL 06/03/17 Docusate Sodium [Colace 100 MG (*)] 100 mg PO BIDMEAL 06/03/17 Gabapentin [Neurontin 400 MG (*)] 800 mg PO TID 06/03/17 Herbals/Supplements -Info Only 1 ea PO DAILY 06/03/17 Hydroxychloroquine Sulfate 200 mg PO BID 06/03/17 [Plaquenil 200 mg (*)] Leflunomide [Arava 20 mg (*)] 20 mg PO DAILY@1200 06/03/17 Lisinopril [Zestril 2.5 mg (*)] 2.5 mg PO DAILY 06/03/17 Lovastatin 20 mg PO HS 06/03/17 Nystatin 100,000 unit PO QID PRN 06/03/17 Omeprazole 40 mg PO DAILY 06/03/17 Potassium Chloride [Klor-Con 10] 10 meq PO TUTHSA@0800 06/03/17 Warfarin Sodium [Coumadin 2MG (*)] 2 mg PO DAILY16 06/03/17 Ascorbic Acid [Vitamin C 500 mg 1,000 mg PO DAILY@12 07/05/17 (*)] C/E/Zn/Cu/OM3/DHA/EPA/LUT/ZEAX 1 each PO DAILY 07/05/17 [Preservision Areds 2 Softgel] Ferrous Sulfate [Ferrous Sulf 325 325 mg PO DAILY 07/05/17 MG (*)] Folic Acid [Folic Acid 1 MG (*)] 600 mcg PO DAILY 07/05/17 Furosemide [Lasix 80 MG (*)] 80 mg PO DAILY 07/05/17 Glucosamine Sulfate [Glucosamine 500 mg PO BID 07/05/17 Sulfate 500 MG (*)] Insulin Glargine,Hum.rec.anlog 30 unit SQ BID 07/05/17 [Basaglar Kwikpen U-100] Insulin Lispro [Humalog] 30 unit SQ BID 07/05/17 Magnesium Oxide [Magnesium Oxide 400 mg PO DAILY@12 07/05/17 400 mg (*)] Ondansetron Odt [Zofran Odt 4 mg 4 mg PO Q4 PRN 07/05/17 (*)] Sodium Polystyrene Sulf [Kionex 1 each PO DAILY 07/05/17 SPS Powder (*)] Spironolactone [Aldactone 25 MG 25 mg PO DAILY 07/05/17 (*)] levOFLOXACIN [levAQUIN (*)] 500 mg PO DAILY 07/05/17 oxyCODONE/APAP 5/325 [Percocet 1 tab PO DAILY PRN 07/05/17 5/325 (*)] Medical Decision Making - Diagnostics EKG Interpretation: EKG interpreted by me reveals probable sinus rhythm, rate 83, PVC, significant artifact present. Interpretation: Borderline EKG ED Course/Re-evaluation: This patient presents with worsening renal function, most likely secondary to an increase in Lasix dosing. He is usually on Lasix 40 mg once daily and has been on Lasix 80 mg once daily for at least 1 month. Gentle IVF given, as fluid balance is problematic in this pt. Repeat creat is 3.8 and potassium is normal. EKG reveals no evidence of dysrhythmia or ischemia. He has a chronic indwelling Disla catheter. The Disla catheter was changed by the ED RN and urinalysis is pending at this point. Bladder scan: 0ml urine present. The hospitalist service was consulted for admission for acute on chronic renal failure. The patient was stable throughout his emergency department course. Differential Diagnosis: Differential diagnosis includes though not limited to hyperkalemia, medication effect, pre-renal causes such as dehydration and diuretics; intrinsic renal disease; post-renal causes such as urinary outflow obstruction. - Data Points Laboratory Results: Laboratory Results 07/05/17 11:43 07/05/17 11:43 Medications Given: Carvedilol (Coreg) 6.25 mg PO BIDMEAL [facility] Stop: 01/01/18 17:59 Last Admin: 07/05/17 17:27 Dose: 6.25 mg Docusate Sodium (Colace) 100 mg PO BIDMEAL [facility] Stop: 01/01/18 17:59 Last Admin: 07/05/17 17:27 Dose: 100 mg Glucosamine Sulfate (Glucosamine Sulfate) 500 mg PO BID [facility] Stop: 01/01/18 20:59 Last Admin: 07/05/17 21:13 Dose: 500 mg Hydroxychloroquine Sulfate (Plaquenil) 200 mg PO BID [facility] PRN Reason: Protocol Stop: 08/04/17 20:59 Last Admin: 07/05/17 21:13 Dose: 200 mg Insulin Glargine (Lantus Syringe) 30 units SC BID [facility] Stop: 01/01/18 20:59 Last Admin: 07/05/17 21:12 Dose: 30 units Insulin Human Lispro (Humalog Lispro) 30 unit SC BID [facility] Stop: 01/01/18 20:59 Last Admin: 07/05/17 23:59 Dose: 30 unit Oxycodone/Acetaminophen (Percocet 5/325) 1 tab PO TID PRN PRN Reason: BREAKTHROUGH PAIN Stop: 07/15/17 16:07 Last Admin: 07/05/17 23:50 Dose: 1 tab Discontinued Medications Sodium Chloride (Ns) 1,000 mls @ 125 mls/hr IV CONT [facility] Stop: 07/06/17 01:44 Last Admin: 07/05/17 17:32 Dose: 1,000 mls Warfarin Sodium (Coumadin) 3 mg PO ONCE@1600 ONE Stop: 07/05/17 16:01 Last Admin: 07/05/17 17:37 Dose: Not Given Departure - Departure Disposition: [facility] Acute Clinical Impression: Renal failure (ARF), acute on chronic Qualifiers: Acute renal failure type: unspecified Chronic kidney disease stage: stage 4 ( severe) Qualified Code(s): N17.9 - Acute kidney failure, unspecified Condition: Fair
--- NOTE | 2017-07-05 13:28 | CPEKG ---
Heart Rate: 83 RR Interval: 723 P-R Interval: 189 QRSD Interval: 104 QT Interval: 368 QTC Interval: 433 P [place]: 0 QRS [place]: -24 T Wave [place]: 54 EKG Severity - OTHERWISE NORMAL ECG - EKG Impression: SINUS RHYTHM EKG Impression: significant artifact, probable PVC EKG Impression: BORDERLINE LEFT AXIS DEVIATION Electronically Signed By: Merlene Lazcano 05-Jul-2017 15:13:32
--- NOTE | 2017-07-05 13:41 | ASMTCMCOM ---
CM Note CM Note Notes: Pt presented to the Emergency Department today for an elevated creatinine (4.0). Pt was recently discharged from [facility] ([facility]) where he was being treated for wound care secondary to lymphedema. Per MD notes, the pt was discharged from [facility] to [facility] for weakness and the inability to ambulate. The pt was sent to [facility] from [facility]. The pt is and normally lives with his . Reviewed chart regarding discharge plan, pt's progress. Pt to be admitted for further evaluation and treatment. Discharge needs remain unclear at this time. Anticipate pt may return to [facility]. CM will cont to follow. Current Discharge Plan: To be determined Date Signed: 07/05/2017 01:40 PM Electronically Signed By:Alicia Kamara RN
[2017-07-05] MEDS ORDERED: NS 1,000 ML IV SCH (13:45)
[2017-07-05] MEDS ORDERED: OXYCODONE/APAP 5/325 TAB PO PRN (15:22)
[2017-07-05] MEDS ORDERED: NYSTATIN SUSP 500000 UNIT/5 ML UDCUP PO PRN (15:22)
--- NOTE | 2017-07-05 16:11 | GHP ---
[f rep st] HISTORY AND PHYSICAL DATE OF ADMISSION: 07/05/2017 CHIEF COMPLAINT: Acute on chronic renal failure. HISTORY OF PRESENT ILLNESS: This is a debilitated 77-year-old male with history of multiple medical problems as detailed below who was discharged from [facility] on 06/06/2017 after being treated for acute on chronic lower extremity edema secondary to lymphedema and mild diastolic congestive heart failure. After that hospitalization, he was discharged but was ultimately readmitted to [facility] a few days later for worsening leg swelling. He was discharged from [facility] approximately 11 days ago and was sent to [facility] for further rehabilitation. While at [facility], again he was treated for lower extremity edema where he was given 80 mg of IV Lasix and Aldactone. Since being discharged from the hospital, he has been on 80 mg of Lasix by mouth daily as well as Aldactone 25 mg daily. Over the past few days, the patient's appetite has been diminished due to nausea. He says he has been drinking but not eating very much. He was also recently diagnosed with a urinary tract infection while at [facility] and was started on levofloxacin. The patient suffers from rheumatoid arthritis as well as chronic low back pain and is on opiates. He has not received Percocet since this morning and reports severe pain in his low back and requests his home medications for this. PAST MEDICAL HISTORY: 1. Hospitalization at [facility] 06/03 through 06/06/2017 for lower extremity edema with bounce-back hospitalization at [facility] for recurrent leg swelling. 2. Rheumatoid arthritis. 3. Chronic lower extremity lymphedema. 4. Morbid obesity. 5. Gangrene of the right 5th toe. 6. Cardiac ablation. 7. Melanoma. 8. Gastroesophageal reflux disease. 9. Coronary artery disease. 10. Atrial fibrillation. 11. Hypertension. 12. Chronic kidney disease. 13. Hyperlipidemia. 14. Peripheral neuropathy. 15. Chronic hypoxemic respiratory failure on 2 L of oxygen at night. 16. Chronic low back pain. PAST SURGICAL HISTORY: 1. Radical debridement of the right 5th toe. 2. Debridement of the right lateral foot and ankle due to an ulcer. 3. Spinal fusion. HOME MEDICATIONS: Reviewed. Refer to [employer] for details. ALLERGIES: Refer to list in [employer]. SOCIAL HISTORY: The patient is . He is currently at [facility]. No history of alcohol, tobacco, or illicit drug use. FAMILY HISTORY: Reviewed and noncontributory. REVIEW OF SYSTEMS: Comprehensive 10-point review of systems was done and is negative, except for as mentioned in the HPI. PHYSICAL EXAMINATION: VITAL SIGNS: Blood pressure 103/55, pulse of 84, respiratory rate 16, O2 saturation 95% on 4 L Oxymizer. Temperature 36.6. GENERAL: No acute distress. HEAD: Normocephalic, atraumatic. EYES: PERRLA. Sclerae anicteric. MOUTH: Moist mucous membranes. NECK: Supple. No lymphadenopathy. CARDIOVASCULAR: S1, S2. No JVD. Bilateral lower extremities are swollen with clean, dry bandages in place. His states that overall his swelling is better than it has been. PULMONARY: Lungs are clear with diminished breath sounds in bilateral bases. ABDOMEN: Soft, nontender, nondistended. No guarding or rebound tenderness. EXTREMITIES: No clubbing or cyanosis. NEURO: Cranial nerves 2-12 grossly intact. No focal motor or sensory deficits. : Disla is in place. INTEGUMENT: Some intertrigo, left groin. DIAGNOSTICS: Abdominal ultrasound done today was negative for hydronephrosis. WBC is 9.9, hemoglobin 10.2, hematocrit 31.8, platelets 185. No INR has been done. Sodium 135, potassium 5.1, chloride 93, CO2 of 27, BUN 87, creatinine 3.9 , glucose 113. BUN was 38 with a creatinine of 2.5 on 06/06/2017. UA has been sent and is currently pending. ASSESSMENT/PLAN: This is a 77-year-old male with history of multiple comorbidities as listed above, recently discharged [facility] where he was treated for worsening lower extremity edema and subsequently was referred from [facility] after he was noticed to have: 1. Acute on chronic renal failure which I suspect is prerenal in etiology due to over diuresis. Plan: Nephrotoxins will be held. His FLORECITA inhibitor will be held. We will start gentle IV hydration with normal saline at 125 cc/hour for the next 12 hours. He will need to be carefully monitored for overload. 2. History of multiple hospitalizations presenting with Disla in place and recently diagnosed urinary tract infection at [facility]. Plan: The patient presented to the hospital on levofloxacin. I will hold his levofloxacin for now since this could be contributing to his overall malaise and nausea. We will monitor for signs and symptoms of infection and obtain a urine culture as indicated per his UA that is currently pending. We will also send a procalcitonin level. Monitor for signs and symptoms of sepsis. 3. History of lymphedema and lower extremity swelling. Plan: Will order wound care consult. 4. History of atrial fibrillation on warfarin. Plan: Monitor INR and dose accordingly. 5. Chronic low back pain and neuropathy. Plan: The patient presented to the hospital on Neurontin which will be held given his renal failure This should be resumed if his renal function is improving tomorrow. 6. VTE prophylaxis. The patient is high risk for VTE and will continue warfarin for DVT prophylaxis. Due to the patient's multiple medical comorbidities, I suspect he will require hospitalization through 2 midnights and will admit to inpatient status. /[id number]/MODL and [id number], 07/05/17, 4435 OFS
[2017-07-05] MEDS: CARVEDILOL 6.25 MG TAB PO SCH (17:27)
[2017-07-05] MEDS: DOCUSATE SODIUM 100 MG CAP PO SCH (17:27)
[2017-07-05] MEDS: OXYCODONE/APAP 5/325 TAB PO PRN ×2 (17:27→23:50)
[2017-07-05] MEDS: WARFARIN SODIUM 3 MG TAB PO ONE ×2 (17:28→17:37)
--- NOTE | 2017-07-05 18:26 | PDMN ---
Medical Necessity Medical necessity: C/M review: est. > 2 MN LOS for acute on chronic renal failure - suspect is prerenal in etiology due to over diuresis, requiring planned Wound Care consult, ongoing IV fluids, pulse oximetry, acute inpt OT, comorbid hospitalization 06/03/2017 through 06/06/2017 for acute on chronic lower extremity edema secondary to lymphedema and mild diastolic CHF, history of multiple hospitalizations presenting with Disla catheter in place and recently diagnosed urinary tract infection, lymphedema and lower extremity swelling, atrial fibrillation on warfarin, rheumatoid arthritis, morbid obesity, gangrene of right 5th toe, GERD, CAD, cardiac ablation, hypertension, chronic kidney disease, hyperlipidemia, peripheral neuropathy, chronic hypoxemic respiratory failure on nocturnal O2 @L/min, chronic back pain per H/P.
[2017-07-05] MEDS: INSULIN GLARGINE 100 UNITS/ML UNIT SC SCH (21:12)
[2017-07-05] MEDS: GLUCOSAMINE SULF 500 MG CAP PO SCH (21:13)
[2017-07-05] MEDS: HYDROXYCHLOROQUINE SULFATE 200 MG TAB PO SCH (21:13)
[2017-07-05] MEDS: INSULIN LISPRO 100 UNIT/ML SC SCH (23:59)
[2017-07-06 05:55] LABS: PLATELET COUNT 165 10^3/uL (150-400)
[2017-07-06 06:05] LABS: INR 1.93 (0.83-1.16); PROTIME(PATIENT) 22.1 SEC (12.0-15.0)
[2017-07-06] MEDS ORDERED: SODIUM POLYSTYRENE SULF 454 GM POWDER PO SCH (09:00)
[2017-07-06] MEDS ORDERED: Herbals/Supplements -Info Only PO SCH (09:00)
[2017-07-06] MEDS: OXYCODONE/APAP 5/325 TAB PO PRN ×3 (10:08→21:39)
[2017-07-06] MEDS: GLUCOSAMINE SULF 500 MG CAP PO SCH ×2 (10:08→22:05)
[2017-07-06] MEDS: predniSONE 5 MG TAB PO SCH (10:09)
[2017-07-06] MEDS: HYDROXYCHLOROQUINE SULFATE 200 MG TAB PO SCH ×2 (10:09→21:40)
[2017-07-06] MEDS: PANTOPRAZOLE SODIUM 40 MG TAB PO SCH (10:09)
[2017-07-06] MEDS: DOCUSATE SODIUM 100 MG CAP PO SCH ×2 (10:09→19:20)
[2017-07-06] MEDS: FOLIC ACID 1 MG TAB PO SCH (10:10)
[2017-07-06] MEDS: FERROUS SULFATE 325 MG TAB PO SCH (10:10)
[2017-07-06] MEDS: INSULIN GLARGINE 100 UNITS/ML UNIT SC SCH ×2 (10:10→22:07)
[2017-07-06] MEDS: CARVEDILOL 6.25 MG TAB PO SCH ×2 (10:15→19:19)
--- NOTE | 2017-07-06 10:57 | ASMTCMCOM ---
CM Note CM Note Notes: Updates sent to [facility] via [employer]. Per Katarina, Pt. is welcome back. Pt. normally lives w/ his , Kasandra. Katarina states Pt's son is involved - Alexander Cunningham . CM to follow with Pt. and family for d/c POC. Date Signed: 07/06/2017 10:57 AM Electronically Signed By:Lupe Lynne LCSW
--- NOTE | 2017-07-06 11:19 | HOSPPROG ---
Hospitalist Progress Note Assessment/Plan: 77 yo M with MMI and multiple recent hospitalizations admitted with RAMIN on CKD in setting of diuresis # ramin on ckd: related to overdiuresis, marsha reports 15 pound weight loss in lat week, improved with holding diuretics, baseline creatinine 2.5 # acute on chronic hypoxic resp failure: late afternoon called to bedside for increased o2 need, patient reporting abdominal pain and states he feels distended in his abdomen making it hard to breath, abd xray/chest xray ordered and reviewed and by my read notable for constipation and poor inspiratory effort. Nebs and RT eval ordered, monitoring closely. # abdominal pain: as above, on exam abdomen soft with normal bowel sounds, not appreciably distended. Low threshold for imaging though contrast contraindicated given renal function # chronic lymphedema: for which patient was being diuresed, very severe with widespread changes due to this in skin, holding diuretics given above, wound care consulted # anemia: with down trend overnight that is likely dilutional given patient very dry on arrival, not far from usual baseline, trending # chronic pain with continuous opiate use and dependency: continue current regimen, monitoring for sedation # chronic medical issues: HLD, HTN, A fib, GERD, CAD, morbid obesity, hx of melanoma # DVT ppx: on warfarin for his afib, mildly subtherapeutic on arrival, pharmacy to dose # # IP status, high risk with unstable vital signs today Patient new to my care. Old records reviewed and summarized as above. Subjective: no significant overnight events, patient still feeling weak, this afternoon patient developoing acute worsening sob and increased o2 need as well as abodominal pain Objective: Vital Signs Temp Pulse Resp BP Pulse Ox 36.5 C 78 14 118/55 L 91 L 07/06/17 08:00 07/06/17 08:00 07/06/17 08:00 07/06/17 10:15 07/06/17 08:00 Laboratory Results 07/06/17 05:06 07/06/17 05:06 07/05/17 07/06/17 07/07/17 05:59 05:59 05:59 Intake Total 509 Output Total 1450 Balance -941 PT 22.1 SEC (12.0-15.0) H 07/06/17 05:06 INR 1.93 (0.83-1.16) H 07/06/17 05:06 awake alert chronically ill appearing anicteric op clear rrr no mrg soft nd diffuse ttp bs normal ble edema with pitting and hyperpigmentation, skin thickening warm dry oriented appropriate - Time Spent With Patient Time Spent with Patient: greater than 35 minutes Time Spent with Patient: Greater than 35 minutes spent on this patients care, greater than 50% of time spent counseling, educating, and coordinating care regarding the above mentioned plan. 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
[2017-07-06] MEDS: LEFLUNOMIDE 20 MG TAB PO SCH (14:50)
[2017-07-06] MEDS: ASPIRIN EC 81 MG TAB PO SCH (14:50)
[2017-07-06] MEDS: ASCORBIC ACID 500 MG TAB PO SCH (14:51)
[2017-07-06] MEDS: MAGNESIUM OXIDE 400 MG TAB PO SCH (14:51)
[2017-07-06] MEDS: INSULIN LISPRO 100 UNIT/ML SC SCH ×2 (14:51→22:07)
[2017-07-06] MEDS: oxyCODONE IR 5 MG TAB PO PRN ×2 (14:52→21:39)
[2017-07-06] MEDS: WARFARIN SODIUM 2 MG TAB PO SCH (15:00)
[2017-07-06] MEDS ORDERED: LACTULOSE 20 GM/30 ML UDCUP PO PRN (16:57)
[2017-07-06] MEDS ORDERED: POLYETHYLENE GLYCOL 3350 17 GM PKT PO PRN (16:57)
[2017-07-06] MEDS ORDERED: MAGNESIUM HYDROXIDE 30 ML UDCUP PO PRN (16:57)
[2017-07-06] MEDS ORDERED: BISACODYL 10 MG SUPP PR PRN (16:57)
--- NOTE | 2017-07-06 17:45 | CPEKG ---
Heart Rate: 95 RR Interval: 632 P-R Interval: 204 QRSD Interval: 88 QT Interval: 344 QTC Interval: 433 P Rolla: 7 QRS Rolla: -37 T Wave Rolla: 44 EKG Severity - BORDERLINE ECG - EKG Impression: SINUS RHYTHM EKG Impression: LEFT AXIS DEVIATION EKG Impression: BORDERLINE R WAVE PROGRESSION, ANTERIOR LEADS Electronically Signed By: Zay Cooney 07-Jul-2017 12:12:55
[2017-07-06] MEDS ORDERED: NON-FORMULARY NEW DRUG (Lovastatin [Lovastatin] 20 MG) PO SCH (21:00)
[2017-07-06] MEDS: SENNOSIDES/DOCUSATE SODIUM TAB PO SCH (22:07)
[2017-07-06] MEDS: PRAVASTATIN SODIUM 20 MG TAB PO SCH (22:08)
--- NOTE | 2017-07-06 23:12 | HOSPPROG ---
Hospitalist Progress Note Assessment/Plan: Patient seen and examined, at bedside. 15L NRB satting at 90% confused, groaning in pain abd TTP, no guarding or rebound Plan: - transfer to SDU - start empiric invanz - stat CT head, chest, abd/pelvis Objective: Vital Signs Temp Pulse Resp BP Pulse Ox 37.6 C 102 H 14 119/68 93 07/06/17 19:37 07/06/17 19:37 07/06/17 19:37 07/06/17 19:37 07/06/17 19:37 Laboratory Results 07/06/17 05:06 07/06/17 05:06 07/05/17 07/06/17 07/07/17 05:59 05:59 05:59 Intake Total 509 1400 Output Total 1450 1000 Balance -941 400 PT 22.1 SEC (12.0-15.0) H 07/06/17 05:06 INR 1.93 (0.83-1.16) H 07/06/17 05:06 ICD10 Worksheet Patient Problems: Problems Problem Status Onset Supraventricular tachycardia Active Lymphedema of both lower extremities Acute Cellulitis Acute 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
[2017-07-06 23:35] LABS: PLATELET COUNT 176 10^3/uL (150-400)
[2017-07-06] MEDS: ERTAPENEM 1 GM VIAL IV SCH (23:35)
[2017-07-06 23:44] LABS: INR 1.88 (0.83-1.16); PROTIME(PATIENT) 21.7 SEC (12.0-15.0)
[2017-07-07] MEDS ORDERED: NS 250 ML IV ONE ×3 (00:30→03:20)
[2017-07-07 05:59] LABS: PLATELET COUNT 146 10^3/uL (150-400)
[2017-07-07 06:09] LABS: INR 2.04 (0.83-1.16); PROTIME(PATIENT) 23.1 SEC (12.0-15.0)
[2017-07-07] MEDS: CARVEDILOL 6.25 MG TAB PO SCH ×2 (09:56→18:53)
[2017-07-07] MEDS: FOLIC ACID 1 MG TAB PO SCH (09:56)
[2017-07-07] MEDS: FERROUS SULFATE 325 MG TAB PO SCH (09:57)
[2017-07-07] MEDS: SENNOSIDES/DOCUSATE SODIUM TAB PO SCH ×2 (09:57→22:48)
[2017-07-07] MEDS: DOCUSATE SODIUM 100 MG CAP PO SCH ×2 (09:57→18:53)
[2017-07-07] MEDS: PANTOPRAZOLE SODIUM 40 MG TAB PO SCH (09:57)
--- NOTE | 2017-07-07 09:59 | WOCRNPDOC ---
RITA Advanced Assessment Note - Skin Integrity Problem, Advanced Assess Bilateral Buttock Dermatitis Dressing Type: Open to Air Exudate Amount: Scant Exudate Color: Reddish/Yellow Exudate Characteristic(s): Serosanguinous Integumentary Issue Intervention: Barrier Cream Applied (Calazime) Marianela Wound Tissue: Blanching, Raw, Denuded Marianela Wound Swelling: Mild Wound Bed Color: Red Wound Bed Constitution: Red/Shawano - Non Granular Tissue Skin Integrity Problem Comment: Patient well-known to wound care from previous hospitalizations, w/ chronic incontinence-associated dermatitis. Bilateral buttocks are raw, denuded, and friable, w/ small partial-thickness opening on L buttock. Skin is blanching throughout. Disla in place, which should help. Will have nursing apply Calazime BID and w/ pericare. TAPS and other pressure- relieving interventions in place r/t fragile skin and general immobility. Right Heel Pressure Injury Dressing Type: Open to Air Exudate Amount: None Exudate Characteristic(s): None Marianela Wound Tissue: Venous Dermatitis, Dry, Lichenification (on BLE r/t chronic lymphedema) Marianela Wound Swelling: None Wound Bed Color: Black, Red Wound Bed Constitution: Intact Sanguineous Blister Site Odor: None Site Measurement - Head-to-Toe Length X Width X Depth (cm): [id number] (area of blackened tissue medially measuring 4.5cmx3.5cm) Pressure Injury Stage: Deep Tissue Injury (DTI) Pressure Injury Present on Admit: Yes (documented by nursing;hospitalist notified) Lymphedema Present: Yes Skin Integrity Problem Comment: Intact serosanguinous blister noted to R heel, appearance consistent w/ evolving deep tissue injury. Blister appears serous along margins, but there is an area of purple/black tissue medially; skin is intact over the top of the wound, but developing necrosis underneath the surface that will likely open. Periwound skin is dry, calloused. Patient has chronic lymphedema, and there are skin changes associated with this throughout this and the LLE. Nursing applied off-loading heel boots when patient was admitted, and this is appropriate to continue. Left Dorsal Foot Dressing Type: Open to Air Exudate Characteristic(s): Dried, Serosanguinous Marianela Wound Tissue: Erythema, Swollen, Lipodermatosclerosis, Venous Dermatitis, Lichenification Marianela Wound Swelling: Moderate Wound Bed Color: Purple, Red Wound Bed Constitution: De-roofed Sanguineous blister Site Measurement - Head-to-Toe Length X Width X Depth (cm): L dorsal foot: 2.5cmx7.5cmx0.1cm. L anterior ankle (talocrural joint): 0.2idp4crh2.1cm Pressure Injury Stage: Deep Tissue Injury (DTI), Packing Line Operator Related Pressure Injury (suspected) Pressure Injury Present on Admit: Yes (noted by nursing; hospitalist notified) Lymphedema Present: Yes Skin Integrity Problem Comment: Two discrete wounds on the dorsum of patient's L foot and the anterior LLE at the talocrural joint. First is a large, de- roofed blister on the dorsum of L foot, w/ dark purple tissue surrounding. Not over a bony prominence, but adjacent wounds on this foot and in the same location on the R foot indicate that compression stockings or wraps likely caused this.During assessment, patient said "I've never had a wound on that foot before," and this author has not seen wounds on this foot during previous hospitalizations. Other wound is proximal to this over the talocrural joint where the ankle meets the LLE. It is linear w/ partial-thickness opening at lateral end, also w/ dark purple tissue throughout. Will have nursing apply dressing to both wounds. Left Lateral Distal Foot Pressure Injury Dressing Type: Open to Air Wound Bed Color: Purple, Red Wound Bed Constitution: Intact Sanguineous Blister Site Odor: None Site Measurement - Head-to-Toe Length X Width X Depth (cm): 1cmx2.4ypm4pj Pressure Injury Stage: Deep Tissue Injury (DTI) Pressure Injury Present on Admit: Yes (noted by nursing; hospitalist notified) Lymphedema Present: Yes Skin Integrity Problem Comment: Intact sanguinous blister noted to L lateral foot, appearance consistent w/ suspected deep tissue injury. Site is slightly fluctuant, and will likely open to reveal a full-thickness injury. Periwound skin is currently intact, dry. Nursing initiated off-loading boots upon admission, and this is appropriate to continue. Left Lateral Proximal Foot Pressure Injury Dressing Type: Open to Air Wound Bed Constitution: Intact Serous Filled Blister Site Odor: None Site Measurement - Head-to-Toe Length X Width X Depth (cm): 1cmx2.4fya3mm Pressure Injury Stage: Stage 2 Pressure Injury Present on Admit: Yes (noted by nursing; hospitalist notified) Lymphedema Present: Yes Skin Integrity Problem Comment: Intact, serous-filled blister on proximal/ lateral L foot, appearance consistent w/ stage 2 pressure injury. Periwound skin dry, deep tissue injury adjacent to this wound. Off-loading heel boots initiated by nursing. Wound care will continue to follow. Left Anterior Lower Leg Pressure Injury Dressing Type: Open to Air Exudate Amount: None Exudate Characteristic(s): None Marianela Wound Tissue: Venous Dermatitis, Dry, Lichenification Marianela Wound Swelling: None Wound Bed Color: Purple Site Odor: None Site Measurement - Head-to-Toe Length X Width X Depth (cm): 0.0ftk8ffn4bv Pressure Injury Stage: Deep Tissue Injury (DTI), Packing Line Operator Related Pressure Injury (DAVID/compression stockings) Pressure Injury Present on Admit: Yes Skin Integrity Problem Comment: Linear, dark pruple tissue noted just below patient's L knee, appearance consistent w/ deep tissue injury r/t DAVID/ compression stockings. Patient has not had compression stockings during this admission, and was admitted w/ this injury. Legs currently open to air. No intervention needed at this time as source of injury is no longer present. Will continue to monitor. 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 There is a similar wound in the exact location on patient's L anterior ankle, suggesting these are device-related pressure injuries caused by compression stockings or some other device applied across the patient's feet/ankles. Skin is currently intact, and periwound skin changes are consistent w/ patient's long-standing lymphedema. Patient has not had any compression during this admission, and this injury was present when he was admitted. 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
[2017-07-07] MEDS: oxyCODONE IR 5 MG TAB PO PRN ×2 (10:01→22:47)
[2017-07-07] MEDS: INSULIN GLARGINE 100 UNITS/ML UNIT SC SCH (10:27)
[2017-07-07] MEDS: INSULIN LISPRO 100 UNIT/ML SC SCH (10:28)
[2017-07-07] MEDS: predniSONE 5 MG TAB PO SCH (10:29)
--- NOTE | 2017-07-07 11:32 | HOSPPROG ---
Hospitalist Progress Note Assessment/Plan: 77 yo M with MMI and multiple recent hospitalizations admitted with RAMIN on CKD in setting of diuresis # ramin on ckd: related to overdiuresis, marsha reports 15 pound weight loss in lat week, improved with holding diuretics, baseline creatinine 2.5 # acute on chronic hypoxic resp failure: increased o2 need acutely with CT showing new CAROLYN opacity and bll opacities c/w pna. Started on abx with improvement overnight. O2 need initially up to 15L but now down to 5L. # pna: concerning for hospital acquired aspiration pna, started on invanz as above, cultures pending # abdominal pain: improved overnight, etiology unclear--? constipation, abd ct personally reviewed without clear acute findigns. Continue bowel protocol # chronic lymphedema: for which patient was being diuresed, very severe with widespread changes due to this in skin, holding diuretics given above, wound care consulted # anemia: with down trend overnight that is likely dilutional given patient very dry on arrival, not far from usual baseline, trending # chronic pain with continuous opiate use and dependency: continue current regimen, monitoring for sedation # chronic medical issues: HLD, HTN, A fib, GERD, CAD, morbid obesity, hx of melanoma # DVT ppx: on warfarin for his afib, mildly subtherapeutic on arrival, pharmacy to dose # # IP status, high risk with unstable vital signs today Care plan reviewed with . Subjective: no significant overnight events, patient feeling much better this am , abdominal pain improved Objective: Vital Signs Temp Pulse Resp BP Pulse Ox 37 C 97 22 H 114/47 L 94 07/07/17 04:00 07/07/17 06:07 07/07/17 06:07 07/07/17 06:07 07/07/17 06:07 Laboratory Results 07/07/17 05:45 07/07/17 05:45 07/06/17 07/07/17 07/08/17 05:59 05:59 05:59 Intake Total 509 2196 Output Total 1450 1575 Balance -941 621 PT 23.1 SEC (12.0-15.0) H 07/07/17 05:45 INR 2.04 (0.83-1.16) H 07/07/17 05:45 awake alert chronically ill appearing anicteric op clear rrr no mrg soft nd diffuse ttp bs normal ble edema with pitting and hyperpigmentation, skin thickening warm dry oriented appropriate ICD10 Worksheet Patient Problems: Problems Problem Status Onset Supraventricular tachycardia Active Lymphedema of both lower extremities Acute Cellulitis Acute 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
[2017-07-07] MEDS: MAGNESIUM OXIDE 400 MG TAB PO SCH (13:00)
[2017-07-07] MEDS: ASCORBIC ACID 500 MG TAB PO SCH (13:29)
[2017-07-07] MEDS: ASPIRIN EC 81 MG TAB PO SCH (13:30)
[2017-07-07] MEDS: OXYCODONE/APAP 5/325 TAB PO PRN ×3 (13:35→22:47)
[2017-07-07] MEDS: GLUCOSAMINE SULF 500 MG CAP PO SCH ×2 (14:17→22:47)
[2017-07-07] MEDS: HYDROXYCHLOROQUINE SULFATE 200 MG TAB PO SCH ×2 (14:17→22:48)
[2017-07-07] MEDS: LEFLUNOMIDE 20 MG TAB PO SCH (14:18)
[2017-07-07] MEDS: WARFARIN SODIUM 2 MG TAB PO SCH (16:30)
[2017-07-07] MEDS: PRAVASTATIN SODIUM 20 MG TAB PO SCH (22:48)
[2017-07-07] MEDS: ERTAPENEM 1 GM VIAL IV SCH (23:10)
[2017-07-08 04:40] LABS: PLATELET COUNT 137 10^3/uL (150-400)
[2017-07-08 05:03] LABS: INR 2.41 (0.83-1.16); PROTIME(PATIENT) 26.2 SEC (12.0-15.0)
[2017-07-08] MEDS: OXYCODONE/APAP 5/325 TAB PO PRN ×4 (06:18→21:50)
[2017-07-08] MEDS: oxyCODONE IR 5 MG TAB PO PRN ×4 (06:18→21:51)
[2017-07-08] MEDS: FOLIC ACID 1 MG TAB PO SCH (11:13)
[2017-07-08] MEDS: ASCORBIC ACID 500 MG TAB PO SCH (11:15)
[2017-07-08] MEDS: GLUCOSAMINE SULF 500 MG CAP PO SCH ×2 (11:15→21:43)
[2017-07-08] MEDS: HYDROXYCHLOROQUINE SULFATE 200 MG TAB PO SCH ×2 (11:18→21:43)
[2017-07-08] MEDS: FERROUS SULFATE 325 MG TAB PO SCH (11:18)
[2017-07-08] MEDS: SENNOSIDES/DOCUSATE SODIUM TAB PO SCH ×2 (11:18→21:43)
[2017-07-08] MEDS: predniSONE 5 MG TAB PO SCH (11:19)
[2017-07-08] MEDS: PANTOPRAZOLE SODIUM 40 MG TAB PO SCH (11:20)
[2017-07-08] MEDS: ASPIRIN EC 81 MG TAB PO SCH (11:20)
[2017-07-08] MEDS: CARVEDILOL 6.25 MG TAB PO SCH ×2 (11:34→17:39)
[2017-07-08] MEDS: DOCUSATE SODIUM 100 MG CAP PO SCH ×2 (11:38→17:39)
--- NOTE | 2017-07-08 12:14 | ASMTCMCOM ---
CM Note CM Note Notes: Chart reviewed. Discharge plan of care reamins to SNF. [facility] has had patient and is willing to take patient back upon dc. CM to follow. Date Signed: 07/08/2017 12:13 PM Electronically Signed By:Anne Marie Ortiz RN
--- NOTE | 2017-07-08 15:22 | HOSPPROG ---
Hospitalist Progress Note Assessment/Plan: 77 yo M with MMI and multiple recent hospitalizations admitted with RAMIN on CKD in setting of diuresis # ramin on ckd: related to overdiuresis, diegomary reports 15 pound weight loss in lat week, improved with holding diuretics, baseline creatinine 2.5 # acute on chronic hypoxic resp failure: increased o2 need acutely with CT showing new CAROLYN opacity and bll opacities c/w pna. Started on abx with improvement overnight. O2 need returning to baseline # pna: concerning for hospital acquired aspiration pna, started on invanz as above, cultures pending # abdominal pain: improved, etiology unclear--? constipation,Continue bowel protocol # chronic lymphedema: for which patient was being diuresed, very severe with widespread changes due to this in skin, holding diuretics given above, wound care consulted # anemia: with down trend overnight that is likely dilutional given patient very dry on arrival, not far from usual baseline, trending # chronic pain with continuous opiate use and dependency: continue current regimen, monitoring for sedation # chronic medical issues: HLD, HTN, A fib, GERD, CAD, morbid obesity, hx of melanoma # DVT ppx: on warfarin for his afib, mildly subtherapeutic on arrival, pharmacy to dose # # IP status, high risk with unstable vital signs Subjective: no significant overnight events, patient breathing much better, complaining of back pain but abdominal pain resolved Objective: Vital Signs Temp Pulse Resp BP Pulse Ox 36.7 C 92 18 120/57 L 94 07/08/17 12:00 07/08/17 12:00 07/08/17 12:00 07/08/17 12:00 07/08/17 12:00 Laboratory Results 07/08/17 04:06 07/08/17 04:06 07/07/17 07/08/17 07/09/17 05:59 05:59 05:59 Intake Total 2196 350 Output Total 1575 1200 Balance 621 -850 PT 26.2 SEC (12.0-15.0) H 07/08/17 04:06 INR 2.41 (0.83-1.16) H 07/08/17 04:06 awake alert chronically ill appearing anicteric op clear rrr no mrg soft nd diffuse ttp bs normal ble edema with pitting and hyperpigmentation, skin thickening warm dry oriented appropriate ICD10 Worksheet Patient Problems: Problems Problem Status Onset Renal failure (ARF), acute on chronic Acute Supraventricular tachycardia Active Cellulitis Acute Cellulitis of right foot Acute Diabetic foot ulcer Acute Lymphedema of both lower extremities Acute Lymphedema of leg Acute Pneumonia Acute 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
[2017-07-08] MEDS: LEFLUNOMIDE 20 MG TAB PO SCH (16:27)
[2017-07-08] MEDS: MAGNESIUM OXIDE 400 MG TAB PO SCH (16:29)
[2017-07-08] MEDS: WARFARIN SODIUM 2 MG TAB PO SCH (17:39)
[2017-07-08] MEDS ORDERED: INSULIN LISPRO 100 UNIT/ML SC SCH (18:00)
[2017-07-08] MEDS: ERTAPENEM 1 GM VIAL IV SCH (21:42)
[2017-07-08] MEDS: PRAVASTATIN SODIUM 20 MG TAB PO SCH (21:43)
[2017-07-08] MEDS: INSULIN GLARGINE 100 UNITS/ML UNIT SC SCH (23:01)
[2017-07-09] MEDS: oxyCODONE IR 5 MG TAB PO PRN ×4 (01:53→20:45)
[2017-07-09] MEDS: OXYCODONE/APAP 5/325 TAB PO PRN ×4 (01:53→20:45)
[2017-07-09 04:41] LABS: INR 2.35 (0.83-1.16); PROTIME(PATIENT) 25.7 SEC (12.0-15.0)
[2017-07-09] MEDS: DOCUSATE SODIUM 100 MG CAP PO SCH ×2 (08:40→17:46)
[2017-07-09] MEDS: GLUCOSAMINE SULF 500 MG CAP PO SCH ×2 (08:40→20:45)
[2017-07-09] MEDS: FOLIC ACID 1 MG TAB PO SCH (08:40)
[2017-07-09] MEDS: CARVEDILOL 6.25 MG TAB PO SCH ×2 (08:40→17:45)
[2017-07-09] MEDS: predniSONE 5 MG TAB PO SCH (08:41)
[2017-07-09] MEDS: HYDROXYCHLOROQUINE SULFATE 200 MG TAB PO SCH ×2 (08:41→20:46)
[2017-07-09] MEDS: SENNOSIDES/DOCUSATE SODIUM TAB PO SCH ×2 (08:41→20:45)
[2017-07-09] MEDS: PANTOPRAZOLE SODIUM 40 MG TAB PO SCH (08:41)
[2017-07-09] MEDS: FERROUS SULFATE 325 MG TAB PO SCH (08:41)
[2017-07-09] MEDS: INSULIN GLARGINE 100 UNITS/ML UNIT SC SCH ×2 (08:43→20:44)
--- NOTE | 2017-07-09 09:10 | HOSPPROG ---
Hospitalist Progress Note Assessment/Plan: 77 yo M with MMI and multiple recent hospitalizations admitted with RAMIN on CKD in setting of diuresis # ramin on ckd: related to overdiuresis, marsha reports 15 pound weight loss in lat week, improved with holding diuretics, baseline creatinine 2.5 # acute on chronic hypoxic resp failure: increased o2 need acutely with CT showing new CAROLYN opacity and bll opacities c/w pna. Started on abx with improvement overnight. O2 need returning to baseline # pna: concerning for hospital acquired aspiration pna, started on invanz as above, cultures pending # abdominal pain: improved, etiology unclear--? constipation,Continue bowel protocol # chronic lymphedema: for which patient was being diuresed, very severe with widespread changes due to this in skin, holding diuretics given above, wound care consulted # anemia: with down trend overnight that is likely dilutional given patient very dry on arrival, not far from usual baseline, trending # chronic back pain with continuous opiate use and dependency: continue current regimen, monitoring for sedation, pain intermittently worse # chronic medical issues: HLD, HTN, A fib, GERD, CAD, morbid obesity, hx of melanoma # DVT ppx: on warfarin for his afib, mildly subtherapeutic on arrival, pharmacy to dose # # IP status, high risk with unstable vital signs Subjective: no significant overnight events, patient notes his back is hurting today ore than usual Objective: Vital Signs Temp Pulse Resp BP Pulse Ox 36.9 C 86 14 104/53 L 93 07/09/17 04:58 07/09/17 08:40 07/09/17 04:58 07/09/17 04:58 07/09/17 04:58 Laboratory Results 07/08/17 04:06 07/08/17 04:06 07/08/17 07/09/17 07/10/17 05:59 05:59 05:59 Intake Total 350 540 Output Total 1200 1525 Balance -850 -985 PT 25.7 SEC (12.0-15.0) H 07/09/17 04:22 INR 2.35 (0.83-1.16) H 07/09/17 04:22 awake alert chronically ill appearing anicteric op clear rrr no mrg soft nd diffuse ttp bs normal ble edema with pitting and hyperpigmentation, skin thickening warm dry oriented appropriate ICD10 Worksheet Patient Problems: Problems Problem Status Onset Renal failure (ARF), acute on chronic Acute Supraventricular tachycardia Active Cellulitis Acute Cellulitis of right foot Acute Diabetic foot ulcer Acute Lymphedema of both lower extremities Acute Lymphedema of leg Acute Pneumonia Acute 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
[2017-07-09] MEDS: LEFLUNOMIDE 20 MG TAB PO SCH (12:10)
[2017-07-09] MEDS: MAGNESIUM OXIDE 400 MG TAB PO SCH (12:10)
[2017-07-09] MEDS: ASCORBIC ACID 500 MG TAB PO SCH (12:10)
[2017-07-09] MEDS: ASPIRIN EC 81 MG TAB PO SCH (12:11)
[2017-07-09] MEDS: WARFARIN SODIUM 2 MG TAB PO SCH (17:45)
[2017-07-09] MEDS ORDERED: INSULIN LISPRO 100 UNIT/ML SC SCH (18:00)
[2017-07-09] MEDS: ERTAPENEM 1 GM VIAL IV SCH (20:44)
[2017-07-09] MEDS: PRAVASTATIN SODIUM 20 MG TAB PO SCH (20:46)
[2017-07-10] MEDS: ONDANSETRON DISINTEGRATING 4 MG TAB PO PRN ×2 (00:28→21:37)
[2017-07-10] MEDS: oxyCODONE IR 5 MG TAB PO PRN ×4 (00:34→20:11)
[2017-07-10] MEDS: OXYCODONE/APAP 5/325 TAB PO PRN ×4 (00:35→21:34)
[2017-07-10 04:53] LABS: INR 2.53 (0.83-1.16); PROTIME(PATIENT) 27.2 SEC (12.0-15.0)
[2017-07-10] MEDS ORDERED: TRANEXAMIC ACID 3,000 MG/50 ML BAG IRR ONE (08:13)
[2017-07-10] MEDS: GLUCOSAMINE SULF 500 MG CAP PO SCH ×2 (09:35→20:12)
[2017-07-10] MEDS: FOLIC ACID 1 MG TAB PO SCH (09:35)
[2017-07-10] MEDS: predniSONE 5 MG TAB PO SCH (09:35)
[2017-07-10] MEDS: HYDROXYCHLOROQUINE SULFATE 200 MG TAB PO SCH ×2 (09:35→20:10)
[2017-07-10] MEDS: PANTOPRAZOLE SODIUM 40 MG TAB PO SCH (09:36)
[2017-07-10] MEDS: FERROUS SULFATE 325 MG TAB PO SCH (09:36)
[2017-07-10] MEDS: CARVEDILOL 6.25 MG TAB PO SCH ×2 (09:39→17:40)
[2017-07-10] MEDS: DOCUSATE SODIUM 100 MG CAP PO SCH ×2 (09:39→17:41)
[2017-07-10] MEDS: SENNOSIDES/DOCUSATE SODIUM TAB PO SCH ×2 (09:52→19:58)
[2017-07-10] MEDS: INSULIN GLARGINE 100 UNITS/ML UNIT SC SCH ×2 (10:27→20:10)
[2017-07-10] MEDS: LEFLUNOMIDE 20 MG TAB PO SCH ×2 (12:12→12:19)
[2017-07-10] MEDS: MAGNESIUM OXIDE 400 MG TAB PO SCH ×2 (12:12→12:18)
[2017-07-10] MEDS: ASCORBIC ACID 500 MG TAB PO SCH ×2 (12:12→12:17)
[2017-07-10] MEDS: ASPIRIN EC 81 MG TAB PO SCH ×2 (12:12→12:18)
--- NOTE | 2017-07-10 16:15 | WOCRNPDOC ---
RITA Advanced Assessment Note - Skin Integrity Problem, Advanced Assess Left Dorsal Foot Dressing Type: Allevyn Life Integumentary Issue Intervention: Dressing Changed Site Measurement - Head-to-Toe Length X Width X Depth (cm): 2.7x7.2x0.1 Pressure Injury Stage: Deep Tissue Injury (DTI) (continuing to evolve. ) Skin Integrity Problem Comment: The two wounds have merged into one wound. It is composed of 50% non viable adhered skin, 50% pink non granular. Cleaned with ns and gauze. Wound gel applied to wound bed and covered with Allevyn life dressing. Left Lateral Distal Foot Pressure Injury Dressing Type: Open to Air Wound Bed Constitution: Stable Eschar Site Measurement - Head-to-Toe Length X Width X Depth (cm): 3.9x2.1x0 Pressure Injury Stage: Unstageable Pressure Injury Present on Admit: Yes Left Lateral Proximal Foot Pressure Injury Dressing Type: Open to Air Site Measurement - Head-to-Toe Length X Width X Depth (cm): 2.2x1.4x0.1 Pressure Injury Stage: Stage 2 Pressure Injury Present on Admit: Yes Skin Integrity Problem Comment: Partial thickness with wound bed epithelizing. Right Anterior Ankle Pressure Injury Dressing Type: Open to Air Site Measurement - Head-to-Toe Length X Width X Depth (cm): 0.8x1.2x0.1 Pressure Injury Stage: Stage 2 Pressure Injury Present on Admit: Yes Right Heel Pressure Injury Dressing Type: Allevyn Life Integumentary Issue Intervention: Dressing Removed Marianela Wound Tissue: Erythema, Painful/Tender Wound Bed Color: Purple Site Measurement - Head-to-Toe Length X Width X Depth (cm): 4.5x5x0 Pressure Injury Stage: Deep Tissue Injury (DTI) Pressure Injury Present on Admit: Yes Skin Integrity Problem Comment: DTI continuing to evolve. Discussed treatment plan with patient, his and son. REYNALDO Gramajo also in room. Will initiate painting with betadine BID. Offloading boots on at all times except when ambulating. Right Lateral Foot Dressing Type: Open to Air Wound Bed Constitution: Red/[place] - Non Granular Tissue Site Measurement - Head-to-Toe Length X Width X Depth (cm): 1.5x0.8x0.1 Skin Integrity Problem Comment: Shallow partial thickness wound of unknow etiology. No concerns. Left Medial Heel Pressure Injury Dressing Type: Open to Air Marianela Wound Tissue: Blanching, Erythema Site Measurement - Head-to-Toe Length X Width X Depth (cm): 1x1x0 Pressure Injury Stage: Stage 1 Pressure Injury Present on Admit: No Skin Integrity Problem Comment: Offloading boots in place.
--- NOTE | 2017-07-10 17:10 | ASMTCMCOM ---
CM Note CM Note Notes: Met with pt's two sons today. They were not happy with [facility] and are looking for a facility that will take him for rehab and be able to switch him to a LTC medicaid bed. Discussed finances with family and it appears pt will qualify for LTC medicaid. They have had a discussion with [facility] and they have indicated they will be able to do both. The sons asked that no paperwork be sent to [facility] or [facility] notified until after the six siblings have a phone conversation Saturday morning. Due to pt's pain, palliative care suggested. they will discuss with pt's because they think she may have an agency in mind. Sons asked for other supportive ideas and [facility] suggested for pt's . It offers in-home counseling. CM will continue to follow. Date Signed: 07/10/2017 05:09 PM Electronically Signed By:Odilia Mott LCSW
[2017-07-10] MEDS: WARFARIN SODIUM 2 MG TAB PO SCH (17:41)
--- NOTE | 2017-07-10 18:40 | HOSPPROG ---
Hospitalist Progress Note Assessment/Plan: 77 yo M with MMI and multiple recent hospitalizations admitted with RAMIN on CKD in setting of diuresis # ramin on ckd: related to overdiuresis, marsha reports 15 pound weight loss in lat week, improved with holding diuretics, baseline creatinine 2.5 # acute on chronic hypoxic resp failure: increased o2 need acutely with CT showing new CAROLYN opacity and bll opacities c/w pna. Started on abx with improvement and o2 need returning to baseline # deconditioning/FTT: since hospitalization patient continues to decline, seems to not be bouncing back from pna, not moving much, complaining of pain. Concerning for whether or not this can turn around. # pna: concerning for hospital acquired aspiration pna, started on invanz as above, cultures pending # abdominal pain: improved, etiology unclear--? constipation,Continue bowel protocol # chronic lymphedema: for which patient was being diuresed, very severe with widespread changes due to this in skin, holding diuretics given above, wound care consulted # anemia: with down trend overnight that is likely dilutional given patient very dry on arrival, not far from usual baseline, trending # chronic back pain with continuous opiate use and dependency: continue current regimen, monitoring for sedation, pain intermittently worse # chronic medical issues: HLD, HTN, A fib, GERD, CAD, morbid obesity, hx of melanoma # DVT ppx: on warfarin for his afib, mildly subtherapeutic on arrival, pharmacy to dose # # IP status, high risk with unstable vital signs Dispo: unclear, patient overall weakness and pain concerning, will ask palliative to eval as well Subjective: no significant overnight events, patient continues to have significant pain, remains very weak Objective: Vital Signs Temp Pulse Resp BP Pulse Ox 36.4 C 76 20 136/60 H 96 07/10/17 16:16 07/10/17 17:40 07/10/17 16:16 07/10/17 17:40 07/10/17 16:16 Microbiology 07/06/17 17:18 Urine Culture - Final Urine,Clean Catch [place] Laboratory Results 07/08/17 04:06 07/08/17 04:06 07/09/17 07/10/17 07/11/17 05:59 05:59 05:59 Intake Total 540 1475 1050 Output Total 1525 1800 950 Balance -985 -325 100 PT 27.2 SEC (12.0-15.0) H 07/10/17 04:29 INR 2.53 (0.83-1.16) H 07/10/17 04:29 awake alert chronically ill appearing anicteric op clear rrr no mrg soft nd diffuse ttp bs normal ble edema with pitting and hyperpigmentation, skin thickening warm dry oriented appropriate ICD10 Worksheet Patient Problems: Problems Problem Status Onset Renal failure (ARF), acute on chronic Acute Supraventricular tachycardia Active Cellulitis Acute Cellulitis of right foot Acute Diabetic foot ulcer Acute Lymphedema of both lower extremities Acute Lymphedema of leg Acute Pneumonia Acute 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
[2017-07-10] MEDS: PRAVASTATIN SODIUM 20 MG TAB PO SCH (20:10)
[2017-07-10] MEDS: ERTAPENEM 1 GM VIAL IV SCH (20:12)
[2017-07-11] MEDS: HYDROmorphone HCL/NS 0.5 MG/ML SYR IVP PRN ×3 (05:00→20:24)
[2017-07-11 05:58] LABS: INR 2.7 (0.83-1.16); PROTIME(PATIENT) 28.6 SEC (12.0-15.0)
[2017-07-11] MEDS: DOCUSATE SODIUM 100 MG CAP PO SCH ×2 (07:53→17:30)
[2017-07-11] MEDS: oxyCODONE IR 5 MG TAB PO PRN ×3 (07:53→23:11)
[2017-07-11] MEDS: OXYCODONE/APAP 5/325 TAB PO PRN ×3 (07:53→23:11)
[2017-07-11] MEDS: CARVEDILOL 6.25 MG TAB PO SCH ×2 (07:54→17:30)
[2017-07-11] MEDS: SENNOSIDES/DOCUSATE SODIUM TAB PO SCH ×2 (09:10→23:05)
[2017-07-11] MEDS: FERROUS SULFATE 325 MG TAB PO SCH (09:10)
[2017-07-11] MEDS: FOLIC ACID 1 MG TAB PO SCH (09:10)
[2017-07-11] MEDS: predniSONE 5 MG TAB PO SCH (09:11)
[2017-07-11] MEDS: PANTOPRAZOLE SODIUM 40 MG TAB PO SCH (09:11)
[2017-07-11] MEDS: GLUCOSAMINE SULF 500 MG CAP PO SCH ×2 (09:11→20:27)
[2017-07-11] MEDS: HYDROXYCHLOROQUINE SULFATE 200 MG TAB PO SCH ×2 (09:11→20:27)
--- NOTE | 2017-07-11 09:24 | HOSPPROG ---
Hospitalist Progress Note Assessment/Plan: #Acute on chronic hypoxic resp failure: due to HCAP PNA. Cont Invanz. Sputum cultures pending #RAMIN on CKD: over-diuresed. Improved with fluids. Repeat BMp today. #Chronic lymphedema: restart Lasix at lower dose, 20mg BID and monitor. Normal EF on echo #Atrial fibrillation: INR at goal #Normocytic anemia: H/H stable past few days. No active bleeding #Deconditioning: multiple admissions since May is concerning. PT/OT #CAD: followed by Dr. Armstrong, since no angina, medical treatment. BB #HTN: resume FLORECITA-I #Diastolic HF: normal EF. Resume Lasix, #HLD: statin #Chronic pain on opioids #Melanoma #DM 2: glargine, SSI #RA #DVT ppx:coumadin Disp: cont inpatient admission for monitored diuresis Subjective: no SOB or chest pain Objective: Vital Signs Temp Pulse Resp BP Pulse Ox 36.7 C 80 16 130/64 H 90 L 07/10/17 20:34 07/11/17 07:54 07/10/17 23:32 07/11/17 07:54 07/10/17 23:32 Laboratory Results 07/08/17 04:06 07/08/17 04:06 07/10/17 07/11/17 07/12/17 05:59 05:59 05:59 Intake Total 1475 1460 Output Total 1800 1650 Balance -325 -190 PT 28.6 SEC (12.0-15.0) H 07/11/17 04:42 INR 2.70 (0.83-1.16) H 07/11/17 04:42 - Physical Exam Constitutional: no apparent distress, obese Ears, Nose, Mouth, Throat: moist mucous membranes Cardiovascular: regular rate and rhythym, no murmur, rub, or gallop, edema ( trace LE edema) Respiratory: no respiratory distress, rhonchi Gastrointestinal: normoactive bowel sounds Genitourinary: no bladder fullness Skin: other (chronic venous stasis changes BL legs) Musculoskeletal: generalized weakness Neurologic: AAOx3, CN II-XII Intact Psychiatric: flat affect ICD10 Worksheet Patient Problems: Problems Problem Status Onset Renal failure (ARF), acute on chronic Acute Supraventricular tachycardia Active Cellulitis Acute Cellulitis of right foot Acute Diabetic foot ulcer Acute Lymphedema of both lower extremities Acute Lymphedema of leg Acute Pneumonia Acute 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
[2017-07-11] MEDS: INSULIN GLARGINE 100 UNITS/ML UNIT SC SCH ×3 (12:10→20:30)
[2017-07-11] MEDS: ASCORBIC ACID 500 MG TAB PO SCH ×3 (12:10→12:49)
[2017-07-11] MEDS: LEFLUNOMIDE 20 MG TAB PO SCH ×2 (12:19→12:50)
[2017-07-11] MEDS: MAGNESIUM OXIDE 400 MG TAB PO SCH ×2 (12:20→12:50)
[2017-07-11] MEDS: ASPIRIN EC 81 MG TAB PO SCH ×2 (12:20→12:50)
[2017-07-11] MEDS: WARFARIN SODIUM 2 MG TAB PO SCH (15:21)
[2017-07-11] MEDS: FUROSEMIDE 20 MG TAB PO SCH (15:21)
[2017-07-11] MEDS: PRAVASTATIN SODIUM 20 MG TAB PO SCH (20:27)
[2017-07-11] MEDS: ERTAPENEM 1 GM VIAL IV SCH (22:58)
[2017-07-11] MEDS: ONDANSETRON DISINTEGRATING 4 MG TAB PO PRN (23:11)
[2017-07-12] MEDS: HYDROmorphone HCL/NS 0.5 MG/ML SYR IVP PRN (01:02)
[2017-07-12 05:44] LABS: INR 3.06 (0.83-1.16); PROTIME(PATIENT) 31.5 SEC (12.0-15.0)
[2017-07-12] MEDS: oxyCODONE IR 5 MG TAB PO PRN ×2 (08:57→18:17)
[2017-07-12] MEDS: OXYCODONE/APAP 5/325 TAB PO PRN ×2 (08:57→18:17)
[2017-07-12] MEDS: CARVEDILOL 6.25 MG TAB PO SCH ×2 (08:58→18:17)
--- NOTE | 2017-07-12 09:04 | HOSPPROG ---
Hospitalist Progress Note Assessment/Plan: #Acute on chronic hypoxic resp failure: due to HCAP PNA. Completed abx course. Oxygen needs decreased. (baseline 2L at night) #HCAP: completed 7 day Invanz #RAMIN on CKD: now resolved. Due to over-diuresed. Improved with fluids. restart low-dose diuretics #Chronic lymphedema: back on lower-dosed Lasix 20mg BID. Cr stable. Normal EF on echo 07/07 #Atrial fibrillation: INR >3. Decrease dose today #Normocytic anemia: H/H stable past few days. No active bleeding #Deconditioning: multiple admissions since May is concerning. PT/OT #CAD: followed by Dr. Armstrong, since no angina, medical treatment. BB #HTN: Lisinopril #Diastolic HF: normal EF. Resume Lasix, BP control. Lisinopril #HLD: statin #Chronic pain on opioids #Melanoma #DM 2: glargine, SSI #RA: home meds #Goals: had lengthy conversation with pt, and daughter. Has had multiple hospitalizations in last few months and clinically declined. His goal is to spend time with family. I recommended Palliative Care and they want to think about. #DVT ppx: coumadin Disp: cont inpatient admission for monitored diuresis. Awaiting SNF. He does not want to go back to [facility]. Referral to [facility] pending Subjective: crampy abd pain Objective: Vital Signs Temp Pulse Resp BP Pulse Ox 36.4 C 81 18 138/70 H 95 07/12/17 08:00 07/12/17 08:00 07/12/17 08:00 07/12/17 08:00 07/12/17 08:00 Microbiology 07/06/17 23:15 Blood Culture - Final Blood 07/06/17 23:30 Blood Culture - Final Blood Laboratory Results 07/08/17 04:06 07/12/17 04:41 07/11/17 07/12/17 07/13/17 05:59 05:59 05:59 Intake Total 1460 240 Output Total 1650 0 Balance -190 -1810 PT 31.5 SEC (12.0-15.0) H 07/12/17 04:41 INR 3.06 (0.83-1.16) H 07/12/17 04:41 ICD10 Worksheet Patient Problems: Problems Problem Status Onset Renal failure (ARF), acute on chronic Acute Supraventricular tachycardia Active Cellulitis Acute Cellulitis of right foot Acute Diabetic foot ulcer Acute Lymphedema of both lower extremities Acute Lymphedema of leg Acute Pneumonia Acute 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
[2017-07-12] MEDS ORDERED: D50W 25 GM/50 ML SYR IVP PRN (10:00)
[2017-07-12] MEDS: FUROSEMIDE 20 MG TAB PO SCH ×2 (10:37→16:25)
[2017-07-12] MEDS: PANTOPRAZOLE SODIUM 40 MG TAB PO SCH (10:38)
[2017-07-12] MEDS: predniSONE 5 MG TAB PO SCH (10:39)
[2017-07-12] MEDS: HYDROXYCHLOROQUINE SULFATE 200 MG TAB PO SCH ×2 (10:39→21:12)
[2017-07-12] MEDS: FOLIC ACID 1 MG TAB PO SCH (10:41)
[2017-07-12] MEDS: FERROUS SULFATE 325 MG TAB PO SCH (10:43)
[2017-07-12] MEDS: SENNOSIDES/DOCUSATE SODIUM TAB PO SCH ×2 (10:43→21:13)
[2017-07-12] MEDS: GLUCOSAMINE SULF 500 MG CAP PO SCH ×2 (10:44→21:12)
[2017-07-12] MEDS: INSULIN GLARGINE 100 UNITS/ML UNIT SC SCH ×2 (11:48→21:13)
[2017-07-12] MEDS: INSULIN LISPRO 100 UNIT/ML SC SCH ×2 (13:38→18:18)
[2017-07-12] MEDS: ONDANSETRON DISINTEGRATING 4 MG TAB PO PRN (14:53)
[2017-07-12] MEDS ORDERED: WARFARIN SODIUM 2 MG TAB PO ONE (16:00)
[2017-07-12] MEDS: LEFLUNOMIDE 20 MG TAB PO SCH (16:25)
[2017-07-12] MEDS: ASPIRIN EC 81 MG TAB PO SCH (16:25)
[2017-07-12] MEDS: DOCUSATE SODIUM 100 MG CAP PO SCH ×2 (17:06→19:07)
[2017-07-12] MEDS: ASCORBIC ACID 500 MG TAB PO SCH (17:07)
[2017-07-12] MEDS: MAGNESIUM OXIDE 400 MG TAB PO SCH (17:08)
[2017-07-12] MEDS: PRAVASTATIN SODIUM 20 MG TAB PO SCH (21:13)
[2017-07-13] MEDS: OXYCODONE/APAP 5/325 TAB PO PRN ×4 (03:09→17:44)
[2017-07-13] MEDS: oxyCODONE IR 5 MG TAB PO PRN ×5 (03:10→22:00)
[2017-07-13] MEDS: INSULIN LISPRO 100 UNIT/ML SC SCH ×3 (08:24→17:46)
[2017-07-13] MEDS: FOLIC ACID 1 MG TAB PO SCH (08:30)
[2017-07-13] MEDS: SENNOSIDES/DOCUSATE SODIUM TAB PO SCH ×2 (08:30→20:08)
[2017-07-13] MEDS: CARVEDILOL 6.25 MG TAB PO SCH ×2 (08:30→17:45)
[2017-07-13] MEDS: DOCUSATE SODIUM 100 MG CAP PO SCH ×2 (08:30→18:19)
[2017-07-13] MEDS: PANTOPRAZOLE SODIUM 40 MG TAB PO SCH (08:30)
[2017-07-13] MEDS: FERROUS SULFATE 325 MG TAB PO SCH (08:30)
[2017-07-13] MEDS: HYDROXYCHLOROQUINE SULFATE 200 MG TAB PO SCH ×2 (08:30→20:08)
[2017-07-13] MEDS: predniSONE 5 MG TAB PO SCH (08:31)
[2017-07-13] MEDS: FUROSEMIDE 20 MG TAB PO SCH ×2 (08:31→16:10)
[2017-07-13] MEDS: GLUCOSAMINE SULF 500 MG CAP PO SCH ×2 (08:31→20:08)
[2017-07-13] MEDS: INSULIN GLARGINE 100 UNITS/ML UNIT SC SCH ×2 (08:45→21:49)
[2017-07-13] MEDS: ONDANSETRON DISINTEGRATING 4 MG TAB PO PRN (11:57)
[2017-07-13] MEDS: ASPIRIN EC 81 MG TAB PO SCH (12:45)
[2017-07-13] MEDS: LEFLUNOMIDE 20 MG TAB PO SCH (12:45)
[2017-07-13] MEDS: MAGNESIUM OXIDE 400 MG TAB PO SCH (12:47)
[2017-07-13] MEDS: ASCORBIC ACID 500 MG TAB PO SCH (12:47)
--- NOTE | 2017-07-13 13:05 | HOSPPROG ---
Hospitalist Progress Note Assessment/Plan: #Acute on chronic hypoxic resp failure: oxygen is now at baseline. Treated for HCAP. #HCAP: completed 7 day Invanz #RAMIN on CKD: Cr 2, at baseline. Improved with fluids. restart low-dose diuretics #Chronic lymphedema: Lasix 20mg BID. Cr stable. Normal EF on echo 07/07 #Atrial fibrillation: INR 3. #Normocytic anemia: H/H stable past few days. No active bleeding #Deconditioning: multiple admissions since May is concerning. PT/OT #CAD: followed by Dr. Armstrong, since no angina, medical treatment. BB #HTN: Lisinopril #Diastolic HF: normal EF. Resume Lasix, BP control. Lisinopril #HLD: statin #Chronic pain on opioids #Melanoma #DM 2: glargine, SSI #RA: home meds #Goals: kids have done research on SNFs and meeting with patient today. Possibly [facility]. Discussed palliative care with them, they want to think about #DVT ppx: coumadin Disp: cont inpatient admission for monitored diuresis. Awaiting SNF. He does not want to go back to [facility]. Referral to [facility] pending Subjective: mild crampy abd pain. No N/V Objective: Vital Signs Temp Pulse Resp BP Pulse Ox 36.5 C 87 17 120/62 93 07/13/17 11:43 07/13/17 11:43 07/13/17 11:43 07/13/17 11:43 07/13/17 11:43 Microbiology 07/06/17 23:15 Blood Culture - Final Blood 07/06/17 23:30 Blood Culture - Final Blood Laboratory Results 07/12/17 15:38 07/13/17 04:05 07/12/17 07/13/17 07/14/17 05:59 05:59 05:59 Intake Total 240 100 Output Total 2049 1625 300 Balance -1810 -1525 -300 PT 31.0 SEC (12.0-15.0) H 07/13/17 04:05 INR 3.00 (0.83-1.16) H 07/13/17 04:05 - Physical Exam Constitutional: chronically ill appearing, other (pale, tired) Eyes: PERRL Ears, Nose, Mouth, Throat: moist mucous membranes Cardiovascular: regular rate and rhythym, edema (trace pedal edema) Respiratory: rhonchi Gastrointestinal: normoactive bowel sounds, soft, non-tender abdomen Genitourinary: no bladder fullness Skin: warm, other (chronic venous stasis skin changes legs with flaking skin. 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
[2017-07-13] MEDS: PROMETHAZINE HCL 25 MG/ML INJ IVP PRN (14:13)
[2017-07-13] MEDS ORDERED: WARFARIN SODIUM 1 MG TAB PO SCH (16:00)
--- NOTE | 2017-07-13 16:36 | ASMTCMCOM ---
CM Note CM Note Notes: 07/13/[address] Castle's note today, pt is preferring [facility] in [place]. Faxed referral. Case Management d/c poc: to [facility] pending bed availability and authorization. Case Management to follow. Date Signed: 07/13/2017 04:35 PM Electronically Signed By:Camille Pollard RN
[2017-07-13] MEDS: PRAVASTATIN SODIUM 20 MG TAB PO SCH (20:08)
[2017-07-13] MEDS: HYDROmorphone HCL/NS 0.5 MG/ML SYR IVP PRN (20:09)
[2017-07-14 05:00] LABS: INR 3.14 (0.83-1.16); PROTIME(PATIENT) 32.1 SEC (12.0-15.0)
[2017-07-14] MEDS: OXYCODONE/APAP 5/325 TAB PO PRN ×4 (05:22→19:06)
[2017-07-14] MEDS: oxyCODONE IR 5 MG TAB PO PRN ×3 (05:22→20:52)
[2017-07-14] MEDS: INSULIN LISPRO 100 UNIT/ML SC SCH ×3 (07:56→18:16)
[2017-07-14] MEDS: PROMETHAZINE HCL 25 MG/ML INJ IVP PRN (08:04)
[2017-07-14] MEDS: FOLIC ACID 1 MG TAB PO SCH (09:50)
[2017-07-14] MEDS: predniSONE 5 MG TAB PO SCH (09:50)
[2017-07-14] MEDS: HYDROXYCHLOROQUINE SULFATE 200 MG TAB PO SCH ×2 (09:50→20:52)
[2017-07-14] MEDS: CARVEDILOL 6.25 MG TAB PO SCH ×2 (09:50→18:20)
[2017-07-14] MEDS: PANTOPRAZOLE SODIUM 40 MG TAB PO SCH (09:50)
[2017-07-14] MEDS: FUROSEMIDE 20 MG TAB PO SCH ×2 (09:50→14:52)
[2017-07-14] MEDS: DOCUSATE SODIUM 100 MG CAP PO SCH (10:23)
[2017-07-14] MEDS: GLUCOSAMINE SULF 500 MG CAP PO SCH (10:23)
[2017-07-14] MEDS: FERROUS SULFATE 325 MG TAB PO SCH (10:23)
[2017-07-14] MEDS: SENNOSIDES/DOCUSATE SODIUM TAB PO SCH (10:23)
[2017-07-14] MEDS: INSULIN GLARGINE 100 UNITS/ML UNIT SC SCH ×2 (10:46→20:53)
[2017-07-14] MEDS: ONDANSETRON DISINTEGRATING 4 MG TAB PO PRN (12:09)
[2017-07-14] MEDS: HYDROmorphone HCL/NS 0.5 MG/ML SYR IVP PRN ×3 (12:32→22:20)
--- NOTE | 2017-07-14 14:37 | HOSPPROG ---
Hospitalist Progress Note Assessment/Plan: #Acute on chronic hypoxic resp failure: oxygen is now at baseline. Treated for HCAP. #HCAP: completed 7 day Invanz. Suspect aspiration. Speech eval tomorrow #Suspected dysphagia: speech eval. Decrease pill burden; DC several supplements #RAMIN on CKD: Cr 2, at baseline. Improved with fluids. restart low-dose diuretics #Chronic lymphedema: Lasix 20mg BID. Cr stable. Normal EF on echo 07/07 #Atrial fibrillation: INR 3. Hold dose today. Will have to monitor with Effexor #Suspected dementia: per son. #Normocytic anemia: H/H stable past few days. No active bleeding #Deconditioning: multiple admissions since May is concerning. PT/OT #CAD: followed by Dr. Armstrong, since no angina, medical treatment. BB #HTN: Lisinopril #Diastolic HF: normal EF. Resume Lasix, BP control. Lisinopril #HLD: statin #Chronic pain with opioid dependence: has an unusual amount of pain with minimal movement or touch. Suspect depression playing a role. Rec Effexor to son for mood and pain management and pain agrees #Melanoma #DM 2: glargine, SSI #RA: home meds #Goals: kids had phone meeting yesterday and are looking at [facility] today. I recommended Palliative care at [facility] and son agrees. #DVT ppx: coumadin Disp: cont inpatient admission for monitored diuresis. Awaiting SNF. He does not want to go back to [facility]. Referral to [facility] pending Time spent on visit: 60 min reviewing labs, discussing medical and discharge plan with son Subjective: "right knee was yanked on by aide last night" Not as painful today Objective: Vital Signs Temp Pulse Resp BP Pulse Ox 36.6 C 81 16 116/60 94 07/14/17 07:53 07/14/17 07:53 07/14/17 07:53 07/14/17 07:53 07/14/17 07:53 Laboratory Results 07/12/17 15:38 07/14/17 04:12 07/13/17 07/14/17 07/15/17 05:59 05:59 05:59 Intake Total 100 1300 Output Total 1625 1300 Balance -1525 0 PT 32.1 SEC (12.0-15.0) H 07/14/17 04:12 INR 3.14 (0.83-1.16) H 07/14/17 04:12 - Time Spent With Patient Time Spent with Patient: greater than 35 minutes Time Spent with Patient: Greater than 35 minutes spent on this patients care, greater than 50% of time spent counseling, educating, and coordinating care regarding the above mentioned plan. - Physical Exam Constitutional: chronically ill appearing, other (pale, tired) Eyes: PERRL, pale conjunctiva Ears, Nose, Mouth, Throat: moist mucous membranes, hard of hearing (hard of hearing right ear) Respiratory: no respiratory distress, rhonchi Gastrointestinal: normoactive bowel sounds, soft, non-tender abdomen Genitourinary: no bladder fullness Skin: warm Musculoskeletal: full muscle strength, other (chronic venous stasis changes legs. 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
[2017-07-14] MEDS: ASPIRIN EC 81 MG TAB PO SCH (14:52)
[2017-07-14] MEDS: LEFLUNOMIDE 20 MG TAB PO SCH (14:52)
[2017-07-14] MEDS: IPRATROPIUM/ALBUTEROL 3 ML DEYVIAL IH PRN ×2 (16:51→22:39)
[2017-07-14] MEDS: PRAVASTATIN SODIUM 20 MG TAB PO SCH (20:52)
[2017-07-14] MEDS ORDERED: VENLAFAXINE XR 37.5 MG CAP PO SCH (21:00)
[2017-07-15] MEDS: OXYCODONE/APAP 5/325 TAB PO PRN ×3 (01:07→16:01)
[2017-07-15] MEDS: oxyCODONE IR 5 MG TAB PO PRN ×3 (01:07→16:03)
[2017-07-15] MEDS: PROMETHAZINE HCL 25 MG/ML INJ IVP PRN ×2 (01:31→08:47)
[2017-07-15] MEDS: ONDANSETRON DISINTEGRATING 4 MG TAB PO PRN ×3 (04:19→16:00)
[2017-07-15 04:58] VITALS: RESP 18
[2017-07-15 05:01] LABS: INR 2.95 (0.83-1.16); PROTIME(PATIENT) 30.6 SEC (12.0-15.0)
[2017-07-15] MEDS: HYDROmorphone HCL/NS 0.5 MG/ML SYR IVP PRN ×2 (05:33→08:48)
[2017-07-15] MEDS: INSULIN LISPRO 100 UNIT/ML SC SCH ×2 (07:46→11:31)
--- NOTE | 2017-07-15 08:15 | HOSPPROG ---
Hospitalist Progress Note Assessment/Plan: #Nausea/vomiting: AXR negative for ileus, check LFTs #Acute on chronic hypoxic resp failure: resolved. At baseloine oxygen. Treated for HCAP. #HCAP: completed 7 day Invanz. Suspect aspiration. Speech eval tomorrow #Suspected dysphagia: speech eval. Decrease pill burden; DC several supplements #RAMIN on CKD: Cr 2.2 at baseline. Improved with fluids. restart low-dose diuretics #Chronic lymphedema: Lasix 20mg BID. Cr stable. Normal EF on echo 07/07 #Atrial fibrillation: INR 3. Hold dose today. Will have to monitor with Effexor #Suspected dementia: per son. #Normocytic anemia: H/H stable past few days. No active bleeding #Deconditioning: multiple admissions since May is concerning. PT/OT #CAD: followed by Dr. Armstrong, since no angina, medical treatment. BB #HTN: Lisinopril #Diastolic HF: normal EF. Resume Lasix, BP control. Lisinopril #HLD: statin #Chronic pain with opioid dependence: has an unusual amount of pain with minimal movement or touch. Suspect depression playing a role. Rec Effexor to son for mood and pain management and pain agrees #Melanoma #DM 2: glargine, SSI #RA: home meds #Goals: kids had phone meeting yesterday and are looking at [facility] today. I recommended Palliative care at [facility] and son agrees. #DVT ppx: coumadin Disp: DC to [facility] with hospice Subjective: pain all over. Nausea Objective: Vital Signs Temp Pulse Resp BP Pulse Ox 36.8 C 99 18 122/74 H 91 L 07/15/17 04:00 07/15/17 04:00 07/15/17 04:00 07/15/17 04:00 07/15/17 04:00 Laboratory Results 07/12/17 15:38 07/15/17 04:40 07/14/17 07/15/17 07/16/17 05:59 05:59 05:59 Intake Total 1300 500 Output Total 1300 1100 Balance 0 -600 PT 30.6 SEC (12.0-15.0) H 07/15/17 04:40 INR 2.95 (0.83-1.16) H 07/15/17 04:40 - Physical Exam Constitutional: chronically ill appearing Eyes: PERRL Ears, Nose, Mouth, Throat: dry mucous membranes Cardiovascular: regular rate and rhythym, no murmur, rub, or gallop Respiratory: no respiratory distress Gastrointestinal: normoactive bowel sounds Genitourinary: no bladder fullness Skin: other (chronic venous stasis changes) Musculoskeletal: generalized weakness Neurologic: CN II-XII Intact Psychiatric: depressed, flat affect ICD10 Worksheet Patient Problems: Problems Problem Status Onset Supraventricular tachycardia Active Cellulitis Acute Cellulitis of right foot Acute Diabetic foot ulcer Acute Lymphedema of both lower extremities Acute Lymphedema of leg Acute Pneumonia Acute Renal failure (ARF), acute on chronic Acute 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
[2017-07-15 08:45] VITALS: O2SAT 92
--- NOTE | 2017-07-15 09:00 | ASMTCMCOM ---
CM Note CM Note Notes: 07/15/2017 Case Management Note Met w/pt, , son and daughter to discuss placement at [facility] yesterday 07/14 from 1715 - 1800. [facility] has not accepted pt yet. Family toured the facility yesterday and met with administrators there. Discussed Medicaid application process. Encouraged family to discuss with SNF rehab. Discussed need for Palliative Consult. Family considering [facility] or [facility]. Referral will need to be sent once family makes choice. Pt states goal is to return home if able. Discussed option for family to consider is to return home under hospice with family hiring / caregivers. Family felt this cost might be to expensive at this time. Notified RN and charge out clerk of details of conversation last night. Discussed case with field nurse case manager this morning. Case Mangement to meet with family today. Date Signed: 07/15/2017 08:59 AM Electronically Signed By:Camille Pollard RN
[2017-07-15] MEDS: CARVEDILOL 6.25 MG TAB PO SCH (12:14)
[2017-07-15] MEDS: INSULIN GLARGINE 100 UNITS/ML UNIT SC SCH (12:14)
[2017-07-15] MEDS: HYDROXYCHLOROQUINE SULFATE 200 MG TAB PO SCH (12:16)
[2017-07-15] MEDS: FUROSEMIDE 20 MG TAB PO SCH ×2 (12:16→15:59)
[2017-07-15] MEDS: FOLIC ACID 1 MG TAB PO SCH (12:16)
[2017-07-15] MEDS: PANTOPRAZOLE SODIUM 40 MG TAB PO SCH (12:17)
[2017-07-15 12:27] VITALS: BP 117/63; PULSE 90; TEMP 98.2
--- NOTE | 2017-07-15 14:17 | PDIAF ---
- Diagnosis Diagnosis: Chronic pain, lymphedema Code Status: Do Not Resuscitate - Medication Management Discharge Medications: Medications to Continue on Transfer Ondansetron Odt [Zofran Odt 4 mg (*)] 4 mg PO Q4 PRN 07/05/17 [Last Taken Unknown] oxyCODONE/APAP 5/325 [Percocet 5/325 (*)] 1 tab PO DAILY PRN 07/05/17 [Last Taken 07/05/17] Furosemide [Lasix 20 MG (*)] 20 mg PO BID@0900,1500 tab 07/15/17 [Last Taken Unknown] HYDROmorphone HCL/NS [HYDROmorphone] 0.5 - 1 mg IVP Q4HRS PRN syr 07/15/17 [ Last Taken Unknown] Ipratropium/Albuterol [Duoneb (*)] 3 ml IH Q6HRS PRN deyvial 07/15/17 [Last Taken Unknown] oxyCODONE IR [Oxycodone Ir (*)] 5 - 10 mg PO Q4H PRN tab 07/15/17 [Last Taken Unknown] Discharge Medications: Refer to the Discharge Home Medication list for PRN reason. - Orders Services needed: Registered Nurse, Certified Lozenge Dough Mixer, Master Shopper'S Aide Isolation Type: None Diet Recommendation: no restrictions on diet - Follow Up Care Current Providers and Referrals: Patient,NotPresent [Unknown] - As per Instructions
[2017-07-15] MEDS: IPRATROPIUM/ALBUTEROL 3 ML DEYVIAL IH PRN (14:49)
--- NOTE | 2017-07-15 14:54 | GDS ---
[f rep st] DISCHARGE SUMMARY DISCHARGE DIAGNOSES: 1. Chronic lymphedema. 2. Acute kidney injury, now resolved. 3. Acute on chronic hypoxic respiratory failure. 4. Healthcare-associated pneumonia. 5. Suspected dysphagia. 6. Atrial fibrillation, suspect dementia. 7. Normocytic anemia. 8. Deconditioning. 9. Coronary disease. 10. Hypertension. 11. Chronic pain, with opioid dependence. 12. Anxiety. 13. Diastolic heart failure. 14. Suspected depression. 15. Hyperlipidemia. 16. Melanoma. 17. Type 2 diabetes. 18. Rheumatoid arthritis. 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 A fter that, he was discharged but ultimately readmitted to [facility] for a few days wit h increased leg swelling. He was then discharged there to [facility] for further rehabilitation. Ov er the past few days, his appetite had diminished due to nausea. He has been drinking but not eating very much. He was also treated for a UTI. HOSPITAL COURSE BY PROBLEM: 1. Acute on chronic CKD: This was secondary to over diuresis. At [facility], he had been on 80 mg of Lasix plus 25 of Aldactone. This resolved with IV fluids. 2. Chronic lymphedema. Restarted Lasix at a lower dose, 20 mg b.i.d., with good urinary output. I would be hesitant to increase this dose given risk for RAMIN. 3. Acute on chronic hypoxic respiratory failure. This is secondary to healthcare-associated pneumon ia. He is now at his baseline of 2 L. 4. Healthcare-associated pneumonia, treated with 7 days of Invanz, likely aspiration. 5. Chronic atrial fibrillation. INR was therapeutic. Will discontinue Coumadin, now on hospice. 6. Suspected dementia. Can trial Zyprexa, low dose. If agitated, would avoid benzos. 7. Normocytic anemia. H and H are stable. 8. Coronary artery disease. Is on medical treatments. Will decrease pill burden and discontinue hi s beta-jak. 9. Diastolic heart failure, and he had a normal EF on last echo. Resume lower dose Lasix for comfor t with chronic lymphedema. 10. Chronic pain with opioid dependence. He has an exquisite amount of pain out of proportion when he is touched. Suspect anxiety and depression may be playing a role in this. Will continue his home opioid dose and has received a few doses of intravenous Dilaudid here, which we can continue. 11. Type 2 diabetes, treated with glargine and sliding scale insulin. 12. Nausea: Abdominal x-ray was negative for ileus. LFTs were pretty unremarkable. May be associa abdi to pain medications. We will continue p.r.n. Federicoan. GOALS: I had several conversations with patient's and kids. They met with hospice today and ag ree for inpatient transfer. He is stable for discharge. MEDICATIONS: See medication reconciliation. /[id number]/MODL
--- NOTE | 2017-07-15 15:27 | ASMTCMCOM ---
CM Note CM Note Notes: Palliative care meeting done with Markus from palliative Care and Maria Antonia schmid [facility] met with the patient's son and to discuss palliative vs hospice care. They family is agreeable to hospice care services at this time. Awaiting final ok from [facility] for discharge disposition. Due to the change in status, no longer need [place]-way medicaid in progress. CM available if needs arise. Date Signed: 07/15/2017 03:26 PM Electronically Signed By:Anne Marie Ortiz RN
[2017-07-15] MEDS: LEFLUNOMIDE 20 MG TAB PO SCH (15:59)
[2017-07-15] MEDS: ASPIRIN EC 81 MG TAB PO SCH (15:59)
[2017-07-15] MEDS ORDERED: WARFARIN SODIUM 1 MG TAB PO ONE (16:00)
[2017-07-15] MEDS: predniSONE 5 MG TAB PO SCH (16:00)
--- NOTE | 2017-07-16 14:23 | ASDISCHSUM ---
Discharge Information Plan Status:Hospice-Inpatient Medically Cleared to Leave:07/15/2017 Discharge Date:07/15/2017 04:37 PM D/C Disposition:Hospice Facility ADT D/C Disposition:Hospice Facility Projected Discharge Date:07/16/2017 11:00 AM Transportation at D/C:ALS/BLS Discharge Delay Reason: Follow-Up Date:07/16/2017 11:00 AM Discharge Slot: Final Diagnosis: Placement Information Referral Type:*Alf/SNF Referral ID:[id number] Provider Name: Address 1: Phone Number: Address 2: Fax Number: [facility]: Selection Factors: State: Referral Type:Palliative Care Referral ID:[id number] Provider Name: Address 1: Phone Number: Address 2: Fax Number: City: Selection Factors: State: Referral Type:*Hospice Referral ID:[id number] Provider Name:[facility] Address 1:[address] Phone Number: Address 2: Fax Number: [facility]:[place] Selection Factors: State:[place] Patient Contact Information Contact Name:BAKARI Relationship: Address:[address] City:[place] Alternate Phone: State/Zip Code:[place] [address] Email: Financial Information Financial Class:Medicare Primary Plan Desc:MEDICARE INPATIENT Primary Plan Number:[id number] Secondary Plan Desc:AARWillie/MDR SUPPLEMENT Secondary Plan Number:[id number] Assessment Information [facility] CM Progress Note CM Note CM Note Notes: Pt presented to the Emergency Department today for an elevated creatinine (4.0). Pt was recently discharged from [facility] ([facility]) where he was being treated for wound care secondary to lymphedema. Per MD notes, the pt was discharged from [facility] to [facility] for weakness and the inability to ambulate. The pt was sent to [facility] from [facility]. The pt is and normally lives with his . Reviewed chart regarding discharge plan, pt's progress. Pt to be admitted for further evaluation and treatment. Discharge needs remain unclear at this time. Anticipate pt may return to [facility]. CM will cont to follow. Current Discharge Plan: To be determined Date Signed: 07/05/2017 01:40 PM Electronically Signed By:Alicia Kamara RN [facility] CM Progress Note CM Note CM Note Notes: Updates sent to [facility] via [employer]. Per Katarina, Pt. is welcome back. Pt. normally lives w/ his , Kasandra. Katarina states Pt's son is involved - Alexander Cunningham . CM to follow with Pt. and family for d/c POC. Date Signed: 07/06/2017 10:57 AM Electronically Signed By:Lupe Lynne LCSW [facility] CM Progress Note CM Note CM Note Notes: Chart reviewed. Discharge plan of care reamins to SNF. [facility] has had patient and is willing to take patient back upon dc. CM to follow. Date Signed: 07/08/2017 12:13 PM Electronically Signed By:Anne Marie Ortiz RN [facility] CM Progress Note CM Note CM Note Notes: Met with pt's two sons today. They were not happy with [facility] and are looking for a facility that will take him for rehab and be able to switch him to a LTC medicaid bed. Discussed finances with family and it appears pt will qualify for LTC medicaid. They have had a discussion with [facility] and they have indicated they will be able to do both. The sons asked that no paperwork be sent to [facility] or [facility] notified until after the six siblings have a phone conversation Saturday morning. Due to pt's pain, palliative care suggested. they will discuss with pt's because they think she may have an agency in mind. Sons asked for other supportive ideas and [facility] suggested for pt's . It offers in-home counseling. CM will continue to follow. Date Signed: 07/10/2017 05:09 PM Electronically Signed By:Odilia Mott LCSW [facility] CM Progress Note CM Note CM Note Notes: 07/13/[address] Castle's note today, pt is preferring [facility] in [place]. Faxed referral. Case Management d/c poc: to [facility] pending bed availability and authorization. Case Management to follow. Date Signed: 07/13/2017 04:35 PM Electronically Signed By:Camille Pollard RN [facility] CM Progress Note CM Note CM Note Notes: 07/15/2017 Case Management Note Met w/pt, , son and daughter to discuss placement at [facility] yesterday 07/14 from 1715 - 1800. [facility] has not accepted pt yet. Family toured the facility yesterday and met with administrators there. Discussed Medicaid application process. Encouraged family to discuss with SNF rehab. Discussed need for Palliative Consult. Family considering [facility] or [facility]. Referral will need to be sent once family makes choice. Pt states goal is to return home if able. Discussed option for family to consider is to return home under hospice with family hiring / caregivers. Family felt this cost might be to expensive at this time. Notified RN and medical charge entry specialist of details of conversation last night. Discussed case with supervisor case loading this morning. Case Mangement to meet with family today. Date Signed: 07/15/2017 08:59 AM Electronically Signed By:Camille Pollard RN [facility] CM Progress Note CM Note CM Note Notes: Palliative care meeting done with Markus from palliative Care and Maria [facility] from [facility] met with the patient's son and to discuss palliative vs hospice care. They family is agreeable to hospice care services at this time. Awaiting final ok from [facility] for discharge disposition. Due to the change in status, no longer need [facility] med[facility] in progress. CM available if needs arise. Date Signed: 07/15/2017 03:26 PM Electronically Signed By:Anne Marie Ortiz RN Intervention Information Intervention Type:*IM-Signed Date of Service:07/15/2017 04:12 PM Patient Type:Inpatient Staff Member:REYNALDO Ortiz Margaret Hours: Discipline: Severity: Comment:
== END 2017-07-15 16:37 | disposition hospice, home (50) | DRG 682 ==
LOC: EDUNIT# → OBSVTOIN 13:21 → INTOOBSV 13:21 → F3E 15:33 → F2N 07-06 23:00 → F1N 07-07 18:15
PROVIDERS: ADMIT Family Medicine; ATTEND Family Medicine
DX: N17.9 Acute kidney failure, unspecified (principal); E11.22 Type 2 diabetes mellitus with diabetic chronic kidney disease; N18.4 Chronic kidney disease, stage 4 (severe); J96.21 Acute and chronic respiratory failure with hypoxia; J69.0 Pneumonitis due to inhalation of food and vomit; R13.10 Dysphagia, unspecified; I89.0 Lymphedema, not elsewhere classified; M06.9 Rheumatoid arthritis, unspecified; L89.512 Pressure ulcer of right ankle, stage 2; L89.522 Pressure ulcer of left ankle, stage 2; I50.30 Unspecified diastolic (congestive) heart failure; G89.29 Other chronic pain; F11.20 Opioid dependence, uncomplicated; N39.0 Urinary tract infection, site not specified; E66.01 Morbid (severe) obesity due to excess calories; Z68.34 Body mass index [BMI] 34.0-34.9, adult; I48.91 Unspecified atrial fibrillation; I25.10 Atherosclerotic heart disease of native coronary artery without angina pectoris; K21.9 Gastro-esophageal reflux disease without esophagitis; Z99.81 Dependence on supplemental oxygen; Z98.1 Arthrodesis status; Z79.01 Long term (current) use of anticoagulants
CPT/HCPCS: 97162-GP; 97166-GO; 97530-GO; 97530-GP; 97535-GO; G8978-GP-CM; G8979-GP-CK; G8987-GO-CL; G8988-GO-CJ; J1170; J1335; J1815; J2550; J7512